=== PATIENT | female | born 1935 | race Caucasian/White ===

== ENCOUNTER 2021-10-01 19:35 | Inpatient (IN) ==
--- NOTE | 2021-10-01 20:43 | XRay Report ---
XR chest 1V portable HISTORY: 86 years-old Female SOB acute cough with shortness of breath COMPARISON: None TECHNIQUE: Portable AP view the chest FINDINGS: Cardiac silhouette is moderately enlarged. Calcified plaque the thoracic aorta. Moderate consolidatio n of the right lung base with probable trace right pleural effusion. No pneumothorax or overt pulmona ry edema. Degenerative changes of the shoulders and spine. Left atrial occlusion device. IMPRESSION: 1. Right basilar consolidation is suggestive of pneumonia. 2. Trace right parapneumonic effusion. 3. Cardiomegaly. ACT 112: Negative or not required by law. The above report was generated using voice recognition software. It may contain grammatical, syntax o r spelling errors. Electronically signed by: Walter Pedraza M.D. 10/01/2021 8:42 PM
[2021-10-01] MEDS ORDERED: cefTRIAXone SODIUM 1,000 MG/50 ML BAG IV STA (20:46)
[2021-10-01] MEDS ORDERED: AZITHROMYCIN 500 MG in DEXTROSE 5% 250 ML IV STA (20:46)
[2021-10-01 20:47] LABS: Basophils # (auto) 0.01 K/uL (0-0.2); Basophils % (auto) 0.1 %; Hemoglobin 13.8 g/dL (12.0-16.0); Immature Granulocytes # (auto) 0.03 K/uL (0.00-0.02); Immature Granulocytes % (auto) 0.2 %; Lymphocytes # (auto) 0.57 K/uL (1.2-3.4); Lymphocytes % (auto) 3.5 %; Mean Corpuscular Hemoglobin 31.9 pg (25-34); Mean Corpuscular Hgb Conc 34.5 g/dL (32-36); Mean Corpuscular Volume 92.4 fL (80-100); Mean Platelet Volume 10.1 fL (7.4-10.4); Monocytes # (auto) 0.92 K/uL (0.11-0.59); Monocytes % (auto) 5.6 %; Neutrophils # (auto) 14.91 K/uL (1.4-6.5); Neutrophils % (auto) 90.6 %; Platelet Count 253 K/uL (130-400); RDW Coefficient of Variation 13.1 % (11.5-14.5); RDW Standard Deviation 44.4 fL (36.4-46.3); Red Blood Count 4.33 M/uL (4.2-5.4); White Blood Count 16.44 K/uL (4.8-10.8)
[2021-10-01 21:03] LABS: INR 1.1 (0.9-1.1); Partial Thromboplastin Ratio 1.1; Partial Thromboplastin Time 28.5 Seconds (21.0-31.0); Prothrombin Time 10.7 Seconds (9.0-12.0)
[2021-10-01 21:19] LABS: Alanine Aminotransferase 23 U/L (12-78); Albumin Globulin Ratio 0.8 (0.9-2); Albumin Level 3.2 gm/dl (3.4-5.0); Alkaline Phosphatase 57 U/L (45-117); Aspartate Aminotransferase 19 U/L (15-37); BUN Creatinine Ratio 19.3 (10-20); Blood Urea Nitrogen 22 mg/dl (7-18); Calcium 8.9 mg/dl (8.5-10.1); Carbon Dioxide 26 mmol/L (21-32); Chloride 102 mmol/L (98-107); Est GFR (African American) 51.9 ml/min; Est GFR (Non-African American) 44.8 ml/min; Globulin 3.9 gm/dl (2.5-4.0); Glucose 163 mg/dl (70-99); Potassium 3.5 mmol/L (3.5-5.1); Sodium 136 mmol/L (136-145); Total Protein 7.1 gm/dl (6.4-8.2); Troponin I < 0.015 ng/ml (0-0.045)
--- NOTE | 2021-10-01 22:17 | Emergency Department Note ---
Impression & Plan Community acquired pneumonia, Hypoxic ED Provider Note NAME: BOBO JARAMILLO AGE: 86 SEX: F : 1935 ARRIVES VIA: Walk-In INFORMANT: Patient ED PROVIDER(S): Kun Fernandez DO CHIEF COMPLAINT: Shortness of breath cough HPI: Patient is an 86-year-old female who presents the ER for upper respiratory symptoms. This started 1 week ago. She has a cough which she is bringing up phlegm. She admits to a runny nose. She has some faint shortness of breath. She is been around multiple people that have been sick recently. She had a at home negative Covid test. She denies any chest pain belly pain nausea vomiting or diarrhea. No dysuria urgency or frequency. She did just recently moved here from [place]. No other exacerbating or remitting factors. ROS: See above HPI for pertinent positives & negatives. A total of 10 systems reviewed and were otherwise negative. PAST MEDICAL HISTORY:See Below PAST SURGICAL HISTORY:See Below FAMILY HISTORY:See Below SOCIAL HISTORY:See Below HOME MEDICATIONS:See Below ALLERGIES:See Below VITALS:See Below PHYSICAL EXAMINATION: GENERAL: Sitting up in bed, alert, disheveled, slightly ill-appearing EYE EXAM: normal conjunctiva. PERRL and EOM's grossly intact. OROPHARYNX: Dry mucous membranes NECK: supple, no nuchal rigidity, no adenopathy, non-tender LUNGS: Rhonchi bilateral bases. Normal chest wall mechanics HEART: no murmurs, S1 normal and S2 normal ABDOMEN: abdomen soft, non-tender, normo-active bowel sounds, no masses, no rebound or guarding. UPPER EXTREMITIES: upper extremities are grossly normal. LOWER EXTREMITIES: No pitting edema. Calves are equal bilateral NEURO EXAM: Normal sensorium, cranial nerves II-XII grossly intact, normal speech, no gross weakness of arms, no gross weakness of legs. MEDICAL DECISION MAKING: Patient is an 86-year-old female who presents ER for the above stated complaint. IV was established blood was obtained. Labs show leukocytosis 16,000. No significant anemia. INR was unremarkable. BMP with LFTs bilirubin and troponin was negative. Covid was negative. Chest x-ray with a clear right lower lobe infiltrate. She was given IV Rocephin and azithromycin. She was placed on 3 L nasal cannula she was hypoxic at 87% on room air. She is updated bedside discussed with hospitalist admitted for further work-up. Triage Nursing notes reviewed. Limited review of prior medical records performed Vital Signs: reviewed and remarkable for hypoxic Differential diagnosis: Differential diagnoses includes but is not limited to pneumonia, bronchitis, COPD/Asthma exacerbation, pneumothorax, pulmonary embolism, congestive heart failure, acute coronary syndrome ER treatment provided: See below Diagnostics interpreted by me: ECG: Atrial fib rate of 98 Left axis T wave inversion V1 through V5 Nonspecific ST wave changes in the high lateral leads QTC 469 Cardiac Monitoring: An order was placed for continuous cardiac monitoring. The monitor shows a rate of 92 with afib rhythm. Laboratory studies: As stated above and show below. Imaging studies: Chest x-ray shows a right lower lobe infiltrate Consultation(s): Discussed with hospitalist for further evaluation Dr. Sarika Vogel Procedures: none Critical Care: I have personally spent 35 minutes of critical care time in the direct management of this patient. This includes bedside care, interpretation of diagnostic studies, and testing, discussion with consultants, patient, and family members, and other required patient management activities. This 35 minutes is in excess of all separately billable procedures. Past Med/Surg History Social History Smoking Status: Never smoker Preferred Language: Dutch Feels Safe at Home: Yes Home Meds Home Medications Medication Instructions Recorded Confirmed carvedilol 12.5 mg tablet 12.5 mg PO BID 10/01/21 10/01/21 furosemide 40 mg tablet 40 mg PO UD 10/01/21 10/01/21 latanoprost 0.005 % eye drops 1 drp OPHTHALMIC (EYE) UD 10/01/21 10/01/21 levothyroxine 75 mcg tablet 75 mcg PO DAILYBB 10/01/21 10/01/21 sacubitril 97 mg-valsartan 103 mg 1 tab PO BID 10/01/21 10/01/21 tablet (Entresto) Results & Data (ED) Vital Signs Vital Signs - 24 hr 10/01/21 19:43 10/01/21 20:21 10/01/21 20:30 Temperature 36.7 C Temperature Source Temporal Artery Scan Pulse Rate 107 H 82 100 H Pulse Rate from SpO2 Sensor 98 H 102 H Respiratory Rate 22 29 H 31 H Respiratory Effort / Characteristics Non-Labored Spontaneous Respiratory Pattern Regular Blood Pressure 136/87 141/97 H Blood Pressure Mean 103 111 Blood Pressure Position Sitting Pulse Oximetry 91 96 95 Oxygen Delivery Method Room Air Oxygen Flow Rate Sepsis Recent Fever Within 48 Hours No Sepsis New/Unexplained Change in Mental Status N/A Sepsis Action Taken by Nursing No Action Required Pulse Oximetry Post Tiitration 10/01/21 20:36 10/01/21 21:00 10/01/21 21:30 Temperature Temperature Source Pulse Rate 94 H 88 Pulse Rate from SpO2 Sensor 96 H 92 H Respiratory Rate 27 H 18 Respiratory Effort / Characteristics Respiratory Pattern Blood Pressure 145/91 H 138/79 Blood Pressure Mean 109 98 Blood Pressure Position Pulse Oximetry 88 L 97 97 Oxygen Delivery Method Room Air Oxygen Flow Rate 3 Sepsis Recent Fever Within 48 Hours Sepsis New/Unexplained Change in Mental Status Sepsis Action Taken by Nursing Pulse Oximetry Post Tiitration 96 Laboratory Data Result diagrams: 10/01/21 Unknown 10/01/21 Unknown Lab Results 10/01/21 10/01/21 10/01/21 Range/Units 20:44 20:44 Unknown WBC 16.44 H (4.8-10.8) K/uL RBC 4.33 (4.2-5.4) M/uL Hgb 13.8 (12.0-16.0) g/dL Hct 40.0 (37-47) % MCV 92.4 (80-100) fL MCH 31.9 (25-34) pg MCHC 34.5 (32-36) g/dL RDW Std Deviation 44.4 (36.4-46.3) fL RDW Coeff of Chanel 13.1 (11.5-14.5) % Plt Count 253 (130-400) K/uL MPV 10.1 (7.4-10.4) fL Immature Gran % (Auto) 0.2 % Neut % (Auto) 90.6 % Lymph % (Auto) 3.5 % Bandera % (Auto) 5.6 % Eos % (Auto) 0.0 % Baso % (Auto) 0.1 % Neut # (Auto) 14.91 H (1.4-6.5) K/uL Lymph # (Auto) 0.57 L (1.2-3.4) K/uL Bandera # (Auto) 0.92 H (0.11-0.59) K/uL Eos # (Auto) 0.00 (0-0.5) K/uL Baso # (Auto) 0.01 (0-0.2) K/uL Immature Gran # (Auto) 0.03 H (0.00-0.02) K/uL PT (9.0-12.0) Seconds INR (0.9-1.1) APTT (21.0-31.0) Seconds PTT Ratio Sodium (136-145) mmol/L Potassium (3.5-5.1) mmol/L Chloride (98-107) mmol/L Carbon Dioxide (21-32) mmol/L Anion Gap (3-11) BUN (7-18) mg/dl Creatinine (0.6-1.2) mg/dl Est Cr Clr Drug Dosing Est GFR ( Amer) ml/min Est GFR (Non-Af Amer) ml/min BUN/Creatinine Ratio (10-20) Glucose (70-99) mg/dl Calcium (8.5-10.1) mg/dl Magnesium (1.8-2.4) mg/dl Total Bilirubin (0.2-1) mg/dl AST (15-37) U/L ALT (12-78) U/L Alkaline Phosphatase (45-117) U/L Troponin I (0-0.045) ng/ml Total Protein (6.4-8.2) gm/dl Albumin (3.4-5.0) gm/dl Globulin (2.5-4.0) gm/dl Albumin/Globulin Ratio (0.9-2) COVID-19 Eval Order Covid19 at [facility] SARS-CoV-2 (PCR) NEGATIVE (Negative) 10/01/21 10/01/21 Range/Units Unknown Unknown WBC (4.8-10.8) K/uL RBC (4.2-5.4) M/uL Hgb (12.0-16.0) g/dL Hct (37-47) % MCV (80-100) fL MCH (25-34) pg MCHC (32-36) g/dL RDW Std Deviation (36.4-46.3) fL RDW Coeff of Chanel (11.5-14.5) % Plt Count (130-400) K/uL MPV (7.4-10.4) fL Immature Gran % (Auto) % Neut % (Auto) % Lymph % (Auto) % Bandera % (Auto) % Eos % (Auto) % Baso % (Auto) % Neut # (Auto) (1.4-6.5) K/uL Lymph # (Auto) (1.2-3.4) K/uL Bandera # (Auto) (0.11-0.59) K/uL Eos # (Auto) (0-0.5) K/uL Baso # (Auto) (0-0.2) K/uL Immature Gran # (Auto) (0.00-0.02) K/uL PT 10.7 (9.0-12.0) Seconds INR 1.1 (0.9-1.1) APTT 28.5 (21.0-31.0) Seconds PTT Ratio 1.1 Sodium 136 (136-145) mmol/L Potassium 3.5 (3.5-5.1) mmol/L Chloride 102 (98-107) mmol/L Carbon Dioxide 26 (21-32) mmol/L Anion Gap 8.0 (3-11) BUN 22 H (7-18) mg/dl Creatinine 1.12 (0.6-1.2) mg/dl Est Cr Clr Drug Dosing Not Reportable Est GFR ( Amer) 51.9 ml/min Est GFR (Non-Af Amer) 44.8 ml/min BUN/Creatinine Ratio 19.3 (10-20) Glucose 163 H (70-99) mg/dl Calcium 8.9 (8.5-10.1) mg/dl Magnesium 2.0 (1.8-2.4) mg/dl Total Bilirubin 1.0 (0.2-1) mg/dl AST 19 (15-37) U/L ALT 23 (12-78) U/L Alkaline Phosphatase 57 (45-117) U/L Troponin I < 0.015 (0-0.045) ng/ml Total Protein 7.1 (6.4-8.2) gm/dl Albumin 3.2 L (3.4-5.0) gm/dl Globulin 3.9 (2.5-4.0) gm/dl Albumin/Globulin Ratio 0.8 L (0.9-2) COVID-19 Eval Order SARS-CoV-2 (PCR) (Negative) Administered Medications Azithromycin 500 mg/ Dextrose 255 mls @ 127.5 mls/hr IV NOW STA Stop: 10/01/21 22:45 Last Admin: 10/01/21 21:36 Dose: 127.5 mls/hr Documented by: [id number] Discontinued Medications Ceftriaxone Sodium (Rocephin) 1,000 mg in 50 mls @ 100 mls/hr IV NOW STA Stop: 10/01/21 21:15 Last Infusion: 10/01/21 21:36 Dose: 0 mls/hr Documented by: [id number] Admin: 10/01/21 21:04 Dose: 100 mls/hr Documented by: [id number] Imaging Data Radiologist's Impression: Chest X-Ray 10/01/21 19:49 XR chest 1V portable HISTORY: 86 years-old Female SOB acute cough with shortness of breath COMPARISON: None TECHNIQUE: Portable AP view the chest FINDINGS: Cardiac silhouette is moderately enlarged. Calcified plaque the thoracic aorta. Moderate consolidation of the right lung base with probable trace right pleural effusion. No pneumothorax or overt pulmonary edema. Degenerative changes of the shoulders and spine. Left atrial occlusion device. IMPRESSION: 1. Right basilar consolidation is suggestive of pneumonia. 2. Trace right parapneumonic effusion. 3. Cardiomegaly. ACT 112: Negative or not required by law. The above report was generated using voice recognition software. It may contain grammatical, syntax or spelling errors. Electronically signed by: Walter Pedraza M.D. 10/01/2021 8:42 PM Discharge Plan Visit Data Chief Complaint: Respiratory Problems Stated Complaint: RESPIRATORY INFECTION ED Provider: Kun Fernandez Discharge Problem: Community acquired pneumonia, Hypoxic Forms Stand Alone Forms: My [facility] Prescriptions Prescriptions: No Action furosemide 40 mg tablet 40 mg PO UD RF: 0 latanoprost 0.005 % drops 1 drp ophthalmic (eye) UD RF: 0 carvedilol 12.5 mg tablet 12.5 mg PO BID RF: 0 levothyroxine 75 mcg tablet 75 mcg PO DAILYBB RF: 0 Entresto 97-103 mg tablet 1 tab PO BID RF: 0 Referrals Referrals: Hayley Roland MD [Primary Care Provider] -
--- NOTE | 2021-10-01 22:21 | History & Physical Report ---
Date of Service October 01, 2021 Assessment & Plan (1) Community acquired pneumonia: Plan: Mrs. Crowley is an 86 yo woman who came in for evaluation of weakness, dyspnea and productive cough. - CXR showing a R basilar consolidation concerning for PNA along with an a ssociated effusion - Curb 65 score of 2, moderate risk. PSI score of 95, class IV risk, hospitalization recommended - suspect CAP as she has no risk factors for HCAP. - SIRS criteria not met on admission, patient not septic. Lactate ordered - continue IV azithromycin 500mg for 3 days + ceftriaxone 1g daily. Consider transitioning to amoxicillin 1g TID upon discharge - duonebs prn, mucinex - trend CBC - supplemental oxygen as needed - recommend patient have a repeat CXR as an outpatient to assess for resolution of parapneumonic effusion (2) Atrial fibrillation: Plan: - not in RVR - not on anticoagulation but s/p watchmen procedure - continue home beta sherrill for rate control (3) CHF (congestive heart failure): Plan: - continue home Entresto, beta sherrill, lasix - I will check a BNP on admission given pleural effusion on CXR, although I suspect it is secondary to same sided PNA rather than CHF (4) Hypoalbuminemia: Plan: - albumin 3.2 on admission - check a pre-albumin in AM - patient may benefit from beginning a BOOST supplement daily (5) Elevated BUN: Plan: - BUN mildly elevated to 22 - 1 liter of NSS with Kcl ordered - repeat BMP in am (6) Hypothyroidism: Plan: - continue home dose of levothyroxine DVT ppx: Lovenox ordered qam Diet: Heart healthy Dispo: Med/tele. PT/OT ordered Code: Full, I discussed with patient History of Present Illness Primary Care Provider: Hayley Roland MD Mrs. Crowley is an 86 yo woman with a PMHx of CHF and atrial fibrillation who came in for evaluation of weakness, SOB and productive cough of ~ one week duration. She denies any fevers/chills, sore throat, diarrhea. She had one episode of emesis earlier today. She took a home covid 19 test a day ago and it was negative. She has been fully vaccinated against covid. She denies any history of underlying lung disease. Social Hx: She smoked at age 18, never since. Drinks 1 glass of wine per night. Lives at home - not in a nursing facility. She recently relocated to [facility] from [place] within the past few months. She has a PMHx of atrial fibrillation - she is not on anticoagulation but she did have a watchmen procedure. She had a "heart event" a year ago while when she still lived in [place] - apparently an echo was done at the time and showed an EF of ~25%; she denies any heart attack, and reports heart "got better" in the subsequent months. When asked if the term "Takotsubo cardiomyopathy" was ever used to describe her condition, she denied that it sounded familiar. She also takes a daily baby ASA, Entresto, a beta sherrill and lasix. In the ED, she was afebrile with a HR 88 bpm, BP of 138/79, RR 18 and O2 sat of 88% room air; improved to 97% on 3L via NC. Her WBC was elevated to 16.4 with neutrophil predom. Coags WNL. Trop undetectable. COVID 19 neg. CXR showing a right basilar consolidation suggestive of a lobar PNA; trace right parapneumonic effusion present. She was given a dose of azithromycin and ceftriaxone. Allergies Allergy/AdvReac Type Severity Reaction Status Date / Time No Known Allergies Allergy Unverified 10/01/21 22:17 Home Medications Medication Instructions Recorded Confirmed Type carvedilol 12.5 mg tablet 12.5 mg PO BID 10/01/21 10/01/21 History cholecalciferol (vitamin D3) 25 25 mcg PO QAM 10/01/21 10/01/21 History mcg (1,000 unit) tablet (Vitamin D3) cyanocobalamin (vitamin B-12) 1,000 mcg PO QAM 10/01/21 10/01/21 History 1,000 mcg tablet (Vitamin B-12) furosemide 40 mg tablet 20 mg PO QAM 10/01/21 10/01/21 History latanoprost 0.005 % eye drops 1 drp OPB QPM 10/01/21 10/01/21 History levothyroxine 75 mcg tablet 75 mcg PO DAILYBB 10/01/21 10/01/21 History sacubitril 97 mg-valsartan 103 mg 1 tab PO BID 10/01/21 10/01/21 History tablet (Entresto) Past Med/Surg History Social History Smoking Status: Former smoker Second Hand Exposure: No; Hx Alcohol Use: Yes Alcohol type: wine Hx Substance Use: No Preferred Language: Romanian Communication Ability: Effective Skeins Yarn Examiner Required: No Beliefs That Will Affect Care: None marital status: Current Living Situation: Family Current Living Situation Comment: lives with son How many Children do You have: 1 Other Information That Helps Us Care for You: No Feels Safe at Home: Yes Safety Concerns: Feels Safe At This Time Assistive Devices: None Review of Systems Review of Systems: All systems reviewed & are unremarkable except as noted in HPI & below Physical Exam Constitutional: WD/WN, vitals as above + frail appearing and cooperative; no acute distress Eyes: + anicteric sclerae ENMT: external ear and nose normal, oropharynx normal Neck: trachea midline Respiratory: normal respiratory effort and + cough; no respiratory distress and no labored breathing Auscultation: + wheezes (expiratory b/l bases) Cardiovascular: Rate/Rhythm: regular rate and regular rhythm Heart Sounds: normal S1, normal S2 and + murmur (systolic ejection murmur ) Extremities: no pedal edema Gastrointestinal (Abdomen): normal bowel sounds, soft, nontender, no hepatosplenomegaly Musculoskeletal: Head/Neck/Chest: normocephalic and head atraumatic Skin: no rashes, warm and dry Neurologic: moves all extremities Psychiatric: A+Ox3, euthymic affect Results & Data Results & Data ([facility]) Vital Signs (Past 12 Hours) Vital Signs Temp Pulse Resp BP Pulse Ox 10/01/21 21:30 88 18 138/79 97 10/01/21 21:00 94 H 27 H 145/91 H 97 10/01/21 20:36 88 L 10/01/21 20:30 100 H 31 H 141/97 H 95 10/01/21 20:21 82 29 H 96 10/01/21 19:43 36.7 C 107 H 22 136/87 91 Supervising Physician Co-Signing Physician Notes Patient seen and examined, chart reviewed, case discussed with Dr. Rueda and I agree with her assessment and plan as documented above. In brief, patient is an 86yo female presenting with CAP. She is afebrile, HD stable, saturations adequate on room air with no respiratory distress. Gen - nontoxic in appearance, sitting comfortably in bed Skin - warm, dry, intact, no rashes/lesions HEENT - NC/AT, PERRL, MMM, Neck supple Heart - +S1/S2, regular, no m/r/g Lungs - +crackles in bilateral bases, no wheeze Abd- +BS, soft, NT/ND Ext - warm, well perfused, no clubbing/cyanosis or edema Labs and images reviewed. WBC=16.44, elevated Neutrophils, reduced lymphocytes Covid NEGATIVE CXR with right basilar consolidation with trace parapneumonic effusion Assessment/Plan -CAP - afebrile, HD stable, no respiratory distress. Patient's age place her at moderate risk. Will cover with Azithromycin/Ceftriaxone -Repeat CXR outpatient to ensure resolution of PNA and effusion -Remainder of plan as above Resident Activity Tracking Resident Involvement: Resident Care Provided Care Provided: Adult Hospital Medicine (1) Community acquired pneumonia Laterality: right Lung location: lower lobe of lung Qualified Code(s): J18.9 - Pneumonia, unspecified organism
[2021-10-02] MEDS ORDERED: POLYETHYLENE (MIRALAX) 17 GM PACK PO PRN (00:27)
[2021-10-02] MEDS ORDERED: ACETAMINOPHEN 325 MG TAB PO PRN (00:27)
[2021-10-02] MEDS ORDERED: ALBUT/IPRATROP 3MG/0.5MG NEB 3 ML VIAL NEB PRN (00:27)
[2021-10-02] MEDS ORDERED: ONDANSETRON INJ 2 MG/ML 2 ML VIAL IV PRN (00:27)
[2021-10-02] MEDS ORDERED: MELATONIN 3 MG TAB PO PRN (00:30)
[2021-10-02 00:46] LABS: NT Pro B Type Natriuretic Pept 6889 pg/ml (0-1800)
[2021-10-02] MEDS ORDERED: NSS + 20MEQ KCL 20 MEQ/1,000 ML BAG IV SCH (01:15)
[2021-10-02] MEDS: LEVOTHYROXINE SODIUM 75 MCG TABLET PO SCH (05:58)
--- NOTE | 2021-10-02 07:02 | Billing Data ---
Date of Service October 01, 2021 Coding Level of Care Code 12267 Initial Inpt Care Lvl 3
[2021-10-02] MEDS: guaiFENesin 600 MG TABCR PO SCH ×2 (07:47→20:00)
[2021-10-02] MEDS: VALSARTAN/SACUBITRIL 103/97MG TAB PO SCH ×2 (07:48→20:00)
[2021-10-02] MEDS: FUROSEMIDE 20 MG TAB PO SCH (07:48)
[2021-10-02] MEDS: ENOXAPARIN INJ 40 MG/0.4 ML SYR SQ SCH (07:48)
[2021-10-02 08:40] LABS: Basophils # (auto) 0.01 K/uL (0-0.2); Basophils % (auto) 0.1 %; Eosinophils # (auto) 0.01 K/uL (0-0.5); Eosinophils % (auto) 0.1 %; Hemoglobin 12.9 g/dL (12.0-16.0); Immature Granulocytes # (auto) 0.04 K/uL (0.00-0.02); Immature Granulocytes % (auto) 0.3 %; Lymphocytes # (auto) 0.65 K/uL (1.2-3.4); Lymphocytes % (auto) 4.8 %; Mean Corpuscular Hemoglobin 32.3 pg (25-34); Mean Corpuscular Hgb Conc 34.9 g/dL (32-36); Mean Corpuscular Volume 92.5 fL (80-100); Mean Platelet Volume 9.6 fL (7.4-10.4); Monocytes # (auto) 0.61 K/uL (0.11-0.59); Monocytes % (auto) 4.5 %; Neutrophils # (auto) 12.34 K/uL (1.4-6.5); Neutrophils % (auto) 90.2 %; Platelet Count 232 K/uL (130-400); RDW Coefficient of Variation 13.3 % (11.5-14.5); White Blood Count 13.66 K/uL (4.8-10.8)
[2021-10-02 09:54] LABS: Calcium 8.1 mg/dl (8.5-10.1); Creatinine Clr Calc Pharmacy 62.6 ml/min; Est GFR (African American) 88.5 ml/min; Est GFR (Non-African American) 76.4 ml/min; Potassium 3.4 mmol/L (3.5-5.1); Prealbumin 13.2 mg/dl (20-40)
--- NOTE | 2021-10-02 10:08 | Electrocardiogram Report ---
Test Reason : Blood Pressure : / mmHG Vent. Rate : 098 BPM Atrial Rate : 107 BPM P-R Int : 000 ms QRS Dur : 090 ms QT Int : 368 ms P-R-T Axes : 000 -62 068 degrees QTc Int : 469 ms Atrial fibrillation Left anterior fascicular block Nonspecific T wave abnormality Abnormal ECG No previous ECGs available Confirmed by Zhou Dominguez ([id number]) on 10/02/2021 10:08:30 AM Referred By: REFERRED SELF Confirmed By:Zhou Dominguez
--- NOTE | 2021-10-02 11:23 | Hospitalist Progress Note ---
Date of Service October 02, 2021 Assessment & Plan (1) Community acquired pneumonia: Plan: Mrs. Crowley is an 86 yo woman who came in for evaluation of weakness, dyspnea and productive cough. Pneumonia -CXR- R basilar consolidation with parapneumonic effusion -Hemodynamically stable, afebrile and lack of sepsis on admission. Spiked fever to 37.9 C today but lowered to 37.2 C and afebrile since. -Continue IV Ceftriaxone and Azithromycin, duonebs and guaifenesin PRN -O2% saturation above 90+ on RA currently without any respiratory distress -Good clinical improvement thus far, WBC downtrending -Likely d/c tomorrow in AM on 7 day course of Augmentin -Repeat CXR at outpatient f/u to assess resolution of parapneumonic effusion (2) Atrial fibrillation: Plan: - Currently rate controlled on home carvedilol 12.5 mg BID - S/p watchman procedure, not on anticoagulation (3) CHF (congestive heart failure): Plan: - Continue home Entresto, Coreg, lasix - Restrict fluid and salt intake (4) Hypoalbuminemia: Plan: - Albumin 3.2 on admission - Likely to improve with nutrition (5) Elevated BUN: Plan: - BUN mildly elevated to 22 - 1 liter of NSS with Kcl ordered - Trend BMP (6) Hypothyroidism: Plan: - Continue home levothyroxine DVT ppx: Lovenox 40 mg qAM Diet: Heart healthy, low salt Dispo: Med/tele. PT/OT ordered Code: Full, I discussed with patient Admission and Anticipated Discharge Date Admission Date: October 01, 2021 Supervising Physician Co-Signing Physician Notes Attending attestation Pt seen and examined in concert with Dr. Davis. In agreement with the documented findings as noted in the resident documentation with any exceptions or additions as noted here. Gradual improvement in SOB at rest and general malaise/fatigue, though still co nsiderably short of baseline. Appetite is down, especially off O2. On examination, S1/S2 nl RRR no MCG. Decreased BS at the bases with audible R sided rales. Abd NT/ND BS+ve CAP w/o sepsis, high risk by PSI - responding well to IV abx - O2 PRN, encourage O2 use with sleep and eating if needed. Reviewed course of illness, expectations. Else see resident documentation as noted. Subjective Pt feeling significantly better today, denies any dyspnea or respiratory distress overnight. Still endorsing productive cough. Tolerating PO well. Review of Systems Review of Systems: +Cough Physical Exam Constitutional: WD/WN, vitals as above + frail appearing and cooperative; no acute distress Eyes: + anicteric sclerae Neck: trachea midline Respiratory: normal respiratory effort and + cough; no respiratory distress and no labored breathing Coarse breath sounds bilaterally at bases R > L Cardiovascular: RRR, no murmur, no edema Rate/Rhythm: regular rate and regular rhythm Heart Sounds: normal S1 and normal S2 Extremities: no pedal edema Results & Data Results & Data ([facility]) Vital Signs (Past 12 Hours) Vital Signs Temp Pulse Pulse Resp BP BP Pulse Ox 10/02/21 11:04 37.2 C 75 18 134/82 93 10/02/21 10:25 10/02/21 07:45 37.9 C H 100 H 18 134/82 91 10/02/21 00:52 94 H 10/02/21 00:41 37.5 C 18 152/97 H 95 10/01/21 23:30 23 142/89 H 98 Pulse Ox 10/02/21 11:04 10/02/21 10:25 92 10/02/21 07:45 10/02/21 00:52 10/02/21 00:41 10/01/21 23:30 Resident Activity Tracking Resident Involvement: Resident Care Provided Care Provided: Adult Hospital Medicine (1) Community acquired pneumonia Laterality: right Lung location: lower lobe of lung Qualified Code(s): J18.9 - Pneumonia, unspecified organism
[2021-10-02] MEDS ORDERED: LATANOPROST 0.005% OP SOLN 2.5 ML BTL OPB SCH (21:00)
[2021-10-02] MEDS ORDERED: cefTRIAXone SODIUM 1,000 MG in DEXTROSE 5% 50 ML IV SCH (21:00)
[2021-10-02] MEDS ORDERED: AZITHROMYCIN 500 MG in DEXTROSE 5% 250 ML IV SCH (21:00)
[2021-10-03] MEDS: LEVOTHYROXINE SODIUM 75 MCG TABLET PO SCH (05:44)
[2021-10-03 06:03] LABS: Hematocrit (blood only) 35.2 % (37-47); Mean Corpuscular Hemoglobin 31.5 pg (25-34); Mean Corpuscular Hgb Conc 34.1 g/dL (32-36); Mean Corpuscular Volume 92.4 fL (80-100); Mean Platelet Volume 10.2 fL (7.4-10.4); Platelet Count 226 K/uL (130-400); RDW Coefficient of Variation 13.3 % (11.5-14.5); RDW Standard Deviation 44.7 fL (36.4-46.3); Red Blood Count 3.81 M/uL (4.2-5.4); White Blood Count 11.49 K/uL (4.8-10.8)
[2021-10-03 06:40] LABS: Calcium 8.3 mg/dl (8.5-10.1); Creatinine Clr Calc Pharmacy 75.8 ml/min; Est GFR (African American) 96.3 ml/min; Est GFR (Non-African American) 83.1 ml/min
--- NOTE | 2021-10-03 07:31 | Hospitalist Progress Note ---
Date of Service October 03, 2021 Assessment & Plan (1) Community acquired pneumonia: Plan: Mrs. Crowley is an 86 yo woman who came in for evaluation of weakness, dyspnea and productive cough. Pneumonia -CXR- R basilar consolidation with parapneumonic effusion -Hemodynamically stable, afebrile and lack of sepsis on admission. Spiked fever to 37.9 C today but lowered to 37.2 C and afebrile since. -Continue IV Ceftriaxone and Azithromycin, duonebs and guaifenesin PRN -O2% saturation above 90+ on RA currently without any respiratory distress -Good clinical improvement thus far, WBC downtrending -Likely d/c tomorrow in AM on 7 day course of Augmentin -Repeat CXR at outpatient f/u to assess resolution of parapneumonic effusion (2) Atrial fibrillation: Plan: - Currently rate controlled on home carvedilol 12.5 mg BID - S/p watchman procedure, not on anticoagulation (3) CHF (congestive heart failure): Plan: - Continue home Entresto, Coreg, lasix - Restrict fluid and salt intake (4) Hypoalbuminemia: Plan: - Albumin 3.2 on admission - Likely to improve with nutrition (5) Elevated BUN: Plan: - BUN mildly elevated to 22 - 1 liter of NSS with Kcl ordered - Trend BMP (6) Hypothyroidism: Plan: - Continue home levothyroxine DVT ppx: Lovenox 40 mg qAM Diet: Heart healthy, low salt Dispo: Med/tele. PT/OT ordered Code: Full, I discussed with patient Admission and Anticipated Discharge Date Admission Date: October 01, 2021 Ryley Painting is an 86-year-old woman who presented to the hospital with a chief complaint of shortness of breath, weakness, and productive cough, found to have right basilar consolidation consistent with pneumonia. Currently on IV ceftriaxone and azithromycin. Today, Results & Data Results & Data ([facility]) Vital Signs (Past 12 Hours) Vital Signs Temp Pulse Resp BP Pulse Ox 10/03/21 07:01 37 C 98 H 18 150/81 H 98 10/03/21 03:33 36.9 C 91 H 18 143/82 H 95 10/02/21 22:56 37.9 C H 107 H 18 132/88 93 10/02/21 19:53 37.0 C 113 H 20 155/79 H 92 (1) Community acquired pneumonia Laterality: right Lung location: lower lobe of lung Qualified Code(s): J18.9 - Pneumonia, unspecified organism
[2021-10-03] MEDS: ENOXAPARIN INJ 40 MG/0.4 ML SYR SQ SCH (07:50)
[2021-10-03] MEDS: VALSARTAN/SACUBITRIL 103/97MG TAB PO SCH (07:50)
[2021-10-03] MEDS: FUROSEMIDE 20 MG TAB PO SCH (07:50)
[2021-10-03] MEDS: guaiFENesin 600 MG TABCR PO SCH (07:50)
[2021-10-03] MEDS: POTASSIUM CHLORIDE / WTR 10 MEQ/100 ML PLCT IV SCH ×4 (11:55→15:06)
--- NOTE | 2021-10-03 15:11 | Discharge Summary ---
Date of Service October 03, 2021 Admission HPI Per Admitting Provider Mrs. Crowley is an 86 yo woman with a PMHx of CHF and atrial fibrillation who came in for evaluation of weakness, SOB and productive cough of ~ one week duration. She denies any fevers/chills, sore throat, diarrhea. She had one episode of emesis earlier today. She took a home covid 19 test a day ago and it was negative. She has been fully vaccinated against covid. She denies any history of underlying lung disease. Social Hx: She smoked at age 18, never since. Drinks 1 glass of wine per night. Lives at home - not in a nursing facility. She recently relocated to [facility] [place] from [place] within the past few months. She has a PMHx of atrial fibrillation - she is not on anticoagulation but she did have a watchmen procedure. She had a "heart event" a year ago while when she still lived in [place] - apparently an echo was done at the time and showed an EF of ~25%; she denies any heart attack, and reports heart "got better" in the subsequent months. When asked if the term "Takotsubo cardiomyopathy" was ever used to describe her condition, she denied that it sounded familiar. She also takes a daily baby ASA, Entresto, a beta sherrill and lasix. In the ED, she was afebrile with a HR 88 bpm, BP of 138/79, RR 18 and O2 sat of 88% room air; improved to 97% on 3L via NC. Her WBC was elevated to 16.4 with neutrophil predom. Coags WNL. Trop undetectable. COVID 19 neg. CXR showing a right basilar consolidation suggestive of a lobar PNA; trace right parapneumonic effusion present. She was given a dose of azithromycin and ceftriaxone. Admission Exam Per Admitting Provider Constitutional: WD/WN, vitals as above + frail appearing and cooperative; no acute distress Eyes: + anicteric sclerae ENMT: external ear and nose normal, oropharynx normal Neck: trachea midline Respiratory: normal respiratory effort and + cough; no respiratory distress and no labored breathing Auscultation: + wheezes (expiratory b/l bases) Cardiovascular: Rate/Rhythm: regular rate and regular rhythm Heart Sounds: normal S1, normal S2 and + murmur (systolic ejection murmur ) Extremities: no pedal edema Gastrointestinal (Abdomen): normal bowel sounds, soft, nontender, no hepatosplenomegaly Musculoskeletal: Head/Neck/Chest: normocephalic and head atraumatic Skin: no rashes, warm and dry Neurologic: moves all extremities Psychiatric: A+Ox3, euthymic affect Principal Diagnosis Pneumonia Discharge Exam Constitutional WD/WN, vitals as above Respiratory normal respiratory effort, + cough (Phlegmy) and able to speak in complete sentences; no audible wheezes and no stridor Auscultation: lungs clear to auscultation bilaterally Cardiovascular Rate/Rhythm: regular rhythm and + tachycardic Gastrointestinal (Abdomen) normal bowel sounds, soft, nontender, no hepatosplenomegaly Discharge Data Allergies Allergy/AdvReac Type Severity Reaction Status Date / Time No Known Allergies Allergy Unverified 10/01/21 22:17 Consultations 10/01/21 23:52 ED Decision to Admit Stat Hospital Course (1) Community acquired pneumonia: Mrs. Crowley is an 86 yo woman who came in for evaluation of weakness, dyspnea and productive cough. -CXR- R basilar consolidation with parapneumonic effusion -Hemodynamically stable, afebrile and lack of sepsis on admission. Spiked fever to 37.9 C yesterday but lowered to 37.2 C and afebrile since. -IV Ceftriaxone and Azithromycin, duonebs and guaifenesin PRN -O2% saturation above 90+ on RA currently without any respiratory distress -Good clinical improvement thus far, WBC downtrending -Discharge today on 7 day course of Augmentin -Repeat CXR at outpatient f/u to assess resolution of parapneumonic effusion (2) Atrial fibrillation: - Currently rate controlled on home carvedilol 12.5 mg BID - S/p watchman procedure, not on anticoagulation (3) CHF (congestive heart failure): - Continue home Entresto, Coreg, lasix - Restrict fluid and salt intake (4) Hypoalbuminemia: - Albumin 3.2 on admission - Likely improved with nutrition (5) Elevated BUN: - BUN mildly elevated to 22 - 1 liter of NSS with Kcl ordered - Trend BMP (6) Hypothyroidism: - Continue home levothyroxine DVT ppx: Lovenox 40 mg qAM Diet: Heart healthy, low salt Dispo: Med/tele. PT/OT ordered Code: Full, I discussed with patient Total Time Total Time Spent Total Time Spent (In Minutes): 20 Discharge Plan Discharge Items Patient Disposition: Home - Self-Care Reason For Visit: PNEUMONIA Discharge Diagnosis: Pneumonia Activity: Per Instructions section Non-emergency contact: Primary Care Provider Call non-emergency contact if: you have any medication questions and your temperature is above 101.5 Follow-up/Referrals: Hayley Roland MD [Primary Care Provider] - Diet: Regular Addtl Attending Provider Instructions: You were admitted to the hospital for pneumonia. You were treated with intravenous antibiotics and electrolytes. A discharge summary will be sent to your primary care physician to ensure continuity of care. Please bring this discharge summary with you to your next office appointment so that your provider can review it at that time. Follow-up appointments: Make a follow-up appointment with your PCP within the next week. It is very important that you follow up with them shortly after discharge from the hospital. Keep all your follow-up appointments as already scheduled. If you cannot make an appointment, notify your provider. Medications: Your medication list has been reviewed and reconciled upon discharge to ensure accuracy and continuity of care. An updated list of all your medications is included with your hospital discharge paperwork. Please review this list closely, and make note of any changes. * We have started you on amoxicillin 1000 mg 3 times daily for 5 days. * We have started you on doxycycline 100 mg twice daily for 5 days. * We recommend that you start using [id number] Flonase, as needed for chest tightness. Take your medications as instructed; do not skip a dose of your medicines. Make sure all of your doctors know every medicine you are taking (including rntt-axl-[id number] medicines, vitamins, and supplements). Call your primary care provider before taking any new medicines (including hyum-jea-fpuutmp medicines, vitamins, and supplements), because some of these may interact with your current medications, or may make your symptoms worse. Tell your primary care provider if you cannot afford your medications. CONTACT YOUR PRIMARY CARE PROVIDER if you experience any of the following: Shortness of breath Fever Difficulty following your treatment plan, or difficulty taking medications CALL 911 OR GO TO THE EMERGENCY DEPARTMENT if you experience any of the followi ng: Sudden, severe abdominal pain or nausea/vomiting Severe chest pain, or chest pain that radiates (moves) to your jaw or arm Sudden, severe shortness of breath or difficulty breathing Thank you for allowing us to participate in your care. Pending Studies at Discharge: No Stand-Alone Forms: My [facility], Smoking Cessation Medications and DC Order Prescriptions: New amoxicillin 500 mg Capsule 1,000 mg PO TID 5 Days Qty: 30 RF: 0 doxycycline hyclate 100 mg Capsule 100 mg PO BID 5 Days Qty: 10 RF: 0 Continued furosemide 40 mg tablet 20 mg PO QAM RF: 0 latanoprost 0.005 % drops 1 drp OPB QPM RF: 0 carvedilol 12.5 mg tablet 12.5 mg PO BID RF: 0 levothyroxine 75 mcg tablet 75 mcg PO DAILYBB RF: 0 Entresto 97-103 mg tablet 1 tab PO BID RF: 0 cyanocobalamin (vitamin B-12) [Vitamin B-12] 1,000 mcg Tablet 1,000 mcg PO QAM RF: 0 cholecalciferol (vitamin D3) [Vitamin D3] 25 mcg (1,000 unit) Tablet 25 mcg PO QAM RF: 0 Discharge Orders: Discharge Order (Routine); Ordered 10/03/21 Ordered By: Gabriel Betts Admission Data Admit Date/Time: 10/01/21 22:10 Attending Provider: Sy Roberts Admit Provider: Erika Rueda Primary Care Provider: Hayley Roland Other Providers: Delia Vogel Supervising Physician Co-Signing Physician Notes Attending attestation Pt seen and examined in concert with Dr. Macdonald. In agreement with the documented findings as noted in the resident documentation with any exceptions or additions as noted here. Continued improvement in SOB and cough and ambulation short distances without difficulty. Appetite decreased but POI stable. On examination, S1/S2 nl RRR no MCG. Decreased BS at the bases with audible R sided rales which have improved. Abd NT/ND BS+ve CAP w/o sepsis, high risk by PSI - Transition to PO amoxicillin and doxy to complete the courses for atypical and CAP coverage. Else see resident documentation as noted. Total attending time spent on this case on the day of discharge: 40 minutes. Resident Activity Tracking Resident Involvement: Resident Care Provided Care Provided: Adult Hospital Medicine
[2021-10-03] MEDS ORDERED: AMOXICILLIN 500 MG CAP PO SCH (15:20)
[2021-10-03] MEDS ORDERED: DOXYCYCLINE HYCLATE 100 MG CAP PO SCH (15:25)
--- NOTE | 2021-10-11 07:49 | Coding Query ---
CONGESTIVE HEART FAILURE To Promote full compliance with coding requirements relating to patient care, physician participation is requested in all cases of supervisor shearing uncertainty. Please assist us with the following questions. A diagnosis of Congestive Heart Failure is documented in the patient's medical record. To accurately code this diagnosis and to compare patient severity, we ask that you specify the type of heart failure by placing an X within the parenthesis (x). Thank you . 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 Please check the appropriate box: () Present on Admission ( ) Not Present On Admission (x) Clinically undetermined MTDD
== END 2021-10-03 18:20 | disposition home or self-care (01) | DRG 193 ==
LOC: ED 19:35 → 2N 22:10 → SUATTDRO 22:10 → 2N 23:46

== ENCOUNTER 2021-10-12 09:39 | Inpatient (IN) ==
--- NOTE | 2021-10-12 10:29 | Emergency Department Note ---
Impression & Plan Community acquired pneumonia, Atrial fibrillation, CHF (congestive heart failure) ED Provider Note NAME: BOBO JARAMILLO AGE: 86 SEX: F : 1935 ARRIVES VIA: Walk-In INFORMANT: Patient, ED PROVIDER(S): Kash Mclaughlin MD Chief Complaint: Shortness of breath, cough HPI: Patient does present for the above symptoms and states that this is been ongoing for the last several days shortly after finishing her course of antibiotics after recent admission for pneumonia. Patient does have a known history of A. fib status post watchman procedure and does not use anticoagulant medication. She follows with Dr. Post at [facility]. Patient does complain of some exertional dyspnea. The patient denies orthopnea or lower extremity swelling or weight gain. Patient has no prior history of DVT or PE. Patient states that she essentially had no symptoms up until about 2 years ago when she was diagnosed with heart failure but seem to improve very well. Patient is vaccinated for Covid. The patient has not had her flu shot yet. Patient states that the cough is occasionally productive but primarily nonproductive. Patient is a non-smoker. Patient symptoms have gotten progressively worse over the last several days and is presents with family member who is concerned about her symptoms as well. ROS: See HPI for pertinent positives and negatives. A total of 10 systems were reviewed and otherwise negative. Past medical history: See below Surgical history: See below Social history: See below Physical Exam: GENERAL: NAD, wearing a mask, non-toxic. EYE EXAM: Normal conjunctiva. PERRL, no anisocoria and EOM's grossly intact w/o pain. NECK: Supple, no nuchal rigidity, no adenopathy, non-tender. No signs of meningismus. LUNGS: Coarse sounds right chest. Normal chest wall mechanics. HEART: Irregularly irregular, no MRG. ABDOMEN: Abdomen soft, non-tender, normo-active bowel sounds, no masses, no rebound or guarding. BACK: No CVA TTP. SKIN: No rashes and no bruising. UPPER EXTREMITIES: Upper extremities are grossly normal. LOWER EXTREMITIES: Grossly normal, no edema. Negative Homans' sign bilaterally. NEURO EXAM: A&O x3, cranial nerves II-XII grossly intact, normal speech, moves a ll 4 extremities on command w/o issue. Differential diagnoses: Reactive airway disease, pneumonia, pneumothorax, COPD, CHF, infections, cardiac ischemia, pulmonary embolism, musculoskeletal, gastroi ntestinal, as well as other pathologies. Course: Patient was seen and evaluated the bedside. Full history physical exam was performed. EKG interpreted by me A. fib, rate of 84, normal QRS duration, left axis deviation, PVC noted. Imaging Studies: See Below Cardiac monitoring: An order was placed for continuous cardiac monitoring. The monitor shows a rate of 82 with irregular irregular rhythm. MDM: Patient does present due to concern for exertional dyspnea. The patient does have coarse sounds in the right chest. Patient was treated empirically with antibiotics given this concern. Patient does have a normal white count H&H and platelet count. The patient's kidney function is unremarkable. Patient's BNP is elevated with a negative troponin. Patient may also have a CHF component. Procalcitonin is not elevated. Patient does have rhinovirus. In light the patient's present symptoms SAEED and history of A. fib and heart failure I did speak with the on-call hospitalist service Dr. Kellogg and the patient was admitted to the medicine service Past Med/Surg History Medical History Atrial fibrillation CHF (congestive heart failure) Community acquired pneumonia Hypoalbuminemia Hypothyroidism Presence of Watchman left atrial appendage closure device Social History Smoking Status: Never smoker Second Hand Exposure: No; Do You Dip or Chew Tobacco: No; Tobacco Cessation Education Requested by Patient: No Hx Alcohol Use: Yes Alcohol type: wine Hx Substance Use: No Preferred Language: Azerbaijani Communication Ability: Effective Supervisor Intermediates Required: No Beliefs That Will Affect Care: None marital status: Current Living Situation: Family Current Living Situation Comment: lives w/ son and daughter in law and their child. How many Children do You have: 1 Other Information That Helps Us Care for You: No Feels Safe at Home: Yes Safety Concerns: Feels Safe At This Time Assistive Devices: Glasses Assistive Devices Comment: reading glasses only. Allergies Allergies Allergy/AdvReac Type Severity Reaction Status Date / Time No Known Allergies Allergy Unverified 10/12/21 11:34 Home Meds Home Medications Medication Instructions Recorded Confirmed carvedilol 12.5 mg tablet 12.5 mg PO BID 10/01/21 10/12/21 cholecalciferol (vitamin D3) 25 25 mcg PO QAM 10/01/21 10/12/21 mcg (1,000 unit) tablet (Vitamin D3) cyanocobalamin (vitamin B-12) 1,000 mcg PO QAM 10/01/21 10/12/21 1,000 mcg tablet (Vitamin B-12) furosemide 40 mg tablet 20 mg PO QAM 10/01/21 10/12/21 latanoprost 0.005 % eye drops 1 drp OPB QPM 10/01/21 10/12/21 levothyroxine 75 mcg tablet 75 mcg PO DAILYBB 10/01/21 10/12/21 sacubitril 97 mg-valsartan 103 mg 1 tab PO BID 10/01/21 10/12/21 tablet (Entresto) Results & Data (ED) Vital Signs Vital Signs - 24 hr 10/12/21 09:52 10/12/21 10:50 10/12/21 11:34 Temperature 36.8 C Temperature Source Skin Pulse Rate 87 Pulse Rate [Apical] 80 79 Pulse Rhythm Regular Pulse Rhythm [Apical] Irregular Pulse Strength Normal Pulse Strength [Apical] Normal Respiratory Rate 20 20 18 Respiratory Effort / Characteristics Non-Labored Spontaneous Non-Labored Spontaneous Spontaneous SOB on Exertion Respiratory Depth Normal Normal Respiratory Pattern Regular Blood Pressure 168/85 H Blood Pressure [Right Arm] 183/111 H Blood Pressure Mean 112 Blood Pressure Mean [Right Arm] 135 Blood Pressure Position [Right Arm] Sitting Pulse Oximetry 96 95 90 Oxygen Delivery Method Room Air Room Air Room Air Sepsis Recent Fever Within 48 Hours No Sepsis New/Unexplained Change in Mental Status N/A Sepsis Action Taken by Nursing No Action Required 10/12/21 11:41 10/12/21 11:48 Temperature Temperature Source Pulse Rate Pulse Rate [Apical] 76 Pulse Rhythm Pulse Rhythm [Apical] Irregular Pulse Strength Pulse Strength [Apical] Normal Respiratory Rate 18 Respiratory Effort / Characteristics Non-Labored Spontaneous Respiratory Depth Normal Respiratory Pattern Blood Pressure Blood Pressure [Right Arm] 151/97 H Blood Pressure Mean Blood Pressure Mean [Right Arm] 115 Blood Pressure Position [Right Arm] Sitting Pulse Oximetry 97 96 Oxygen Delivery Method Nebulizer Room Air Sepsis Recent Fever Within 48 Hours Sepsis New/Unexplained Change in Mental Status Sepsis Action Taken by Alf Medications Current Medication List: was personally reviewed by me Laboratory Data Attestation: I reviewed the patient's lab results. Result diagrams: 10/12/21 10:20 10/12/21 10:20 Lab Results 10/12/21 10/12/21 10/12/21 Range/Units 10:20 10:20 10:20 WBC 8.38 (4.8-10.8) K/uL RBC 4.25 (4.2-5.4) M/uL Hgb 13.5 (12.0-16.0) g/dL Hct 40.1 (37-47) % MCV 94.4 (80-100) fL MCH 31.8 (25-34) pg MCHC 33.7 (32-36) g/dL RDW Std Deviation 45.7 (36.4-46.3) fL RDW Coeff of Chanel 13.3 (11.5-14.5) % Plt Count 525 H (130-400) K/uL MPV 9.1 (7.4-10.4) fL Immature Gran % (Auto) 0.2 % Neut % (Auto) 79.6 % Lymph % (Auto) 11.7 % Troup % (Auto) 6.7 % Eos % (Auto) 1.6 % Baso % (Auto) 0.2 % Neut # (Auto) 6.67 H (1.4-6.5) K/uL Lymph # (Auto) 0.98 L (1.2-3.4) K/uL Troup # (Auto) 0.56 (0.11-0.59) K/uL Eos # (Auto) 0.13 (0-0.5) K/uL Baso # (Auto) 0.02 (0-0.2) K/uL Immature Gran # (Auto) 0.02 (0.00-0.02) K/uL PT Cancelled INR Cancelled APTT Cancelled PTT Ratio Cancelled Sodium 137 (136-145) mmol/L Potassium 4.4 (3.5-5.1) mmol/L Chloride 102 (98-107) mmol/L Carbon Dioxide 27 (21-32) mmol/L Anion Gap 9.0 (3-11) BUN 17 (7-18) mg/dl Creatinine 0.88 (0.6-1.2) mg/dl Est Cr Clr Drug Dosing 51.6 ml/min Est GFR ( Amer) 69.4 ml/min Est GFR (Non-Af Amer) 59.9 ml/min BUN/Creatinine Ratio 19.5 (10-20) Glucose 110 H (70-99) mg/dl Calcium 8.9 (8.5-10.1) mg/dl Magnesium 2.4 (1.8-2.4) mg/dl Total Bilirubin 0.6 (0.2-1) mg/dl AST 24 (15-37) U/L ALT 20 (12-78) U/L Alkaline Phosphatase 63 (45-117) U/L Troponin I < 0.015 (0-0.045) ng/ml C-Reactive Protein (0-0.29) mg/dl NT-Pro-B Natriuret Pep (0-1800) pg/ml Total Protein 7.3 (6.4-8.2) gm/dl Albumin 3.2 L (3.4-5.0) gm/dl Globulin 4.1 H (2.5-4.0) gm/dl Albumin/Globulin Ratio 0.8 L (0.9-2) Procalcitonin (0-0.5) ng/ml Specimen Hemolysis COVID-19 Eval Order SARS-CoV-2 (PCR) (Negative) 10/12/21 10/12/21 10/12/21 Range/Units 10:20 10:20 11:30 WBC (4.8-10.8) K/uL RBC (4.2-5.4) M/uL Hgb (12.0-16.0) g/dL Hct (37-47) % MCV (80-100) fL MCH (25-34) pg MCHC (32-36) g/dL RDW Std Deviation (36.4-46.3) fL RDW Coeff of Chanel (11.5-14.5) % Plt Count (130-400) K/uL MPV (7.4-10.4) fL Immature Gran % (Auto) % Neut % (Auto) % Lymph % (Auto) % Troup % (Auto) % Eos % (Auto) % Baso % (Auto) % Neut # (Auto) (1.4-6.5) K/uL Lymph # (Auto) (1.2-3.4) K/uL Troup # (Auto) (0.11-0.59) K/uL Eos # (Auto) (0-0.5) K/uL Baso # (Auto) (0-0.2) K/uL Immature Gran # (Auto) (0.00-0.02) K/uL PT INR APTT PTT Ratio Sodium (136-145) mmol/L Potassium (3.5-5.1) mmol/L Chloride (98-107) mmol/L Carbon Dioxide (21-32) mmol/L Anion Gap (3-11) BUN (7-18) mg/dl Creatinine (0.6-1.2) mg/dl Est Cr Clr Drug Dosing ml/min Est GFR ( Amer) ml/min Est GFR (Non-Af Amer) ml/min BUN/Creatinine Ratio (10-20) Glucose (70-99) mg/dl Calcium (8.5-10.1) mg/dl Magnesium (1.8-2.4) mg/dl Total Bilirubin (0.2-1) mg/dl AST (15-37) U/L ALT (12-78) U/L Alkaline Phosphatase (45-117) U/L Troponin I (0-0.045) ng/ml C-Reactive Protein 1.03 H (0-0.29) mg/dl NT-Pro-B Natriuret Pep 2395 H (0-1800) pg/ml Total Protein (6.4-8.2) gm/dl Albumin (3.4-5.0) gm/dl Globulin (2.5-4.0) gm/dl Albumin/Globulin Ratio (0.9-2) Procalcitonin < 0.05 (0-0.5) ng/ml Specimen Hemolysis COVID-19 Eval Order Covid19 at [facility] SARS-CoV-2 (PCR) (Negative) 10/12/21 Range/Units 11:30 WBC (4.8-10.8) K/uL RBC (4.2-5.4) M/uL Hgb (12.0-16.0) g/dL Hct (37-47) % MCV (80-100) fL MCH (25-34) pg MCHC (32-36) g/dL RDW Std Deviation (36.4-46.3) fL RDW Coeff of Chanel (11.5-14.5) % Plt Count (130-400) K/uL MPV (7.4-10.4) fL Immature Gran % (Auto) % Neut % (Auto) % Lymph % (Auto) % Troup % (Auto) % Eos % (Auto) % Baso % (Auto) % Neut # (Auto) (1.4-6.5) K/uL Lymph # (Auto) (1.2-3.4) K/uL Troup # (Auto) (0.11-0.59) K/uL Eos # (Auto) (0-0.5) K/uL Baso # (Auto) (0-0.2) K/uL Immature Gran # (Auto) (0.00-0.02) K/uL PT INR APTT PTT Ratio Sodium (136-145) mmol/L Potassium (3.5-5.1) mmol/L Chloride (98-107) mmol/L Carbon Dioxide (21-32) mmol/L Anion Gap (3-11) BUN (7-18) mg/dl Creatinine (0.6-1.2) mg/dl Est Cr Clr Drug Dosing ml/min Est GFR ( Amer) ml/min Est GFR (Non-Af Amer) ml/min BUN/Creatinine Ratio (10-20) Glucose (70-99) mg/dl Calcium (8.5-10.1) mg/dl Magnesium (1.8-2.4) mg/dl Total Bilirubin (0.2-1) mg/dl AST (15-37) U/L ALT (12-78) U/L Alkaline Phosphatase (45-117) U/L Troponin I (0-0.045) ng/ml C-Reactive Protein (0-0.29) mg/dl NT-Pro-B Natriuret Pep (0-1800) pg/ml Total Protein (6.4-8.2) gm/dl Albumin (3.4-5.0) gm/dl Globulin (2.5-4.0) gm/dl Albumin/Globulin Ratio (0.9-2) Procalcitonin (0-0.5) ng/ml Specimen Hemolysis COVID-19 Eval Order SARS-CoV-2 (PCR) NEGATIVE (Negative) Administered Medications Albuterol (Albuterol 0.083% Nebu Soln 3 Ml Vial) 2.5 mg NEB Q6R MICHELLE Stop: 11/11/21 12:59 Last Admin: 10/12/21 13:59 Dose: Not Given Documented by: [id number] Discontinued Medications Albuterol (Albut/Ipratrop 3mg/0.5mg Neb 3 Ml Vial) 6 ml NEB NOW STA Stop: 10/12/21 10:55 Last Admin: 10/12/21 11:33 Dose: 6 ml Documented by: [id number] Doxycycline Hyclate (Doxycycline Hyclate 100 Mg Cap) 100 mg PO NOW STA Stop: 10/12/21 10:59 Last Admin: 10/12/21 11:26 Dose: 100 mg Documented by: [id number] Cefepime HCl (Maxipime) 2,000 mg in 20 mls @ 5 mls/min IV NOW STA; Protocol Stop: 10/12/21 11:01 Last Admin: 10/12/21 11:26 Dose: 5 mls/min Documented by: [id number] Levofloxacin/Dextrose (Levaquin/D5w) 750 mg in 150 mls @ 100 mls/hr IV NOW ONE Stop: 10/12/21 14:02 Last Infusion: 10/12/21 15:01 Dose: 0 mls/hr Documented by: [id number] Admin: 10/12/21 13:09 Dose: 100 mls/hr Documented by: [id number] Imaging Data Radiologist's Impression: Chest X-Ray 10/12/21 10:02 XR chest 1V portable CLINICAL HISTORY: SOB TECHNIQUE: Single frontal radiograph of the chest was obtained. Comparison: Comparison is made to chest one view 10/01/2021 FINDINGS: No lines and tubes are seen. Calcified aortic knob is seen. Right lower lung airspace opacities are noted. Small bilateral pleural effusions are seen. IMPRESSION: Small bilateral pleural effusions. Right lower lung airspace opacity which may represent atelectasis, pneumonia, and/or aspiration. ACT 112: Negative or not required by law. Electronically signed by: Jani Davies M.D. 10/12/2021 10:[address] 10/12/21 12:30 CT chest diagnostic wo con CT DOSE: 355.37 mGy.cm CLINICAL HISTORY: 86 years-old Female with evaluate intrapulmonary process and ? effusion. Acute cough or shortness of breath TECHNIQUE: Multiaxial CT images of the chest were performed without contrast. A dose lowering technique was utilized adhering to the principles of ALARA. COMPARISON: Chest radiograph 10/12/2021 10/01/2021 FINDINGS: 1.2 cm hypodense left thyroid nodule. Moderate cardiomegaly with prosthetic mitral valve. Atherosclerosis of the aorta. Fusiform dilation of the ascending thoracic aorta measures 4.0 x 4.1 cm. Moderate sized pericardial effusion measures up to 2.1 cm. Small right pleural effusion. No pneumothorax. Minimal pleural parenchymal scarring of the lung apices. Tracheobronchial secretions with bibasilar mucous plugging. Patchy consolidative and tree-in-bud nodular opacities of the right lung base. There is consolidation with collapse of the right middle lobe. The left lung is generally clear. Pneumatosis or pneumoperitoneum cyst of the left hepatic lobe measures 2.2 cm. Calcifications of the splenic artery. Debris is noted within the esophagus. No acute fracture. Degenerative changes of the shoulders and spine. Healed chronic left-sided fractures. Mild superior endplate compression deformity involving the T6 vertebral body, likely chronic. IMPRESSION: 1. Right lung base opacities suggestive of pneumonia versus aspiration pneumonitis. Additionally, there are tracheobronchial secretions with moderate right greater than left bibasilar predominant mucus plugging. Correlate clinically to exclude aspiration. 2. Collapse of the right middle lobe, likely secondary to mucous plugging. No endobronchial mass identified. 3. Small right pleural effusion. 4. Cardiomegaly with moderate sized pericardial effusion. ACT 112: Negative or not required by law. Electronically signed by: Walter Pedraza M.D. 10/12/2021 1:08 PM Discharge Plan Visit Data Chief Complaint: Shortness of Breath/Dyspnea Stated Complaint: SOB, COUGHING FINISHED ANTIBIOTICS ED Provider: Kash Mclaughlin Discharge Problem: Community acquired pneumonia, Atrial fibrillation, CHF (congestive heart failure) Patient Disposition: Admitted As Inpatient Discharge Instructions Interventions: ED Discharge Assessment Last Done: 10/12/21 14:26
[2021-10-12 10:31] LABS: Basophils # (auto) 0.02 K/uL (0-0.2); Basophils % (auto) 0.2 %; Eosinophils # (auto) 0.13 K/uL (0-0.5); Eosinophils % (auto) 1.6 %; Hematocrit (blood only) 40.1 % (37-47); Hemoglobin 13.5 g/dL (12.0-16.0); Immature Granulocytes # (auto) 0.02 K/uL (0.00-0.02); Immature Granulocytes % (auto) 0.2 %; Lymphocytes # (auto) 0.98 K/uL (1.2-3.4); Lymphocytes % (auto) 11.7 %; Mean Corpuscular Hemoglobin 31.8 pg (25-34); Mean Corpuscular Hgb Conc 33.7 g/dL (32-36); Mean Corpuscular Volume 94.4 fL (80-100); Mean Platelet Volume 9.1 fL (7.4-10.4); Monocytes # (auto) 0.56 K/uL (0.11-0.59); Monocytes % (auto) 6.7 %; Neutrophils # (auto) 6.67 K/uL (1.4-6.5); Neutrophils % (auto) 79.6 %; Platelet Count 525 K/uL (130-400); RDW Coefficient of Variation 13.3 % (11.5-14.5); RDW Standard Deviation 45.7 fL (36.4-46.3); Red Blood Count 4.25 M/uL (4.2-5.4); White Blood Count 8.38 K/uL (4.8-10.8)
--- NOTE | 2021-10-12 10:34 | XRay Report ---
XR chest 1V portable CLINICAL HISTORY: SOB TECHNIQUE: Single frontal radiograph of the chest was obtained. Comparison: Comparison is made to chest one view 10/01/2021 FINDINGS: No lines and tubes are seen. Calcified aortic knob is seen. Right lower lung airspace opacities are n oted. Small bilateral pleural effusions are seen. IMPRESSION: Small bilateral pleural effusions. Right lower lung airspace opacity which may represent atelectasis, pneumonia, and/or aspiration. ACT 112: Negative or not required by law. Electronically signed by: Jani Davies M.D. 10/12/2021 10:33 AM
[2021-10-12] MEDS ORDERED: ALBUT/IPRATROP 3MG/0.5MG NEB 3 ML VIAL NEB STA (10:54)
[2021-10-12] MEDS ORDERED: CEFEPIME 2,000 MG/20 ML VIAL IV STA (10:58)
[2021-10-12] MEDS ORDERED: DOXYCYCLINE HYCLATE 100 MG CAP PO STA (10:58)
[2021-10-12 11:06] LABS: Alanine Aminotransferase 20 U/L (12-78); Albumin Globulin Ratio 0.8 (0.9-2); Albumin Level 3.2 gm/dl (3.4-5.0); Alkaline Phosphatase 63 U/L (45-117); BUN Creatinine Ratio 19.5 (10-20); Bilirubin,Total 0.6 mg/dl (0.2-1); Blood Urea Nitrogen 17 mg/dl (7-18); Calcium 8.9 mg/dl (8.5-10.1); Carbon Dioxide 27 mmol/L (21-32); Chloride 102 mmol/L (98-107); Creatinine Clr Calc Pharmacy 51.6 ml/min; Est GFR (African American) 69.4 ml/min; Est GFR (Non-African American) 59.9 ml/min; Globulin 4.1 gm/dl (2.5-4.0); Glucose 110 mg/dl (70-99); Total Protein 7.3 gm/dl (6.4-8.2); Troponin I < 0.015 ng/ml (0-0.045)
[2021-10-12 11:10] LABS: Potassium 4.4 mmol/L (3.5-5.1); Sodium 137 mmol/L (136-145)
[2021-10-12 11:15] LABS: Aspartate Aminotransferase 24 U/L (15-37); Magnesium 2.4 mg/dl (1.8-2.4)
[2021-10-12] MEDS ORDERED: levoFLOXacin/D5W 750 MG/150 ML BAG IV ONE (12:33)
--- NOTE | 2021-10-12 12:51 | History & Physical Report ---
Date of Service October 12, 2021 Assessment & Plan (1) Dyspnea: Plan: Bronchitis vs. unresolved pna, vs. viral URI vs. cardiac - Biofire pending - PCT pending/CRP pending - On room air - Albuterol nebulizers scheduled q6 hours for 24 hours - Flutter valve QID to assist with coughing and opening airways - ABX - Levaquin 750 mg IV x1 now and then PO every day - Follow biomarkers and clinical response - small bilateral pleural effusions - Do not feel this is related to heart failure or volume overload (2) Community acquired pneumonia: Plan: As above - ? 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 awaiting bioFIRE - Cards consult pending ECHO results- if no acute intervention, will need to follow up to ensure resolution (4) CHF (congestive heart failure): Plan: Contine BB, Entresto, Lasix - BNP pending on admission - As above not consistent with exacerbation causing her dyspnea (5) Atrial fibrillation: Plan: Rate controlled with watchman device- not on anticoagulation (6) Hypothyroidism: Plan: Continue synthroid 75mcg daily (7) Presence of Watchman left atrial appendage closure device: Plan: As above History of Present Illness Primary Care Provider: Hayley Roland MD 86 YOF with past medical history of: Afib s/p watchman procedure (not on anticoagulation), HFrEF. Patient was recently admitted on for dyspnea and was diagnosed with CAP at that time. Was started on Rocephin and Azithromy glo and albuterol inhalers, showed improvement in symptoms and was discharged on the 03 of October on Augmentin for 7 days. She completed this, but felt that her symptoms have gotten worse since stopping her antibiotics. She endorses getting dyspneic upon walking approximately 30 feet and her son endorses 100 feet of ambulation is her maximum before she is dyspneic and coughing. Patient normally has 4-6 pillow orthopnea that she states has not gotten worse, no swelling in her legs. Her cough is with deep inspiration, deep raspy, and is non-productive. This has not been associated with fevers, chills. In the EMD she had a CXR performed, routine labs performed and ECG performed. Her CXR showed improvement in her right lower lung opacity, remains with small bilateral pleural effusions. CBC and BMP are unremarkable. Hospitalist service was notified for admission. Patient was given a dose of doxycycline and cefepime in the EMD. Will change this to Levaquin and obtain CT scan of chest. Patient with more bronchial vesicular rhonchi and wheeze, will also send bio-fire, BNP and PCT. Troponin negative and no acute changes on her ECG. Patient has received her COVID vaccine and her COVID test on admission is: NEGATIVE Allergies Allergy/AdvReac Type Severity Reaction Status Date / Time No Known Allergies Allergy Unverified 10/12/21 11:34 Home Medications Medication Instructions Recorded Confirmed Type carvedilol 12.5 mg tablet 12.5 mg PO BID 10/01/21 10/12/21 History cholecalciferol (vitamin D3) 25 25 mcg PO QAM 10/01/21 10/12/21 History mcg (1,000 unit) tablet (Vitamin D3) cyanocobalamin (vitamin B-12) 1,000 mcg PO QAM 10/01/21 10/12/21 History 1,000 mcg tablet (Vitamin B-12) furosemide 40 mg tablet 20 mg PO QAM 10/01/21 10/12/21 History latanoprost 0.005 % eye drops 1 drp OPB QPM 10/01/21 10/12/21 History levothyroxine 75 mcg tablet 75 mcg PO DAILYBB 10/01/21 10/12/21 History sacubitril 97 mg-valsartan 103 mg 1 tab PO BID 10/01/21 10/12/21 History tablet (Entresto) Past Med/Surg History Medical History (Updated 10/12/21 @ 13:16 by JD Sánchez) Atrial fibrillation CHF (congestive heart failure) Community acquired pneumonia Hypoalbuminemia Hypothyroidism Presence of Watchman left atrial appendage closure device Social History Smoking Status: Never smoker Second Hand Exposure: No; Hx Alcohol Use: Yes Alcohol type: wine Hx Substance Use: No Preferred Language: Macedonian Communication Ability: Effective Mounter Saxophones Required: No Beliefs That Will Affect Care: None marital status: Current Living Situation: Family Current Living Situation Comment: lives with son How many Children do You have: 1 Feels Safe at Home: Yes Assistive Devices: Glasses Review of Systems Review of Systems: REVIEW OF SYSTEMS: Constitutional: No fever, sweats or chills Eyes: No diplopia, no worsening or blurred vision ENT: normal hearing, no trouble swallowing Respiratory: (+) cough, dyspnea at rest or on exertion, orthopnea NO sputum Cardiovascular: No chest pain, tightness or palpitations Abdomen: No pain, nausea, vomiting, diarrhea or constipation Musculoskeletal: No joint pain, calf pain, swelling Neurologic: No weakness, numbness/tingling, or balance problems Psychiatric: No anxiety or depression Skin: No rash or itch Physical Exam Physical Exam: PHYSICAL EXAM: General: awake, alert, no apparent distress Head: Normocephalic, atraumatic ENT: PERRL, EOMI, no pharyngeal exudate, mucous membranes moist Neuro: AAO x 3, speech clear and appropriate, strength intact bilaterally 5/5, sensation intact and equal all extremities and dermatomes, no pronator drift Chest: equal rise and fall of the chest, no accessory muscle use, no heaves or thrills, scattered ronchi throughout upper airways, egophony to right lower l obe, end expiratory wheeze right. Cardiac: Regular rate and rhythm, telemetry reviewed, skin warm dry, cap refill <3 seconds, peripheral pulses +2 no JVD, no murmur, no JVD, no edema GI: NABS x 4 quadrants, soft, nontender to palpation, no rebound, guarding or tenderness : Spontaneously voiding, no pain, no CVA tenderness, Extremities: Normal inspection, no peripheral edema or erythema, calfs nontender to palpation Psych: Normal mood and affect Skin: no rash or erythema Results & Data Results & Data ([facility]) Vital Signs (Past 12 Hours) Vital Signs Temp Pulse Pulse Resp BP BP Pulse Ox 10/12/21 11:48 76 18 151/97 H 96 10/12/21 11:41 97 10/12/21 11:34 79 18 90 10/12/21 10:50 80 20 183/111 H 95 10/12/21 09:52 36.8 C 87 20 168/85 H 96 Laboratory Results Abnormal lab results 10/12/21 10/12/21 Range/Units 10:20 10:20 Plt Count 525 H (130-400) K/uL Neut # (Auto) 6.67 H (1.4-6.5) K/uL Lymph # (Auto) 0.98 L (1.2-3.4) K/uL Glucose 110 H (70-99) mg/dl Albumin 3.2 L (3.4-5.0) gm/dl Globulin 4.1 H (2.5-4.0) gm/dl Albumin/Globulin Ratio 0.8 L (0.9-2) Diagnostic Findings Chest X-Ray 10/12/21 10:02 XR chest 1V portable CLINICAL HISTORY: SOB TECHNIQUE: Single frontal radiograph of the chest was obtained. Comparison: Comparison is made to chest one view 10/01/2021 FINDINGS: No lines and tubes are seen. Calcified aortic knob is seen. Right lower lung airspace opacities are noted. Small bilateral pleural effusions are seen. IMPRESSION: Small bilateral pleural effusions. Right lower lung airspace opacity which may represent atelectasis, pneumonia, and/or aspiration. ACT 112: Negative or not required by law. Electronically signed by: Jani Davies M.D. 10/12/2021 10:[address] 10/12/21 12:30 CT chest diagnostic wo con CT DOSE: 355.37 mGy.cm CLINICAL HISTORY: 86 years-old Female with evaluate intrapulmonary process and ? effusion. Acute cough or shortness of breath TECHNIQUE: Multiaxial CT images of the chest were performed without contrast. A dose lowering technique was utilized adhering to the principles of ALARA. COMPARISON: Chest radiograph 10/12/2021 10/01/2021 FINDINGS: 1.2 cm hypodense left thyroid nodule. Moderate cardiomegaly with prosthetic mitral valve. Atherosclerosis of the aorta. Fusiform dilation of the ascending thoracic aorta measures 4.0 x 4.1 cm. Moderate sized pericardial effusion measures up to 2.1 cm. Small right pleural effusion. No pneumothorax. Minimal pleural parenchymal scarring of the lung apices. Tracheobronchial secretions with bibasilar mucous plugging. Patchy consolidative and tree-in-bud nodular opacities of the right lung base. There is consolidation with collapse of the right middle lobe. The left lung is generally clear. Pneumatosis or pneumoperitoneum cyst of the left hepatic lobe measures 2.2 cm. Calcifications of the splenic artery. Debris is noted within the esophagus. No acute fracture. Degenerative changes of the shoulders and spine. Healed chronic left-sided fractures. Mild superior endplate compression deformity involving the T6 vertebral body, likely chronic. IMPRESSION: 1. Right lung base opacities suggestive of pneumonia versus aspiration pneumo nitis. Additionally, there are tracheobronchial secretions with moderate right greater than left bibasilar predominant mucus plugging. Correlate clinically to exclude aspiration. 2. Collapse of the right middle lobe, likely secondary to mucous plugging. No endobronchial mass identified. 3. Small right pleural effusion. 4. Cardiomegaly with moderate sized pericardial effusion. ACT 112: Negative or not required by law. Electronically signed by: Walter Pedraza M.D. 10/12/2021 1:08 PM Medications Administered Home Medications carvedilol 12.5 mg tablet 12.5 mg PO BID 10/01/21 [History Confirmed 10/12/21] cholecalciferol (vitamin D3) 25 mcg (1,000 unit) tablet (Vitamin D3) 25 mcg PO QAM 10/01/21 [History Confirmed 10/12/21] cyanocobalamin (vitamin B-12) 1,000 mcg tablet (Vitamin B-12) 1,000 mcg PO QAM 10/01/21 [History Confirmed 10/12/21] furosemide 40 mg tablet 20 mg PO QAM 10/01/21 [History Confirmed 10/12/21] latanoprost 0.005 % eye drops 1 drp OPB QPM 10/01/21 [History Confirmed 10/12/21] levothyroxine 75 mcg tablet 75 mcg PO DAILYBB 10/01/21 [History Confirmed 10/12/21] sacubitril 97 mg-valsartan 103 mg tablet (Entresto) 1 tab PO BID 10/01/21 [History Confirmed 10/12/21] Active Medications Albuterol (Albuterol 0.083% Nebu Soln 3 Ml Vial) 2.5 mg NEB Q6R MICHELLE Stop: 11/11/21 12:59 Levofloxacin/Dextrose (Levaquin/D5w) 750 mg in 150 mls @ 100 mls/hr IV NOW ONE Stop: 10/12/21 14:02 Last Admin: 10/12/21 13:03 Dose: 100 mls/hr Documented by: Levofloxacin (Levofloxacin 750 Mg Tab) 750 mg PO DAILY@1100 MICHELLE Stop: 10/20/21 10:59 Levofloxacin/Dextrose (Levaquin/D5w) 750 mg in 150 mls @ 100 mls/hr IV NOW ONE Stop: 10/12/21 14:02 Last Admin: 10/12/21 13:03 Dose: 100 mls/hr Documented by: [id number] Discontinued Medications Albuterol (Albut/Ipratrop 3mg/0.5mg Neb 3 Ml Vial) 6 ml NEB NOW STA Stop: 10/12/21 10:55 Last Admin: 10/12/21 11:33 Dose: 6 ml Documented by: [id number] Doxycycline Hyclate (Doxycycline Hyclate 100 Mg Cap) 100 mg PO NOW STA Stop: 10/12/21 10:59 Last Admin: 10/12/21 11:26 Dose: 100 mg Documented by: [id number] Cefepime HCl (Maxipime) 2,000 mg in 20 mls @ 5 mls/min IV NOW STA; Protocol Stop: 10/12/21 11:01 Last Admin: 10/12/21 11:26 Dose: 5 mls/min Documented by: [id number] ECG Additional Comments: Atrial fibrillation with premature ventricular or aberrantly conducted complexes Left anterior fascicular block Cannot rule out Inferior infarct (cited on or before 12-OCT-2021) Possible Anterior infarct , age undetermined Abnormal ECG Code Status & VTE Plan Code Status CODE: FULL VTE: SCDS, Lovenox 40mg subq daily VTE Prophylaxis Plan VTE Prophylaxis will be ordered: Yes Supervising Physician Co-Signing Physician Notes Patient was seen and examined independently I discussed the case with Jude MILES I reviewed pertinent past medical social family history and also the plan of care and agree with the plan of care. Patient was visited with her son in the emergency department. She was in stable condition. He does note that she did improve while on Augmentin but then seemed to decline afterwards. Patient herself was not as feeling strongly with regard to that. Patient on examination had coarse sounding breath sounds or bronchial breath sounds on the most all lung arias. Later on I bio fire did show enterovirus and rhinovirus this may be the etiology of her illness. Subsequently antibiotics will be discontinued but she did receive cefepime and doxycycline in the emergency department. We will round out her evaluation by evaluating her cardiac status as she has a history of having heart failure redu ar ejection fraction with EF of 25% is on Entresto therapy. Her dyspnea on exertion could be related to the pericardial effusion seen on CT scan of her lungs and echocardiogram is currently pending. Any exceptions will be noted below PG Care Time/CCT Total # of Minutes Spent Total Time Spent with Patient: Total time spent is greater than 50% in coordination of care (as documented) at patient's floor/unit and/or counseling patient: Coding Level of Care Code INT OBSERVATION CARE 70M LVL 3 Diagnoses Dyspnea R06.00 Community acquired pneumonia J18.9 Laterality: right Lung location: lower lobe of lung Atrial fibrillation I48.91 Hypothyroidism E03.9 Presence of Watchman left atrial appendage closure device Z95.818 CHF (congestive heart failure) I50.9 Pericardial effusion I31.3 (1) Community acquired pneumonia Laterality: right Lung location: lower lobe of lung Qualified Code(s): J18.9 - Pneumonia, unspecified organism
--- NOTE | 2021-10-12 13:09 | CT Scan Report ---
CT chest diagnostic wo con CT DOSE: 355.37 mGy.cm CLINICAL HISTORY: 86 years-old Female with evaluate intrapulmonary process and ? effusion. Acute cou gh or shortness of breath TECHNIQUE: Multiaxial CT images of the chest were performed without contrast. A dose lowering techni que was utilized adhering to the principles of ALARA. COMPARISON: Chest radiograph 10/12/2021 10/01/2021 FINDINGS: 1.2 cm hypodense left thyroid nodule. Moderate cardiomegaly with prosthetic mitral valve. Atheroscler osis of the aorta. Fusiform dilation of the ascending thoracic aorta measures 4.0 x 4.1 cm. Moderate sized pericardial effusion measures up to 2.1 cm. Small right pleural effusion. No pneumothorax. Mini mal pleural parenchymal scarring of the lung apices. Tracheobronchial secretions with bibasilar mucou s plugging. Patchy consolidative and tree-in-bud nodular opacities of the right lung base. There is c onsolidation with collapse of the right middle lobe. The left lung is generally clear. Pneumatosis or pneumoperitoneum cyst of the left hepatic lobe measures 2.2 cm. Calcifications of the splenic artery. Debris is noted within the esophagus. No acute fracture. Degenerative changes of the shoulders and spine. Healed chronic left-sided fractures. Mild superior endplate compression deformit y involving the T6 vertebral body, likely chronic. IMPRESSION: 1. Right lung base opacities suggestive of pneumonia versus aspiration pneumonitis. Additionally, the re are tracheobronchial secretions with moderate right greater than left bibasilar predominant mucus plugging. Correlate clinically to exclude aspiration. 2. Collapse of the right middle lobe, likely secondary to mucous plugging. No endobronchial mass iden tified. 3. Small right pleural effusion. 4. Cardiomegaly with moderate sized pericardial effusion. ACT 112: Negative or not required by law. Electronically signed by: Walter Pedraza M.D. 10/12/2021 1:08 PM
[2021-10-12 13:46] LABS: C Reactive Protein 1.03 mg/dl (0-0.29)
[2021-10-12] MEDS: ALBUTEROL 0.083% NEBU SOLN 3 ML VIAL NEB SCH ×2 (13:59→20:03)
[2021-10-12] MEDS ORDERED: ACETAMINOPHEN 325 MG TAB PO PRN (14:51)
[2021-10-12 15:18] LABS: Adenovirus PCR Not Detected (NotDetected); Bordetella parapertussis PCR Not Detected (NotDetected); Bordetella pertussis PCR Not Detected (NotDetected); Chlamydia pneumoniae PCR Not Detected (NotDetected); Coronavirus 229E PCR Not Detected (NotDetected); Coronavirus CoV-2 (COVID19)PCR Not Detected (NotDetected); Coronavirus HKU1 PCR Not Detected (NotDetected); Coronavirus NL63 PCR Not Detected (NotDetected); Coronavirus OC43PCR Not Detected (NotDetected); Human Metapneumovirus PCR Not Detected (NotDetected); Influenza A PCR Not Detected (NotDetected); Influenza B PCR Not Detected (NotDetected); Mycoplasma pneumoniae PCR Not Detected (NotDetected); Parainfluenza Virus 1 PCR Not Detected (NotDetected); Parainfluenza Virus 2 PCR Not Detected (NotDetected); Parainfluenza Virus 3 PCR Not Detected (NotDetected); Parainfluenza Virus 4 PCR Not Detected (NotDetected); Respiratory Syncytial VirusPCR Not Detected (NotDetected)
[2021-10-12 15:19] LABS: Rhinovirus/Enterovirus PCR DETECTED (NotDetected)
--- NOTE | 2021-10-12 16:07 | XCELERA ---
[id number]
--- NOTE | 2021-10-12 16:35 | Electrocardiogram Report ---
Test Reason : Blood Pressure : / mmHG Vent. Rate : 084 BPM Atrial Rate : 119 BPM P-R Int : 000 ms QRS Dur : 086 ms QT Int : 412 ms P-R-T Axes : 000 -64 100 degrees QTc Int : 486 ms Poor data quality, interpretation may be adversely affected Atrial fibrillation with premature ventricular or aberrantly conducted complexes Left anterior fascicular block Poor R wave progression, consider anterior ID vs. lead placement vs. LVH Nonspecific T wave abnormality Anterior leads Abnormal ECG When compared with ECG of 01-OCT-2021 20:28, Borderline criteria for Anterior infarct are now Present Confirmed by Suhail Clark ([id number]) on 10/12/2021 4:35:06 PM Referred By: Confirmed By:Suhail Clark
[2021-10-12] MEDS: MELATONIN 3 MG TAB PO PRN (21:58)
[2021-10-12] MEDS: carvediloL 12.5 MG TAB PO SCH (21:59)
[2021-10-12] MEDS: LATANOPROST 0.005% OP SOLN 2.5 ML BTL OPB SCH (21:59)
[2021-10-12] MEDS: ENOXAPARIN INJ 40 MG/0.4 ML SYR SQ SCH (22:00)
[2021-10-12] MEDS: VALSARTAN/SACUBITRIL 103/97MG TAB PO SCH (22:00)
[2021-10-13] MEDS: LEVOTHYROXINE SODIUM 75 MCG TABLET PO SCH (06:41)
[2021-10-13 07:03] LABS: Basophils # (auto) 0.03 K/uL (0-0.2); Basophils % (auto) 0.5 %; Eosinophils % (auto) 1.7 %; Hematocrit (blood only) 37.5 % (37-47); Hemoglobin 12.5 g/dL (12.0-16.0); Immature Granulocytes # (auto) 0.01 K/uL (0.00-0.02); Immature Granulocytes % (auto) 0.2 %; Lymphocytes # (auto) 0.85 K/uL (1.2-3.4); Lymphocytes % (auto) 14.3 %; Mean Corpuscular Hemoglobin 31.3 pg (25-34); Mean Corpuscular Hgb Conc 33.3 g/dL (32-36); Monocytes # (auto) 0.54 K/uL (0.11-0.59); Monocytes % (auto) 9.1 %; Neutrophils # (auto) 4.42 K/uL (1.4-6.5); Neutrophils % (auto) 74.2 %; Platelet Count 442 K/uL (130-400); RDW Coefficient of Variation 13.4 % (11.5-14.5); RDW Standard Deviation 46.2 fL (36.4-46.3); Red Blood Count 3.99 M/uL (4.2-5.4); White Blood Count 5.95 K/uL (4.8-10.8)
[2021-10-13] MEDS: ALBUTEROL 0.083% NEBU SOLN 3 ML VIAL NEB SCH ×4 (07:47→19:12)
[2021-10-13 07:48] LABS: BUN Creatinine Ratio 21.9 (10-20); Calcium 8.6 mg/dl (8.5-10.1); Creatinine Clr Calc Pharmacy 54.1 ml/min; Est GFR (African American) 73.5 ml/min; Est GFR (Non-African American) 63.4 ml/min; Magnesium 2.1 mg/dl (1.8-2.4); Potassium 3.4 mmol/L (3.5-5.1)
[2021-10-13] MEDS: FUROSEMIDE 20 MG TAB PO SCH (08:21)
[2021-10-13] MEDS: carvediloL 12.5 MG TAB PO SCH ×2 (08:21→20:33)
[2021-10-13] MEDS: VALSARTAN/SACUBITRIL 103/97MG TAB PO SCH ×2 (08:21→20:30)
[2021-10-13] MEDS ORDERED: levoFLOXacin 750 MG TAB PO SCH (11:00)
[2021-10-13] MEDS: BENZONATATE 100 MG CAPSULE PO PRN ×2 (13:16→20:33)
--- NOTE | 2021-10-13 17:43 | Cardiology Consultation ---
Date of Consultation October 13, 2021 Assessment & Plan (1) Pericardial effusion: (2) Atrial fibrillation: (3) URI (upper respiratory infection): (4) Presence of Watchman left atrial appendage closure device: (5) Cardiomyopathy: Patient with cardiac history admitted with apparent viral URI and noted to have pericardial effusion. Fortunately, her pericardial effusion is stable to improved, when comparing her current echocardiogram with one done 5 weeks ago. She does not have any evidence of volume overload or tamponade physiology. Certainly, work-up of her effusion with rheumatologic and oncologic evaluation as outpatient is warranted. However, etiology is often idiopathic, presumed to be viral in many cases. No change in her vasoactive regimen of carvedilol and Entresto with low-dose diuretic. No cardiac interventions necessary acutely, patient is stable, would recommend follow-up with Dr. Almanza for further evaluation of her chronic loculated posterior pericardial effusion as well as for routine cardiology management. History of Present Illness Reason for Consultation: Pericardial effusion/dyspnea Requesting Physician: Lobo Hernandez MD Attending Physician: Lobo Hernandez History of Present Illness 86-year-old woman who moved to this area from [place] about a month ago, history of cardiomyopathy/congestive heart failure (details uncertain), atrial fibrillation (status post atrial occlusion/watchman procedure), who was admitted 10/01/2021 with pneumonia treated with antibiotics, she returned home but was readmitted 10/12/2021 with dyspnea on exertion and cough. She was noted to have a loculated pericardial effusion, prompting cardiology consultation. 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 She is not sure of the timing, but notes that she became more easily fatigued sometime in the past year. For a number of months she has had mild dyspnea exertion, she has not had recent orthopnea, PND, or ankle edema. No subjective palpitations, presyncope, or syncope. She recently established care in Dr. Almanza's office, but the full records from [place] do not yet appear available. Apparently, she had a severe cardiomyopathy (EF as low as 14%), cardiac catheterization performed (she does not recall coronary disease being present), her cardiac function subsequently improved and her exercise tolerance was fairly good and she felt well enough to walk on a treadmill at the time of the family medicine visit in August. Of note, an echocardiogram performed by Dr. Herron's office 09/02/2021 showed EF of 50% with mild global hypokinesis, mild to moderate aortic stenosis, mild to moderate mitral regurgitation, mild tricuspid regurgitation mild to moderate pulmonary hypertension, and a large posterior pericardial effusion with no evidence of tamponade. At the time of my evaluation this afternoon, the patient was comfortable at rest, with only a nonproductive cough from time to time. Allergies Allergy/AdvReac Type Severity Reaction Status Date / Time No Known Allergies Allergy Unverified 10/12/21 11:34 Home Medications Medication Instructions Recorded Confirmed Type carvedilol 12.5 mg tablet 12.5 mg PO BID 10/01/21 10/12/21 History cholecalciferol (vitamin D3) 25 25 mcg PO QAM 10/01/21 10/12/21 History mcg (1,000 unit) tablet (Vitamin D3) cyanocobalamin (vitamin B-12) 1,000 mcg PO QAM 10/01/21 10/12/21 History 1,000 mcg tablet (Vitamin B-12) furosemide 40 mg tablet 20 mg PO QAM 10/01/21 10/12/21 History latanoprost 0.005 % eye drops 1 drp OPB QPM 10/01/21 10/12/21 History levothyroxine 75 mcg tablet 75 mcg PO DAILYBB 10/01/21 10/12/21 History sacubitril 97 mg-valsartan 103 mg 1 tab PO BID 10/01/21 10/12/21 History tablet (Entresto) Patient History Medical History (Updated 10/13/21 @ 17:49 by Suhail Clark MD) Atrial fibrillation CHF (congestive heart failure) Community acquired pneumonia Hypoalbuminemia Hypothyroidism Presence of Watchman left atrial appendage closure device (2017) Surgical History (Updated 10/13/21 @ 17:47 by Suhail Clark MD) H/O: hysterectomy Social History Smoking Status: Never smoker Second Hand Exposure: No; Do You Dip or Chew Tobacco: No; Tobacco Cessation Education Requested by Patient: No Hx Alcohol Use: Yes Alcohol type: wine Hx Substance Use: No Preferred Language: Latvian Communication Ability: Effective Bark Grinder Required: No Beliefs That Will Affect Care: None marital status: / Current Living Situation: Family Current Living Situation Comment: lives w/ son and daughter in law and their child. How many Children do You have: 1 Other Information That Helps Us Care for You: No Feels Safe at Home: Yes Safety Concerns: Feels Safe At This Time Assistive Devices: None Assistive Devices Comment: reading glasses only. Physical Exam Physical Exam: Normal habitus elderly white female in no distress. Normotensive. Difficult to determine pulses paradoxus with atrial fibrillation, however her pulses seems to be less than 12 mmHg. Pulse in the 96 bpm range and irregular. Skin: no ecchymoses or generalized lesions. HEENT: unremarkable. Neck: Jugular venous pulse at the clavicle at 90 degrees, no carotid bruits. Negative Kussmaul sign. Lungs: Clear breath sounds. No wheezing. No accessory muscle use. Cardiac: Irregular rhythm, 2/6 basal systolic ejection murmur, 2/6 apical holosystolic murmur. No diastolic murmur. Abdomen: benign. Extremities: no edema, pulses intact. Neurologic: normal affect and conversation, nonfocal. Results & Data ([facility]) Vital Signs (Past 12 Hours) Vital Signs Temp Pulse Pulse Resp BP Pulse Ox 10/13/21 14:49 97.9 F 98 H 20 139/92 94 10/13/21 13:26 98 H 18 94 10/13/21 07:47 79 18 92 10/13/21 07:19 98.1 F 80 20 150/89 H 92 Laboratory Results CBC unremarkable. Potassium 3.4 with otherwise normal electrolytes, BUN 18, creatinine 0.84. Troponin was negative. Coronavirus and flu studies were negative. Rhinovirus was detected. Diagnostic Findings Echocardiogram yesterday showed EF 35 to 40% with moderate global hypokinesis, mild aortic stenosis, mild to moderate mitral regurgitation, mild pulmonary hypertension, and a loculated posterior pericardial effusion. ECG showed atrial fibrillation with aberrantly conducted beats, poor R wave progression, and nonspecific minor T wave inversions in the anteroseptal leads. Compared with 10/01/2021 ECG, poor R wave progression now noted. PG Care Time/CCT Total # of Minutes Spent Total Time Spent with Patient: Total time spent is greater than 50% in coordination of care (as documented) at patient's floor/unit and/or counseling patient: Coding Level of Care Code 84651 Inpt Consult Level 4 Diagnoses Pericardial effusion I31.3 Atrial fibrillation I48.91 Atrial fibrillation type: unspecified URI (upper respiratory infection) J06.9 Presence of Watchman left atrial appendage closure device Z95.818 Cardiomyopathy I42.9 (1) Atrial fibrillation Atrial fibrillation type: unspecified Qualified Code(s): I48.91 - Unspecified atrial fibrillation
[2021-10-13] MEDS: MELATONIN 3 MG TAB PO PRN (20:32)
[2021-10-13] MEDS: ENOXAPARIN INJ 40 MG/0.4 ML SYR SQ SCH (20:33)
[2021-10-13] MEDS: LATANOPROST 0.005% OP SOLN 2.5 ML BTL OPB SCH (20:33)
--- NOTE | 2021-10-13 21:03 | Hospitalist Progress Note ---
Date of Service October 13, 2021 Assessment & Plan (1) Dyspnea: Plan: viral URI vs mucous plugging vs aspiration pneumonia - Biofire completed:enterovirus + - On room air - Albuterol nebulizers scheduled q6 hours for 24 hours - Flutter valve QID to assist with coughing and opening airways - ABX - Levaquin 750 mg IV x1 now and then PO every day - Follow biomarkers and clinical response - small bilateral pleural effusions - Do not feel this is related to heart failure or volume overload -consulted speech for swallow eval due to posssibility of aspiration pneumonia. -patient did pass bedside swallow eval with no hypoxia or complaints. will consult pulm for further input as aspiration seems unlikely: however, complete swallow eval will bring value to this case. (2) Community acquired pneumonia: Plan: As above - ? 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 awaiting bioFIRE - Cards consult pending ECHO results- if no acute intervention, will need to follow up to ensure resolution (4) CHF (congestive heart failure): Plan: Kady Gary Lasix - BNP pending on admission - As above not consistent with exacerbation causing her dyspnea (5) Atrial fibrillation: Plan: Rate controlled with watchman device- not on anticoagulation (6) Hypothyroidism: Plan: Continue synthroid 75mcg daily (7) Presence of Watchman left atrial appendage closure device: Plan: As above Admission and Anticipated Discharge Date Admission Date: October 12, 2021 Subjective Patient reports that she is coughing up yellow sputum thanks to the flutter valve. She does not feel that she is aspirating. Review of Systems Review of Systems: All systems reviewed & are unremarkable except as noted in HPI & below Physical Exam Physical Exam: General: awake, alert, no apparent distress Head: Normocephalic, atraumatic ENT: PERRL, EOMI, no pharyngeal exudate, mucous membranes moist Neuro: AAO x 3, speech clear and appropriate, strength intact bilaterally 5/5, sensation intact and equal all extremities and dermatomes, no pronator drift Chest: equal rise and fall of the chest, no accessory muscle use, no heaves or thrills, scattered ronchi throughout upper airways, egophony to right lower lobe, end expiratory wheeze right. Cardiac: Regular rate and rhythm, telemetry reviewed, skin warm dry, cap refill <3 seconds, peripheral pulses +2 no JVD, no murmur, no JVD, no edema GI: NABS x 4 quadrants, soft, nontender to palpation, no rebound, guarding or tenderness : Spontaneously voiding, no pain, no CVA tenderness, Extremities: Normal inspection, no peripheral edema or erythema, calfs nontender to palpation Psych: Normal mood and affect Skin: no rash or erythema Results & Data Results & Data ([facility]) Vital Signs (Past 12 Hours) Vital Signs Temp Pulse Resp BP Pulse Ox 10/13/21 19:13 90 15 94 10/13/21 14:49 36.6 C 98 H 20 139/92 94 10/13/21 13:26 98 H 18 94 PG Care Time/CCT Total # of Minutes Spent Total Time Spent with Patient: Total time spent is greater than 50% in coordination of care (as documented) at patient's floor/unit and/or counseling patient: Coding Level of Care Code 87315 Subseq Hosp Care Lvl 3 Diagnoses Dyspnea R06.00 Community acquired pneumonia J18.9 Laterality: right Lung location: unspecified part of lung Pericardial effusion I31.3 CHF (congestive heart failure) I50.9 Heart failure chronicity: acute on chronic Heart failure type: unspecified Atrial fibrillation I48.91 Atrial fibrillation type: unspecified Hypothyroidism E03.9 Presence of Watchman left atrial appendage closure device Z95.818 Time Spent (min) 35 (1) Community acquired pneumonia Laterality: right Lung location: unspecified part of lung Qualified Code(s): J18.9 - Pneumonia, unspecified organism (2) CHF (congestive heart failure) Heart failure chronicity: acute on chronic Heart failure type: unspecified Qualified Code(s): I50.9 - Heart failure, unspecified (3) Atrial fibrillation Atrial fibrillation type: unspecified Qualified Code(s): I48.91 - Unspecified atrial fibrillation
[2021-10-14] MEDS: ALBUTEROL 0.083% NEBU SOLN 3 ML VIAL NEB SCH ×4 (00:55→19:38)
[2021-10-14] MEDS: LEVOTHYROXINE SODIUM 75 MCG TABLET PO SCH (06:27)
[2021-10-14 08:13] LABS: Basophils # (auto) 0.03 K/uL (0-0.2); Basophils % (auto) 0.4 %; Eosinophils # (auto) 0.09 K/uL (0-0.5); Eosinophils % (auto) 1.3 %; Hematocrit (blood only) 37.7 % (37-47); Hemoglobin 12.7 g/dL (12.0-16.0); Immature Granulocytes # (auto) 0.01 K/uL (0.00-0.02); Immature Granulocytes % (auto) 0.1 %; Lymphocytes # (auto) 1.02 K/uL (1.2-3.4); Lymphocytes % (auto) 14.5 %; Mean Corpuscular Hemoglobin 31.8 pg (25-34); Mean Corpuscular Hgb Conc 33.7 g/dL (32-36); Mean Corpuscular Volume 94.3 fL (80-100); Mean Platelet Volume 9.2 fL (7.4-10.4); Monocytes # (auto) 0.63 K/uL (0.11-0.59); Neutrophils # (auto) 5.25 K/uL (1.4-6.5); Neutrophils % (auto) 74.7 %; Platelet Count 455 K/uL (130-400); RDW Coefficient of Variation 13.4 % (11.5-14.5); RDW Standard Deviation 46.2 fL (36.4-46.3); White Blood Count 7.03 K/uL (4.8-10.8)
[2021-10-14] MEDS: VALSARTAN/SACUBITRIL 103/97MG TAB PO SCH ×2 (08:14→20:41)
[2021-10-14] MEDS: carvediloL 12.5 MG TAB PO SCH ×2 (08:14→20:42)
[2021-10-14] MEDS: FUROSEMIDE 20 MG TAB PO SCH (08:14)
[2021-10-14 08:36] LABS: BUN Creatinine Ratio 26.7 (10-20); Calcium 8.4 mg/dl (8.5-10.1); Creatinine Clr Calc Pharmacy 59.8 ml/min; Est GFR (African American) 82.9 ml/min; Est GFR (Non-African American) 71.5 ml/min; Magnesium 2.3 mg/dl (1.8-2.4); Potassium 3.6 mmol/L (3.5-5.1)
--- NOTE | 2021-10-14 11:44 | XRay Report ---
XR chest 1V portable HISTORY: 86 years-old Female SOB acute shortness of breath COMPARISON: Chest CT and chest radiograph 10/12/2021 TECHNIQUE: Portable AP view of the chest FINDINGS: The cardiac silhouette is enlarged. Atherosclerosis of the aorta. Device within the atrial appendage redemonstrated. Small layering pleural effusions with mild right basilar opacities appear similar to comparison. The lungs are mildly hyperinflated. No pneumothorax. There is suggested collapse of the r ight middle lobe. Degenerative changes of the shoulders and spine. Healed chronic left-sided rib frac tures. IMPRESSION: 1. Cardiomegaly without pulmonary edema. 2. Small layering pleural effusions with right basilar consolidation redemonstrated. 3. Right middle lobe collapse. ACT 112: Negative or not required by law. The above report was generated using voice recognition software. It may contain grammatical, syntax o r spelling errors. Electronically signed by: Walter Pedraza M.D. 10/14/2021 11:43 AM
--- NOTE | 2021-10-14 16:30 | Pulmonary Consultation ---
Date of Consultation October 14, 2021 History of Present Illness Attending Physician: Lobo Hernandez Allergies Allergy/AdvReac Type Severity Reaction Status Date / Time No Known Allergies Allergy Unverified 10/12/21 11:34 Home Medications Medication Instructions Recorded Confirmed Type carvedilol 12.5 mg tablet 12.5 mg PO BID 10/01/21 10/12/21 History cholecalciferol (vitamin D3) 25 25 mcg PO QAM 10/01/21 10/12/21 History mcg (1,000 unit) tablet (Vitamin D3) cyanocobalamin (vitamin B-12) 1,000 mcg PO QAM 10/01/21 10/12/21 History 1,000 mcg tablet (Vitamin B-12) furosemide 40 mg tablet 20 mg PO QAM 10/01/21 10/12/21 History latanoprost 0.005 % eye drops 1 drp OPB QPM 10/01/21 10/12/21 History levothyroxine 75 mcg tablet 75 mcg PO DAILYBB 10/01/21 10/12/21 History sacubitril 97 mg-valsartan 103 mg 1 tab PO BID 10/01/21 10/12/21 History tablet (Entresto) Patient History Medical History (Updated 10/13/21 @ 17:49 by Suhail Clark MD) Atrial fibrillation CHF (congestive heart failure) Community acquired pneumonia Hypoalbuminemia Hypothyroidism Presence of Watchman left atrial appendage closure device (2016) Surgical History (Updated 10/13/21 @ 17:47 by Suhail Clark MD) H/O: hysterectomy Social History Smoking Status: Never smoker Second Hand Exposure: No; Do You Dip or Chew Tobacco: No; Tobacco Cessation Education Requested by Patient: No Hx Alcohol Use: Yes Alcohol type: wine Hx Substance Use: No Preferred Language: Estonian Communication Ability: Effective Tow Driver Required: No Beliefs That Will Affect Care: None marital status: / Current Living Situation: Family Current Living Situation Comment: lives w/ son and daughter in law and their child. How many Children do You have: 1 Other Information That Helps Us Care for You: No Feels Safe at Home: Yes Safety Concerns: Feels Safe At This Time Assistive Devices: None Assistive Devices Comment: reading glasses only. Results & Data Results & Data ([facility]) Vital Signs (Past 12 Hours) Vital Signs Temp Pulse Resp BP BP Pulse Ox 10/14/21 15:47 36.5 C 92 H 18 149/92 H 91 10/14/21 13:24 90 16 90 10/14/21 08:13 36.8 C 90 18 156/96 H 95 10/14/21 07:45 36.6 C 90 19 156/96 H 92 10/14/21 07:20 80 18 92 PG Care Time/CCT Total # of Minutes Spent Total Time Spent with Patient: Total time spent is greater than 50% in coordination of care (as documented) at patient's floor/unit and/or counseling patient: Coding
[2021-10-14] MEDS: guaiFENesin 600 MG TABCR PO SCH ×2 (16:51→20:44)
--- NOTE | 2021-10-14 18:37 | Hospitalist Progress Note ---
Date of Service October 14, 2021 Assessment & Plan (1) Dyspnea: Plan: viral URI vs mucous plugging vs aspiration pneumonia - Biofire completed:enterovirus + - On room air - Albuterol nebulizers scheduled q6 hours for 24 hours - Flutter valve QID to assist with coughing and opening airways - ABX - Levaquin 750 mg IV x1 now and then PO every day - Follow biomarkers and clinical response - small bilateral pleural effusions - Do not feel this is related to heart failure or volume overload -consulted speech for swallow eval due to posssibility of aspiration pneumonia. -patient did pass bedside swallow eval with no hypoxia or complaints. d/w pulm. would like swallow eval done before discharge. will continue pulonary toilet. Patient reports breathing better, less coughing today. (2) Community acquired pneumonia: Plan: As above - ? 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 awaiting bioFIRE - Cards consult pending ECHO results- if no acute intervention, will need to follow up to ensure resolution (4) CHF (congestive heart failure): Plan: Judie SACHIN, Kady, Laskaylee - BNP pending on admission - As above not consistent with exacerbation causing her dyspnea (5) Atrial fibrillation: Plan: Rate controlled with watchman device- not on anticoagulation (6) Hypothyroidism: Plan: Continue synthroid 75mcg daily (7) Presence of Watchman left atrial appendage closure device: Plan: As above Admission and Anticipated Discharge Date Admission Date: October 13, 2021 Subjective Patient reports no new symptoms. PATIENT REPORTS LESS COUGHING Review of Systems Review of Systems: All systems reviewed & are unremarkable except as noted in HPI & below Physical Exam Physical Exam: General: awake, alert, no apparent distress Head: Normocephalic, atraumatic ENT: PERRL, EOMI, no pharyngeal exudate, mucous membranes moist Neuro: AAO x 3, speech clear and appropriate, strength intact bilaterally 5/5, sensation intact and equal all extremities and dermatomes, no pronator drift Chest: equal rise and fall of the chest, no accessory muscle use, no heaves or thrills, scattered ronchi throughout upper airways, egophony to right lower lobe, end expiratory wheeze right. Cardiac: Regular rate and rhythm, telemetry reviewed, skin warm dry, cap refill <3 seconds, peripheral pulses +2 no JVD, no murmur, no JVD, no edema GI: NABS x 4 quadrants, soft, nontender to palpation, no rebound, guarding or tenderness : Spontaneously voiding, no pain, no CVA tenderness, Extremities: Normal inspection, no peripheral edema or erythema, calfs nontender to palpation Psych: Normal mood and affect Skin: no rash or erythema Results & Data Results & Data ([facility]) Vital Signs (Past 12 Hours) Vital Signs Temp Pulse Resp BP BP Pulse Ox 10/14/21 15:47 36.5 C 92 H 18 149/92 H 91 10/14/21 13:24 90 16 90 10/14/21 08:13 36.8 C 90 18 156/96 H 95 10/14/21 07:45 36.6 C 90 19 156/96 H 92 10/14/21 07:20 80 18 92 PG Care Time/CCT Total # of Minutes Spent Total Time Spent with Patient: Total time spent is greater than 50% in coordination of care (as documented) at patient's floor/unit and/or counseling patient: Coding Level of Care Code 95594 Subseq Hosp Care Lvl 2 Diagnoses Dyspnea R06.00 Community acquired pneumonia J18.9 Laterality: right Lung location: unspecified part of lung Pericardial effusion I31.3 CHF (congestive heart failure) I50.9 Heart failure chronicity: acute on chronic Heart failure type: unspecified Atrial fibrillation I48.91 Atrial fibrillation type: unspecified Hypothyroidism E03.9 Presence of Watchman left atrial appendage closure device Z95.818 (1) Community acquired pneumonia Laterality: right Lung location: unspecified part of lung Qualified Code(s): J18.9 - Pneumonia, unspecified organism (2) CHF (congestive heart failure) Heart failure chronicity: acute on chronic Heart failure type: unspecified Qualified Code(s): I50.9 - Heart failure, unspecified (3) Atrial fibrillation Atrial fibrillation type: unspecified Qualified Code(s): I48.91 - Unspecified atrial fibrillation
--- NOTE | 2021-10-14 18:51 | Pulmonary Consultation ---
Date of Consultation October 14, 2021 Assessment & Plan (1) Shortness of breath: (2) Abnormal chest CT: CT chest 10/12/2021 personally reviewed: Biapical scarring Right middle lobe collapse Valvular lesion opacities appreciated bilaterally lower lobes Small right-sided pleural effusion, pericardial effusion --Cough with right middle lobe collapse Chest x-ray from 10/01/2021 which showed significant right sided infiltrate I think this is most likely chronic aspiration versus chronic atelectasis of the right middle lobe which can be seen in [place] disease Patient is not in any acute respiratory distress at the time of examination She was asking if she could go home Plan: Recommendation will be to have patient use guaifenesin [id number] along with flutter valve CoughAssist will also be added on top of this Would recommend videofluoroscopy eval to make sure patient is not aspirating especially after getting the history If the patient develops any respiratory distress plan for bronchoscopy could be done to clear the airway Repeat chest x-ray in the morning Please note the above document was generated using voice recognition software. It may contain grammatical, syntax or spelling errors.Any formal questions or concerns about the content, text or information contained within the body of this dictation should be directly addressed to the provider for clarification. History of Present Illness Attending Physician: Lobo Hernandez History of Present Illness 86-year-old female past medical history of A. fib that is post watchman procedure on anticoagulation, HFrEF was admitted to hospital with community- acquired pneumonia back earlier this month. And discharged on 03 October on Augmentin She presented to the hospital because of progressing shortness of breath and coughing. She has a deep raspy cough but she is noted to develop anything Pulmonary consulted for abnormal chest CT At the time of examination patient's son was also in the room Patient stated she has been having cough which is not able to bring to [facility]. She does complain of chest congestion As per the son as well as the patient she occasionally coughs whenever she eats. When asked whether she has aspiration episode she is not able to answer clearly. No fever or chills. She did have recent pneumonia for which she was given antibiotics No dysuria, no diarrhea Social history: Non-smoker Allergies Allergy/AdvReac Type Severity Reaction Status Date / Time No Known Allergies Allergy Unverified 10/12/21 11:34 Home Medications Medication Instructions Recorded Confirmed Type carvedilol 12.5 mg tablet 12.5 mg PO BID 10/01/21 10/12/21 History cholecalciferol (vitamin D3) 25 25 mcg PO QAM 10/01/21 10/12/21 History mcg (1,000 unit) tablet (Vitamin D3) cyanocobalamin (vitamin B-12) 1,000 mcg PO QAM 10/01/21 10/12/21 History 1,000 mcg tablet (Vitamin B-12) furosemide 40 mg tablet 20 mg PO QAM 10/01/21 10/12/21 History latanoprost 0.005 % eye drops 1 drp OPB QPM 10/01/21 10/12/21 History levothyroxine 75 mcg tablet 75 mcg PO DAILYBB 10/01/21 10/12/21 History sacubitril 97 mg-valsartan 103 mg 1 tab PO BID 10/01/21 10/12/21 History tablet (Entresto) Patient History Medical History (Updated 10/14/21 @ 18:43 by Marcela Garcia MD) Atrial fibrillation CHF (congestive heart failure) Community acquired pneumonia Hypoalbuminemia Hypothyroidism Presence of Watchman left atrial appendage closure device (2017) Surgical History (Updated 10/13/21 @ 17:47 by Suhail Clark MD) H/O: hysterectomy Social History Smoking Status: Never smoker Second Hand Exposure: No; Do You Dip or Chew Tobacco: No; Tobacco Cessation Education Requested by Patient: No Hx Alcohol Use: Yes Alcohol type: wine Hx Substance Use: No Preferred Language: Qatari Communication Ability: Effective Major Gifts Director Required: No Beliefs That Will Affect Care: None marital status: / Current Living Situation: Family Current Living Situation Comment: lives w/ son and daughter in law and their child. How many Children do You have: 1 Other Information That Helps Us Care for You: No Feels Safe at Home: Yes Safety Concerns: Feels Safe At This Time Assistive Devices: None Assistive Devices Comment: reading glasses only. Review of Systems Review of Systems: All systems reviewed & are unremarkable except as noted in HPI & below Physical Exam Physical Exam: Constitutional: No acute distress HEENT: EOMI, PERRLA Respiratory system: Decreased air entry bilaterally, no wheeze, no rhonchi, positive crackles bilateral lower lobes CVS: S1-S2 positive, no murmurs or gallops Abdomen: Soft, nontender, nondistended, positive bowel sounds x4 Extremities: +2 pulses bilaterally radialis/ dorsalis pedis, no cyanosis, no edema Neuro: Awake alert oriented x3 Psych: Normal mood and affect G/U: No Bliss Skin: no rashes, warm and dry Lymphatic: no cervical or axillary lymphadenopathy Results & Data Results & Data ([facility]) Vital Signs (Past 12 Hours) Vital Signs Temp Pulse Resp BP BP Pulse Ox 10/14/21 15:47 36.5 C 92 H 18 149/92 H 91 10/14/21 13:24 90 16 90 10/14/21 08:13 36.8 C 90 18 156/96 H 95 10/14/21 07:45 36.6 C 90 19 156/96 H 92 10/14/21 07:20 80 18 92 10/14/21 07:36 10/14/21 07:36 PG Care Time/CCT Total # of Minutes Spent Total Time Spent with Patient: Total time spent is greater than 50% in coordination of care (as documented) at patient's floor/unit and/or counseling patient: Coding Level of Care Code 02373 Initial Inpt Care Lvl 3 Diagnoses Shortness of breath R06.[address] R93.89
[2021-10-14] MEDS: BENZONATATE 100 MG CAPSULE PO SCH (20:43)
[2021-10-14] MEDS: LATANOPROST 0.005% OP SOLN 2.5 ML BTL OPB SCH (20:47)
[2021-10-14] MEDS: ENOXAPARIN INJ 40 MG/0.4 ML SYR SQ SCH (20:47)
[2021-10-14] MEDS: MELATONIN 3 MG TAB PO PRN (21:18)
[2021-10-15] MEDS: SODIUM CHLOR 7% 4 ML NEB NEB SCH ×3 (00:46→19:39)
[2021-10-15] MEDS: ALBUTEROL 0.083% NEBU SOLN 3 ML VIAL NEB SCH ×4 (00:49→19:44)
[2021-10-15] MEDS: LEVOTHYROXINE SODIUM 75 MCG TABLET PO SCH (06:24)
[2021-10-15 06:26] LABS: Basophils # (auto) 0.03 K/uL (0-0.2); Basophils % (auto) 0.4 %; Eosinophils % (auto) 1.3 %; Hematocrit (blood only) 39.2 % (37-47); Hemoglobin 12.9 g/dL (12.0-16.0); Immature Granulocytes # (auto) 0.01 K/uL (0.00-0.02); Immature Granulocytes % (auto) 0.1 %; Lymphocytes # (auto) 1.12 K/uL (1.2-3.4); Lymphocytes % (auto) 14.5 %; Mean Corpuscular Hemoglobin 31.5 pg (25-34); Mean Corpuscular Hgb Conc 32.9 g/dL (32-36); Mean Corpuscular Volume 95.6 fL (80-100); Mean Platelet Volume 9.1 fL (7.4-10.4); Monocytes # (auto) 0.58 K/uL (0.11-0.59); Monocytes % (auto) 7.5 %; Neutrophils # (auto) 5.86 K/uL (1.4-6.5); Neutrophils % (auto) 76.2 %; Platelet Count 450 K/uL (130-400); RDW Coefficient of Variation 13.5 % (11.5-14.5)
[2021-10-15 07:06] LABS: Calcium 8.4 mg/dl (8.5-10.1); Creatinine Clr Calc Pharmacy 61.4 ml/min; Est GFR (African American) 85.6 ml/min; Est GFR (Non-African American) 73.9 ml/min; Magnesium 2.3 mg/dl (1.8-2.4); Potassium 3.9 mmol/L (3.5-5.1)
--- NOTE | 2021-10-15 07:56 | XRay Report ---
XR chest 1V portable HISTORY: 86 years-old Female RML collapse vs mucous plug acute shortness of breath COMPARISON: Chest radiograph 10/14/2021, chest CT 10/12/2021 TECHNIQUE: Portable AP view of the chest FINDINGS: Occlusion device within the atrial appendage redemonstrated. Cardiomegaly. Calcified plaque of the th oracic aorta. Small layering pleural effusions. The left inferior costophrenic angle is partially exc luded from the [id number]. Persistent right basilar opacities. Opacity of the right cardiophrenic angle redemonstrated suggestive of right middle lobe collapse. Degenerative changes of the shoulders and spine. Healed chronic left-sided rib fractures. IMPRESSION: 1. Small layering pleural effusions with persistent right basilar consolidation. 2. Right middle lobe collapse. ACT 112: Negative or not required by law. The above report was generated using voice recognition software. It may contain grammatical, syntax o r spelling errors. Electronically signed by: Walter Pedraza M.D. 10/15/2021 7:55 AM
[2021-10-15] MEDS: VALSARTAN/SACUBITRIL 103/97MG TAB PO SCH ×2 (08:44→20:34)
[2021-10-15] MEDS: carvediloL 12.5 MG TAB PO SCH ×2 (08:44→20:32)
[2021-10-15] MEDS: guaiFENesin 600 MG TABCR PO SCH ×2 (08:44→20:32)
[2021-10-15] MEDS: FUROSEMIDE 20 MG TAB PO SCH (08:56)
--- NOTE | 2021-10-15 14:16 | Pulmonology Progress Note ---
Date of Service October 15, 2021 Assessment & Plan (1) Shortness of breath: (2) Abnormal chest CT: Plan: CT chest 10/12/2021 personally reviewed: Biapical scarring Right middle lobe collapse Valvular lesion opacities appreciated bilaterally lower lobes Small right-sided pleural effusion, pericardial effusion --Cough with right middle lobe collapse Chest x-ray from 10/01/2021 which showed significant right sided infiltrate I think this is most likely chronic aspiration versus chronic atelectasis of the right middle lobe which can be seen in [place] disease Patient is not in any acute respiratory distress at the time of examination She was asking if she could go home Plan: Chest x-ray from today still shows right middle lobe collapse Patient today is inclining towards having bronchoscopy done to clear out the airway N.p.o. post midnight Patient scheduled for bronchoscopy tomorrow 8 AM Hold all anticoagulation Please note the above document was generated using voice recognition software. It may contain grammatical, syntax or spelling errors.Any formal questions or concerns about the content, text or information contained within the body of this dictation should be directly addressed to the provider for clarification. Admission and Anticipated Discharge Date Admission Date: October 13, 2021 Subjective Patient seen and examined at bedside. No acute distress, noted with symptoms overnight She states her breathing is better She still complaining cough. Not bringing up any phlegm She does have CoughAssist in the room but I am unsure if she used it overnight Denies any chest pain, no headache, no nausea, no vomiting She was having breakfast prior to me examining her Review of Systems Review of Systems: All systems reviewed & are unremarkable except as noted in Subjective Physical Exam Physical Exam: Constitutional: No acute distress HEENT: EOMI, PERRLA Respiratory system: Decreased air entry bilaterally, no wheeze, no rhonchi, positive crackles bilateral lower lobes CVS: S1-S2 positive, no murmurs or gallops Abdomen: Soft, nontender, nondistended, positive bowel sounds x4 Extremities: +2 pulses bilaterally radialis/ dorsalis pedis, no cyanosis, no edema Neuro: Awake alert oriented x3 Psych: Normal mood and affect G/U: No Bliss Skin: no rashes, warm and dry Lymphatic: no cervical or axillary lymphadenopathy Results & Data Results & Data ([facility]) Vital Signs (Past 12 Hours) Vital Signs Temp Pulse Resp BP Pulse Ox 10/15/21 11:52 83 18 95 10/15/21 07:44 36.7 C 81 16 151/89 H 97 10/15/21 06:20 81 18 97 10/15/21 05:52 10/15/21 05:52 PG Care Time/CCT Total # of Minutes Spent Total Time Spent with Patient: Total time spent is greater than 50% in coordination of care (as documented) at patient's floor/unit and/or counseling patient: Coding Level of Care Code 20343 Subseq Hosp Care Lvl 2 Diagnoses Shortness of breath R06.[address] R93.89
--- NOTE | 2021-10-15 14:37 | Fluoroscopy Report ---
FL video swallow CLINICAL HISTORY: assess for aspiration TECHNIQUE: Video fluoroscopy of the pharyngeal region was performed as barium mixtures of varying con sistencies were administered to the patient by the speech pathologist. A formal esophagram was not pe rformed. COMPARISON: None. FINDINGS: The patient swallowed the different barium consistencies without difficulty. There was no l aryngeal vestibular penetration or idalmis tracheal aspiration. Pooling of barium was noted in the bila teral piriform sinuses and valleculae. Total fluoroscopy time: 2.4 minutes. IMPRESSION: No evidence of aspiration. Please see the speech pathology report for further details. ACT 112: Negative or not required by law. Electronically signed by: Jani Davies M.D. 10/15/2021 2:36 PM
--- NOTE | 2021-10-15 20:00 | Hospitalist Progress Note ---
Date of Service October 15, 2021 Assessment & Plan (1) Dyspnea: Plan: viral URI vs mucous plugging vs aspiration pneumonia - Biofire completed:enterovirus + - On room air - Albuterol nebulizers scheduled q6 hours for 24 hours - Flutter valve QID to assist with coughing and opening airways - ABX - Levaquin 750 mg IV x1 now and then PO every day - Follow biomarkers and clinical response - small bilateral pleural effusions - Do not feel this is related to heart failure or volume overload -consulted speech for swallow eval due to posssibility of aspiration pneumonia. -patient did pass bedside swallow eval with no hypoxia or complaints. d/w pulm. would like swallow eval done before discharge. will continue pulonary toilet. Patient reports breathing better, less coughing today. On 05/15 Patient will have bronch tomorrow. Swallow eval was negative for aspiration. Will be NPO after midnight. (2) Community acquired pneumonia: Plan: As above - ? 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 awaiting bioFIRE - Cards consult pending ECHO results- if no acute intervention, will need to follow up to ensure resolution (4) CHF (congestive heart failure): Plan: Contine BB, Entresto, Lasix - BNP pending on admission - As above not consistent with exacerbation causing her dyspnea (5) Atrial fibrillation: Plan: Rate controlled with watchman device- not on anticoagulation (6) Hypothyroidism: Plan: Continue synthroid 75mcg daily (7) Presence of Watchman left atrial appendage closure device: Plan: As above Admission and Anticipated Discharge Date Admission Date: October 13, 2021 Subjective Patient reports no new symptoms. Still having cough but no production. Review of Systems Review of Systems: All systems reviewed & are unremarkable except as noted in HPI & below Physical Exam Physical Exam: General: awake, alert, no apparent distress Head: Normocephalic, atraumatic ENT: PERRL, EOMI Neuro: speech clear and appropriate, Chest: equal rise and fall of the chest, no accessory muscle use Cardiac: Regular rate and rhythm, telemetry reviewed, skin warm dry, cap refill <3 seconds, peripheral pulses +2 no JVD, no murmur, no JVD, no edema Extremities: Normal inspection, Psych: Normal mood and affect Skin: no rash or erythema Results & Data Results & Data ([facility]) Vital Signs (Past 12 Hours) Vital Signs Temp Pulse Resp BP Pulse Ox 10/15/21 19:44 86 20 98 10/15/21 19:39 84 18 94 10/15/21 15:04 36.7 C 79 16 149/89 H 96 10/15/21 11:52 83 18 95 PG Care Time/CCT Total # of Minutes Spent Total Time Spent with Patient: Total time spent is greater than 50% in coordination of care (as documented) at patient's floor/unit and/or counseling patient: Coding Level of Care Code 77977 Subseq Hosp Care Lvl 2 Diagnoses Dyspnea R06.00 Community acquired pneumonia J18.9 Laterality: right Lung location: unspecified part of lung Pericardial effusion I31.3 CHF (congestive heart failure) I50.9 Heart failure chronicity: acute on chronic Heart failure type: unspecified Atrial fibrillation I48.91 Atrial fibrillation type: unspecified Hypothyroidism E03.9 Presence of Watchman left atrial appendage closure device Z95.818 Time Spent (min) 25 (1) Community acquired pneumonia Laterality: right Lung location: unspecified part of lung Qualified Code(s): J18.9 - Pneumonia, unspecified organism (2) CHF (congestive heart failure) Heart failure chronicity: acute on chronic Heart failure type: unspecified Qualified Code(s): I50.9 - Heart failure, unspecified (3) Atrial fibrillation Atrial fibrillation type: unspecified Qualified Code(s): I48.91 - Unspecified atrial fibrillation
[2021-10-15] MEDS: BENZONATATE 100 MG CAPSULE PO SCH (20:32)
[2021-10-15] MEDS: LATANOPROST 0.005% OP SOLN 2.5 ML BTL OPB SCH (20:33)
[2021-10-15] MEDS: MELATONIN 3 MG TAB PO PRN (20:38)
[2021-10-16] MEDS: ALBUTEROL 0.083% NEBU SOLN 3 ML VIAL NEB SCH ×3 (00:05→13:36)
[2021-10-16] MEDS: LEVOTHYROXINE SODIUM 75 MCG TABLET PO SCH (06:42)
--- NOTE | 2021-10-16 07:52 | Pulmonology Progress Note ---
Date of Service October 16, 2021 Assessment & Plan (1) Shortness of breath: (2) Abnormal chest CT: Plan: CT chest 10/12/2021 personally reviewed: Biapical scarring Right middle lobe collapse Valvular lesion opacities appreciated bilaterally lower lobes Small right-sided pleural effusion, pericardial effusion --Cough with right middle lobe collapse Chest x-ray from 10/01/2021 which showed significant right sided infiltrate I think this is most likely chronic aspiration versus chronic atelectasis of the right middle lobe which can be seen in Ladchani DouglasBlair disease Patient is not in any acute respiratory distress at the time of examination She was asking if she could go home Plan: For bronchoscopy today. Risk and benefit of the procedure explained the patient that She understands and agrees to evaluate Consent signed, witnessed and put in the chart. Please note the above document was generated using voice recognition software. It may contain grammatical, syntax or spelling errors.Any formal questions or concerns about the content, text or information contained within the body of this dictation should be directly addressed to the provider for clarification. Admission and Anticipated Discharge Date Admission Date: October 13, 2021 Subjective Patient seen and examined at bedside. No acute distress Does complain of cough not getting up any significant phlegm. Denies any chest pain Has been using flutter valve but not on a regular basis. Good appetite. Review of Systems Review of Systems: All systems reviewed & are unremarkable except as noted in Subjective Physical Exam Physical Exam: Constitutional: No acute distress HEENT: EOMI, PERRLA Respiratory system: Decreased air entry bilaterally, no wheeze, no rhonchi, positive crackles bilateral lower lobes CVS: S1-S2 positive, no murmurs or gallops Abdomen: Soft, nontender, nondistended, positive bowel sounds x4 Extremities: +2 pulses bilaterally radialis/ dorsalis pedis, no cyanosis, no edema Neuro: Awake alert oriented x3 Psych: Normal mood and affect G/U: No Bliss Skin: no rashes, warm and dry Lymphatic: no cervical or axillary lymphadenopathy Results & Data Results & Data ([facility]) Vital Signs (Past 12 Hours) Vital Signs Temp Pulse Pulse Pulse Resp BP BP 10/16/21 07:30 36.9 C 82 21 161/97 H 10/15/21 23:34 36.5 C 68 18 131/82 10/15/21 20:28 82 143/88 H Pulse Ox 10/16/21 07:30 100 10/15/21 23:34 95 10/15/21 20:28 10/15/21 05:52 10/15/21 05:52 PG Care Time/CCT Total # of Minutes Spent Total Time Spent with Patient: Total time spent is greater than 50% in coordination of care (as documented) at patient's floor/unit and/or counseling patient: Coding Level of Care Code 40492 Subseq Hosp Care Lvl 3 Diagnoses Shortness of breath R06.[address] R93.89
[2021-10-16] MEDS ORDERED: MIDAZOLAM HCL 5 MG/ML 1 ML VIAL ONE (07:55)
[2021-10-16] MEDS ORDERED: fentaNYL citrate 100 MCG/2 ML VIAL ONE (07:55)
[2021-10-16] MEDS ORDERED: NALOXONE HCL 0.4 MG/1 ML VIAL/CARP ONE (07:56)
[2021-10-16] MEDS ORDERED: FLUMAZENIL 0.1 MG/1 ML 10 ML VIAL IV ONE (07:57)
--- NOTE | 2021-10-16 08:09 | Pre Anesthesia Assessment ---
Date of Service October 16, 2021 Pre Sedation Assessment Vital Signs Temp Pulse Pulse Pulse Resp BP BP 10/16/21 07:30 36.9 C 82 21 161/97 H 10/15/21 23:34 36.5 C 68 18 131/82 10/15/21 20:28 82 143/88 H 10/15/21 19:44 86 20 10/15/21 19:39 84 18 10/15/21 15:04 36.7 C 79 16 149/89 H 10/15/21 11:52 83 18 Pulse Ox 10/16/21 07:30 100 10/15/21 23:34 95 10/15/21 20:28 10/15/21 19:44 98 10/15/21 19:39 94 10/15/21 15:04 96 10/15/21 11:52 95 Pre-Sedation Airway Assessment Smoking Status: Never smoker Hx Sleep Apnea: No Short, Thick Neck: No Thyromental Distance: > or= 3.5 Finger Breadths Oral Cavity: + WNL Mallampati Class: III ASA: ASA3 NPO Status Date of Last Intake of Fluids: 10/15/21 Time of Last Intake of Fluids: 20:00 Date of Last Intake of Solid Food: 10/15/21 Time of Last Intake of Solid Foods: 20:00 Procedure Planning Contraindications for Sedation: none Current Medications Reviewed: Yes Notes The planned sedation has been discussed with the patient. Informed Consent was obtained. I have identified the patient, determined the appropriateness of sedation and have assessed the patient immediately prior to the procedure. All medicine(s) and interventions are by my order.
--- NOTE | 2021-10-16 08:30 | Post Anesthesia Assessment ---
Date of Service October 16, 2021 Post Sedation Assessment Vital Signs Temp Pulse Pulse Pulse Pulse Resp BP 10/16/21 08:25 82 14 140/86 10/16/21 08:20 88 14 138/91 10/16/21 08:15 83 15 144/99 H 10/16/21 08:11 83 15 150/90 H 10/16/21 07:30 36.9 C 82 21 161/97 H 10/15/21 23:34 36.5 C 68 18 10/15/21 20:28 82 143/88 H 10/15/21 19:44 86 20 10/15/21 19:39 84 18 10/15/21 15:04 36.7 C 79 16 149/89 H 10/15/21 11:52 83 18 BP Pulse Ox 10/16/21 08:25 100 10/16/21 08:20 100 10/16/21 08:15 100 10/16/21 08:11 99 10/16/21 07:30 100 10/15/21 23:34 131/82 95 10/15/21 20:28 10/15/21 19:44 98 10/15/21 19:39 94 10/15/21 15:04 96 10/15/21 11:52 95 Discharge Sedation Level of Care: Fast Track Phase II Post Sedation Plan On clinical assessment, the patient appears to have tolerated the sedation wi thout complications. Patient is recovering as anticipated. Patient will continue to be monitored by nursing and may be discharged when sedation discharge criteria are met per below protocol. Upon Completions of procedure up to 15 minutes continue every 5 minute vital signs and the P.A.R. score; then discharge to a Phase I or Fast Track to Phase II per the following guidelines: * Discharge Patient to appropriate Phase II area if PAR is 8 or greater or return to pre- procedure baseline. The post - procedure orders will be as directed. * If PAR score is less than 8 or not return to pre-procedure baseline then patient will follow Phase I monitoring till PAR is reached for Phase II. The Phase I may be done in procedure room or may call to secure a Phase I area. * If naloxone or flumazenil are used for reversal, hold in Phase I for continued monitoring from when last reversal dose was given for a minimum of 60 minutes or longer pending the nurse and/or physician discretion of patient condition before discharge to Phase II. Please call the Sedation Physician to re-evaluate and complete post-note for discharge to Phase II area. Do NOT discharge from procedure sedation or Phase 1 until post- sedation evaluation note is complete by procedure /sedation MD Sedation Discharge Instructions to be given to the patient at discharge to home.
--- NOTE | 2021-10-16 08:32 | Procedure Note ---
Procedure Note: Bronchoscopy Procedure PREOPERATIVE DIAGNOSIS: Right middle lobe collapse POSTOPERATIVE DIAGNOSIS: Right middle lobe collapse PROCEDURE PERFORMED: Flexible fiberoptic bronchoscopy with brushings COMPLICATIONS: None. INDICATION: Right middle lobe collapse PROCEDURE: After obtaining an informed consent, the patient was brought to the Bronchoscopy Suite. The patient had appropriate oxygen, blood pressure, heart rate, and respiratory rate monitoring applied and monitored continuously throughout the procedure. Supplemental oxygen via nasal cannula as per nursing records was applied to the nasopharynx with adequate saturations achieved. Topical anesthesia with nebulized 1% lidocaine was achieved. Subsequent to this, the patient was premedicated with 3 mg of midazolam and 75 mcg of fentanyl. Upper Airway: The oropharynx and larynx were well visualized and showed normal mucosa There was normal vocal cord motion without masses or lesions. Additional topical anesthesia with 1% lidocaine was applied to the trachea and ganga. The trachea appeared normal.The bronchoscope was then advanced through the august na, which was sharp. Thick yellowish-green phlegm was appreciated right at the ganga which was suctioned out. The scope was then advanced into the right main stem and each segment, subsegement in the right upper lobe, right middle lobe and right lower lobe were visualized. There was moderate amount of thick greenish-yellow secretions which were suctioned out. There were no other findings including evidence of mass, anatomic distortions, or hemorrhage. Patient seen to have dynamic collapse of the RBI which is especially appreciated on the patient was exhibiting. No mucous plugging or obstruction appreciated anywhere in the RBI of the right lower lobe. The bronchoscope was subsequently withdrawn and advanced into the left mainstem. Again, each segment and subsegment was well visualized. No specific masses or other lesions were identified throughout the tracheobronchial tree on the left. There was moderate amounts of clear secretions which were suctioned out. The bronchoscope was then wedged in the right middle lobe and bronchoalveolar lavage samples were obtained. 90 ml of saline was instilled and 25ml of fluid was aspirated back.The bronchoscope was withdrawn and the area was suctioned clear. The bronchoscope was then re-advanced into the right middle lobe and brushings were obtained. The bronchoscope was then withdrawn to the mainstem. The area was suctioned clear. The bronchoscope was then withdrawn. The patient tolerated the procedure well without evidence of desaturation or complications. Bronchoalveolar lavage samples were sent for cell count, Gram stain and bacterial culture, AFB culture and smear, fungal culture and smear,and cytology. Recommendations: Follow micro and cytology Follow-up chest x-ray
--- NOTE | 2021-10-16 09:32 | XRay Report ---
SINGLE VIEW CHEST CLINICAL HISTORY: Status post bronchoscopy FINDINGS: An AP, portable, upright chest radiograph is compared to study dated 10/15/2021 and correla khalif with chest CT dated 10/12/2021. The heart is enlarged noting atherosclerotic calcification of the thoracic aorta. The pulmonary vasculature is noncongested. An occlusion device of the left atrial ap pendage is unchanged. There is a small right pleural effusion with right basilar consolidation. There is persistent right middle lobe atelectasis. Scarring/atelectasis is suggested at the left lung base . No pneumothorax is identified. The skeletal structures are osteopenic. There are healed left-sided rib fractures. IMPRESSION: 1. Cardiomegaly without radiographic evidence of congestive failure. 2. No pneumothorax is seen post procedure. 3. Right pleural effusion with right basilar consolidation. 4. Persistent right middle lobe atelectasis. ACT 112: Negative or not required by law. Electronically signed by: Kole Barber M.D. 10/16/2021 9:31 AM
[2021-10-16 10:48] LABS: Eosinophil Body Fluid Man 2 %; Fluid Mono/Macrophage 10 %; Lymphocyte Body Fluid Man 9 %; Neutrophil Body Fluid Man 79 %
[2021-10-16] MEDS: SODIUM CHLOR 7% 4 ML NEB NEB SCH (11:15)
[2021-10-16] MEDS: carvediloL 12.5 MG TAB PO SCH (11:30)
[2021-10-16] MEDS: VALSARTAN/SACUBITRIL 103/97MG TAB PO SCH (11:31)
[2021-10-16] MEDS: guaiFENesin 600 MG TABCR PO SCH (11:31)
[2021-10-16] MEDS: FUROSEMIDE 20 MG TAB PO SCH (11:31)
[2021-10-16] MEDS ORDERED: COUGH DROP (SUGAR FREE) LOZ 24 LOZ/1 BOX BUCCAL STA (13:03)
[2021-10-16] MEDS ORDERED: COUGH DROP (SUGAR FREE) LOZ 24 LOZ/1 BOX BUCCAL PRN (13:03)
--- NOTE | 2021-10-20 20:10 | Discharge Summary ---
Date of Service October 16, 2021 Admission HPI Per Admitting Provider 86 YOF with past medical history of: Afib s/p watchman procedure (not on anticoagulation), HFrEF. Patient was recently admitted on for dyspnea and was diagnosed with CAP at that time. Was started on Rocephin and Azithromycin and albuterol inhalers, showed improvement in symptoms and was discharged on the 03 of October on Augmentin for 7 days. She completed this, but felt that her symptoms have gotten worse since stopping her antibiotics. She endorses getting dyspneic upon walking approximately 30 feet and her son endorses 100 feet of ambulation is her maximum before she is dyspneic and coughing. Patient normally has 4-6 pillow orthopnea that she states has not gotten worse, no swelling in her legs. Her cough is with deep inspiration, deep raspy, and is non-productive. This has not been associated with fevers, chills. In the EMD she had a CXR performed, routine labs performed and ECG performed. Her CXR showed improvement in her right lower lung opacity, remains with small bilateral pleural effusions. CBC and BMP are unremarkable. Hospitalist service was notified for admission. Patient was given a dose of doxycycline and cefepime in the EMD. Will change this to Levaquin and obtain CT scan of chest. Patient with more bronchial vesicular rhonchi and wheeze, will also send bio- fire, BNP and PCT. Troponin negative and no acute changes on her ECG. Patient has received her COVID vaccine and her COVID test on admission is: NEGATIVE Principal Diagnosis dypsnea Discharge Exam General: awake, alert, no apparent distress Head: Normocephalic, atraumatic ENT: PERRL, EOMI Neuro: speech clear and appropriate, Chest: equal rise and fall of the chest, no accessory muscle use Cardiac: Regular rate and rhythm, telemetry reviewed, skin warm dry, cap refill <3 seconds, peripheral pulses +2 no JVD, no murmur, no JVD, no edema Extremities: Normal inspection, Psych: Normal mood and affect Skin: no rash or erythema Discharge Data Allergies Allergy/AdvReac Type Severity Reaction Status Date / Time No Known Allergies Allergy Unverified 10/12/21 11:34 Consultations 10/12/21 11:50 ED Decision to Admit Stat 10/13/21 08:50 Consult Cardiology Routine 10/13/21 20:57 Consult Pulmonology Routine Procedures Performed Operation Date: 10/16/21 07:00 Actual Procedures p Bronchoscopy Radiology - Marcela Garcia MD Ordered Studies 10/12/21 12:30 CT chest diagnostic wo con Urgent 10/15/21 13:00 FL video swallow Routine Hospital Course (1) Dyspnea: viral URI vs mucous plugging vs aspiration pneumonia - Biofire completed:enterovirus + - On room air - Albuterol nebulizers scheduled q6 hours for 24 hours - Flutter valve QID to assist with coughing and opening airways - ABX - Levaquin 750 mg IV x1 now and then PO every day - Follow biomarkers and clinical response - small bilateral pleural effusions - Do not feel this is related to heart failure or volume overload -consulted speech for swallow eval due to posssibility of aspiration pneumonia. -patient did pass bedside swallow eval with no hypoxia or complaints. d/w pulm. would like swallow eval done before discharge. will continue pulonary toilet. Patient reports breathing better, less coughing today. On 05/15 Patient will have bronch tomorrow. Swallow eval was negative for aspiration. Will be NPO after midnight. On 05/16 Bronch completed. No mucuos plugging completed. The trachea appeared normal.The bronchoscope was then advanced through the ganga, which was sharp.Thick yellowish-green phlegm was appreciated right at the ganga which was suctioned out. The scope was then advanced into the right main stem and each segment, subsegement in the right upper lobe, right middle lobe and right lower lobe were visualized.There was moderate amount of thick greenish-yellow secretions which were suctioned out.There were no other findings including evidence of mass, anatomic distortions, or hemorrhage. Patient seen to have dynamic collapse of the RBI which is especially appreciated on the patient was exhibiting. No mucous plugging or obstruction appreciated anywhere in the RBI of the right lower lobe. will discharge on 5 days of doxycycline and will recommend incentive spirometry and flutter valve. This was explained to the patient. (2) Community acquired pneumonia: As above - ? 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 awaiting bioFIRE - Cards consult pending ECHO results- if no acute intervention, will need to follow up to ensure resolution (4) CHF (congestive heart failure): Contine BB, Entresto, Lasix - BNP pending on admission - As above not consistent with exacerbation causing her dyspnea (5) Atrial fibrillation: Rate controlled with watchman device- not on anticoagulation (6) Hypothyroidism: Continue synthroid 75mcg daily (7) Presence of Watchman left atrial appendage closure device: As above Total Time Total Time Spent Total Time Spent (In Minutes): 32 Discharge Plan Discharge Items Patient Disposition: Home - Self-Care Reason For Visit: DYSNPEA,COUGH Discharge Diagnosis: dyspnea Activity: Resume your previous activity Non-emergency contact: Primary Care Provider Call non-emergency contact if: you have any medication questions Follow-up/Referrals: Hayley Roland MD [Primary Care Provider] - 10/26/21 2:10 pm Diet: Regular Addtl Attending Provider Instructions: You had a swallow eval which did not show any evidence of aspiration. You had a bronschoscopy that did not show a mucous plug but it did show evidence that your Right middle lobe collapses easily. Will recommend 7 days of doxycycline and mucinex. Please continue with your flutter valve and incentive siprometry to continue to clean your lungs. Recommend followup with your PCP in 1-2 weeks. Followup with pulmonary in 1 month. Pending Studies at Discharge: No Stand-Alone Forms: My [facility] [place], Smoking Cessation Medications and DC Order Prescriptions: New doxycycline hyclate 100 mg tablet 100 mg PO BID 7 Days Qty: 14 RF: 0 Mucinex 1,200 mg tablet extended release 12hr 1,200 mg PO BID Qty: 14 RF: 0 Continued furosemide 40 mg tablet 20 mg PO QAM RF: 0 latanoprost 0.005 % drops 1 drp OPB QPM RF: 0 carvedilol 12.5 mg tablet 12.5 mg PO BID RF: 0 levothyroxine 75 mcg tablet 75 mcg PO DAILYBB RF: 0 Entresto 97-103 mg tablet 1 tab PO BID RF: 0 cyanocobalamin (vitamin B-12) [Vitamin B-12] 1,000 mcg Tablet 1,000 mcg PO QAM RF: 0 cholecalciferol (vitamin D3) [Vitamin D3] 25 mcg (1,000 unit) Tablet 25 mcg PO QAM RF: 0 Discharge Orders: Discharge Order (Routine); Ordered 10/16/21 Ordered By: Lobo Barbour/Other Patient Handouts: Flexible Bronchoscopy, Respiratory Infect Common Prevention, Understanding the Cold Virus Admission Data Admit Date/Time: 10/13/21 21:08 Attending Provider: Lobo Hernandez Admit Provider: Melquiades Kellogg Primary Care Provider: Hayley Roland Other Providers: Melquiades Kellogg ; Suhail Clark ; Marcela Garcia Other Interventions: Discharge Summary Assessment (RN) Last Done: 10/16/21 15:14 Coding Level of Care Code D/C DAY MANAGEMENT >30 MINS Diagnoses Dyspnea R06.00 Community acquired pneumonia J18.9 Laterality: right Lung location: unspecified part of lung Pericardial effusion I31.3 CHF (congestive heart failure) I50.9 Heart failure chronicity: acute on chronic Heart failure type: unspecified Atrial fibrillation I48.91 Atrial fibrillation type: unspecified Hypothyroidism E03.9 Presence of Watchman left atrial appendage closure device Z95.818
[2021-10-27 06:16] LABS: Legionella Culture Source RIGHT MIDDLE LOBE
== END 2021-10-16 15:50 | disposition home or self-care (01) | DRG 166 ==
LOC: 2W 09:39 → ED 09:39 → SUATTDRO 12:37 → 2W 14:26 → SUATTDRO 10-13 21:08 → 3W 10-14 08:58

== ENCOUNTER 2022-07-18 19:28 | Inpatient (IN) ==
--- NOTE | 2022-07-18 19:44 | Emergency Department Note ---
Impression & Plan Syncope, Anemia, Hematoma of right thigh, Fall ED Provider Note NAME: BOBO JARAMILLO AGE: 87 SEX: F : 1935 ARRIVES VIA: Ambulance INFORMANT: Patient, ED PROVIDER(S): George Valentine DO CHIEF COMPLAINT: Possible seizure HPI: The patient is an 87-year-old female who presented to the emergency department by ambulance for possible seizure versus a syncopal episode. The patient did have a fall earlier in the afternoon. She fell onto her right hip. She states she has significant swelling and pain in the hip. She denies having any nausea or vomiting. She denies having any chest pain or difficulty breathing. She then started having an episode where she was shaking all over. The patient states that she does remember this episode but the person who presented with her to the emergency department states that she was not responsive and not answering questions. It sounds that the patient then had an episode where she was slow to respond and then eventually was at her baseline but they feel this lasted many minutes possibly 7 to 10 minutes. There is no reported fever. There is been no coughing or sore throat. There is been no other trauma. The patient denies having any headache at this time. She does have a history of atrial fibrillation. She states that she has been compliant with her outpatient medication regimen. ROS: See above HPI for pertinent positives & negatives. A total of 10 systems reviewed and were otherwise negative. PAST MEDICAL HISTORY: See Below PAST SURGICAL HISTORY: See Below FAMILY HISTORY: See Below SOCIAL HISTORY: See Below HOME MEDICATIONS: See Below ALLERGIES: See Below VITALS: See Below PHYSICAL EXAMINATION: GENERAL: The patient is awake and alert. She is nonanxious appearing. EYES: The conjunctivae are clear. The right pupil is dilated but reactive to light. The left pupil is mid and reactive. EARS, NOSE, MOUTH AND THROAT: The nose is without any evidence of any deformity. NECK: The neck is nontender and supple. RESPIRATORY: Normal respiratory effort is noted there is no evidence of wheezing rhonchi or rales CARDIOVASCULAR: Regular rate and rhythm noted there no murmurs rubs or gallops normal S1 normal S2. GASTROINTESTINAL: The abdomen is soft. Abdomen is nontender. MUSCULOSKELETAL/EXTREMITIES: There is no evidence of gross deformity full range of motion is noted in the hips and shoulders. There is significant swelling on the lateral aspect of the right hip. There is no ecchymosis or erythema at this time. SKIN: There is no obvious evidence of any rash. Pedal edema was noted bilaterally. NEUROLOGIC: Patient is awake alert and oriented x3 strength is symmetric patellar reflexes are 2+ bilaterally MEDICAL DECISION MAKING: The patient is an 87-year-old female who presented to the emergency department for an evaluation of syncope. The patient had a fall earlier in the evening. She landed on her right hip. She was found to have a large thigh hematoma on physical exam. The patient did not appear to have any definite fracture on x- ray by my interpretation. The patient may have had a syncopal episode because of the hematoma. She was found to have anemia worsened than her baseline hemoglobin. I discussed the patient's laboratory and radiographic studies with her. Family members are very concerned because she may have had a seizure. They do describe what could possibly be a postictal phase. The patient was not comfortable going home. She was able to get up to the bathroom but required significant assistance. She may require further evaluation for possible inpatient rehab. For this reason I will discussed this case with the on-call [employer] [facility]. Triage Nursing notes reviewed. Prior medical records reviewed Vital Signs: reviewed and remarkable for hypertension. Differential diagnosis: Epilepsy, infection, hypoglycemia, electrolyte abnormalities, cardiac sources, intracerebral event, trauma, toxicologic, neurologic, syncope, as well as other pathologies. ER treatment provided: See below Diagnostics interpreted by me: ECG: EKG was obtained in the emergency department. My interpretation is atrial fibrillation at 80 bpm. There were no PVCs noted. Nonspecific anterior and high lateral T wave abnormalities were noted. This was compared to a tracing from October 12, 2021. No changes were noted. Cardiac Monitoring: An order was placed for continuous cardiac monitoring. The monitor shows a rate of 80 bpm with atrial fibrillation. Laboratory studies: As stated above and show below. Imaging studies: See below Consultation(s): I discussed his case with Juan who is on-call for the [employer] [facility] group. Past Med/Surg History Medical History Allergic rhinitis with postnasal drip Community acquired pneumonia (09/2021) Hypoalbuminemia Hypothyroidism Surgical History H/O: hysterectomy Presence of Watchman left atrial appendage closure device (2017) Social History Smoking Status: Never smoker Second Hand Exposure: No; Hx Alcohol Use: No Hx Substance Use: No Preferred Language: Pakistani Communication Ability: Effective Anesthesiologist Physician Required: No Beliefs That Will Affect Care: None marital status: / Current Living Situation: Family Current Living Situation Comment: lives w/ son and daughter in law and their child. How many Children do You have: 1 Feels Safe at Home: Yes Assistive Devices: None Allergies Allergies Allergy/AdvReac Type Severity Reaction Status Date / Time No Known Allergies Allergy Unverified 07/18/22 23:01 Home Meds Home Medications Medication Instructions Recorded Confirmed carvedilol 12.5 mg tablet 12.5 mg PO BID 10/01/21 07/18/22 cholecalciferol (vitamin D3) 25 25 mcg PO QAM 10/01/21 07/18/22 mcg (1,000 unit) tablet (Vitamin D3) cyanocobalamin (vitamin B-12) 1,000 mcg PO QAM 10/01/21 07/18/22 1,000 mcg tablet (Vitamin B-12) levothyroxine 75 mcg tablet 75 mcg PO DAILYBB 10/01/21 07/18/22 sacubitril 97 mg-valsartan 103 mg 1 tab PO BID 10/01/21 07/18/22 tablet (Entresto) albuterol sulfate 90 mcg/actuation 2 inh inhalation QID PRN Shortness 10/30/21 07/18/22 breath activated powder inhaler Of Breath Or Wheezing amitriptyline 10 mg tablet 10 mg PO HS 07/18/22 07/18/22 brimonidine 0.2 %-timolol 0.5 % 1 drp OPB BID 07/18/22 07/18/22 eye drops (Combigan) dorzolamide 2 % eye drops 1 drp OPR BID 07/18/22 07/18/22 fluticasone propionate 50 1 spray intranasal DAILY PRN Nasal 07/18/22 07/18/22 mcg/actuation nasal Congestion spray,suspension (Allergy Relief (fluticasone)) guaifenesin 1,200 mg tablet, 1,200 mg PO BID PRN congested 07/18/22 07/18/22 extended release 12 hr (Mucinex) pilocarpine HCl 1 % eye drops 1 drp OPL TID 07/18/22 07/18/22 netarsudil 0.02 % eye drops 1 drp OPR QPM 07/19/22 07/19/22 (Rhopressa) prednisolone 1 %-moxifloxacin 0.5 1 drp ophthalmic (eye) TID 07/19/22 07/19/22 %-bromfenac 0.075 % eye drops susp Previous Rx's Medication Instructions Recorded levocetirizine 5 mg tablet 5 mg PO DAILY PRN allergy symptoms 11/25/21 #30 tabs Results & Data (ED) Vital Signs Vital Signs - 24 hr 07/18/22 22:33 Pulse Rate [Right Finger] 77 Respiratory Rate 18 Respiratory Effort / Characteristics Non-Labored Respiratory Depth Normal Blood Pressure [Right Arm] 144/88 H Blood Pressure Mean [Right Arm] 106 Pulse Oximetry 95 Oxygen Delivery Method Room Air Home Medications Current Medication List: was personally reviewed by me Laboratory Data Attestation: I reviewed the patient's lab results. Result diagrams: 07/19/22 05:04 07/19/22 05:04 Lab Results 07/18/22 07/18/22 07/18/22 Range/Units 19:40 19:40 19:40 WBC 6.44 (4.8-10.8) K/ul RBC 3.66 L (3.93-5.22) M/uL Hgb 11.3 L (12.0-16.0) g/dl Hct 34.2 (34.1-44.9) % MCV 93.4 (80.0-100.0) fL MCH 30.9 (25.0-34.0) pg MCHC 33.0 (32.0-36.0) g/dL RDW Std Deviation 46.0 (36.4-46.3) fL RDW Coeff of Chanel 13.5 (11.5-14.5) % Plt Count 224 (130-400) K/uL MPV 10.3 (9.4-12.3) fL Immature Gran % (Auto) 0.0 % Neut % (Auto) 73.2 % Lymph % (Auto) 16.1 % [place] % (Auto) 8.4 % Eos % (Auto) 1.7 % Baso % (Auto) 0.6 % Neut # (Auto) 4.71 (1.4-6.5) K/uL Lymph # (Auto) 1.04 L (1.2-3.4) K/uL [place] # (Auto) 0.54 (0.24-0.82) K/uL Eos # (Auto) 0.11 (0-0.50) K/uL Baso # (Auto) 0.04 (0-0.2) K/uL Immature Gran # (Auto) 0.00 (0.00-0.02) K/uL PT 11.6 (9.0-12.0) Seconds INR 1.1 (0.9-1.1) APTT 20.2 L (21.0-31.0) Seconds PTT Ratio 0.7 Sodium 139 (136-145) mmol/L Potassium 4.1 (3.5-5.1) mmol/L Chloride 106 (98-107) mmol/L Carbon Dioxide 26 (21-32) mmol/L Anion Gap 7 (3-11) BUN 27 H (6-23) mg/dl Creatinine 0.95 (0.6-1.2) mg/dl Est Cr Clr Drug Dosing 53.7 ml/min Est GFR ( Amer) 62.9 ml/min Est GFR (Non-Af Amer) 54.2 ml/min BUN/Creatinine Ratio 28.4 H (10-20) Glucose 115 H (70-99(Fasting)) mg/dl Calcium 8.2 L (8.5-10.1) mg/dl Magnesium 1.9 (1.7-2.4) mg/dl Total Bilirubin 0.7 (0.2-1.0) mg/dl AST 18 (13-39) U/L ALT 11 (7-52) U/L Alkaline Phosphatase 38 (34-104) U/L Total Creatine Kinase 61 (26-192) U/L Troponin I High Sens 5.4 (0-14) pg/ml Total Protein 5.9 L (6.0-8.3) gm/dl Albumin 3.6 (3.4-5.0) gm/dl Globulin 2.3 L (2.5-4.0) gm/dl Albumin/Globulin Ratio 1.6 (0.9-2) Lipase 28 (11-82) U/L TSH (0.300-4.500) uIu/ml Free T4 (0.61-1.60) ng/dl SARS-CoV-2, RNA, NAAT (NEGATIVE) 07/18/22 07/18/22 Range/Units 19:40 22:23 WBC (4.8-10.8) K/ul RBC (3.93-5.22) M/uL Hgb (12.0-16.0) g/dl Hct (34.1-44.9) % MCV (80.0-100.0) fL MCH (25.0-34.0) pg MCHC (32.0-36.0) g/dL RDW Std Deviation (36.4-46.3) fL RDW Coeff of Chanel (11.5-14.5) % Plt Count (130-400) K/uL MPV (9.4-12.3) fL Immature Gran % (Auto) % Neut % (Auto) % Lymph % (Auto) % [place] % (Auto) % Eos % (Auto) % Baso % (Auto) % Neut # (Auto) (1.4-6.5) K/uL Lymph # (Auto) (1.2-3.4) K/uL [place] # (Auto) (0.24-0.82) K/uL Eos # (Auto) (0-0.50) K/uL Baso # (Auto) (0-0.2) K/uL Immature Gran # (Auto) (0.00-0.02) K/uL PT (9.0-12.0) Seconds INR (0.9-1.1) APTT (21.0-31.0) Seconds PTT Ratio Sodium (136-145) mmol/L Potassium (3.5-5.1) mmol/L Chloride (98-107) mmol/L Carbon Dioxide (21-32) mmol/L Anion Gap (3-11) BUN (6-23) mg/dl Creatinine (0.6-1.2) mg/dl Est Cr Clr Drug Dosing ml/min Est GFR ( Amer) ml/min Est GFR (Non-Af Amer) ml/min BUN/Creatinine Ratio (10-20) Glucose (70-99(Fasting)) mg/dl Calcium (8.5-10.1) mg/dl Magnesium (1.7-2.4) mg/dl Total Bilirubin (0.2-1.0) mg/dl AST (13-39) U/L ALT (7-52) U/L Alkaline Phosphatase (34-104) U/L Total Creatine Kinase (26-192) U/L Troponin I High Sens (0-14) pg/ml Total Protein (6.0-8.3) gm/dl Albumin (3.4-5.0) gm/dl Globulin (2.5-4.0) gm/dl Albumin/Globulin Ratio (0.9-2) Lipase (11-82) U/L TSH 5.886 H (0.300-4.500) uIu/ml Free T4 1.23 (0.61-1.60) ng/dl SARS-CoV-2, RNA, NAAT NEGATIVE (NEGATIVE) Administered Medications Brimonidine/Timolol (Brimonidine Tartrate/Timolol) 1 drops OPB BID [facility] Stop: 08/18/22 20:59 Last Admin: 07/19/22 20:11 Dose: 1 drops Documented By: TMD Carvedilol (Carvedilol 12.5 Mg Tab) 12.5 mg PO BID [facility] Stop: 08/18/22 20:59 Last Admin: 07/19/22 20:13 Dose: 12.5 mg Documented By: TMD Diclofenac Sodium (Diclofenac Sod 1% Gel 100 Gm Tube) 2 gm EXT QID MICHELLE; Pro tocol Stop: 08/18/22 08:59 Last Admin: 07/19/22 20:15 Dose: 2 gm Documented By: Admin: 07/19/22 18:01 Dose: Not Given Documented By: Admin: 07/19/22 12:27 Dose: 2 gm Documented By: Admin: 07/19/22 08:27 Dose: 2 gm Documented By: HG Dorzolamide HCl (Dorzolamide Hcl 2% Oph Soln 10 Ml Btl) 1 drops OPR BID [facility] Stop: 08/18/22 20:59 Last Admin: 07/19/22 20:17 Dose: 1 drops Documented By: TMD Acetaminophen (Ofirmev) 1,000 mg in 100 mls @ 400 mls/hr IV Q8 MICHELLE; Protocol Stop: 07/22/22 05:59 Last Admin: 07/19/22 15:06 Dose: Not Given Documented By: Infusion: 07/19/22 07:39 Dose: 0 mls/hr Documented By: Admin: 07/19/22 07:15 Dose: 400 mls/hr Documented By: HG Rhopressa-Non- Formulary Patient's Own Med 1 each OPR QPM MICHELLE Stop: 08/18/22 20:59 Last Admin: 07/19/22 20:19 Dose: 1 drops Documented By: TMD Prednisolone/Moxifloxacin/Bromfenac-Non- Formulary Patient's Own Med 1 each OPL TID MICHELLE Stop: 08/18/22 20:59 Last Admin: 07/19/22 20:18 Dose: 1 drops Documented By: TMD Pilocarpine HCl (Pilocarpine Hcl 1% Op Soln 15 Ml Btl) 1 drops OPL TID MICHELLE Stop: 08/18/22 20:59 Last Admin: 07/19/22 20:21 Dose: Not Given Documented By: TMD Sacubitril/Valsartan (Valsartan/Sacubitril 103/97mg Tab) 1 tab PO BID MICHELLE Stop: 08/18/22 20:59 Last Admin: 07/19/22 20:22 Dose: 1 tab Documented By: TMD Discontinued Medications Miscellaneous (Order Awaiting Action) 1 each N/A QS MICHELLE Stop: 08/18/22 15:59 Last Admin: 07/19/22 15:50 Dose: Not Given Documented By: ES Imaging Data Attestation: I personally reviewed and interpreted this imaging study as follows: My Impression: X-rays of the right hip and pelvis were obtained in the emergency department. My interpretation is no acute fracture, significant soft tissue swelling was noted on the right lateral hip likely representing the hematoma noted on physical exam. 1 view chest x-ray was obtained in the emergency department. My interpretation is cardiomegaly, no acute disease, no definite filtrate, no free air Radiologist's Impression: Cervical Spine CT 07/18/22 19:37 CT SCAN OF THE CERVICAL SPINE CLINICAL HISTORY: Seizure. COMPARISON STUDY: No priors. TECHNIQUE: CT scan of the cervical spine is performed from the skull base to the upper thoracic spine. Images are reviewed in the axial, sagittal, and coronal planes. IV contrast was not administered for this examination. A dose lowering technique was utilized adhering to the principles of ALARA. FINDINGS: Skeletal structures: The skeletal structures are osteopenic. There is no evidence of fracture or subluxation involving the cervical spine. Vertebral body height and alignment are maintained. There is straightening of the cervical lordosis with reversal centered at C4-C5. Anterior osteophytes are seen throughout. The odontoid process and lateral masses are intact. The atlantoaxial articulation is preserved noting advanced productive degenerative change. The spinous processes appear intact. There is mild to moderate multilevel cervical spondylosis. Uncovertebral and facet arthropathy contribute to neural foraminal narrowing at several levels. Intervertebral discs: There is moderate disc space narrowing at C4-C5, C5-C6, and C6-C7 with associated endplate sclerosis. Central canal: Posterior disc osteophyte complexes are seen at all cervical levels between C3-C4 and C6-C7. This likely contributes to multilevel acquired compromise of the central canal. Soft tissues: The prevertebral and paraspinous soft tissues are within normal limits. The right lobe of the thyroid gland is diminutive versus surgically absent. The left lobe is heterogeneous. Mild atherosclerotic calcification is noted in the carotid bulbs. Calvarium: The visualized calvarium at the skull base appears intact. Brain parenchyma: Partially visualized brain parenchyma at the skull base is within normal limits. Sinuses and mastoids: The visualized paranasal sinuses are clear. The mastoid air cells are well pneumatized. Lung apices: Clear as visualized. IMPRESSION: 1. There is no evidence of fracture or subluxation involving the cervical spine. 2. Osteopenia and spondylotic change as above. ACT 112: Negative or not required by law. Electronically signed by: Kole Barber M.D. 07/19/2022 8:[address] 07/18/22 19:37 CT SCAN OF THE BRAIN WITHOUT IV CONTRAST CLINICAL HISTORY: Syncope. COMPARISON STUDY: No priors. TECHNIQUE: Unenhanced axial CT scan of the brain is performed from the vertex to the skull base. A dose lowering technique was utilized adhering to the principles of ALARA. CT DOSE: 955.55 mGy.cm FINDINGS: Brain parenchyma: There is age-related involutional change noting mild subcortical and periventricular microangiopathic disease. There is no hemorrhage, mass effect, or evidence of acute territorial ischemia by CT criteria. A 1 mm calcification within the left frontal white matter is likely chronic. There is mineralization of the basal ganglia. Solorzano-white matter differentiation is preserved. No extra-axial fluid collection is seen. Ventricles, sulci, cisterns: Prominent secondary to involutional change. Intracranial vasculature: There is atherosclerotic calcification of the cavern ous carotid and vertebral arteries. Calvarium: Unremarkable. Sinuses and mastoids: The visualized paranasal sinuses are clear. The mastoid air cells are well pneumatized. Orbits: The bony orbits are grossly intact. There are bilateral ocular lens implants. IMPRESSION: There is no hemorrhage, mass effect, or evidence of acute territorial ischemia by CT criteria. ACT 112: Negative or not required by law. Electronically signed by: Kole Barber M.D. 07/19/2022 7:20 AM Discharge Plan Visit Data Chief Complaint: Syncope (Near Syncope) Stated Complaint: POSSIBLE SEIZURE ED Provider: George Valentine Discharge Problem: Syncope, Anemia, Hematoma of right thigh, Fall Patient Disposition: Admitted As Inpatient Discharge Instructions Interventions: ED Discharge Assessment Last Done: 07/19/22 02:50 : Syncope Qualifiers: Syncope type: unspecified Qualified Code(s): R55 - Syncope and collapse Anemia Qualifiers: Anemia type: unspecified type Qualified Code(s): D64.9 - Anemia, unspecified Hematoma of right thigh Qualifiers: Encounter type: initial encounter Qualified Code(s): S70.11XA - Contusion of right thigh, initial encounter Fall Qualifiers: Encounter type: initial encounter Qualified Code(s): W19.XXXA - Unspecified fall, initial encounter
[2022-07-18 19:49] LABS: Basophils # (auto) 0.04 K/uL (0-0.2); Basophils % (auto) 0.6 %; Eosinophils # (auto) 0.11 K/uL (0-0.50); Eosinophils % (auto) 1.7 %; Hematocrit (blood only) 34.2 % (34.1-44.9); Hemoglobin 11.3 g/dl (12.0-16.0); Lymphocytes # (auto) 1.04 K/uL (1.2-3.4); Lymphocytes % (auto) 16.1 %; Mean Corpuscular Hemoglobin 30.9 pg (25.0-34.0); Mean Corpuscular Volume 93.4 fL (80.0-100.0); Mean Platelet Volume 10.3 fL (9.4-12.3); Monocytes # (auto) 0.54 K/uL (0.24-0.82); Monocytes % (auto) 8.4 %; Neutrophils # (auto) 4.71 K/uL (1.4-6.5); Neutrophils % (auto) 73.2 %; Platelet Count 224 K/uL (130-400); RDW Coefficient of Variation 13.5 % (11.5-14.5); Red Blood Count 3.66 M/uL (3.93-5.22); White Blood Count 6.44 K/ul (4.8-10.8)
[2022-07-18 20:01] LABS: INR 1.1 (0.9-1.1); Partial Thromboplastin Ratio 0.7; Partial Thromboplastin Time 20.2 Seconds (21.0-31.0); Prothrombin Time 11.6 Seconds (9.0-12.0)
[2022-07-18 20:15] LABS: Albumin Globulin Ratio 1.6 (0.9-2); Albumin Level 3.6 gm/dl (3.4-5.0); BUN Creatinine Ratio 28.4 (10-20); Bilirubin,Total 0.7 mg/dl (0.2-1.0); Calcium 8.2 mg/dl (8.5-10.1); Creatinine Clr Calc Pharmacy 53.7 ml/min; Est GFR (African American) 62.9 ml/min; Est GFR (Non-African American) 54.2 ml/min; Globulin 2.3 gm/dl (2.5-4.0); Magnesium 1.9 mg/dl (1.7-2.4); Potassium 4.1 mmol/L (3.5-5.1); Total Protein 5.9 gm/dl (6.0-8.3)
[2022-07-18 20:17] LABS: Troponin I High Sensitivity 5.4 pg/ml (0-14)
[2022-07-18 20:25] LABS: Thyroid Stimulating Hormone 5.886 uIu/ml (0.300-4.500)
[2022-07-18 20:58] LABS: T4 Free Thyroxine 1.23 ng/dl (0.61-1.60)
--- NOTE | 2022-07-18 22:39 | History & Physical Report ---
Date of Service July 18, 2022 Assessment & Plan (1) Syncope: Plan: 87yo female with a history of atrial fibrillation (s/p Watchman placement), CHF, cardiomyopathy, anemia, and hypothyroidism presents after a syncopal episode with seizure-like activity and a fall onto her right hip. Syncope, seizure-like activity Etiology unclear, broad differential, few clues from prior history CT head: no acute large vessel infarct or ICH; no fracture or skull hematoma; mild cerebral atrophy and periventricular white matter changes consistent with small vessel disease; chronic 9mm left frontal lobe subcortical white matter parenchymal calcification; official read pending CT c-spine: no acute fracture or subluxation; no significant spinal stenosis; mild carotic bifurcation calcification; kprkpzpb-vh-pzgxzu narrowing of alantodental joint; pfltvqvb-xc-logkzh disc space narrowing and osteophytosis of mid-cervical spine; mild multilevel degenerative facet arthrosis; official read pending Admit to med/telemetry Neuro checks q2h Supplemental oxygen as-needed NPO pending speech evaluation Echo ordered, cardiology consulted, recommendations appreciated Aspiration precautions, fall precautions, SCDs PT/OT ordered, CM consulted for home safety evaluation Consider neuro consult HbA1c and lipid profile ordered Right hip pain s/p fall XR without acute fracture APAP 1000mg IV q8h scheduled Voltaren gel ordered PT/OT CM consulted for home safety assessment Atrial fibrillation s/p Watchman procedure On arrival, patient rate-controlled; EKG: rate-controlled afib without overt ischemic change hsTroponin not elevated Home carvedilol held while NPO, resume when appropriate Anemia: stable, low suspicion for active bleed, trend CBC CHF: home meds held while NPO, resume when indicated, echo ordered as noted above Chronic cough: continue home inhaler regimen, guaifenesin held while NPO, resume when appropriate Hypothyroidism: resume home regimen when no longer NPO FEN: NPO pending speech evaluation Code status: conditional code (compressions OK, intubation/ventilation OK, no defibrillation) DVT ppx: SCDs PT/OT: ordered Case management: consulted for home safety assessment Dispo: med/telemetry (2) Seizure-like activity: (3) Anemia: (4) Atrial fibrillation: (5) CHF (congestive heart failure): (6) Cardiomyopathy: (7) Chronic cough: (8) Hematoma of right thigh: (9) Fall: (10) Hypothyroidism: History of Present Illness Primary Care Provider: Hayley Roland MD 87yo female with a history of atrial fibrillation (s/p Watchman placement), CHF, cardiomyopathy, anemia, and hypothyroidism presents after a syncopal episode with seizure-like activity and a fall onto her right hip.The fell occurred in late afternoon around 4pm - patient notes losing her balance without losing consciousness. No head trauma, no noted shaking before or after the event. Landed on her right hip which began to hurt shortly after. Was able to ambulate with assistance afterward. No lasting effects afterward beyond pain. Then, in the evening around dinnertime, patient was noted during family dinner to be pale and clammy prior to an episode of losing consciousness and then generalized shaking which lasted for 30-60 seconds. Nothing similar has happened before, denies other prodromal symptoms, no headache, no changes in vision. Patient does not remember the event. Patient was reported to be unresponsive during the episode, not answering questions. Patient endorses swelling and pain of the right hip but denies CP, SOB, nausea, vomiting, fever, cough, headache, other trauma, or other symptoms. Denies a history of seizure. Has had some mechanical falls over the past year but denies prior syncopal events. Vitals on admission were notable for elevated BP (150s/100s). No tachycardia or tachypnea, patient afebrile, spO2 adequate on room air. Labs on admission were notable for mild anemia (11.3), mild hypocalcemia (8.2), and elevated TSH (5.9). No leukocytosis or leukopenia, platelets wnl, no other electrolyte abnormalities, LFTs wnl, INR wnl (1.1), fT4 wnl (1.23), CK not elevated, hsTroponin not elevated, lipase note elevated. EKG: rate-controlled afib without overt ischemic change CXR: cardiomegaly; no overt acute pulmonary disease; official read pending CT head: no acute large vessel infarct or ICH; no fracture or skull hematoma; mild cerebral atrophy and periventricular white matter changes consistent with small vessel disease; chronic 9mm left frontal lobe subcortical white matter parenchymal calcification; official read pending CT c-spine: no acute fracture or subluxation; no significant spinal stenosis; mild carotic bifurcation calcification; rnjukuwc-tb-kzcybi narrowing of alantodental joint; muexdjvg-rd-bsmstq disc space narrowing and osteophytosis of mid-cervical spine; mild multilevel degenerative facet arthrosis; official read pending XR hips/pelvis:no acute fracture appreciated; right lateral hip with soft tissue swelling likely representing a hematoma; official read pending Surrogate decision-maker in case of an emergency: ananya Gunter (cell: [phone]) Allergies Allergy/AdvReac Type Severity Reaction Status Date / Time No Known Allergies Allergy Unverified 07/18/22 23:01 Home Medications Medication Instructions Recorded Confirmed Type carvedilol 12.5 mg tablet 12.5 mg PO BID 10/01/21 07/18/22 History cholecalciferol (vitamin D3) 25 25 mcg PO QAM 10/01/21 07/18/22 History mcg (1,000 unit) tablet (Vitamin D3) cyanocobalamin (vitamin B-12) 1,000 mcg PO QAM 10/01/21 07/18/22 History 1,000 mcg tablet (Vitamin B-12) levothyroxine 75 mcg tablet 75 mcg PO DAILYBB 10/01/21 07/18/22 History sacubitril 97 mg-valsartan 103 mg 1 tab PO BID 10/01/21 07/18/22 History tablet (Entresto) albuterol sulfate 90 mcg/actuation 2 inh inhalation QID PRN Shortness 10/30/21 07/18/22 History breath activated powder inhaler Of Breath Or Wheezing levocetirizine 5 mg tablet 5 mg PO DAILY PRN allergy symptoms 11/25/21 07/18/22 Rx #30 tabs amitriptyline 10 mg tablet 10 mg PO HS 07/18/22 07/18/22 History brimonidine 0.2 %-timolol 0.5 % 1 drp OPB BID 07/18/22 07/18/22 History eye drops (Combigan) dorzolamide 2 % eye drops 1 drp OPR BID 07/18/22 07/18/22 History fluticasone propionate 50 1 spray intranasal DAILY PRN Nasal 07/18/22 07/18/22 History mcg/actuation nasal Congestion spray,suspension (Allergy Relief (fluticasone)) guaifenesin 1,200 mg tablet, 1,200 mg PO BID PRN congested 07/18/22 07/18/22 His tory extended release 12 hr (Mucinex) pilocarpine HCl 1 % eye drops 1 drp OPL TID 07/18/22 07/18/22 History Past Med/Surg History Medical History Atrial fibrillation CHF (congestive heart failure) Community acquired pneumonia Hypoalbuminemia Hypothyroidism Hypoxic Presence of Watchman left atrial appendage closure device (2017) Surgical History H/O: hysterectomy Social History Smoking Status: Current every day smoker Second Hand Exposure: No; Hx Alcohol Use: Yes Alcohol type: wine Hx Substance Use: No Preferred Language: Bhutanese Communication Ability: Effective Senior Compensation Consultant Required: No Beliefs That Will Affect Care: None marital status: / Current Living Situation: Family Current Living Situation Comment: lives w/ son and daughter in law and their child. How many Children do You have: 1 Feels Safe at Home: Yes Assistive Devices: None Physical Exam Physical Exam: Constitutional: well-appearing, no acute distress HEENT: NCAT CV: regular rhythm, heart sounds distant, extremities well-perfused, no LE edema Resp: CTABL, no wheezes/rales/rhonchi appreciated, no increased work of breathing GI: soft, nondistended, nontender, BS normoactive MSK: right hip tenderness with palpation Neuro: alert, oriented, no focal neurologic deficit appreciated, CN2-12 grossly intact, strength 5/5 in upper and lower extremities bilaterally Results & Data Results & Data ([facility]) Vital Signs (Past 12 Hours) Vital Signs Temp Pulse Pulse Resp BP BP Pulse Ox 07/18/22 22:33 77 18 144/88 H 95 07/18/22 20:18 82 21 151/102 H 96 07/18/22 20:14 96 07/18/22 19:32 36.4 C L 80 14 151/102 H 95 O2 Del Method 07/18/22 22:33 Room Air 07/18/22 20:18 Room Air 07/18/22 20:14 Room Air 07/18/22 19:32 Room Air Supervising Physician Co-Signing Physician Notes Attending addendum: I have physically seen this patient, have supervised the medical residents activities, and agree with the H&P unless as otherwise noted. Assessment and Plan: Syncope/seizure-like activity- CT head negative CT C-spine with cervical degenerative disc disease without acute process The patient will be admitted to telemetry for serial cardiac enzymes, serial EKG's, cardiac rhythm monitoring and a 2-D echocardiogram with Dopplers. Neurochecks per protocol Precautions as noted Consult neurology Serial CBC with differential, chemistry profile, hemoglobin A1c and fasting lipid panel Atrial fibrillation status post watchman procedure/CHF/cardiomyopathy- The patient will be admitted to telemetry for serial cardiac enzymes, serial EKG's, cardiac rhythm monitoring and a 2-D echocardiogram with Dopplers. Lopressor 5 mg IV every 4 hours as needed heart rate greater than 110. Vital signs stable at this time Cardiology consult Remaining orders and notations as noted Resident Activity Tracking Resident Involvement: Resident Care Provided and Animal Damage Control Agent Coverage Note Care Provided: Adult Hospital Medicine (1) CHF (congestive heart failure) Heart failure chronicity: acute on chronic Heart failure type: unspecified Qualified Code(s): I50.9 - Heart failure, unspecified (2) Anemia Anemia type: unspecified type Qualified Code(s): D64.9 - Anemia, unspecified (3) Atrial fibrillation Atrial fibrillation type: unspecified Qualified Code(s): I48.91 - Unspecified atrial fibrillation (4) Hematoma of right thigh Encounter type: initial encounter Qualified Code(s): S70.11XA - Contusion of right thigh, initial encounter (5) Syncope Syncope type: unspecified Qualified Code(s): R55 - Syncope and collapse (6) Fall Encounter type: initial encounter Qualified Code(s): W19.XXXA - Unspecified fall, initial encounter
[2022-07-18] MEDS ORDERED: FLUTICASONE PROPIONATE NA SPR 16 GM BTL NAE PRN (23:34)
[2022-07-19 00:13] LABS: Appearance Urine Clear (Clear); Bacteria Urine Automated Negative (Negative); Bilirubin Urine Negative (Negative); Blood Urine Negative (Negative); Color Urine Yellow; Epithelial Cell Urine Auto >30 /lpf (0-5); Glucose Urine UA Negative (Negative); Ketones Urine Negative (Negative); Leukocyte Esterase Urine Trace (Negative); Nitrite Urine Negative (Negative); Protein Urine Negative (Negative); RBC Urine Automated 0-4 /hpf (0-4); Specific Gravity Urine 1.019 (1.000-1.030); Urobilinogen Urine Negative (Negative); pH Urine 5.5 (4.5-7.5)
[2022-07-19] MEDS ORDERED: ACETAMINOPHEN 1000 MG/100 ML IV IV SCH (02:48)
[2022-07-19] MEDS ORDERED: ONDANSETRON INJ 2 MG/ML 2 ML VIAL IV PRN (02:48)
[2022-07-19] MEDS ORDERED: ALBUTEROL HFA 8 GM INHALER INH PRN (02:53)
[2022-07-19 05:15] LABS: Basophils # (auto) 0.03 K/uL (0-0.2); Basophils % (auto) 0.4 %; Eosinophils # (auto) 0.06 K/uL (0-0.50); Eosinophils % (auto) 0.7 %; Hematocrit (blood only) 31.2 % (34.1-44.9); Hemoglobin 10.3 g/dl (12.0-16.0); Immature Granulocytes # (auto) 0.02 K/uL (0.00-0.02); Immature Granulocytes % (auto) 0.2 %; Lymphocytes # (auto) 0.84 K/uL (1.2-3.4); Lymphocytes % (auto) 10.3 %; Mean Corpuscular Hemoglobin 30.7 pg (25.0-34.0); Mean Corpuscular Volume 92.9 fL (80.0-100.0); Mean Platelet Volume 9.9 fL (9.4-12.3); Monocytes % (auto) 8.6 %; Neutrophils # (auto) 6.47 K/uL (1.4-6.5); Neutrophils % (auto) 79.8 %; Platelet Count 220 K/uL (130-400); RDW Coefficient of Variation 13.4 % (11.5-14.5); RDW Standard Deviation 45.4 fL (36.4-46.3); Red Blood Count 3.36 M/uL (3.93-5.22); White Blood Count 8.12 K/ul (4.8-10.8)
[2022-07-19 05:35] LABS: BUN Creatinine Ratio 29.4 (10-20); Calcium 8.2 mg/dl (8.5-10.1); Chol HDL Ratio 2.9 (0-5); Creatinine Clr Calc Pharmacy 60.1 ml/min; Est GFR (African American) 71.9 ml/min; Potassium 3.6 mmol/L (3.5-5.1)
--- NOTE | 2022-07-19 06:14 | Billing Data ---
Date of Service July 19, 2022 Coding Level of Care Code 28828 Initial Inpt Care Lvl 3
[2022-07-19 07:04] LABS: Estimated Average Glucose 100 mg/dl; Hemoglobin A1C 5.1 % (4.5-5.6)
[2022-07-19] MEDS: ACETAMINOPHEN 1,000 MG/100 ML VIAL IV SCH ×3 (07:15→21:58)
--- NOTE | 2022-07-19 07:21 | CT Scan Report ---
CT SCAN OF THE BRAIN WITHOUT IV CONTRAST CLINICAL HISTORY: Syncope. COMPARISON STUDY: No priors. TECHNIQUE: Unenhanced axial CT scan of the brain is performed from the vertex to the skull base. A do se lowering technique was utilized adhering to the principles of ALARA. CT DOSE: 955.55 mGy.cm FINDINGS: Brain parenchyma: There is age-related involutional change noting mild subcortical and periventricula r microangiopathic disease. There is no hemorrhage, mass effect, or evidence of acute territorial isc hemia by CT criteria. A 1 mm calcification within the left frontal white matter is likely chronic. Th ere is mineralization of the basal ganglia. Solorzano-white matter differentiation is preserved. No extra- axial fluid collection is seen. Ventricles, sulci, cisterns: Prominent secondary to involutional change. Intracranial vasculature: There is atherosclerotic calcification of the cavernous carotid and vertebr al arteries. Calvarium: Unremarkable. Sinuses and mastoids: The visualized paranasal sinuses are clear. The mastoid air cells are well pneu matized. Orbits: The bony orbits are grossly intact. There are bilateral ocular lens implants. IMPRESSION: There is no hemorrhage, mass effect, or evidence of acute territorial ischemia by CT kavita vent[place]. ACT 112: Negative or not required by law. Electronically signed by: Kole Barber M.D. 07/19/2022 7:20 AM
--- NOTE | 2022-07-19 08:09 | CT Scan Report ---
CT SCAN OF THE CERVICAL SPINE CLINICAL HISTORY: Seizure. COMPARISON STUDY: No priors. TECHNIQUE: CT scan of the cervical spine is performed from the skull base to the upper thoracic spine . Images are reviewed in the axial, sagittal, and coronal planes. IV contrast was not administered fo r this examination. A dose lowering technique was utilized adhering to the principles of ALARA. FINDINGS: Skeletal structures: The skeletal structures are osteopenic. There is no evidence of fracture or subl uxation involving the cervical spine. Vertebral body height and alignment are maintained. There is st raightening of the cervical lordosis with reversal centered at C4-C5. Anterior osteophytes are seen t hroughout. The odontoid process and lateral masses are intact. The atlantoaxial articulation is prese rved noting advanced productive degenerative change. The spinous processes appear intact. There is mi ld to moderate multilevel cervical spondylosis. Uncovertebral and facet arthropathy contribute to to ral foraminal narrowing at several levels. Intervertebral discs: There is moderate disc space narrowing at C4-C5, C5-C6, and C6-C7 with associat ed endplate sclerosis. Central canal: Posterior disc osteophyte complexes are seen at all cervical levels between C3-C4 and C6-C7. This likely contributes to multilevel acquired compromise of the central canal. Soft tissues: The prevertebral and paraspinous soft tissues are within normal limits. The right lobe of the thyroid gland is diminutive versus surgically absent. The left lobe is heterogeneous. Mild ath erosclerotic calcification is noted in the carotid bulbs. Calvarium: The visualized calvarium at the skull base appears intact. Brain parenchyma: Partially visualized brain parenchyma at the skull base is within normal limits. Sinuses and mastoids: The visualized paranasal sinuses are clear. The mastoid air cells are well pneu matized. Lung apices: Clear as visualized. IMPRESSION: 1. There is no evidence of fracture or subluxation involving the cervical spine. 2. Osteopenia and spondylotic change as above. ACT 112: Negative or not required by law. Electronically signed by: Kole Barber M.D. 07/19/2022 8:06 AM
[2022-07-19] MEDS: DICLOFENAC SOD 1% GEL 100 GM TUBE EXT SCH ×4 (08:27→20:15)
--- NOTE | 2022-07-19 08:43 | XRay Report ---
SINGLE VIEW PELVIS; 2 VIEWS RIGHT HIP CLINICAL HISTORY: Fall with right hip injury. FINDINGS: An AP view of the pelvis with AP and frog-leg views of the right hip are obtained. No prior studies are available for comparison at the time of dictation. The skeletal structures are osteopeni c. There is no radiographic evidence of acute fracture involving the hips or bony pelvis. Mild arthri tic change and joint space narrowing is seen in the hips. There is degenerative sclerosis of the sacr oiliac joints. Soft tissue edema/hematoma overlies the right proximal femur. There is atherosclerotic calcification of the femoral arteries. IMPRESSION: 1. No acute bony abnormality is identified. 2. Contusion/hematoma overlies the right proximal femur. Electronically signed by: Kole Barber M.D. 07/19/2022 8:41 AM
--- NOTE | 2022-07-19 08:44 | XRay Report ---
SINGLE VIEW CHEST CLINICAL HISTORY: Seizure. FINDINGS: 2 AP, portable, upright chest radiographs are compared to study dated 10/16/2021 and correl ated with chest CT dated 10/12/2021. An indeterminant surgical devices again noted within the left at rial appendage. The heart is enlarged noting atherosclerotic calcification of the thoracic aorta. The pulmonary vasculature is noncongested. Chronic interstitial thickening is similar to previous. There is bibasilar scarring/atelectasis. No airspace consolidation or large pleural effusion is identified . Atypical scarring is observed. No pneumothorax is seen. The skeletal structures are osteopenic. The re are healed left-sided rib fractures. IMPRESSION: Cardiomegaly with no active disease in the chest. ACT 112: Negative or not required by law. Electronically signed by: Kole Barber M.D. 07/19/2022 8:43 AM
--- NOTE | 2022-07-19 09:11 | XCELERA ---
[id number] \\[id number]
--- NOTE | 2022-07-19 11:28 | Neurology Consultation ---
Date of Consultation July 19, 2022 Assessment & Plan (1) Syncope: Impression: This is most likely a convulsive syncope, which was triggered by pain and worsening anemia. Prolonged cerebral hypoperfusion was the likely cause of convulsion. (2) Seizure-like activity: Impression: As seen above. (3) Permanent atrial fibrillation: Impression: Since having watchman placement, the patient has not been on anticoagulation. Current rate is well (4) Presence of Watchman left atrial appendage closure device: (5) Cardiomyopathy: Impression: Ejection fraction is around 35-40. Echocardiogram showed moderate global hypokinesis of the left ventricle, severe concentric left ventricular hypertrophy, and loculated posterior pericardial effusion which is unchanged compared with prior studies.. (6) Anemia: Impression: The patient has history of anemia, with additional hemoglobin dropped after large traumatic hip hematoma. (7) Hematoma of right thigh: Impression: Induced by fall without fracture. (8) Fall: Impression: Fall was mechanical. There is no prior symptoms to suggest other etiology. Plan Assessment and plan: 1. Convulsive syncope Impression: After having fall and a large hip hematoma, the patient was suffering from severe pain, and while sitting in the chair, felt dizzy, lightheaded, and reportedly, she was very pale and diaphoretic, with convulsive episode. Seizure was unlikely cause of syncope. Recommendations: EEG to evaluate for epileptogenic activity. Because the patient has many stroke risk factors, it is reasonable to order brain MRI without contrast, to investigate for acute cerebrovascular accident and other structural pathology as potential source of seizures. Cardiac monitoring. Unless EEG shows epileptogenic activity, we will not consider the patient a candidate for antiepileptic treatment. Because the patient had a convulsive syncope, she should not drive motor vehicles, until getting clearance from neurology clinic. Other seizure precautions are explained to the patient. If EEG and brain MRI comes unremarkable, then the patient can be discharged home. Follow-up with neurology clinic in a month. Thank you for the consultation. History of Present Illness Reason for Consultation: Syncope, convulsion Attending Physician: Terrence Flynn MD History of Present Illness The patient is a 87-year-old left-handed pleasant female, who was brought to the emergency department the day before yesterday, after the patient had a syncopal episode. She slipped and fell the day before yesterday, and landed on her right hip. She did not experience any dizziness, lightheadedness, loss of consciousness, or additional neurological symptoms prior or during the event. She was able to stand up and walk. She did not feel much pain or swelling initially, but 15 minutes later, right hip region was swollen significantly, with severe pain. On the same day, the patient was sitting in the chair, for dinner, and suddenly felt dizzy, lightheaded, and she was very pale and diaphoretic. Apparently, the patient lost her consciousness with generalized body shakiness. She denies losing consciousness but according to other family members, the patient was unresponsive with tremulous movements in extremities which lasted for 30 to 60 seconds. She did not have urinary incontinence or tongue biting. She stayed in sitting position during this event. Then, she was able to go to bedroom to lay down. According to family, the patient was confused for 5 to 7 minutes after the event. EMS was activated. When they arrived, the patient was able to answer questions appropriately. There was no sensorimotor deficits or facial asymmetry. In emergency department, the patient was neurologically intact. She has history of intermittent unsteadiness on her feet, with occasional falls. However, she denies any syncopal episodes, stroke or strokelike symptoms, or seizures in the past. She has extensive cardiac history including atrial fibrillation status post watchman placement, cardio myopathy, CHF hypothyroidism and anemia. They noticed further drop of hemoglobin in emergency department, which was likely secondary to hematoma. Head CT was unremarkable for acute pathology. The patient denies being on any new medications or dose adjustment recently. During stay in emergency department, the patient has been stable and denies any new neurological symptoms. I have reviewed the patient's chart including imaging studies and visualized them personally. I have discussed the case with the patient and answer her questions in detail. Allergies Allergy/AdvReac Type Severity Reaction Status Date / Time No Known Allergies Allergy Unverified 07/18/22 23:01 Home Medications Medication Instructions Recorded Confirmed Type carvedilol 12.5 mg tablet 12.5 mg PO BID 10/01/21 07/18/22 History cholecalciferol (vitamin D3) 25 25 mcg PO QAM 10/01/21 07/18/22 History mcg (1,000 unit) tablet (Vitamin D3) cyanocobalamin (vitamin B-12) 1,000 mcg PO QAM 10/01/21 07/18/22 History 1,000 mcg tablet (Vitamin B-12) levothyroxine 75 mcg tablet 75 mcg PO DAILYBB 10/01/21 07/18/22 History sacubitril 97 mg-valsartan 103 mg 1 tab PO BID 10/01/21 07/18/22 History tablet (Entresto) albuterol sulfate 90 mcg/actuation 2 inh inhalation QID PRN Shortness 10/30/21 07/18/22 History breath activated powder inhaler Of Breath Or Wheezing levocetirizine 5 mg tablet 5 mg PO DAILY PRN allergy symptoms 11/25/21 07/18/22 Rx #30 tabs amitriptyline 10 mg tablet 10 mg PO HS 07/18/22 07/18/22 History brimonidine 0.2 %-timolol 0.5 % 1 drp OPB BID 07/18/22 07/18/22 History eye drops (Combigan) dorzolamide 2 % eye drops 1 drp OPR BID 07/18/22 07/18/22 History fluticasone propionate 50 1 spray intranasal DAILY PRN Nasal 07/18/22 07/18/22 History mcg/actuation nasal Congestion spray,suspension (Allergy Relief (fluticasone)) guaifenesin 1,200 mg tablet, 1,200 mg PO BID PRN congested 07/18/22 07/18/22 History extended release 12 hr (Mucinex) pilocarpine HCl 1 % eye drops 1 drp OPL TID 07/18/22 07/18/22 History Patient History Medical History Allergic rhinitis with postnasal drip Community acquired pneumonia (09/2021) Hypoalbuminemia Hypothyroidism Surgical History H/O: hysterectomy Presence of Watchman left atrial appendage closure device (2017) Social History Smoking Status: Current every day smoker Second Hand Exposure: No; Hx Alcohol Use: Yes Alcohol type: wine Hx Substance Use: No Preferred Language: [place] Communication Ability: Effective Field Instructor Required: No Beliefs That Will Affect Care: None marital status: / Current Living Situation: Family Current Living Situation Comment: lives w/ son and daughter in law and their child. How many Children do You have: 1 Feels Safe at Home: Yes Assistive Devices: None Review of Systems Review of Systems: All systems reviewed & are unremarkable except as noted in HPI & below Physical Exam Physical Exam: General Examination: Constitutional: Well developed person in no acute distress. HENT: Normal exam with inspection. CV: Hearth rhtyhm is regular. Neck: Supple, no carotid bruits. Lungs: Non-labored and comfortable breathing. Abdomen: Soft, non-tender, non-distended. Skin: No rash or ecchymosis. Extremities: No edema or cyanosis. [place] right hip with hematoma. NEUROLOGICAL EXAMINATION: Mental Status: Alert and oriented to place, person and time. Cranial Nerves: II-XII are intact. No nystagmus. Funduscopy: Unable visualize optic discs. Motor: 5/5 in all extremities without asymmetry. DTR's: 2- in upper extremities 1+ in knees and trace in ankles. Tone: Normal without spasticity or rigidity. Sensory: Intact to all sensory modalities except decreased vibratory sensation in distal lower extremities. Coordination: No dysmetria with FTN testing. Speech: Fluent. Comprehension is intact. Gait: Not assessed. Musculoskeletal: Normal muscle bulk, no atrophy. Results & Data ([facility]) Vital Signs (Past 12 Hours) Vital Signs Pulse Pulse Resp BP BP Pulse Ox O2 Del Method 07/19/22 07:20 86 19 99 Room Air 07/19/22 07:12 135/96 07/19/22 07:12 18 97 Room Air 07/19/22 07:10 21 97 Room Air 07/19/22 03:30 77 16 139/85 99 Room Air 07/19/22 03:29 Room Air 07/19/22 02:00 88 16 117/74 94 Room Air 07/19/22 00:00 81 16 142/88 H 96 Room Air O2 Flow Rate 07/19/22 07:20 07/19/22 07:12 07/19/22 07:12 07/19/22 07:10 07/19/22 03:30 07/19/22 03:29 94 07/19/22 02:00 07/19/22 00:00 Laboratory Results Abnormal Lab Results 07/18/22 07/18/22 07/18/22 19:40 19:40 19:40 WBC 6.44 RBC 3.66 L Hgb 11.3 L Hct 34.2 MCV 93.4 MCH 30.9 MCHC 33.0 RDW Std Deviation 46.0 RDW Coeff of Chanel 13.5 Plt Count 224 MPV 10.3 Immature Gran % (Auto) 0.0 Neut % (Auto) 73.2 Lymph % (Auto) 16.1 [place] % (Auto) 8.4 Eos % (Auto) 1.7 Baso % (Auto) 0.6 Neut # (Auto) 4.71 Lymph # (Auto) 1.04 L [place] # (Auto) 0.54 Eos # (Auto) 0.11 Baso # (Auto) 0.04 Immature Gran # (Auto) 0.00 PT 11.6 INR 1.1 APTT 20.2 L PTT Ratio 0.7 Sodium 139 Potassium 4.1 Chloride 106 Carbon Dioxide 26 Anion Gap 7 BUN 27 H Creatinine 0.95 Est Cr Clr Drug Dosing 53.7 Est GFR ( Amer) 62.9 Est GFR (Non-Af Amer) 54.2 BUN/Creatinine Ratio 28.4 H Glucose 115 H Estimat Average Glucose Hemoglobin A1c Calcium 8.2 L Magnesium 1.9 Total Bilirubin 0.7 AST 18 ALT 11 Alkaline Phosphatase 38 Total Creatine Kinase 61 Troponin I High Sens 5.4 Total Protein 5.9 L Albumin 3.6 Globulin 2.3 L Albumin/Globulin Ratio 1.6 Triglycerides Cholesterol LDL Cholesterol, Calc VLDL Cholesterol, Calc HDL Cholesterol Cholesterol/HDL Ratio Lipase 28 TSH Free T4 Urine Color Urine Appearance Urine pH Ur Specific [place] Urine Protein Urine Glucose (UA) Urine Ketones Urine Blood Urine Nitrite Urine Bilirubin Urine Urobilinogen Ur Leukocyte Esterase Urine WBC (Auto) Urine RBC (Auto) U Hyaline Cast (Auto) U Epithel Cells (Auto) Urine Bacteria (Auto) SARS-CoV-2, RNA, NAAT 07/18/22 07/18/22 07/19/22 19:40 22:23 00:00 WBC RBC Hgb Hct MCV MCH MCHC RDW Std Deviation RDW Coeff of Chanel Plt Count MPV Immature Gran % (Auto) Neut % (Auto) Lymph % (Auto) [place] % (Auto) Eos % (Auto) Baso % (Auto) Neut # (Auto) Lymph # (Auto) [place] # (Auto) Eos # (Auto) Baso # (Auto) Immature Gran # (Auto) PT INR APTT PTT Ratio Sodium Potassium Chloride Carbon Dioxide Anion Gap BUN Creatinine Est Cr Clr Drug Dosing Est GFR ( Amer) Est GFR (Non-Af Amer) BUN/Creatinine Ratio Glucose Estimat Average Glucose Hemoglobin A1c Calcium Magnesium Total Bilirubin AST ALT Alkaline Phosphatase Total Creatine Kinase Troponin I High Sens Total Protein Albumin Globulin Albumin/Globulin Ratio Triglycerides Cholesterol LDL Cholesterol, Calc VLDL Cholesterol, Calc HDL Cholesterol Cholesterol/HDL Ratio Lipase TSH 5.886 H Free T4 1.23 Urine Color Yellow Urine Appearance Clear Urine pH 5.5 Ur Specific [place] 1.019 Urine Protein Negative Urine Glucose (UA) Negative Urine Ketones Negative Urine Blood Negative Urine Nitrite Negative Urine Bilirubin Negative Urine Urobilinogen Negative Ur Leukocyte Esterase Trace H Urine WBC (Auto) 5-10 H Urine RBC (Auto) 0-4 U Hyaline Cast (Auto) 1-5 U Epithel Cells (Auto) >30 H Urine Bacteria (Auto) Negative SARS-CoV-2, RNA, NAAT NEGATIVE 07/19/22 07/19/22 07/19/22 05:04 05:04 05:04 WBC 8.12 RBC 3.36 L Hgb 10.3 L Hct 31.2 L MCV 92.9 MCH 30.7 MCHC 33.0 RDW Std Deviation 45.4 RDW Coeff of Chanel 13.4 Plt Count 220 MPV 9.9 Immature Gran % (Auto) 0.2 Neut % (Auto) 79.8 Lymph % (Auto) 10.3 [place] % (Auto) 8.6 Eos % (Auto) 0.7 Baso % (Auto) 0.4 Neut # (Auto) 6.47 Lymph # (Auto) 0.84 L [place] # (Auto) 0.70 Eos # (Auto) 0.06 Baso # (Auto) 0.03 Immature Gran # (Auto) 0.02 PT INR APTT PTT Ratio Sodium 140 Potassium 3.6 Chloride 107 Carbon Dioxide 27 Anion Gap 6 BUN 25 H Creatinine 0.85 Est Cr Clr Drug Dosing 60.1 Est GFR ( Amer) 71.9 Est GFR (Non-Af Amer) 62.0 BUN/Creatinine Ratio 29.4 H Glucose 124 H Estimat Average Glucose 100 Hemoglobin A1c 5.1 Calcium 8.2 L Magnesium Total Bilirubin AST ALT Alkaline Phosphatase Total Creatine Kinase Troponin I High Sens Total Protein Albumin Globulin Albumin/Globulin Ratio Triglycerides 55 Cholesterol 158 LDL Cholesterol, Calc 92 VLDL Cholesterol, Calc 11 HDL Cholesterol 55 Cholesterol/HDL Ratio 2.9 Lipase TSH Free T4 Urine Color Urine Appearance Urine pH Ur Specific [place] Urine Protein Urine Glucose (UA) Urine Ketones Urine Blood Urine Nitrite Urine Bilirubin Urine Urobilinogen Ur Leukocyte Esterase Urine WBC (Auto) Urine RBC (Auto) U Hyaline Cast (Auto) U Epithel Cells (Auto) Urine Bacteria (Auto) SARS-CoV-2, RNA, NAAT Diagnostic Findings Cervical Spine CT 07/18/22 19:37 CT SCAN OF THE CERVICAL SPINE CLINICAL HISTORY: Seizure. COMPARISON STUDY: No priors. TECHNIQUE: CT scan of the cervical spine is performed from the skull base to the upper thoracic spine. Images are reviewed in the axial, sagittal, and coronal planes. IV contrast was not administered for this examination. A dose lowering technique was utilized adhering to the principles of ALARA. FINDINGS: Skeletal structures: The skeletal structures are osteopenic. There is no evidence of fracture or subluxation involving the cervical spine. Vertebral body height and alignment are maintained. There is straightening of the cervical lordosis with reversal centered at C4-C5. Anterior osteophytes are seen throughout. The odontoid process and lateral masses are intact. The atlantoaxial articulation is preserved noting advanced productive degenerative change. The spinous processes appear intact. There is mild to moderate multilevel cervical spondylosis. Uncovertebral and facet arthropathy contribute to neural foraminal narrowing at several levels. Intervertebral discs: There is moderate disc space narrowing at C4-C5, C5-C6, and C6-C7 with associated endplate sclerosis. Central canal: Posterior disc osteophyte complexes are seen at all cervical levels between C3-C4 and C6-C7. This likely contributes to multilevel acquired compromise of the central canal. Soft tissues: The prevertebral and paraspinous soft tissues are within normal limits. The right lobe of the thyroid gland is diminutive versus surgically absent. The left lobe is heterogeneous. Mild atherosclerotic calcification is noted in the carotid bulbs. Calvarium: The visualized calvarium at the skull base appears intact. Brain parenchyma: Partially visualized brain parenchyma at the skull base is within normal limits. Sinuses and mastoids: The visualized paranasal sinuses are clear. The mastoid air cells are well pneumatized. Lung apices: Clear as visualized. IMPRESSION: 1. There is no evidence of fracture or subluxation involving the cervical spine. 2. Osteopenia and spondylotic change as above. ACT 112: Negative or not required by law. Electronically signed by: Kole Barber M.D. 07/19/2022 8:06 AM Chest X-Ray 07/18/22 19:37 SINGLE VIEW CHEST CLINICAL HISTORY: Seizure. FINDINGS: 2 AP, portable, upright chest radiographs are compared to study dated 10/16/2021 and correlated with chest CT dated 10/12/2021. An indeterminant surgical devices again noted within the left atrial appendage. The heart is enlarged noting atherosclerotic calcification of the thoracic aorta. The pulmonary vasculature is noncongested. Chronic interstitial thickening is similar to previous. There is bibasilar scarring/atelectasis. No airspace consolidation or large pleural effusion is identified. Atypical scarring is observed. No pneumothorax is seen. The skeletal structures are osteopenic. There are healed left-sided rib fractures. IMPRESSION: Cardiomegaly with no active disease in the chest. ACT 112: Negative or not required by law. Electronically signed by: Kole Barber M.D. 07/19/2022 8:[address] 07/18/22 19:37 CT SCAN OF THE BRAIN WITHOUT IV CONTRAST CLINICAL HISTORY: Syncope. COMPARISON STUDY: No priors. TECHNIQUE: Unenhanced axial CT scan of the brain is performed from the vertex to the skull base. A dose lowering technique was utilized adhering to the principles of ALARA. CT DOSE: 955.55 mGy.cm FINDINGS: Brain parenchyma: There is age-related involutional change noting mild subcortical and periventricular microangiopathic disease. There is no hemorrha ge, mass effect, or evidence of acute territorial ischemia by CT criteria. A 1 mm calcification within the left frontal white matter is likely chronic. There is mineralization of the basal ganglia. Solorzano-white matter differentiation is preserved. No extra-axial fluid collection is seen. Ventricles, sulci, cisterns: Prominent secondary to involutional change. Intracranial vasculature: There is atherosclerotic calcification of the cavernous carotid and vertebral arteries. Calvarium: Unremarkable. Sinuses and mastoids: The visualized paranasal sinuses are clear. The mastoid air cells are well pneumatized. Orbits: The bony orbits are grossly intact. There are bilateral ocular lens implants. IMPRESSION: There is no hemorrhage, mass effect, or evidence of acute territorial ischemia by CT criteria. ACT 112: Negative or not required by law. Electronically signed by: Kole Barber M.D. 07/19/2022 7:20 AM Hip/Pelvis X-Ray 07/18/22 19:37 SINGLE VIEW PELVIS; 2 VIEWS RIGHT HIP CLINICAL HISTORY: Fall with right hip injury. FINDINGS: An AP view of the pelvis with AP and frog-leg views of the right hip are obtained. No prior studies are available for comparison at the time of dictation. The skeletal structures are osteopenic. There is no radiographic evidence of acute fracture involving the hips or bony pelvis. Mild arthritic change and joint space narrowing is seen in the hips. There is degenerative sclerosis of the sacroiliac joints. Soft tissue edema/hematoma overlies the right proximal femur. There is atherosclerotic calcification of the femoral arteries. IMPRESSION: 1. No acute bony abnormality is identified. 2. Contusion/hematoma overlies the right proximal femur. Electronically signed by: Kole Barber M.D. 07/19/2022 8:41 AM (1) Syncope Syncope type: unspecified Qualified Code(s): R55 - Syncope and collapse (2) Anemia Anemia type: unspecified type Qualified Code(s): D64.9 - Anemia, unspecified (3) Hematoma of right thigh Encounter type: initial encounter Qualified Code(s): S70.11XA - Contusion of right thigh, initial encounter (4) Fall Encounter type: initial encounter Qualified Code(s): W19.XXXA - Unspecified fall, initial encounter
--- NOTE | 2022-07-19 11:39 | Cardiology Consultation ---
Date of Consultation July 19, 2022 Assessment & Plan (1) Syncope: (2) Cardiomyopathy: (3) HFrEF (heart failure with reduced ejection fraction): (4) Permanent atrial fibrillation: (5) Presence of Watchman left atrial appendage closure device: (6) Pericardial effusion: Plan Evaluation of a first syncopal event in an 87-year-old woman with apparently nonischemic cardiomyopathy and heart failure with reduced ejection fraction for which she takes Entresto and carvedilol and for which she had previously been on furosemide. She has historically taken her diuretic intermittently, it was not clear that she has been taking furosemide recently, as there were prior concerns about volume depletion. She has a history of an eating disorder and does not weigh herself routinely. Etiology of her syncopal episode yesterday is unclear, certainly a major consideration would be vasovagal phenomenon (based on prodrome and the presence of a painful hematoma) superimposed on mild volume depletion (mildly orthostatic heart rate response to standing, neck veins reduced, CVP appears low on echo). Alternatively, although telemetry was benign and showed only atrial fibrillation with controlled rate overnight, in the presence of cardiomyopathy a more significant dysrhythmia that occurs only occasionally could not be excluded. Suspect she had convulsive syncope rather than seizure, given presence of a prodrome and lack of the usual seizure associated phenomenon (postictal confusi on, loss of bowel or bladder control, etc.). Based on these concerns (volume depletion versus dysrhythmia), recommended that the patient only take furosemide if she gains significant weight (3 to 5 pounds) or notes overt heart failure symptoms (since she may not be inclined to weigh herself). Will obtain MCOT monitor to further evaluate for the possibility of dysrhythmia. Monitor ordered and will be sent to her home. Her echocardiogram showed no change in her chronic pericardial effusion and no evidence of tamponade. Her ventricular response to atrial fibrillation was well controlled on her current medical regimen and she does not require anticoagulation since she has a Watchman atrial occlusion device. Cardiology follow-up with Dr. Almanza in 1 to 2 weeks for further evaluation. History of Present Illness Reason for Consultation: Syncope, A. fib, history of CHF Requesting Physician: Terrence Flynn MD Attending Physician: Terrence Flynn MD History of Present Illness 87-year-old woman with history of apparently nonischemic cardiomyopathy (current EF 35-40%), heart failure with reduced ejection fraction, permanent atrial fibrillation (status post atrial occlusion/watchman procedure), chronic loculated posterior pericardial effusion (stable on serial echocardiograms from late 2020 to present), who was admitted 07/18/2022 after an apparent syncopal episode. Due to chronic disequilibrium, she has had a number of mechanical falls, including 1 yesterday morning that resulted in her right hip ecchymoses. Yesterday evening, she noted "feeling bad" in a nonspecific way, developed some tremulousness, then lost consciousness and had some generalized shaking for 30 to 60 seconds. No additional trauma, no loss of bowel or bladder control, patient was not confused afterwards but did not remember losing consciousness. Evaluation here was unremarkable, telemetry overnight showed atrial fibrillation with controlled ventricular response. Troponin normal. She feels somewhat fatigued in general and weak, but denied specific orthostatic symptoms upon standing or walking to the bathroom. She had no somatic complaints at rest at the time of our evaluation. Allergies Allergy/AdvReac Type Severity Reaction Status Date / Time No Known Allergies Allergy Unverified 07/18/22 23:01 Home Medications Medication Instructions Recorded Confirmed Type carvedilol 12.5 mg tablet 12.5 mg PO BID 10/01/21 07/18/22 History cholecalciferol (vitamin D3) 25 25 mcg PO QAM 10/01/21 07/18/22 History mcg (1,000 unit) tablet (Vitamin D3) cyanocobalamin (vitamin B-12) 1,000 mcg PO QAM 10/01/21 07/18/22 History 1,000 mcg tablet (Vitamin B-12) levothyroxine 75 mcg tablet 75 mcg PO DAILYBB 10/01/21 07/18/22 History sacubitril 97 mg-valsartan 103 mg 1 tab PO BID 10/01/21 07/18/22 History tablet (Entresto) albuterol sulfate 90 mcg/actuation 2 inh inhalation QID PRN Shortness 10/30/21 07/18/22 History breath activated powder inhaler Of Breath Or Wheezing levocetirizine 5 mg tablet 5 mg PO DAILY PRN allergy symptoms 11/25/21 07/18/22 Rx #30 tabs amitriptyline 10 mg tablet 10 mg PO HS 07/18/22 07/18/22 History brimonidine 0.2 %-timolol 0.5 % 1 drp OPB BID 07/18/22 07/18/22 History eye drops (Combigan) dorzolamide 2 % eye drops 1 drp OPR BID 07/18/22 07/18/22 History fluticasone propionate 50 1 spray intranasal DAILY PRN Nasal 07/18/22 07/18/22 History mcg/actuation nasal Congestion spray,suspension (Allergy Relief (fluticasone)) guaifenesin 1,200 mg tablet, 1,200 mg PO BID PRN congested 07/18/22 07/18/22 History extended release 12 hr (Mucinex) pilocarpine HCl 1 % eye drops 1 drp OPL TID 07/18/22 07/18/22 History Patient History Medical History (Updated 07/19/22 @ 11:37 by Suhail Clark MD) Allergic rhinitis with postnasal drip Community acquired pneumonia (09/2021) Hypoalbuminemia Hypothyroidism Surgical History (Updated 07/19/22 @ 11:36 by Suhail Clark MD) H/O: hysterectomy Presence of Watchman left atrial appendage closure device (2017) Social History Smoking Status: Current every day smoker Second Hand Exposure: No; Hx Alcohol Use: Yes Alcohol type: wine Hx Substance Use: No Preferred Language: Syriac Communication Ability: Effective Javascript Developer Required: No Beliefs That Will Affect Care: None marital status: / Current Living Situation: Family Current Living Situation Comment: lives w/ son and daughter in law and their child. How many Children do You have: 1 Feels Safe at Home: Yes Assistive Devices: None Physical Exam Physical Exam: Thin, elderly white female in no distress. BP by MD 124/84 mmHg supine, no orthostatic change upon standing (systolic blood pressure 130 mmHg range). Heart rate on monitor 90 bpm supine, increased to 116 bpm upon standing. Skin: right hip hematoma, no generalized lesions. HEENT: Unremarkable. Neck: Jugular venous pulse appears mildly reduced (just below the clavicle), no carotid bruits. Lungs: Clear and equal breath sounds bilaterally. Cardiac: Irregular rhythm, reduced but audible aortic closure sound with 2/6 systolic ejection murmur, 3/6 apical holosystolic murmur rating to the axilla, no diastolic murmur or distinct gallop. Abdomen: Soft and nontender with no organomegaly or masses. Extremities: No edema, brisk radial and dorsalis pedis pulses. Good capillary refill. Neurologic: Normal affect, somewhat digressive conversation, grossly nonfocal. Results & Data ([facility]) Vital Signs (Past 12 Hours) Vital Signs Pulse Pulse Resp BP BP Pulse Ox O2 Del Method 07/19/22 07:20 86 19 99 Room Air 07/19/22 07:12 135/96 07/19/22 07:12 18 97 Room Air 07/19/22 07:10 21 97 Room Air 07/19/22 03:30 77 16 139/85 99 Room Air 07/19/22 03:29 Room Air 07/19/22 02:00 88 16 117/74 94 Room Air 07/19/22 00:00 81 16 142/88 H 96 Room Air O2 Flow Rate 07/19/22 07:20 07/19/22 07:12 07/19/22 07:12 07/19/22 07:10 07/19/22 03:30 07/19/22 03:29 94 07/19/22 02:00 07/19/22 00:00 Laboratory Results Troponin 5.4. Normal electrolytes, BUN 25, creatinine 0.85. Diagnostic Findings ECG showed atrial fibrillation with ventricular rate of 80 bpm, otherwise unrema rkable. Echocardiogram showed EF 35 to 40% with moderate global hypokinesis, severe LVH and mild to moderate aortic stenosis, mild mitral regurgitation, loculated posterior pericardial effusion unchanged from prior studies, flat vena cava suggesting reduced central venous pressure. Compared with 10/12/2021 study, CVP no longer elevated and may actually be reduced, otherwise no significant change. No change in posterior pericardial effusion. Chest x-ray showed no evidence of pulmonary edema. Small bilateral effusions. PG Care Time/CCT Total # of Minutes Spent Total Time Spent with Patient: Total time spent is greater than 50% in coordination of care (as documented) at patient's floor/unit and/or counseling patient: Coding Level of Care Code 09820 Inpt Consult Level 4 Diagnoses Syncope R55 Syncope type: unspecified Cardiomyopathy I42.9 HFrEF (heart failure with reduced ejection fraction) I50.20 Permanent atrial fibrillation I48.21 Presence of Watchman left atrial appendage closure device Z95.818 Pericardial effusion I31.3 (1) Syncope Syncope type: unspecified Qualified Code(s): R55 - Syncope and collapse
--- NOTE | 2022-07-19 12:27 | Electrocardiogram Report ---
Test Reason : Blood Pressure : / mmHG Vent. Rate : 080 BPM Atrial Rate : 133 BPM P-R Int : 000 ms QRS Dur : 090 ms QT Int : 430 ms P-R-T Axes : 000 -56 046 degrees QTc Int : 495 ms Atrial fibrillation Left anterior fascicular block Poor R wave progression, consider anterior IA vs. lead placement vs. LVH Abnormal ECG When compared with ECG of 12-OCT-2021 10:06, No significant change Confirmed by Suhail Clark ([id number]) on 07/19/2022 12:26:57 PM Referred By: REFERRED SELF Confirmed By:Suhail Clark
--- NOTE | 2022-07-19 16:12 | Hospitalist Progress Note ---
Date of Service July 19, 2022 Assessment & Plan (1) Syncope: Plan: 87yo female with a history of atrial fibrillation (s/p Watchman placement), CHF, cardiomyopathy, anemia, and hypothyroidism presents after a syncopal episode with seizure-like activity and a fall onto her right hip. Syncope with convulsions - Etiology unclear, broad differential, few clues from prior history - CT head: no acute large vessel infarct or ICH; no fracture or skull hematoma; mild cerebral atrophy and periventricular white matter changes consistent with small vessel disease; chronic 9mm left frontal lobe subcortical white matter parenchymal calcification; official read pending - CT c-spine: no acute fracture or subluxation; no significant spinal stenosis; mild carotic bifurcation calcification; [id number] narrowing of alantodental joint; [id number] disc space narrowing and osteophytosis of mid-cervical spine; mild multilevel degenerative facet arthrosis; official read pending - Neuro checks q2h - Supplemental oxygen as-needed (has not needed) - NPO pending ST eval, but pt was not having any issues swallowing therefore diet advanced. Seen by ST and no concern for aspiration. - Echo ordered/completed, results reviewed. No significant change. - Aspiration precautions, fall precautions, SCDs - PT/OT ordered - EEG ordered as well as neuro consult, appreciate recommendations - HbA1c and lipid profile ordered - Neuro recommended MRI (due to risk factors for cva) therefore one has been ordered (2) Seizure-like activity: Plan: See above (3) Hematoma of right thigh: Plan: s/p fall - XR without acute fracture - APAP 1000mg IV q8h scheduled - Voltaren gel ordered - PT/OT - CM consulted, may benefit from home health but lives with son (4) Anemia: Plan: - Stable, actually better than baseline - Low suspicion for acute bleed (5) Atrial fibrillation: Plan: - On arrival, patient rate-controlled; EKG: rate-controlled afib without overt ischemic change - hsTroponin not elevated - Home carvedilol held while NPO, but diet advanced, will resume (6) CHF (congestive heart failure): Plan: - Echo ordered/reviewed by cardiology, no significant change - Suspect actually slightly dehydrated, avoid diuretics - Can resume Coreg and Entresto (7) Cardiomyopathy: (8) Chronic cough: (9) Hypothyroidism: Plan: - Continue Levothyroxine Plan Await MRI and EEG results. If no acute abnormalities noted, can d/c home. Will need a 30-day event monitor, this is going to be ordered by Dr. Clark and mailed to her house. Resume home meds that were held d/t NPO status. Diet advanc ed. Therapy eval. D/C planning. Provided update to patient's son, Jani, via phone this afternoon. Plan has been d/w Dr. Dionicio Flynn. Admission and Anticipated Discharge Date Admission Date: July 18, 2022 Subjective Patient seen on daily rounds this morning. She is resting comfortably in bed, reports c/o R hip pain since her fall. No cp, dyspnea, n/v/d, f/c, headache, dizziness, or gu symptoms. Seen by cardiology, no arrhythmias overnight (in chronic afib). Per son, hasn't taken any Lasix in over a month but admits that she does not drink much. Review of Systems Review of Systems: All systems reviewed and are unremarkable except as noted in HPI and below. Denies fever, chills, fatigue, headache, nasal congestion, sore throat, cough, chest pain, shortness of breath, palpitations, orthopnea, PND, abdominal pain, n/v/d, constipation, dysuria, hematuria, frequency, back pain, easy bruising or bleeding, skin lesions or rashes. Physical Exam Physical Exam: GENERAL: 87 yo Well-developed, well-nourished WF who appears younger than stated age. NAD. LUNGS: Clear to auscultation bilaterally. CARDIOVASCULAR: S1, S2 Irregular ABDOMEN: Soft, non-tender and non-distended. BS normoactive x 4 quad. EXTREMITIES: No edema. Non-tender. Peripheral pulses +2/4. NEUROLOGIC: A&O x3. Nonfocal PSYCHIATRIC: Cooperative. Appropriate mood and affect. SKIN: Warm, dry, intact. No rashes or lesions. Results & Data Results & Data ([facility]) Vital Signs (Past 12 Hours) Vital Signs Pulse Pulse Resp BP BP Pulse Ox O2 Del Method 07/19/22 14:00 84 18 07/19/22 13:00 88 13 07/19/22 12:00 24 98 Room Air 07/19/22 11:00 89 22 07/19/22 10:00 86 18 07/19/22 09:00 79 21 97 Room Air 07/19/22 08:02 80 23 07/19/22 14:09 83 21 136/84 96 Room Air 07/19/22 07:20 86 19 99 Room Air 07/19/22 07:12 135/96 07/19/22 07:12 18 97 Room Air 07/19/22 07:10 21 97 Room Air Laboratory Results 07/19/22 05:04 07/19/22 05:04 PG Care Time/CCT Total # of Minutes Spent Total Time Spent with Patient: Total time spent is greater than 50% in coordination of care (as documented) at patient's floor/unit and/or counseling patient: Coding Level of Care Code 33871 Subseq Hosp Care Lvl 2 Diagnoses Syncope R55 Syncope type: unspecified Seizure-like activity R56.9 Hematoma of right thigh S70.11XA Encounter type: initial encounter Anemia D64.9 Anemia type: unspecified type Atrial fibrillation I48.91 Atrial fibrillation type: unspecified CHF (congestive heart failure) I50.9 Heart failure chronicity: acute on chronic Heart failure type: unspecified Cardiomyopathy I42.9 Chronic cough R05.3 Hypothyroidism E03.9 (1) Syncope Syncope type: unspecified Qualified Code(s): R55 - Syncope and collapse (2) Anemia Anemia type: unspecified type Qualified Code(s): D64.9 - Anemia, unspecified (3) Atrial fibrillation Atrial fibrillation type: unspecified Qualified Code(s): I48.91 - Unspecified atrial fibrillation (4) CHF (congestive heart failure) Heart failure chronicity: acute on chronic Heart failure type: unspecified Qualified Code(s): I50.9 - Heart failure, unspecified (5) Hematoma of right thigh Encounter type: initial encounter Qualified Code(s): S70.11XA - Contusion of right thigh, initial encounter
--- NOTE | 2022-07-19 19:55 | Magnetic Resonance Report ---
MR brain wo con HISTORY: 87 years-old Female convulsive syncope, r/o cva acute stroke like symptoms COMPARISON: Head CT 07/18/2022 TECHNIQUE: Multiplanar multisequence MRI of the brain was obtained without the use of IV contrast. FINDINGS: Supplemental Nurse localizer images demonstrate no gross extracranial abnormality. No restricted diffusion to sugg est acute or subacute infarct. Degenerative changes of the imaged cervical spine. Age-related involut ional changes. Moderate T2/FLAIR hyperintense foci noted throughout the white matter. Mesial temporal lobes are symmetric and within normal limits and no evidence of mesial temporal sclerosis, renee kristy er heterotopia or cortical dysplasia. Cerebral venous sinuses and major arterial flow voids appear patent. Mastoid air cells are clear. Mil d mucosal thickening of the ethmoid sinuses. The skull, and soft tissues are unremarkable. Prior bila teral lens repair. IMPRESSION: 1. No acute intracranial abnormality. No acute or subacute infarct. 2. Involutional changes with moderate chronic microvascular ischemic disease. ACT 112: Negative or not required by law. The above report was generated using voice recognition software. It may contain grammatical, syntax o r spelling errors. Electronically signed by: Walter Pedraza M.D. 07/19/2022 7:53 PM
[2022-07-19] MEDS: BRIMONIDINE TARTRATE/TIMOLOL OPB SCH (20:11)
[2022-07-19] MEDS: carvediloL 12.5 MG TAB PO SCH (20:13)
[2022-07-19] MEDS: DORZOLAMIDE HCL 2% OPH SOLN 10 ML BTL OPR SCH (20:17)
[2022-07-19] MEDS: PREDNISOLONE OPL SCH (20:18)
[2022-07-19] MEDS: MOXIFLOXACIN OPL SCH (20:18)
[2022-07-19] MEDS: BROMFENAC OPL SCH (20:18)
[2022-07-19] MEDS: PILOCARPINE HCL 1% OP SOLN 15 ML BTL OPL SCH (20:21)
[2022-07-19] MEDS: VALSARTAN/SACUBITRIL 103/97MG TAB PO SCH (20:22)
[2022-07-19] MEDS ORDERED: RHOPRESSA OPR SCH (21:00)
[2022-07-20] MEDS: ACETAMINOPHEN 1,000 MG/100 ML VIAL IV SCH (05:19)
[2022-07-20] MEDS ORDERED: LEVOTHYROXINE SODIUM 75 MCG TABLET PO SCH (06:30)
[2022-07-20] MEDS: BRIMONIDINE TARTRATE/TIMOLOL OPB SCH (08:38)
[2022-07-20] MEDS: carvediloL 12.5 MG TAB PO SCH (08:39)
[2022-07-20] MEDS: DORZOLAMIDE HCL 2% OPH SOLN 10 ML BTL OPR SCH (08:44)
[2022-07-20] MEDS: DICLOFENAC SOD 1% GEL 100 GM TUBE EXT SCH ×2 (08:44→12:58)
[2022-07-20] MEDS: PILOCARPINE HCL 1% OP SOLN 15 ML BTL OPL SCH (08:46)
[2022-07-20] MEDS: PREDNISOLONE OPL SCH (08:48)
[2022-07-20] MEDS: MOXIFLOXACIN OPL SCH (08:48)
[2022-07-20] MEDS: BROMFENAC OPL SCH (08:48)
[2022-07-20] MEDS: VALSARTAN/SACUBITRIL 103/97MG TAB PO SCH (08:49)
--- NOTE | 2022-07-20 11:19 | Discharge Summary ---
Date of Service July 20, 2022 Admission HPI Per Admitting Provider 87yo female with a history of atrial fibrillation (s/p Watchman placement), CHF, cardiomyopathy, anemia, and hypothyroidism presents after a syncopal episode with seizure-like activity and a fall onto her right hip.The fell occurred in late afternoon around 4pm - patient notes losing her balance without losing consciousness. No head trauma, no noted shaking before or after the event. Landed on her right hip which began to hurt shortly after. Was able to ambulate with assistance afterward. No lasting effects afterward beyond pain. Then, in the evening around dinnertime, patient was noted during family dinner to be pale and clammy prior to an episode of losing consciousness and then generalized shaking which lasted for 30-60 seconds. Nothing similar has happened before, denies other prodromal symptoms, no headache, no changes in vision. Patient does not remember the event. Patient was reported to be unresponsive during the episode, not answering questions. Patient endorses swelling and pain of the right hip but denies CP, SOB, nausea, vomiting, fever, cough, headache, other trauma, or other symptoms. Denies a history of seizure. Has had some mechanical falls over the past year but denies prior syncopal events. Vitals on admission were notable for elevated BP (150s/100s). No tachycardia or tachypnea, patient afebrile, spO2 adequate on room air. Labs on admission were notable for mild anemia (11.3), mild hypocalcemia (8.2), and elevated TSH (5.9). No leukocytosis or leukopenia, platelets wnl, no other electrolyte abnormalities, LFTs wnl, INR wnl (1.1), fT4 wnl (1.23), CK not elevated, hsTroponin not elevated, lipase note elevated. EKG: rate-controlled afib without overt ischemic change CXR: cardiomegaly; no overt acute pulmonary disease; official read pending CT head: no acute large vessel infarct or ICH; no fracture or skull hematoma; mild cerebral atrophy and periventricular white matter changes consistent with small vessel disease; chronic 9mm left frontal lobe subcortical white matter parenchymal calcification; official read pending CT c-spine: no acute fracture or subluxation; no significant spinal stenosis; mild carotic bifurcation calcification; moabtojj-jp-iiwiek narrowing of alantodental joint; ledzilkd-zx-wgglbf disc space narrowing and osteophytosis of mid-cervical spine; mild multilevel degenerative facet arthrosis; official read pending XR hips/pelvis:no acute fracture appreciated; right lateral hip with soft tissue swelling likely representing a hematoma; official read pending Surrogate decision-maker in case of an emergency: ananya Gunter (cell: [phone]) Principal Diagnosis Convulsive syncope Discharge Exam GENERAL: 87 yo Well-developed, well-nourished WF who appears younger than stated age. NAD. LUNGS: Clear to auscultation bilaterally. CARDIOVASCULAR: S1, S2 Irregular ABDOMEN: Soft, non-tender and non-distended. BS normoactive x 4 quad. EXTREMITIES: No edema. Non-tender. Peripheral pulses +2/4. NEUROLOGIC: A&O x3. Nonfocal PSYCHIATRIC: Cooperative. Appropriate mood and affect. SKIN: Warm, dry, intact. No rashes or lesions. Discharge Data Allergies Allergy/AdvReac Type Severity Reaction Status Date / Time No Known Allergies Allergy Unverified 07/18/22 23:01 Consultations 07/18/22 22:05 ED Decision to Admit Stat 07/19/22 02:48 Consult Cardiology Routine 07/19/22 08:34 Consult Neurology Routine Ordered Studies Cervical Spine CT 07/18/22 19:37 CT SCAN OF THE CERVICAL SPINE CLINICAL HISTORY: Seizure. COMPARISON STUDY: No priors. TECHNIQUE: CT scan of the cervical spine is performed from the skull base to the upper thoracic spine. Images are reviewed in the axial, sagittal, and coronal planes. IV contrast was not administered for this examination. A dose lowering technique was utilized adhering to the principles of ALARA. FINDINGS: Skeletal structures: The skeletal structures are osteopenic. There is no evid ence of fracture or subluxation involving the cervical spine. Vertebral body height and alignment are maintained. There is straightening of the cervical lordosis with reversal centered at C4-C5. Anterior osteophytes are seen throughout. The odontoid process and lateral masses are intact. The atlantoaxial articulation is preserved noting advanced productive degenerative change. The spinous processes appear intact. There is mild to moderate multilevel cervical spondylosis. Uncovertebral and facet arthropathy contribute to neural foraminal narrowing at several levels. Intervertebral discs: There is moderate disc space narrowing at C4-C5, C5-C6, and C6-C7 with associated endplate sclerosis. Central canal: Posterior disc osteophyte complexes are seen at all cervical levels between C3-C4 and C6-C7. This likely contributes to multilevel acquired compromise of the central canal. Soft tissues: The prevertebral and paraspinous soft tissues are within normal limits. The right lobe of the thyroid gland is diminutive versus surgically absent. The left lobe is heterogeneous. Mild atherosclerotic calcification is noted in the carotid bulbs. Calvarium: The visualized calvarium at the skull base appears intact. Brain parenchyma: Partially visualized brain parenchyma at the skull base is within normal limits. Sinuses and mastoids: The visualized paranasal sinuses are clear. The mastoid air cells are well pneumatized. Lung apices: Clear as visualized. IMPRESSION: 1. There is no evidence of fracture or subluxation involving the cervical spine. 2. Osteopenia and spondylotic change as above. ACT 112: Negative or not required by law. Electronically signed by: Kole Barber M.D. 07/19/2022 8:06 AM Chest X-Ray 07/18/22 19:37 SINGLE VIEW CHEST CLINICAL HISTORY: Seizure. FINDINGS: 2 AP, portable, upright chest radiographs are compared to study dated 10/16/2021 and correlated with chest CT dated 10/12/2021. An indeterminant s urgical devices again noted within the left atrial appendage. The heart is enlarged noting atherosclerotic calcification of the thoracic aorta. The pulmonary vasculature is noncongested. Chronic interstitial thickening is similar to previous. There is bibasilar scarring/atelectasis. No airspace consolidation or large pleural effusion is identified. Atypical scarring is observed. No pneumothorax is seen. The skeletal structures are osteopenic. There are healed left-sided rib fractures. IMPRESSION: Cardiomegaly with no active disease in the chest. ACT 112: Negative or not required by law. Electronically signed by: Kole Barber M.D. 07/19/2022 8:[address] 07/18/22 19:37 CT SCAN OF THE BRAIN WITHOUT IV CONTRAST CLINICAL HISTORY: Syncope. COMPARISON STUDY: No priors. TECHNIQUE: Unenhanced axial CT scan of the brain is performed from the vertex to the skull base. A dose lowering technique was utilized adhering to the principles of ALARA. CT DOSE: 955.55 mGy.cm FINDINGS: Brain parenchyma: There is age-related involutional change noting mild subcortical and periventricular microangiopathic disease. There is no hemorrhage, mass effect, or evidence of acute territorial ischemia by CT criteria. A 1 mm calcification within the left frontal white matter is likely chronic. There is mineralization of the basal ganglia. Solorzano-white matter differentiation is preserved. No extra-axial fluid collection is seen. Ventricles, sulci, cisterns: Prominent secondary to involutional change. Intracranial vasculature: There is atherosclerotic calcification of the cavernous carotid and vertebral arteries. Calvarium: Unremarkable. Sinuses and mastoids: The visualized paranasal sinuses are clear. The mastoid air cells are well pneumatized. Orbits: The bony orbits are grossly intact. There are bilateral ocular lens implants. IMPRESSION: There is no hemorrhage, mass effect, or evidence of acute territorial ischemia by CT criteria. ACT 112: Negative or not required by law. Electronically signed by: Kole Barber M.D. 07/19/2022 7:20 AM Hip/Pelvis X-Ray 07/18/22 19:37 SINGLE VIEW PELVIS; 2 VIEWS RIGHT HIP CLINICAL HISTORY: Fall with right hip injury. FINDINGS: An AP view of the pelvis with AP and frog-leg views of the right hip are obtained. No prior studies are available for comparison at the time of dictation. The skeletal structures are osteopenic. There is no radiographic evidence of acute fracture involving the hips or bony pelvis. Mild arthritic change and joint space narrowing is seen in the hips. There is degenerative sclerosis of the sacroiliac joints. Soft tissue edema/hematoma overlies the right proximal femur. There is atherosclerotic calcification of the femoral arteries. IMPRESSION: 1. No acute bony abnormality is identified. 2. Contusion/hematoma overlies the right proximal femur. Electronically signed by: Kole Barber M.D. 07/19/2022 8:41 AM Brain MRI 07/19/22 13:42 MR brain wo con HISTORY: 87 years-old Female convulsive syncope, r/o cva acute stroke like symptoms COMPARISON: Head CT 07/18/2022 TECHNIQUE: Multiplanar multisequence MRI of the brain was obtained without the use of IV contrast. FINDINGS: Want Ad Clerk localizer images demonstrate no gross extracranial abnormality. No restricted diffusion to suggest acute or subacute infarct. Degenerative changes of the imaged cervical spine. Age-related involutional changes. Moderate T2/FLAIR hyperintense foci noted throughout the white matter. Mesial temporal lobes are symmetric and within normal limits and no evidence of mesial temporal sclerosis, solorzano matter heterotopia or cortical dysplasia. Cerebral venous sinuses and major arterial flow voids appear patent. Mastoid air cells are clear. Mild mucosal thickening of the ethmoid sinuses. The skull, and soft tissues are unremarkable. Prior bilateral lens repair. IMPRESSION: 1. No acute intracranial abnormality. No acute or subacute infarct. 2. Involutional changes with moderate chronic microvascular ischemic disease. ACT 112: Negative or not required by law. The above report was generated using voice recognition software. It may contain grammatical, syntax or spelling errors. Electronically signed by: Walter Pedraza M.D. 07/19/2022 7:53 PM Hospital Course (1) Syncope: 87yo female with a history of atrial fibrillation (s/p Watchman placement), CHF, cardiomyopathy, anemia, and hypothyroidism presents after a syncopal episode with seizure-like activity and a fall onto her right hip. Syncope with convulsions - Etiology unclear, broad differential, few clues from prior history - CT head: no acute large vessel infarct or ICH; no fracture or skull hematoma; mild cerebral atrophy and periventricular white matter changes consistent with small vessel disease; chronic 9mm left frontal lobe subcortical white matter parenchymal calcification; official read pending - CT c-spine: no acute fracture or subluxation; no significant spinal stenosis; mild carotic bifurcation calcification; jipyiyxl-nh-jaugrd narrowing of alantodental joint; ixchhdvm-pn-osujbf disc space narrowing and osteophytosis of mid-cervical spine; mild multilevel degenerative facet arthrosis; official read pending - Neuro checks q2h - Supplemental oxygen as-needed (has not needed) - NPO pending ST eval, but pt was not having any issues swallowing therefore diet advanced. Seen by ST and no concern for aspiration. - Echo ordered/completed, results reviewed. No significant change. - Aspiration precautions, fall precautions, SCDs - PT/OT ordered-recommend return home w/ family support - EEG ordered as well as neuro consult, appreciate recommendations - HbA1c (5.1%) and lipid profile completed/reviewed, controlled - Neuro recommended MRI (due to risk factors for cva) - completed, neg for cva - Recommend 30-day event monitor, cardio agrees with such and will order (Dr. Clark). Will be mailed to pt's house and pt can come to office to have it put on. - Neuro advised no driving however she does not drive. (2) Seizure-like activity: See above (3) Hematoma of right thigh: s/p fall - XR without acute fracture - APAP 1000mg IV q8h scheduled - Voltaren gel ordered - PT/OT advised return home with family support (4) Anemia: - Stable, actually better than baseline - Low suspicion for acute bleed (5) Cardiomyopathy: (6) Hypothyroidism: - Continue Levothyroxine Plan At this time, patient is medically and hemodynamically stable for discharge. Advise follow up with cardiology as scheduled and pcp within 1 week. As noted above, 30-day event monitor ordered by cardiology and will be mailed to her house. Avoid diuretics unless she gains at least 5 lbs. Above plan of care has been d/w Dr. Terrence Flynn who has also seen and evaluated this patient and agrees with aforementioned. Total Time Total Time Spent Total Time Spent (In Minutes): >30 minutes Discharge Plan Discharge Items Patient Disposition: Home - Self-Care Reason For Visit: SEIZURE-LIKE ACTIVITY, SYNCOPE, FALL, RT HIP PAIN Discharge Diagnosis: fall with brief loss of consciousness - unclear cause Activity: Resume your previous activity Non-emergency contact: Primary Care Provider Call non-emergency contact if: you have any medication questions and your symptoms worsen Follow-up/Referrals: Albino Almanza DO [Physician] - 07/30/22 8:00 am (Please arrive at 0745- THank You JD Lugo / Dr. Almanza ) Hayley Roland MD [Primary Care Provider] - 07/28/22 3:30 pm (THIS APPOINTMENT WILL BE WITH ANA GONCALVES AT THE [facility].) Diet: Regular Addtl Attending Provider Instructions: You were hospitalized after sustaining a fall at home with a brief loss of consciousness. It is still unclear as to why this may have occurred. You underwent some diagnostic testing (echocardiogram) of your heart which did not show any change from the last echocardiogram that you had done in September of 2021. There were no heart rhythm abnormalities (other than your atrial fibrillation which is chronic) that were noted on your heart monitor during your stay. There was some concern that you may be slightly dehydrated and it is advised that you do not take any diuretics unless you should gain at least 5 lbs. You also underwent an MRI of your brain which did not reveal any evidence of stroke. You had an EEG to exclude seizure which You are going to be mailed a heart monitor that you will wear for the next 30 days. Instructions will be given at the time that the monitor is put on. It is recommended that you follow up with your family doctor within 1 week of discharge. A scheduled appt is being made for you to also f/u with Dr. Almanza. I would ensure that you are drinking fluids (not over 2L per day) but enough to maintain your hydration. If you have any questions following your discharge, call the nonemergency number listed on your discharge paperwork. If you have a medical emergency call 911. Pending Studies at Discharge: No Stand-Alone Forms: [facility] Medications and DC Order Prescriptions: Continued levocetirizine 5 mg tablet 5 mg PO DAILY PRN (Reason: allergy symptoms) Qty: 30 5RF Rx Instructions: Take daily for 10 days then PRN albuterol sulfate 90 mcg/actuation aerosol powdr breath activated 2 inh inhalation QID PRN (Reason: Shortness Of Breath Or Wheezing) carvedilol 12.5 mg tablet 12.5 mg PO BID levothyroxine 75 mcg tablet 75 mcg PO DAILYBB Entresto 97-103 mg tablet 1 tab PO BID cyanocobalamin (vitamin B-12) [Vitamin B-12] 1,000 mcg Tablet 1,000 mcg PO QAM cholecalciferol (vitamin D3) [Vitamin D3] 25 mcg (1,000 unit) Tablet 25 mcg PO QAM Mucinex 1,200 mg tablet extended release 12hr 1,200 mg PO BID PRN (Reason: congested) amitriptyline 10 mg tablet 10 mg PO HS dorzolamide 2 % drops 1 drp OPR BID pilocarpine HCl 1 % drops 1 drp OPL TID brimonidine-timolol [Combigan] 0.2-0.5 % drops 1 drp OPB BID fluticasone propionate [Allergy Relief (fluticasone)] 50 mcg/actuation spray,suspension 1 spray intranasal DAILY PRN (Reason: Nasal Congestion) Rx Instructions: administer into each nostril once daily Rhopressa 0.02 % Drops 1 drp OPR QPM tshdfhflwmxj-jsllidpq-lrfiwqx 1-0.5-0.075 % Drops,Suspension 1 drp ophthalmic (eye) TID Rx Instructions: LEFT EYE Discharge Orders: Discharge Order (Routine); Ordered 07/20/22 Ordered By: Polina Holm Admission Data Admit Date/Time: 07/18/22 23:41 Attending Provider: Terrence Flynn Admit Provider: Kash Guzman Primary Care Provider: Hayley Roland Other Providers: Paulo Martinez ; Mainor Shannon ; Suhail Clark ; George Zelaya ; John Sanders ; Luis Angel Granado ; Amadou Wolff Jr ; Zhou Dominguez ; Joan Kelley ; Asia Fish ; Sy Vale ; Po Mcgill ; Rocky Ochoa ; Monica Cha ; Renetta Valencia ; Carlos Garner ; Jaspreet Meza ; Xiang Ram ; John Harris V. ; Babak Umanzor ; Silvestre Albrecht ; Emily Brenner ; Julia Clark ; Yogi Rob ; Julia Castro ; Carlos Zabala ; Patricia Escobar ; Timmy Leung ; Erika Rueda ; Cecille Charles ; Raissa Lau Other Interventions: Discharge Summary Assessment (RN) Last Done: 07/20/22 13:00 Supervising Physician Co-Signing Physician Notes I supervised Polina Holm PA-C on the care of this patient. I interviewed and examined the patient independently of her. The plan is as written in her note except for any following changes/exceptions: None Doing well today. Hip feels better. Seen by cardiology with plan for [facility] and close follow-up. EMG negative. Neurology feels it was vasovagal which I generally agree with. Stable for discharge. Coding Level of Care Code D/C DAY MANAGEMENT >30 MINS Diagnoses Syncope R55 Syncope type: unspecified Seizure-like activity R56.9 Hematoma of right thigh S70.11XA Encounter type: initial encounter Anemia D64.9 Anemia type: unspecified type Cardiomyopathy I42.9 Hypothyroidism E03.9
--- NOTE | 2022-07-20 12:03 | Electroencephalogram ---
EEG Procedure Note Date of Service July 20, 2022 Start / End Times Start Time: 8:03 End Time: 8:23 Referring Physician Polina Holm History Syncope with convulsion Home Medication List Medication Instructions Recorded Confirmed Type carvedilol 12.5 mg tablet 12.5 mg PO BID 10/01/21 07/18/22 History cholecalciferol (vitamin D3) 25 25 mcg PO QAM 10/01/21 07/18/22 History mcg (1,000 unit) tablet (Vitamin D3) cyanocobalamin (vitamin B-12) 1,000 mcg PO QAM 10/01/21 07/18/22 History 1,000 mcg tablet (Vitamin B-12) levothyroxine 75 mcg tablet 75 mcg PO DAILYBB 10/01/21 07/18/22 History sacubitril 97 mg-valsartan 103 mg 1 tab PO BID 10/01/21 07/18/22 History tablet (Entresto) albuterol sulfate 90 mcg/actuation 2 inh inhalation QID PRN Shortness 10/30/21 07/18/22 History breath activated powder inhaler Of Breath Or Wheezing levocetirizine 5 mg tablet 5 mg PO DAILY PRN allergy symptoms 11/25/21 07/18/22 Rx #30 tabs amitriptyline 10 mg tablet 10 mg PO HS 07/18/22 07/18/22 History brimonidine 0.2 %-timolol 0.5 % 1 drp OPB BID 07/18/22 07/18/22 History eye drops (Combigan) dorzolamide 2 % eye drops 1 drp OPR BID 07/18/22 07/18/22 History fluticasone propionate 50 1 spray intranasal DAILY PRN Nasal 07/18/22 07/18/22 History mcg/actuation nasal Congestion spray,suspension (Allergy Relief (fluticasone)) guaifenesin 1,200 mg tablet, 1,200 mg PO BID PRN congested 07/18/22 07/18/22 History extended release 12 hr (Mucinex) pilocarpine HCl 1 % eye drops 1 drp OPL TID 07/18/22 07/18/22 History netarsudil 0.02 % eye drops 1 drp OPR QPM 07/19/22 07/19/22 History (Rhopressa) prednisolone 1 %-moxifloxacin 0.5 1 drp ophthalmic (eye) TID 07/19/22 07/19/22 History %-bromfenac 0.075 % eye drops susp Inpatient Medication List Brimonidine/Timolol (Brimonidine Tartrate/Timolol) 1 drops OPB BID [facility] Stop: 08/18/22 20:59 Last Admin: 07/20/22 08:38 Dose: 1 drops Documented By: Admin: 07/19/22 20:11 Dose: 1 drops Documented By: TMD Carvedilol (Carvedilol 12.5 Mg Tab) 12.5 mg PO BID MICHELLE Stop: 08/18/22 20:59 Last Admin: 07/20/22 08:39 Dose: 12.5 mg Documented By: Admin: 07/19/22 20:13 Dose: 12.5 mg Documented By: TMD Diclofenac Sodium (Diclofenac Sod 1% Gel 100 Gm Tube) 2 gm EXT QID [facility]; Protocol Stop: 08/18/22 08:59 Last Admin: 07/20/22 08:44 Dose: 2 gm Documented By: Admin: 07/19/22 20:15 Dose: 2 gm Documented By: Admin: 07/19/22 18:01 Dose: Not Given Documented By: Admin: 07/19/22 12:27 Dose: 2 gm Documented By: Admin: 07/19/22 08:27 Dose: 2 gm Documented By: KEYANA Dorzolamide HCl (Dorzolamide Hcl 2% Oph Soln 10 Ml Btl) 1 drops OPR BID MICHELLE Stop: 08/18/22 20:59 Last Admin: 07/20/22 08:44 Dose: 1 drops Documented By: Admin: 07/19/22 20:17 Dose: 1 drops Documented By: TMD Acetaminophen (Ofirmev) 1,000 mg in 100 mls @ 400 mls/hr IV Q8 MICHELLE; Protocol Stop: 07/22/22 05:59 Last Admin: 07/20/22 05:19 Dose: Not Given Documented By: Admin: 07/19/22 21:58 Dose: Not Given Documented By: Admin: 07/19/22 15:06 Dose: Not Given Documented By: Infusion: 07/19/22 07:39 Dose: 0 mls/hr Documented By: Admin: 07/19/22 07:15 Dose: 400 mls/hr Documented By: HG Levothyroxine Sodium (Levothyroxine Sodium 75 Mcg Tablet) 75 mcg PO DAILYBB MICHELLE Stop: 08/19/22 06:29 Last Admin: 07/20/22 05:47 Dose: 75 mcg Documented By: TMD Rhopressa-Non- Formulary Patient's Own Med 1 each OPR QPM MICHELLE Stop: 08/18/22 20:59 Last Admin: 07/19/22 20:19 Dose: 1 drops Documented By: TMD Prednisolone/Moxifloxacin/Bromfenac-Non- Formulary Patient's Own Med 1 each OPL TID MICHELLE Stop: 08/18/22 20:59 Last Admin: 07/20/22 08:48 Dose: 1 drops Documented By: Admin: 07/19/22 20:18 Dose: 1 drops Documented By: TMD Pilocarpine HCl (Pilocarpine Hcl 1% Op Soln 15 Ml Btl) 1 drops OPL TID MICHELLE Stop: 08/18/22 20:59 Last Admin: 07/20/22 08:46 Dose: 1 drops Documented By: Admin: 07/19/22 20:21 Dose: Not Given Documented By: TMD Sacubitril/Valsartan (Valsartan/Sacubitril 103/97mg Tab) 1 tab PO BID MICHELLE Stop: 08/18/22 20:59 Last Admin: 07/20/22 08:49 Dose: 1 tab Documented By: Admin: 07/19/22 20:22 Dose: 1 tab Documented By: TMD Discontinued Medications Miscellaneous (Order Awaiting Action) 1 each N/A QS MICHELLE Stop: 08/18/22 15:59 Last Admin: 07/19/22 15:50 Dose: Not Given Documented By: ES Description This is a 21 electrode EEG with a single channel dedicated to limited EKG. The electrodes were placed in accordance with the International 10-20 system. Interpretation Background: This is a technically sufficient study, which was recorded in the patient's room while telemetry was recording. Background activity shows good organization, with 9 Hz posterior rhythm, which attenuates with eye opening bilaterally. There is no focal or diffuse slowing. In few occasions, short lasting diffuse delta slowing is considered to be physiologic. There is no sleep-related pattern. Stimulation maneuvers: Photic stimulations induce posterior driving responses bilaterally and symmetrically. Hyperventilation is not attempted. Abnormal discharges: There are very similar right temporal sharp waves, with following generalized spike and sharp wave discharges noticed in very same interval, in every few minutes, which is considered to be artifactual, secondary to electrical devices. Otherwise, there is no epileptiform or ictal activity. Impression: This is a normal routine EEG, recorded in wakeful state. There is no electrographic seizure or epileptogenic discharge. Electrical artifacts in very similar fashion in the same interval are noticed Clinical Correlation This is a normal EEG and does not indicate any epileptogenic activity. However, interictal normal EEG does not rule out seizure disorder and clinical correlation is suggested.
--- NOTE | 2022-07-20 12:16 | Neurology Progress Note ---
Date of Service July 20, 2022 Assessment & Plan (1) Syncope: Plan: Impression: This is most likely a convulsive syncope, which was triggered by pain and worsening anemia. Prolonged cerebral hypoperfusion was the likely cause of convulsion. EEG and brain MRI are unremarkable. (2) Seizure-like activity: Plan: Impression: As seen above. (3) Permanent atrial fibrillation: Plan: Impression: Since having watchman placement, the patient has not been on anticoagulation. Current rate is well (4) Presence of Watchman left atrial appendage closure device: (5) Cardiomyopathy: Plan: Impression: Ejection fraction is around 35-40. Echocardiogram showed moderate global hypokinesis of the left ventricle, severe concentric left ventricular hypertrophy, and loculated posterior pericardial effusion which is unchanged compared with prior studies.. (6) Anemia: Plan: Impression: The patient has history of anemia, with additional hemoglobin dropped after large traumatic hip hematoma. (7) Hematoma of right thigh: Plan: Impression: Induced by fall without fracture. (8) Fall: Plan: Impression: Fall was mechanical. There is no prior symptoms to suggest other etiology. Plan Assessment and plan: 1. Convulsive syncope Impression: After having fall and a large hip hematoma, the patient was suffering from severe pain, and while sitting in the chair, felt dizzy, lightheaded, and reportedly, she was very pale and diaphoretic, with convulsive episode. Seizure was unlikely cause of syncope. EEG and brain MRI are unremarkable. Recommendations: The patient is stable neurologically and can be discharged home. Follow-up with neurology clinic in a month or as needed We will sign off. Admission and Anticipated Discharge Date Admission Date: July 18, 2022 Subjective Patient seen on daily rounds this morning. She is resting comfortably in bed, reports c/o R hip pain since her fall. No cp, dyspnea, n/v/d, f/c, headache, dizziness, or gu symptoms. Seen by cardiology, no arrhythmias overnight (in chronic afib). Per son, hasn't taken any Lasix in over a month but admits that she does not drink much. She has not had any dizziness, lightheadedness, syncope, or tonic-clonic activity since admission. She can ambulate without difficulty. There has been postural change induced symptoms. Review of Systems Review of Systems: All systems reviewed & are unremarkable except as noted in HPI & below Results & Data ([facility]) Vital Signs (Past 12 Hours) Vital Signs Temp Pulse Pulse Resp BP BP Pulse Ox 07/20/22 08:35 36.5 C 99 H 16 146/96 H 96 07/20/22 08:41 36.8 C 93 H 18 153/85 H 97 07/20/22 06:16 78 07/20/22 04:00 36.5 C 77 18 120/78 98 O2 Del Method 07/20/22 08:35 Room Air 07/20/22 08:41 Room Air 07/20/22 06:16 07/20/22 04:00 Room Air Diagnostic Findings Cervical Spine CT 07/18/22 19:37 CT SCAN OF THE CERVICAL SPINE CLINICAL HISTORY: Seizure. COMPARISON STUDY: No priors. TECHNIQUE: CT scan of the cervical spine is performed from the skull base to the upper thoracic spine. Images are reviewed in the axial, sagittal, and coronal planes. IV contrast was not administered for this examination. A dose lowering technique was utilized adhering to the principles of ALARA. FINDINGS: Skeletal structures: The skeletal structures are osteopenic. There is no evidence of fracture or subluxation involving the cervical spine. Vertebral body height and alignment are maintained. There is straightening of the cervical lordosis with reversal centered at C4-C5. Anterior osteophytes are seen throughout. The odontoid process and lateral masses are intact. The atlantoaxial articulation is preserved noting advanced productive degenerative change. The spinous processes appear intact. There is mild to moderate multilevel cervical spondylosis. Uncovertebral and facet arthropathy contribute to neural foraminal narrowing at several levels. Intervertebral discs: There is moderate disc space narrowing at C4-C5, C5-C6, and C6-C7 with associated endplate sclerosis. Central canal: Posterior disc osteophyte complexes are seen at all cervical levels between C3-C4 and C6-C7. This likely contributes to multilevel acquired compromise of the central canal. Soft tissues: The prevertebral and paraspinous soft tissues are within normal limits. The right lobe of the thyroid gland is diminutive versus surgically absent. The left lobe is heterogeneous. Mild atherosclerotic calcification is noted in the carotid bulbs. Calvarium: The visualized calvarium at the skull base appears intact. Brain parenchyma: Partially visualized brain parenchyma at the skull base is within normal limits. Sinuses and mastoids: The visualized paranasal sinuses are clear. The mastoid air cells are well pneumatized. Lung apices: Clear as visualized. IMPRESSION: 1. There is no evidence of fracture or subluxation involving the cervical spine. 2. Osteopenia and spondylotic change as above. ACT 112: Negative or not required by law. Electronically signed by: Kole Barber M.D. 07/19/2022 8:06 AM Chest X-Ray 07/18/22 19:37 SINGLE VIEW CHEST CLINICAL HISTORY: Seizure. FINDINGS: 2 AP, portable, upright chest radiographs are compared to study dated 10/16/2021 and correlated with chest CT dated 10/12/2021. An indeterminant surgical devices again noted within the left atrial appendage. The heart is enlarged noting atherosclerotic calcification of the thoracic aorta. The pulmonary vasculature is noncongested. Chronic interstitial thickening is similar to previous. There is bibasilar scarring/atelectasis. No airspace consolidation or large pleural effusion is identified. Atypical scarring is observed. No pneumothorax is seen. The skeletal structures are osteopenic. There are healed left-sided rib fractures. IMPRESSION: Cardiomegaly with no active disease in the chest. ACT 112: Negative or not required by law. Electronically signed by: Kole Barber M.D. 07/19/2022 8:[address] 07/18/22 19:37 CT SCAN OF THE BRAIN WITHOUT IV CONTRAST CLINICAL HISTORY: Syncope. COMPARISON STUDY: No priors. TECHNIQUE: Unenhanced axial CT scan of the brain is performed from the vertex to the skull base. A dose lowering technique was utilized adhering to the principles of ALARA. CT DOSE: 955.55 mGy.cm FINDINGS: Brain parenchyma: There is age-related involutional change noting mild subcortical and periventricular microangiopathic disease. There is no hemorrhage , mass effect, or evidence of acute territorial ischemia by CT criteria. A 1 mm calcification within the left frontal white matter is likely chronic. There is mineralization of the basal ganglia. Solorzano-white matter differentiation is preserved. No extra-axial fluid collection is seen. Ventricles, sulci, cisterns: Prominent secondary to involutional change. Intracranial vasculature: There is atherosclerotic calcification of the cavernous carotid and vertebral arteries. Calvarium: Unremarkable. Sinuses and mastoids: The visualized paranasal sinuses are clear. The mastoid air cells are well pneumatized. Orbits: The bony orbits are grossly intact. There are bilateral ocular lens implants. IMPRESSION: There is no hemorrhage, mass effect, or evidence of acute territorial ischemia by CT criteria. ACT 112: Negative or not required by law. Electronically signed by: Kole Barber M.D. 07/19/2022 7:20 AM Hip/Pelvis X-Ray 07/18/22 19:37 SINGLE VIEW PELVIS; 2 VIEWS RIGHT HIP CLINICAL HISTORY: Fall with right hip injury. FINDINGS: An AP view of the pelvis with AP and frog-leg views of the right hip are obtained. No prior studies are available for comparison at the time of dictation. The skeletal structures are osteopenic. There is no radiographic evidence of acute fracture involving the hips or bony pelvis. Mild arthritic change and joint space narrowing is seen in the hips. There is degenerative sclerosis of the sacroiliac joints. Soft tissue edema/hematoma overlies the right proximal femur. There is atherosclerotic calcification of the femoral arteries. IMPRESSION: 1. No acute bony abnormality is identified. 2. Contusion/hematoma overlies the right proximal femur. Electronically signed by: Kole Barber M.D. 07/19/2022 8:41 AM Brain MRI 07/19/22 13:42 MR brain wo con HISTORY: 87 years-old Female convulsive syncope, r/o cva acute stroke like symptoms COMPARISON: Head CT 07/18/2022 TECHNIQUE: Multiplanar multisequence MRI of the brain was obtained without the use of IV contrast. FINDINGS: General Duty Nurse localizer images demonstrate no gross extracranial abnormality. No restric khalif diffusion to suggest acute or subacute infarct. Degenerative changes of the imaged cervical spine. Age-related involutional changes. Moderate T2/FLAIR hyperintense foci noted throughout the white matter. Mesial temporal lobes are symmetric and within normal limits and no evidence of mesial temporal sclerosis, solorzano matter heterotopia or cortical dysplasia. Cerebral venous sinuses and major arterial flow voids appear patent. Mastoid air cells are clear. Mild mucosal thickening of the ethmoid sinuses. The skull, and soft tissues are unremarkable. Prior bilateral lens repair. IMPRESSION: 1. No acute intracranial abnormality. No acute or subacute infarct. 2. Involutional changes with moderate chronic microvascular ischemic disease. ACT 112: Negative or not required by law. The above report was generated using voice recognition software. It may contain grammatical, syntax or spelling errors. Electronically signed by: Walter Pedraza M.D. 07/19/2022 7:53 PM EEG-- Unremarkable (1) Syncope Syncope type: unspecified Qualified Code(s): R55 - Syncope and collapse (2) Anemia Anemia type: unspecified type Qualified Code(s): D64.9 - Anemia, unspecified (3) Hematoma of right thigh Encounter type: initial encounter Qualified Code(s): S70.11XA - Contusion of right thigh, initial encounter (4) Fall Encounter type: initial encounter Qualified Code(s): W19.XXXA - Unspecified fall, initial encounter
[2022-07-20 12:43] VITALS: BP 108/72; PULSE 80; TEMP 98; O2SAT 99
--- NOTE | 2022-07-20 13:19 | Cardiology Progress Note ---
Date of Service July 20, 2022 Assessment & Plan (1) Syncope: (2) Cardiomyopathy: (3) HFrEF (heart failure with reduced ejection fraction): (4) Permanent atrial fibrillation: (5) Presence of Watchman left atrial appendage closure device: (6) Pericardial effusion: Plan Patient doing well with favorable hemodynamics and unremarkable telemetry overnight. Okay for discharge, follow-up with Dr. Almanza in the next few weeks. MCOT monitor ordered, will be mailed to her home. Suspect her syncope was vasovagal, but this will help ensure she has no significant rhythm issues. Admission and Anticipated Discharge Date Admission Date: July 18, 2022 Subjective Uneventful night, patient feels well. No chest pain, dyspnea, lightheadedness, presyncope, or syncope. Telemetry showed atrial fibrillation with controlled ventricular response (60- 100 bpm). Physical Exam Physical Exam: No distress. BP 146/96 mmHg Pulse 80 bpm and irregular Skin: right hip hematoma, no generalized lesions. HEENT: Unremarkable. Neck: Jugular venous pulse normal, no carotid bruits. Lungs: Clear and equal breath sounds bilaterally. Cardiac: Irregular rhythm, reduced but audible aortic closure sound with 2/6 systolic ejection murmur, 3/6 apical holosystolic murmur rating to the axilla, no diastolic murmur or distinct gallop. Abdomen: Soft and nontender with no organomegaly or masses. Extremities: No edema, brisk radial and dorsalis pedis pulses. Good capillary refill. Neurologic: Normal affect, grossly nonfocal. Results & Data ([facility]) Vital Signs (Past 12 Hours) Vital Signs Temp Pulse Pulse Resp BP BP Pulse Ox 07/20/22 13:00 98.0 F 80 18 146/96 H 108/72 99 07/20/22 12:42 98.0 F 80 18 108/72 99 07/20/22 08:35 97.7 F 99 H 16 146/96 H 96 07/20/22 08:41 98.2 F 93 H 18 153/85 H 97 07/20/22 06:16 78 07/20/22 04:00 97.7 F 77 18 120/78 98 O2 Del Method 07/20/22 13:00 07/20/22 12:42 07/20/22 08:35 Room Air 07/20/22 08:41 Room Air 07/20/22 06:16 07/20/22 04:00 Room Air PG Care Time/CCT Total # of Minutes Spent Total Time Spent with Patient: Total time spent is greater than 50% in coordination of care (as documented) at patient's floor/unit and/or counseling patient: Coding Level of Care Code 78995 Subseq Hosp Care Lvl 2 Diagnoses Syncope R55 Syncope type: unspecified Cardiomyopathy I42.9 HFrEF (heart failure with reduced ejection fraction) I50.20 Permanent atrial fibrillation I48.21 Presence of Watchman left atrial appendage closure device Z95.818 Pericardial effusion I31.3 (1) Syncope Syncope type: unspecified Qualified Code(s): R55 - Syncope and collapse
== END 2022-07-20 14:14 | disposition home or self-care (01) | DRG 312 ==
LOC: ED 19:28 → EDINP 23:41 → SUATTDRO 23:41 → 2N 07-19 02:50
DX: R55 Syncope and collapse; I50.20 Unspecified systolic (congestive) heart failure; D64.9 Anemia, unspecified; Y92.019 Unspecified place in single-family (private) house as the place of occurrence of the external cause; S70.11XA Contusion of right thigh, initial encounter; Z96.89 Presence of other specified functional implants; I31.3 Pericardial effusion (noninflammatory); I42.8 Other cardiomyopathies; F17.200 Nicotine dependence, unspecified, uncomplicated; E03.9 Hypothyroidism, unspecified; R56.9 Unspecified convulsions; Z79.890 Hormone replacement therapy; I48.21 Permanent atrial fibrillation; W19.XXXA Unspecified fall, initial encounter

== ENCOUNTER 2022-11-18 13:06 | Inpatient (IN) ==
[2022-11-18] MEDS ORDERED: dexAMETHasone**PF** 10 MG/ML VIAL IV ONE (13:24)
[2022-11-18] MEDS ORDERED: SODIUM CHLORIDE 0.9% 500 ML IV ONE (13:24)
--- NOTE | 2022-11-18 13:45 | Emergency Department Note ---
Impression & Plan COVID-19, Hypoxia ED Provider Note NAME: BOBO JARAMILLO AGE: 87 SEX: F : 1935 ARRIVES VIA: Walk-In INFORMANT: Patient ED PROVIDER(S): Kun Fernandez DO CHIEF COMPLAINT: shortness of breath HPI: Patient is a 87-year-old female with a past medical history of heart failure with reduced ejection fraction, A. fib, hypothyroidism, watchman procedure, cardiomyopathy who presents the ER for upper respiratory symptoms that started this past Tuesday. She notes that she was feeling very weak and rundown. She admits to a cough and congestion as well as feeling hot and cold which has progressed since then. Denies any chest pain but admits to shortness of breath. No belly pain nausea vomiting or diarrhea. No dysuria urgency or frequency. No other exacerbating or remitting factors. ROS: See above HPI for pertinent positives & negatives. A total of 10 systems reviewed and were otherwise negative. PAST MEDICAL HISTORY:See Below PAST SURGICAL HISTORY:See Below FAMILY HISTORY:See Below SOCIAL HISTORY:See Below HOME MEDICATIONS:See Below ALLERGIES:See Below VITALS:See Below PHYSICAL EXAMINATION: GENERAL: Sitting up in bed, alert, disheveled on nasal cannula with a cough EYE EXAM: normal conjunctiva. PERRL and EOM's grossly intact. OROPHARYNX: mucous membranes are dry NECK: supple, no nuchal rigidity, no adenopathy, non-tender LUNGS: Clear to auscultation. Normal chest wall mechanics HEART: no murmurs, S1 normal and S2 normal ABDOMEN: abdomen soft, non-tender, normo-active bowel sounds, no masses, no rebound or guarding. UPPER EXTREMITIES: upper extremities are grossly normal. LOWER EXTREMITIES: No pitting edema. NEURO EXAM: Normal sensorium, cranial nerves II-XII grossly intact, normal speech, no gross weakness of arms, no gross weakness of legs. MEDICAL DECISION MAKING: Patient is an 87-year-old female who presents the ER for shortness of breath. She admits to cough congestion and is at home positive for COVID. Started on baclofen. Labs show no significant leukocytosis or anemia. EKG does show A. fib with a history. Not anticoagulated with a previous watchman. CBC was unremarkable with no significant leukocytosis or anemia. BMP along LFTs, bilirubin, and troponin was negative. X-ray was clean. Patient was given fluids and Decadron and remained on 2 L nasal cannula admit for further work-up. Discussed with Bevelry damon for further evaluation Triage Nursing notes reviewed. Limited review of prior medical records performed Vital Signs: reviewed and remarkable for hypoxic Differential diagnosis: Cardiac ischemia, aortic dissection, pulmonary embolism, pneumothorax, pneumonia, pericarditis, myocarditis, esophageal rupture, GERD, cholecystitis, pancreatitis, musculoskeletal, as well as other pathologies. ER treatment provided: See below Diagnostics interpreted by me: ECG: A. fib rate of 90 Left axis PVCs QTC 489 T wave inversions V1 through V3 Cardiac Monitoring: An order was placed for continuous cardiac monitoring. The monitor shows a rate of 82 with sinus rhythm. Laboratory studies: As stated above and show below. Imaging studies: AP upright 1 view of the chest shows no focal infiltrate Consultation(s): Discussed with Dr. Beverly Crane for further evaluation Procedures: none Critical Care: I have personally spent 35 minutes of critical care time in the direct management of this patient. This includes bedside care, interpretation of diagnostic studies, and testing, discussion with consultants, patient, and family members, and other required patient management activities. This 35 minutes is in excess of all separately billable procedures. Past Med/Surg History Medical History Allergic rhinitis with postnasal drip Community acquired pneumonia (09/2021) Hypoalbuminemia Hypothyroidism Surgical History H/O: hysterectomy Presence of Watchman left atrial appendage closure device (2017) Social History Smoking Status: Never smoker Second Hand Exposure: No; Hx Alcohol Use: No Hx Substance Use: No Preferred Language: Telugu Communication Ability: Effective Screen Operator Required: No Beliefs That Will Affect Care: None marital status: / Current Living Situation: Family Current Living Situation Comment: lives w/ son and daughter in law and their child. How many Children do You have: 1 Feels Safe at Home: Yes Assistive Devices: None Allergies Allergies Allergy/AdvReac Type Severity Reaction Status Date / Time No Known Allergies Allergy Unverified 07/18/22 23:01 Home Meds Home Medications Medication Instructions Recorded Confirmed carvedilol 12.5 mg tablet 12.5 mg PO BID 10/01/21 10/15/22 cholecalciferol (vitamin D3) 25 25 mcg PO QAM 10/01/21 10/15/22 mcg (1,000 unit) tablet (Vitamin D3) cyanocobalamin (vitamin B-12) 1,000 mcg PO QAM 10/01/21 10/15/22 1,000 mcg tablet (Vitamin B-12) levothyroxine 75 mcg tablet 75 mcg PO DAILYBB 10/01/21 10/15/22 sacubitril 97 mg-valsartan 103 mg 1 tab PO BID 10/01/21 10/15/22 tablet (Entresto) albuterol sulfate 90 mcg/actuation 2 inh inhalation QID PRN Shortness 10/30/21 10/15/22 breath activated powder inhaler Of Breath Or Wheezing amitriptyline 10 mg tablet 10 mg PO HS 07/18/22 10/15/22 brimonidine 0.2 %-timolol 0.5 % 1 drp OPB BID 07/18/22 10/15/22 eye drops (Combigan) dorzolamide 2 % eye drops 1 drp OPR BID 07/18/22 10/15/22 fluticasone propionate 50 1 spray intranasal DAILY PRN Nasal 07/18/22 10/15/22 mcg/actuation nasal Congestion spray,suspension (Allergy Relief (fluticasone)) guaifenesin 1,200 mg tablet, 1,200 mg PO BID PRN congested 07/18/22 10/15/22 extended release 12 hr (Mucinex) pilocarpine HCl 1 % eye drops 1 drp OPL TID 07/18/22 07/18/22 netarsudil 0.02 % eye drops 1 drp OPR QPM 07/19/22 10/15/22 (Rhopressa) Previous Rx's Medication Instructions Recorded levocetirizine 5 mg tablet 5 mg PO DAILY PRN allergy symptoms 11/25/21 #30 tabs Results & Data (ED) Vital Signs Vital Signs - 24 hr 11/18/22 13:09 11/18/22 13:13 11/18/22 13:06 Temperature 36.8 C Temperature Source Oral Pulse Rate 86 Pulse Rate [Apical] 91 H Respiratory Rate 16 20 Respiratory Depth Normal Blood Pressure 184/119 H Blood Pressure [Right Arm] 183/109 H Blood Pressure Mean 140 Blood Pressure Mean [Right Arm] 133 Blood Pressure Position Sitting Pulse Oximetry 86 L 87 L 98 Oxygen Delivery Method Room Air Room Air Nasal Cannula Oxygen Flow Rate 2 Sepsis Recent Fever Within 48 Hours No Sepsis New/Unexplained Change in Mental Status No Sepsis Action Taken by Nursing No Action Required Oxygen Flow Rate - Titration 2 Pulse Oximetry Post Tiitration 94 11/18/22 13:14 Temperature Temperature Source Pulse Rate 96 H Pulse Rate [Apical] Respiratory Rate 20 Respiratory Depth Blood Pressure Blood Pressure [Right Arm] Blood Pressure Mean Blood Pressure Mean [Right Arm] Blood Pressure Position Pulse Oximetry 96 Oxygen Delivery Method Room Air Oxygen Flow Rate 2 Sepsis Recent Fever Within 48 Hours Sepsis New/Unexplained Change in Mental Status Sepsis Action Taken by Nursing Oxygen Flow Rate - Titration Pulse Oximetry Post Tiitration Laboratory Data Result diagrams: 11/18/22 13:32 11/18/22 13:32 Lab Results 11/18/22 11/18/22 11/18/22 Range/Units 13:32 13:32 13:32 WBC 10.45 (4.8-10.8) K/ul RBC 4.74 (3.93-5.22) M/uL Hgb 14.1 (12.0-16.0) g/dl Hct 41.4 (34.1-44.9) % MCV 87.3 (80.0-100.0) fL MCH 29.7 (25.0-34.0) pg MCHC 34.1 (32.0-36.0) g/dL RDW Std Deviation 43.0 (36.4-46.3) fL RDW Coeff of Chanel 13.4 (11.5-14.5) % Plt Count 238 (130-400) K/uL MPV 11.4 (9.4-12.3) fL Immature Gran % (Auto) 0.3 % Neut % (Auto) 83.6 % Lymph % (Auto) 7.9 % [place] % (Auto) 7.9 % Eos % (Auto) 0.2 % Baso % (Auto) 0.1 % Neut # (Auto) 8.73 H (1.4-6.5) K/uL Lymph # (Auto) 0.83 L (1.2-3.4) K/uL [place] # (Auto) 0.83 H (0.24-0.82) K/uL Eos # (Auto) 0.02 (0-0.50) K/uL Baso # (Auto) 0.01 (0-0.2) K/uL Immature Gran # (Auto) 0.03 H (0.00-0.02) K/uL Sodium 136 (136-145) mmol/L Potassium 3.5 (3.5-5.1) mmol/L Chloride 98 (98-107) mmol/L Carbon Dioxide 28 (21-32) mmol/L Anion Gap 10 (3-11) BUN 17 (6-23) mg/dl Creatinine 0.71 (0.6-1.2) mg/dl Est Cr Clr Drug Dosing 59.4 ml/min Est GFR ( Amer) 89.4 ml/min Est GFR (Non-Af Amer) 77.1 ml/min BUN/Creatinine Ratio 23.9 H (10-20) Glucose 120 H (70-99(Fasting)) mg/dl Calcium 8.6 (8.5-10.1) mg/dl Total Bilirubin 1.2 H (0.2-1.0) mg/dl AST 15 (13-39) U/L ALT 10 (7-52) U/L Alkaline Phosphatase 51 (34-104) U/L Total Protein 7.3 (6.0-8.3) gm/dl Albumin 3.9 (3.4-5.0) gm/dl Globulin 3.4 (2.5-4.0) gm/dl Albumin/Globulin Ratio 1.1 (0.9-2) Lipase 10 L (11-82) U/L SARS-CoV-2, RNA, NAAT POSITIVE A* (NEGATIVE) Administered Medications Discontinued Medications Dexamethasone Sodium Phosphate (DexamethasonePf 10 Mg/Ml Vial) 6 mg IV NOW ONE Stop: 11/18/22 13:25 Last Admin: 11/18/22 13:35 Dose: 6 mg Documented By: SANTIAGO Sodium Chloride (Nss) 500 mls @ 999 mls/hr IV .Q31M ONE Stop: 11/18/22 13:54 Last Infusion: 11/18/22 14:02 Dose: 0 mls/hr Documented By: Admin: 11/18/22 13:35 Dose: 999 mls/hr Documented By: TNB Imaging Data Radiologist's Impression: Chest X-Ray 11/18/22 13:14 XR chest 1V portable CLINICAL HISTORY: Chest pain, nonspecific TECHNIQUE: Single frontal radiograph of the chest was obtained. Comparison: Comparison is made to chest radiograph 10/18/2022 FINDINGS: Vascular graft is seen projecting over the chest. Cardiomegaly is noted. The aortic arch is calcified. The lungs are clear. No evidence of pleural effusion or pneumothorax. IMPRESSION: No acute chest disease. ACT 112: Negative or not required by law. Electronically signed by: Jani Davies M.D. 11/18/2022 1:54 PM Discharge Plan Visit Data Chief Complaint: Shortness of Breath/Dyspnea Stated Complaint: SOB, FATIGUE, LOW PULSE OX, COVID+ ED Provider: Kun Fernandez Discharge Problem: COVID-19, Hypoxia Forms Stand Alone Forms: [facility] Prescriptions Prescriptions: No Action levocetirizine 5 mg tablet 5 mg PO DAILY PRN (Reason: allergy symptoms) Qty: 30 5RF Rx Instructions: Take daily for 10 days then PRN albuterol sulfate 90 mcg/actuation aerosol powdr breath activated 2 inh inhalation QID PRN (Reason: Shortness Of Breath Or Wheezing) carvedilol 12.5 mg tablet 12.5 mg PO BID levothyroxine 75 mcg tablet 75 mcg PO DAILYBB Entresto 97-103 mg tablet 1 tab PO BID cyanocobalamin (vitamin B-12) [Vitamin B-12] 1,000 mcg Tablet 1,000 mcg PO QAM cholecalciferol (vitamin D3) [Vitamin D3] 25 mcg (1,000 unit) Tablet 25 mcg PO QAM Mucinex 1,200 mg tablet extended release 12hr 1,200 mg PO BID PRN (Reason: congested) amitriptyline 10 mg tablet 10 mg PO HS dorzolamide 2 % drops 1 drp OPR BID pilocarpine HCl 1 % drops 1 drp OPL TID brimonidine-timolol [Combigan] 0.2-0.5 % drops 1 drp OPB BID fluticasone propionate [Allergy Relief (fluticasone)] 50 mcg/actuation spray,suspension 1 spray intranasal DAILY PRN (Reason: Nasal Congestion) Rx Instructions: administer into each nostril once daily Rhopressa 0.02 % Drops 1 drp OPR QPM Referrals Referrals: Hayley Roland MD [Primary Care Provider] -
[2022-11-18 13:56] LABS: Basophils # (auto) 0.01 K/uL (0-0.2); Basophils % (auto) 0.1 %; Eosinophils # (auto) 0.02 K/uL (0-0.50); Eosinophils % (auto) 0.2 %; Hematocrit (blood only) 41.4 % (34.1-44.9); Hemoglobin 14.1 g/dl (12.0-16.0); Immature Granulocytes # (auto) 0.03 K/uL (0.00-0.02); Immature Granulocytes % (auto) 0.3 %; Lymphocytes # (auto) 0.83 K/uL (1.2-3.4); Lymphocytes % (auto) 7.9 %; Mean Corpuscular Hemoglobin 29.7 pg (25.0-34.0); Mean Corpuscular Hgb Conc 34.1 g/dL (32.0-36.0); Mean Corpuscular Volume 87.3 fL (80.0-100.0); Mean Platelet Volume 11.4 fL (9.4-12.3); Monocytes # (auto) 0.83 K/uL (0.24-0.82); Monocytes % (auto) 7.9 %; Neutrophils # (auto) 8.73 K/uL (1.4-6.5); Neutrophils % (auto) 83.6 %; Platelet Count 238 K/uL (130-400); RDW Coefficient of Variation 13.4 % (11.5-14.5); Red Blood Count 4.74 M/uL (3.93-5.22); White Blood Count 10.45 K/ul (4.8-10.8)
--- NOTE | 2022-11-18 13:56 | XRay Report ---
XR chest 1V portable CLINICAL HISTORY: Chest pain, nonspecific TECHNIQUE: Single frontal radiograph of the chest was obtained. Comparison: Comparison is made to chest radiograph 10/18/2022 FINDINGS: Vascular graft is seen projecting over the chest. Cardiomegaly is noted. The aortic arch is calcified . The lungs are clear. No evidence of pleural effusion or pneumothorax. IMPRESSION: No acute chest disease. ACT 112: Negative or not required by law. Electronically signed by: Jani Davies M.D. 11/18/2022 1:54 PM
[2022-11-18 14:21] LABS: Albumin Globulin Ratio 1.1 (0.9-2); Albumin Level 3.9 gm/dl (3.4-5.0); BUN Creatinine Ratio 23.9 (10-20); Bilirubin,Total 1.2 mg/dl (0.2-1.0); Calcium 8.6 mg/dl (8.5-10.1); Creatinine Clr Calc Pharmacy 59.4 ml/min; Est GFR (African American) 89.4 ml/min; Est GFR (Non-African American) 77.1 ml/min; Globulin 3.4 gm/dl (2.5-4.0); Potassium 3.5 mmol/L (3.5-5.1); Total Protein 7.3 gm/dl (6.0-8.3)
[2022-11-18 14:24] LABS: Troponin I High Sensitivity 9.5 pg/ml (0-14)
--- NOTE | 2022-11-18 16:36 | History & Physical Report ---
Date of Service November 18, 2022 Assessment & Plan (1) COVID-19: Plan: Patient presents on day 7 of symptoms of COVID-19 with acute respiratory failure with hypoxia, malaise, low appetite -Admit to telemetry unit -Continue 5-day course of pack Paxlovid to be brought in from home-last day of treatment will be 11/20 in the evening -Start dexamethasone 6 mg IV once daily given the hypoxia -Add flutter valve, incentive spirometry, and DuoNebs as needed -Supportive care, Tylenol as needed, antitussives as needed -Continue supplemental O2 to keep pulse ox greater than 90% -Follow CBC, CMP, CRP, magnesium in the morning (2) Hypoxia: Plan: Secondary to COVID-19 pneumonitis as above Does have a history of HFrEF but is not currently in acute decompensation. In fact, she has had very poor p.o. intake and was given 500 mL of normal saline on arrival due to appearing dehydrated Chest x-ray without evidence of pneumonia currently Continue supplemental O2 to keep pulse ox greater than 90% Continue dexamethasone (3) HFrEF (heart failure with reduced ejection fraction): Plan: With a history of nonischemic cardiomyopathy, follows with [facility] cardiology Slightly hypovolemic and received 500 mL of normal saline on admission as above Continue home Entresto, carvedilol Strict I's and O's, daily weights, low-sodium diet (4) Permanent atrial fibrillation: Plan: Rate controlled Monitor on telemetry Not on anticoagulation as had watchman procedure-Watchman procedure was performed due to preference to not be on anticoagulants due to active lifestyle. She has never had any issues with bleeding Continue carvedilol for rate control (5) Hypothyroidism: Plan: TSH mildly elevated at 5.2 in 06/2022 Continue home levothyroxine 75 mcg daily Follow as an outpatient (6) Pericardial effusion: Plan: Chronic and managed by cardiology as an outpatient (7) Glaucoma: Plan: Continue home eyedrops (8) Allergic rhinitis with postnasal drip: Plan: Continue home Flonase as needed Can give Zyrtec as needed but not currently necessary Plan DVT prophylaxis-SCDs, Lovenox 40 Mg SQ daily Disposition-admit to telemetry unit Full code as discussed with patient with her son at the bedside who is her healthcare power of deputy attorney general. She reports that she would not want prolonged life support if prognosis for recovery is poor after cardiac arrest or in any situation History of Present Illness Chief Complaint: Low oxygen levels, COVID-19 Primary Care Provider: Hayley Roland MD This patient is an 87-year-old female with a history of permanent atrial fibrillation s/p watchman device, HFrEF, hypothyroidism, pericardial effusion, glaucoma, upper airway cough syndrome and allergic rhinitis, Lady Worthington disease, who presents to the ER with low oxygen levels on a pulse ox at home down to 86% after being sick at home for 6 days with COVID-19. Her symptoms started on 11/11 with generalized weakness and malaise, and then she has since developed a cough and shortness of breath, very poor appetite, sore throat, and severe fatigue. She started taking Paxlovid 2 days ago as prescribed by her PCP and has been keeping an eye on her pulse oximeter at home. It was staying around 90% until this morning it dropped to 86%. She denies any chest pains or worsening shortness of breath. No fevers or chills, no headache, no nausea or vomiting or diarrhea. In the ER, she was found to be hypertensive, heart rate in the 80s to 90s, not tachypneic, and pulse ox was 86% on room air. She was placed on 2 LNC of supplemental O2 with improvement to 96% She was given a dose of IV dexamethasone. CBC, CMP, troponin, all fairly unremarkable. A chest x-ray was performed which was negative for pneumonia or acute disease. An EKG showed rate controlled atrial fibrillation with PVCs, LAFB, and a nonspecific T wave abnormality in the lateral leads. She will be admitted for COVID-19 pneumonitis with acute respiratory failure with hypoxia. Allergies Allergy/AdvReac Type Severity Reaction Status Date / Time No Known Allergies Allergy Unverified 11/18/22 15:18 Home Medications Medication Instructions Recorded Confirmed Type carvedilol 12.5 mg tablet 12.5 mg PO BID 10/01/21 11/18/22 History cholecalciferol (vitamin D3) 25 25 mcg PO QAM 10/01/21 11/18/22 History mcg (1,000 unit) tablet (Vitamin D3) cyanocobalamin (vitamin B-12) 1,000 mcg PO QAM 10/01/21 11/18/22 History 1,000 mcg tablet (Vitamin B-12) levothyroxine 75 mcg tablet 75 mcg PO DAILYBB 10/01/21 11/18/22 History sacubitril 97 mg-valsartan 103 mg 1 tab PO BID 10/01/21 11/18/22 History tablet (Entresto) albuterol sulfate 90 mcg/actuation 2 inh inhalation QID PRN Shortness 10/30/21 11/18/22 History breath activated powder inhaler Of Breath Or Wheezing levocetirizine 5 mg tablet 5 mg PO DAILY PRN allergy symptoms 11/25/21 11/18/22 Rx #30 tabs amitriptyline 10 mg tablet 10 mg PO HS 07/18/22 11/18/22 History brimonidine 0.2 %-timolol 0.5 % 1 drp OPB BID 07/18/22 11/18/22 History eye drops (Combigan) dorzolamide 2 % eye drops 1 drp OPR BID 07/18/22 11/18/22 History fluticasone propionate 50 1 spray intranasal DAILY PRN Nasal 07/18/22 11/18/22 History mcg/actuation nasal Congestion spray,suspension (Allergy Relief (fluticasone)) netarsudil 0.02 % eye drops 1 drp OPR QPM 07/19/22 11/18/22 History (Rhopressa) Vitamin K & D3 1 tab PO DAILY 11/18/22 11/18/22 History aspirin 81 mg tablet,delayed 81 mg PO DAILY 11/18/22 11/18/22 History release cranberry 400 mg capsule 0 mg PO DAILY 11/18/22 11/18/22 History nirmatrelvir 150 mg-ritonavir 100 2 ea PO BID 11/18/22 11/18/22 History mg tablets in a dose pack (EUA) (Paxlovid) Past Med/Surg History Medical History (Updated 11/18/22 @ 16:45 by Beverly Crane MD) Allergic rhinitis with postnasal drip Community acquired pneumonia (09/2021) Glaucoma Hypoalbuminemia Hypothyroidism Squamous cell skin cancer Surgical History H/O: hysterectomy History of cataract surgery Presence of Watchman left atrial appendage closure device (2017) Family History (Updated 11/18/22 @ 16:32 by Beverly Crane MD) Other Family history non-contributory Social History Smoking Status: Never smoker Second Hand Exposure: No; Hx Alcohol Use: No Hx Substance Use: No Preferred Language: Chinese Communication Ability: Effective Chief Informatics Officer Required: No Beliefs That Will Affect Care: None marital status: / Current Living Situation: Family Current Living Situation Comment: lives w/ son and daughter in law and their child. How many Children do You have: 1 Feels Safe at Home: Yes Assistive Devices: None Review of Systems Review of Systems: All systems reviewed & are unremarkable except as noted in HPI & below Physical Exam Constitutional: WD/WN, vitals as above Eyes: PERRL, conjunctivae normal, anicteric sclerae ENMT: external ear and nose normal, oropharynx normal Neck: trachea midline, no thyromegaly Respiratory: normal respiratory effort, lungs clear to auscultation Cardiovascular: Rate/Rhythm: regular rate and + irregularly irregular Heart Sounds: no murmur Chest (Breasts): Chest: normal inspection of chest Gastrointestinal (Abdomen): normal bowel sounds, soft, nontender, no hepatospl enomegaly Musculoskeletal: Extremities: extremities normal to inspection; no cyanosis and no clubbing Skin: no rashes, warm and dry (Multiple seborrheic keratoses all over body) Neurologic: moves all extremities and awake; no focal motor deficits Psychiatric: A+Ox3, euthymic affect Lymphatic: no lymphedema Results & Data Results & Data ([facility]) Vital Signs (Past 12 Hours) Vital Signs Temp Pulse Pulse Resp BP BP Pulse Ox 11/18/22 13:14 96 H 20 96 11/18/22 13:06 91 H 20 183/109 H 98 11/18/22 13:13 87 L 11/18/22 13:09 36.8 C 86 16 184/119 H 86 L O2 Del Method O2 Flow Rate 11/18/22 13:14 Room Air 2 11/18/22 13:06 Nasal Cannula 2 11/18/22 13:13 Room Air 11/18/22 13:09 Room Air Laboratory Results 11/18/22 11/18/22 11/18/22 Range/Units 13:32 13:32 13:32 WBC 10.45 (4.8-10.8) K/ul RBC 4.74 (3.93-5.22) M/uL Hgb 14.1 (12.0-16.0) g/dl Hct 41.4 (34.1-44.9) % MCV 87.3 (80.0-100.0) fL MCH 29.7 (25.0-34.0) pg MCHC 34.1 (32.0-36.0) g/dL RDW Std Deviation 43.0 (36.4-46.3) fL RDW Coeff of Chanel 13.4 (11.5-14.5) % Plt Count 238 (130-400) K/uL MPV 11.4 (9.4-12.3) fL Immature Gran % (Auto) 0.3 % Neut % (Auto) 83.6 % Lymph % (Auto) 7.9 % [place] % (Auto) 7.9 % Eos % (Auto) 0.2 % Baso % (Auto) 0.1 % Neut # (Auto) 8.73 H (1.4-6.5) K/uL Lymph # (Auto) 0.83 L (1.2-3.4) K/uL [place] # (Auto) 0.83 H (0.24-0.82) K/uL Eos # (Auto) 0.02 (0-0.50) K/uL Baso # (Auto) 0.01 (0-0.2) K/uL Immature Gran # (Auto) 0.03 H (0.00-0.02) K/uL Sodium 136 (136-145) mmol/L Potassium 3.5 (3.5-5.1) mmol/L Chloride 98 (98-107) mmol/L Carbon Dioxide 28 (21-32) mmol/L Anion Gap 10 (3-11) BUN 17 (6-23) mg/dl Creatinine 0.71 (0.6-1.2) mg/dl Est Cr Clr Drug Dosing 59.4 ml/min Est GFR ( Amer) 89.4 ml/min Est GFR (Non-Af Amer) 77.1 ml/min BUN/Creatinine Ratio 23.9 H (10-20) Glucose 120 H (70-99(Fasting)) mg/dl Calcium 8.6 (8.5-10.1) mg/dl Total Bilirubin 1.2 H (0.2-1.0) mg/dl AST 15 (13-39) U/L ALT 10 (7-52) U/L Alkaline Phosphatase 51 (34-104) U/L Troponin I High Sens 9.5 (0-14) pg/ml Total Protein 7.3 (6.0-8.3) gm/dl Albumin 3.9 (3.4-5.0) gm/dl Globulin 3.4 (2.5-4.0) gm/dl Albumin/Globulin Ratio 1.1 (0.9-2) Lipase 10 L (11-82) U/L SARS-CoV-2, RNA, NAAT POSITIVE A* (NEGATIVE) Diagnostic Findings Chest X-Ray 11/18/22 13:14 XR chest 1V portable CLINICAL HISTORY: Chest pain, nonspecific TECHNIQUE: Single frontal radiograph of the chest was obtained. Comparison: Comparison is made to chest radiograph 10/18/2022 FINDINGS: Vascular graft is seen projecting over the chest. Cardiomegaly is noted. The aortic arch is calcified. The lungs are clear. No evidence of pleural effusion or pneumothorax. IMPRESSION: No acute chest disease. ACT 112: Negative or not required by law. Electronically signed by: Jani Davies M.D. 11/18/2022 1:54 PM ECG Additional Comments: ECG as per HPI Code Status & VTE Plan Code Status Full code VTE Prophylaxis Plan VTE Prophylaxis will be ordered: Yes PG Care Time/CCT Total # of Minutes Spent Total Time Spent with Patient: Total time spent is greater than 50% in coordination of care (as documented) at patient's floor/unit and/or counseling patient: Coding Level of Care Code 77677 Initial Inpt Care Lvl 3 Diagnoses COVID-19 U07.1 Hypoxia R09.02 HFrEF (heart failure with reduced ejection fraction) I50.20 Permanent atrial fibrillation I48.21 Hypothyroidism E03.9 Pericardial effusion I31.3 Glaucoma H40.9 Allergic rhinitis with postnasal drip J30.9; R09.82
[2022-11-18] MEDS ORDERED: guaiFENesin/DEXTROM SYRUP 200MG/20MG 10ML UDC PO PRN (17:28)
[2022-11-18] MEDS ORDERED: ALBUT/IPRATROP 3MG/0.5MG NEB 3 ML VIAL NEB PRN (17:28)
[2022-11-18] MEDS ORDERED: ACETAMINOPHEN 325 MG TAB PO PRN (17:28)
[2022-11-18] MEDS ORDERED: POLYETHYLENE (MIRALAX) 17 GM PACK PO PRN (17:28)
[2022-11-18] MEDS ORDERED: FLUTICASONE PROPIONATE NA SPR 16 GM BTL NAE PRN (17:28)
[2022-11-18] MEDS ORDERED: ONDANSETRON INJ 2 MG/ML 2 ML VIAL IV PRN (17:28)
[2022-11-18] MEDS ORDERED: [UNRECOGNIZED DRUG - OTHER] SCH (18:15)
[2022-11-18] MEDS ORDERED: NON-FORMULARY MEDICATION (Brimonidine-Timolol [Combigan] 0.2-0.5 % drops) OPB SCH (21:00)
[2022-11-18] MEDS: AMITRIPTYLINE HCL 10 MG TAB PO SCH (21:12)
[2022-11-18] MEDS: carvediloL 12.5 MG TAB PO SCH (21:12)
[2022-11-18] MEDS: ENOXAPARIN INJ 40 MG/0.4 ML SYR SQ SCH (21:13)
[2022-11-18] MEDS: NETARSUDIL MESYLATE 37 DROPS/2.5 ML BTL OPR SCH (21:14)
[2022-11-18] MEDS: VALSARTAN/SACUBITRIL 103/97MG TAB PO SCH (21:14)
[2022-11-18] MEDS: NIRMATRELVIR/RITONAVIR 1 EA TAB PO SCH (21:15)
[2022-11-18] MEDS: DORZOLAMIDE HCL 2% OPH SOLN 10 ML BTL OPR SCH (21:18)
[2022-11-18] MEDS: TIMOLOL MALEATE 0.5% OP SOLN 5 ML BTL OPB SCH (21:18)
[2022-11-18] MEDS: BRIMONIDINE TARTRATE 0.2% 5ML OPB SCH (21:18)
[2022-11-18] MEDS ORDERED: METOPROLOL TARTRATE 1 MG/ML VIAL IV STA ×2 (22:35→22:48)
[2022-11-19] MEDS: LEVOTHYROXINE SODIUM 75 MCG TABLET PO SCH (06:09)
[2022-11-19] MEDS ORDERED: hydrALAZINE HCL 20 MG/ML VIAL IV PRN (07:21)
[2022-11-19] MEDS: CHOLECALCIFEROL 1,000 UNITS 25 MCG TAB PO SCH (07:54)
[2022-11-19] MEDS: CYANOCOBALAMIN (B-12) 500 MCG TABLET PO SCH (07:54)
[2022-11-19] MEDS: ASPIRIN 81 MG ECTAB PO SCH (07:54)
[2022-11-19] MEDS: BRIMONIDINE TARTRATE 0.2% 5ML OPB SCH ×2 (07:54→20:06)
[2022-11-19] MEDS: carvediloL 12.5 MG TAB PO SCH ×2 (07:54→20:10)
[2022-11-19] MEDS: DORZOLAMIDE HCL 2% OPH SOLN 10 ML BTL OPR SCH ×2 (07:55→20:11)
[2022-11-19] MEDS: TIMOLOL MALEATE 0.5% OP SOLN 5 ML BTL OPB SCH ×2 (07:55→20:12)
[2022-11-19] MEDS: VALSARTAN/SACUBITRIL 103/97MG TAB PO SCH ×2 (07:55→20:12)
[2022-11-19] MEDS: NIRMATRELVIR/RITONAVIR 1 EA TAB PO SCH ×2 (07:56→20:13)
[2022-11-19] MEDS: dexAMETHasone 6 MG in SYRINGE 0 ML IV SCH (07:57)
[2022-11-19 08:58] LABS: Hematocrit (blood only) 45.4 % (34.1-44.9); Hemoglobin 15.4 g/dl (12.0-16.0); Immature Granulocytes # (auto) 0.05 K/uL (0.00-0.02); Immature Granulocytes % (auto) 0.6 %; Lymphocytes # (auto) 0.68 K/uL (1.2-3.4); Lymphocytes % (auto) 8.8 %; Mean Corpuscular Hemoglobin 29.9 pg (25.0-34.0); Mean Corpuscular Hgb Conc 33.9 g/dL (32.0-36.0); Mean Corpuscular Volume 88.2 fL (80.0-100.0); Mean Platelet Volume 11.5 fL (9.4-12.3); Monocytes # (auto) 0.22 K/uL (0.24-0.82); Monocytes % (auto) 2.9 %; Neutrophils # (auto) 6.75 K/uL (1.4-6.5); Neutrophils % (auto) 87.7 %; Platelet Count 332 K/uL (130-400); RDW Coefficient of Variation 13.5 % (11.5-14.5); RDW Standard Deviation 43.8 fL (36.4-46.3); Red Blood Count 5.15 M/uL (3.93-5.22)
[2022-11-19 09:19] LABS: Albumin Globulin Ratio 1.1 (0.9-2); Albumin Level 4.1 gm/dl (3.4-5.0); BUN Creatinine Ratio 29.7 (10-20); Bilirubin,Total 0.9 mg/dl (0.2-1.0); C Reactive Protein 12.85 mg/dl (0-0.5); Calcium 8.5 mg/dl (8.5-10.1); Creatinine Clr Calc Pharmacy 46.4 ml/min; Est GFR (African American) 66.2 ml/min; Est GFR (Non-African American) 57.1 ml/min; Globulin 3.6 gm/dl (2.5-4.0); Magnesium 1.9 mg/dl (1.7-2.4); Potassium 3.6 mmol/L (3.5-5.1); Total Protein 7.7 gm/dl (6.0-8.3)
[2022-11-19] MEDS ORDERED: MAGNESIUM SULFATE / D5W 1 GM/100 ML BAG IV ONE (12:44)
[2022-11-19] MEDS ORDERED: POTASSIUM CHLORIDE CRTAB 20 MEQ TABCR PO STA (12:44)
--- NOTE | 2022-11-19 14:24 | Hospitalist Progress Note ---
Date of Service November 19, 2022 Assessment & Plan (1) COVID-19: Plan: Patient presents on day 7 of symptoms of COVID-19 with acute respiratory failure with hypoxia, malaise, low appetite Much improved, weaned off O2, feeling better, still some wheezing on exam. -continued stay on tele -Continue 5-day course of pack Paxlovid brought in from home-last day of treatment will be 11/20 in the evening -cont dexamethasone 6 mg IV once daily given the hypoxia -continue flutter valve, incentive spirometry, and DuoNebs but change to qid given ongoing wheezing -Supportive care, Tylenol as needed, antitussives -make scheduled q6h as per pt request -Continue supplemental O2 to keep pulse ox greater than 90%-may need 2 step walk test prior to dc -Follow CBC, CMP, CRP, magnesium in the morning (2) Hypoxia: Plan: Secondary to COVID-19 pneumonitis as above Does have a history of HFrEF but is not currently in acute decompensation. In fact, she has had very poor p.o. intake and was given 500 mL of normal saline on arrival due to appearing dehydrated Chest x-ray without evidence of pneumonia currently Continue supplemental O2 to keep pulse ox greater than 90%-now weaned to RA at rest Continue dexamethasone (3) HFrEF (heart failure with reduced ejection fraction): Plan: With a history of nonischemic cardiomyopathy, follows with [facility] cardiology Slightly hypovolemic and received 500 mL of normal saline on admission as above Continue home Entresto, carvedilol Strict I's and O's, daily weights, low-sodium diet (4) Permanent atrial fibrillation: Plan: Rate controlled Monitor on telemetry Not on anticoagulation as had watchman procedure-Watchman procedure was performed due to preference to not be on anticoagulants due to active lifestyle. She has never had any issues with bleeding Continue carvedilol for rate control (5) Hypothyroidism: Plan: TSH mildly elevated at 5.2 in 06/2022 Continue home levothyroxine 75 mcg daily Follow as an outpatient (6) Pericardial effusion: Plan: Chronic and managed by cardiology as an outpatient (7) Glaucoma: Plan: Continue home eyedrops (8) Allergic rhinitis with postnasal drip: Plan: hold home Flonase as apparently this causes Paxlovid to increase 300% of therapeutic dose Can give Zyrtec as needed but not currently necessary Plan DVT prophylaxis-SCDs, Lovenox 40 Mg SQ daily Disposition-continued stay on telemetry unit, but likely dc to home tomorrow. Will call son with update on 11/19 Full code as discussed with patient with her son at the bedside who is her healthcare power of energy attorney. She reports that she would not want prolonged life support if prognosis for recovery is poor after cardiac arrest or in any situation Admission and Anticipated Discharge Date Admission Date: November 18, 2022 Subjective Pt feeling better. Is weaned off O2 to RA at rest. Still some mild dyspnea on exertion but has been walking around the room. Is eating and drinking. C/o wheezing making it difficult to sleep. Tele with Afib, PVCs, rates 110s overnight and now 90s Review of Systems Review of Systems: All systems reviewed & are unremarkable except as noted in HPI & below Physical Exam Constitutional: WD/WN, vitals as above Eyes: + anicteric sclerae Neck: trachea midline, no thyromegaly Respiratory: normal respiratory effort and + cough (w/ deep inspiration) Auscultation: + wheezes (bilat exp wheezes); no crackles and no rhonchi Cardiovascular: Rate/Rhythm: regular rate and + irregularly irregular Heart Sounds: no murmur Chest (Breasts): Chest: normal inspection of chest Gastrointestinal (Abdomen): normal bowel sounds, soft, nontender, no hepatosplenomegaly Musculoskeletal: Extremities: extremities normal to inspection; no cyanosis and no clubbing Skin: no rashes, warm and dry (Multiple seborrheic keratoses all over body) Neurologic: moves all extremities and awake; no focal motor deficits Psychiatric: A+Ox3, euthymic affect Lymphatic: no lymphedema Results & Data Results & Data ([facility]) Vital Signs (Past 12 Hours) Vital Signs Temp Pulse Resp BP Pulse Ox O2 Del Method 11/19/22 08:00 Room Air 11/19/22 06:43 36.5 C 96 H 20 171/110 H 92 Room Air 11/19/22 02:49 36.3 C L 105 H 18 152/103 H 92 Room Air Laboratory Results 11/19/22 11/19/22 Range/Units 07:57 07:57 WBC 7.70 (4.8-10.8) K/ul RBC 5.15 (3.93-5.22) M/uL Hgb 15.4 (12.0-16.0) g/dl Hct 45.4 H (34.1-44.9) % MCV 88.2 (80.0-100.0) fL MCH 29.9 (25.0-34.0) pg MCHC 33.9 (32.0-36.0) g/dL RDW Std Deviation 43.8 (36.4-46.3) fL RDW Coeff of Chanel 13.5 (11.5-14.5) % Plt Count 332 (130-400) K/uL MPV 11.5 (9.4-12.3) fL Immature Gran % (Auto) 0.6 % Neut % (Auto) 87.7 % Lymph % (Auto) 8.8 % [place] % (Auto) 2.9 % Eos % (Auto) 0.0 % Baso % (Auto) 0.0 % Neut # (Auto) 6.75 H (1.4-6.5) K/uL Lymph # (Auto) 0.68 L (1.2-3.4) K/uL [place] # (Auto) 0.22 L (0.24-0.82) K/uL Eos # (Auto) 0.00 (0-0.50) K/uL Baso # (Auto) 0.00 (0-0.2) K/uL Immature Gran # (Auto) 0.05 H (0.00-0.02) K/uL Sodium 137 (136-145) mmol/L Potassium 3.6 (3.5-5.1) mmol/L Chloride 99 (98-107) mmol/L Carbon Dioxide 25 (21-32) mmol/L Anion Gap 13 H (3-11) BUN 27 H (6-23) mg/dl Creatinine 0.91 (0.6-1.2) mg/dl Est Cr Clr Drug Dosing 46.4 ml/min Est GFR ( Amer) 66.2 ml/min Est GFR (Non-Af Amer) 57.1 ml/min BUN/Creatinine Ratio 29.7 H (10-20) Glucose 147 H (70-99(Fasting)) mg/dl Calcium 8.5 (8.5-10.1) mg/dl Magnesium 1.9 (1.7-2.4) mg/dl Total Bilirubin 0.9 (0.2-1.0) mg/dl AST 15 (13-39) U/L ALT 10 (7-52) U/L Alkaline Phosphatase 54 (34-104) U/L C-Reactive Protein 12.85 H (0-0.5) mg/dl Total Protein 7.7 (6.0-8.3) gm/dl Albumin 4.1 (3.4-5.0) gm/dl Globulin 3.6 (2.5-4.0) gm/dl Albumin/Globulin Ratio 1.1 (0.9-2) PG Care Time/CCT Total # of Minutes Spent Total Time Spent with Patient: Total time spent is greater than 50% in coordination of care (as documented) at patient's floor/unit and/or counseling patient: Coding Level of Care Code 56596 Subseq Hosp Care Lvl 2 Diagnoses COVID-19 U07.1 Hypoxia R09.02 HFrEF (heart failure with reduced ejection fraction) I50.20 Permanent atrial fibrillation I48.21 Hypothyroidism E03.9 Pericardial effusion I31.3 Glaucoma H40.9 Allergic rhinitis with postnasal drip J30.9; R09.82
[2022-11-19] MEDS: guaiFENesin/DEXTROM SYRUP 200MG/20MG 10ML UDC PO SCH ×2 (15:15→20:06)
[2022-11-19] MEDS: ALBUT/IPRATROP 3MG/0.5MG NEB 3 ML VIAL NEB SCH ×2 (15:29→19:08)
[2022-11-19] MEDS: AMITRIPTYLINE HCL 10 MG TAB PO SCH (20:06)
[2022-11-19] MEDS: ENOXAPARIN INJ 40 MG/0.4 ML SYR SQ SCH (20:11)
[2022-11-19] MEDS: NETARSUDIL MESYLATE 37 DROPS/2.5 ML BTL OPR SCH (20:16)
[2022-11-20] MEDS: guaiFENesin/DEXTROM SYRUP 200MG/20MG 10ML UDC PO SCH ×2 (02:26→08:45)
[2022-11-20] MEDS: LEVOTHYROXINE SODIUM 75 MCG TABLET PO SCH (06:00)
--- NOTE | 2022-11-20 06:27 | Electrocardiogram Report ---
Test Reason : Blood Pressure : / mmHG Vent. Rate : 090 BPM Atrial Rate : 101 BPM P-R Int : 000 ms QRS Dur : 092 ms QT Int : 400 ms P-R-T Axes : 000 -61 076 degrees QTc Int : 489 ms Atrial fibrillation with premature ventricular or aberrantly conducted complexes Left anterior fascicular block Nonspecific T wave abnormality Prolonged QT Abnormal ECG When compared with ECG of 18-JUL-2022 19:44, Premature ventricular complexes are now Present Confirmed by Zhou Dominguez ([id number]) on 11/20/2022 6:26:51 AM Referred By: REFERRED SELF Confirmed By:Zhou Dominguez
[2022-11-20] MEDS: ALBUT/IPRATROP 3MG/0.5MG NEB 3 ML VIAL NEB SCH ×2 (07:17→11:17)
[2022-11-20 07:35] LABS: Basophils # (auto) 0.01 K/uL (0-0.2); Basophils % (auto) 0.1 %; Hematocrit (blood only) 42.9 % (34.1-44.9); Hemoglobin 14.7 g/dl (12.0-16.0); Immature Granulocytes # (auto) 0.07 K/uL (0.00-0.02); Immature Granulocytes % (auto) 0.6 %; Lymphocytes % (auto) 5.2 %; Mean Corpuscular Hemoglobin 29.9 pg (25.0-34.0); Mean Corpuscular Hgb Conc 34.3 g/dL (32.0-36.0); Mean Corpuscular Volume 87.4 fL (80.0-100.0); Mean Platelet Volume 10.8 fL (9.4-12.3); Monocytes # (auto) 0.56 K/uL (0.24-0.82); Monocytes % (auto) 4.8 %; Neutrophils # (auto) 10.38 K/uL (1.4-6.5); Neutrophils % (auto) 89.3 %; Platelet Count 357 K/uL (130-400); RDW Coefficient of Variation 13.7 % (11.5-14.5); RDW Standard Deviation 43.8 fL (36.4-46.3); Red Blood Count 4.91 M/uL (3.93-5.22); White Blood Count 11.62 K/ul (4.8-10.8)
[2022-11-20 08:00] LABS: Albumin Globulin Ratio 1.1 (0.9-2); Albumin Level 3.7 gm/dl (3.4-5.0); BUN Creatinine Ratio 43.5 (10-20); Bilirubin,Total 0.7 mg/dl (0.2-1.0); C Reactive Protein 5.36 mg/dl (0-0.5); Calcium 8.1 mg/dl (8.5-10.1); Creatinine Clr Calc Pharmacy 45.9 ml/min; Est GFR (African American) 65.3 ml/min; Est GFR (Non-African American) 56.4 ml/min; Globulin 3.4 gm/dl (2.5-4.0); Magnesium 2.2 mg/dl (1.7-2.4); Potassium 3.6 mmol/L (3.5-5.1); Total Protein 7.1 gm/dl (6.0-8.3)
[2022-11-20] MEDS: VALSARTAN/SACUBITRIL 103/97MG TAB PO SCH (08:43)
[2022-11-20] MEDS: CHOLECALCIFEROL 1,000 UNITS 25 MCG TAB PO SCH (08:43)
[2022-11-20] MEDS: ASPIRIN 81 MG ECTAB PO SCH (08:43)
[2022-11-20] MEDS: carvediloL 12.5 MG TAB PO SCH (08:43)
[2022-11-20] MEDS: CYANOCOBALAMIN (B-12) 500 MCG TABLET PO SCH (08:43)
[2022-11-20] MEDS: BRIMONIDINE TARTRATE 0.2% 5ML OPB SCH (08:44)
[2022-11-20] MEDS: TIMOLOL MALEATE 0.5% OP SOLN 5 ML BTL OPB SCH (08:44)
[2022-11-20] MEDS: NIRMATRELVIR/RITONAVIR 1 EA TAB PO SCH (08:46)
[2022-11-20] MEDS: DORZOLAMIDE HCL 2% OPH SOLN 10 ML BTL OPR SCH (08:47)
[2022-11-20] MEDS: dexAMETHasone 6 MG in SYRINGE 0 ML IV SCH (08:53)
--- NOTE | 2022-11-20 09:52 | Discharge Summary ---
Date of Service November 20, 2022 Admission HPI Per Admitting Provider This patient is an 87-year-old female with a history of permanent atrial fibrillation s/p watchman device, HFrEF, hypothyroidism, pericardial effusion, glaucoma, upper airway cough syndrome and allergic rhinitis, [place] disease, who presents to the ER with low oxygen levels on a pulse ox at home down to 86% after being sick at home for 6 days with COVID-19. Her symptoms started on 11/11 with generalized weakness and malaise, and then she has since developed a cough and shortness of breath, very poor appetite, sore throat, and severe fatigue. She started taking Paxlovid 2 days ago as prescribed by her PCP and has been keeping an eye on her pulse oximeter at home. It was staying around 90% until this morning it dropped to 86%. She denies any chest pains or worsening shortness of breath. No fevers or chills, no headache, no nausea or vomiting or diarrhea. In the ER, she was found to be hypertensive, heart rate in the 80s to 90s, not tachypneic, and pulse ox was 86% on room air. She was placed on 2 LNC of supplemental O2 with improvement to 96% She was given a dose of IV dexamethasone. CBC, CMP, troponin, all fairly unremarkable. A chest x-ray was performed which was negative for pneumonia or acute disease. An EKG showed rate controlled atrial fibrillation with PVCs, LAFB, and a nonspecific T wave abnormality in the lateral leads. She will be admitted for COVID-19 pneumonitis with acute respiratory failure with hypoxia. Principal Diagnosis COVID-19 Pneumonitis, Acute respiratory failure with hypoxia Discharge Exam Constitutional WD/WN, vitals as above Eyes + anicteric sclerae Neck trachea midline, no thyromegaly Respiratory normal respiratory effort, lungs clear to auscultation Cardiovascular Rate/Rhythm: regular rate and + irregularly irregular Heart Sounds: no murmur Chest (Breasts) Chest: normal inspection of chest Gastrointestinal (Abdomen) normal bowel sounds, soft, nontender, no hepatosplenomegaly Musculoskeletal Extremities: extremities normal to inspection; no cyanosis and no clubbing Skin no rashes, warm and dry (Multiple seborrheic keratoses all over body) Neurologic moves all extremities and awake; no focal motor deficits Psychiatric A+Ox3, euthymic affect Lymphatic no lymphedema Discharge Data Allergies Allergy/AdvReac Type Severity Reaction Status Date / Time No Known Allergies Allergy Unverified 11/18/22 15:18 Consultations 11/18/22 13:25 ED Decision to Admit Stat Hospital Course (1) COVID-19: Patient presents on day 7 of symptoms of COVID-19 with acute respiratory failure with hypoxia, malaise, low appetite Much improved, weaned off O2 at rest and requiring 2LNC with exertion on day of discharge Feeling better, wheezing resolved, cough improved Is eating and drinking, ambulating around room independently, feels well. -Continue 5-day course of pack Paxlovid brought in from home-last day of treatment will be 11/20 in the evening -cont dexamethasone 6 mg once daily given the hypoxia-needs 7 more days to complete a 10 day course on discharge -continue flutter valve, incentive spirometry, and albuterol prn -Supportive care, Tylenol as needed, antitussives (2) Hypoxia: Secondary to COVID-19 pneumonitis as above Does have a history of HFrEF but is not currently in acute decompensation. In fact, she has had very poor p.o. intake and was given 500 mL of normal saline on arrival due to appearing dehydrated Chest x-ray without evidence of pneumonia currently Continue supplemental O2 to keep pulse ox greater than 90%-now weaned to RA at rest and 2L with exertion-home O2 arranged Continue dexamethasone (3) HFrEF (heart failure with reduced ejection fraction): With a history of nonischemic cardiomyopathy, follows with [facility] cardiology Slightly hypovolemic and received 500 mL of normal saline on admission as above Continue home Entresto, carvedilol (4) Permanent atrial fibrillation: Rate controlled Not on anticoagulation as had watchman procedure-Watchman procedure was performed due to preference to not be on anticoagulants due to active lifestyle. She has never had any issues with bleeding Continue carvedilol for rate control (5) Hypothyroidism: TSH mildly elevated at 5.2 in 06/2022 Continue home levothyroxine 75 mcg daily Follow as an outpatient (6) Pericardial effusion: Chronic and managed by cardiology as an outpatient (7) Glaucoma: Continue home eyedrops (8) Allergic rhinitis with postnasal drip: hold home Flonase as apparently this causes Paxlovid to increase 300% of therapeutic dose-can restart on 12/25 Can give Zyrtec as needed but not currently necessary Plan DVT prophylaxis-SCDs, Lovenox 40 Mg SQ daily Disposition-dc to home today Called son on 11/19 but voice mailbox full. Same on 11/20. Patient trying to locate a different number to call Full code as discussed with patient with her son at the bedside who is her healthcare power of voting machine mechanic. She reports that she would not want prolonged life support if prognosis for recovery is poor after cardiac arrest or in any situation Total Time Total Time Spent Total Time Spent (In Minutes): 35 min Discharge Plan Discharge Items Patient Disposition: Home - Self-Care Reason For Visit: COVID, HYPOXIA Discharge Diagnosis: COVID-19, Hypoxia Condition on Discharge: Good Activity: As commented below Lifting: Gradually increase as tolerated Bathing: No limitations Exercise/Sports: Gradually increase as tolerated Non-emergency contact: Primary Care Provider Call non-emergency contact if: you have any medication questions and your symptoms worsen Follow-up/Referrals: Hayley Roland MD [Primary Care Provider] - (Follow up within 1-2 weeks. Please call for an appointment.) Diet: Heart Healthy and Low Sodium (2gm) Addtl Attending Provider Instructions: You were admitted with COVID-19 and low oxygen levels. You were treated with dexamethasone and supplemental oxygen and had improvement. Please finish your last dose of Paxlovid this evening and also complete a course of dexamethasone (steroid pill) for 7 more days. You will need to wear oxygen at 2 L via the nasal cannula with any activity or exertion. Please continue doing this until our doctor says it is ok to stop. Pending Studies at Discharge: No Stand-Alone Forms: My [facility] Medications and DC Order Prescriptions: New Robitussin Cough-Chest Kodi DM 5-100 mg/5 mL Liquid 10 ml PO Q6H PRN (Reason: cough) Qty: 237 0RF Rx Instructions: OTC dexamethasone 6 mg tablet 6 mg PO DAILY Qty: 7 0RF Continued levocetirizine 5 mg tablet 5 mg PO DAILY PRN (Reason: allergy symptoms) Qty: 30 5RF Rx Instructions: Take daily for 10 days then PRN albuterol sulfate 90 mcg/actuation aerosol powdr breath activated 2 inh inhalation QID PRN (Reason: Shortness Of Breath Or Wheezing) carvedilol 12.5 mg tablet 12.5 mg PO BID levothyroxine 75 mcg tablet 75 mcg PO DAILYBB Entresto 97-103 mg tablet 1 tab PO BID cyanocobalamin (vitamin B-12) [Vitamin B-12] 1,000 mcg Tablet 1,000 mcg PO QAM cholecalciferol (vitamin D3) [Vitamin D3] 25 mcg (1,000 unit) Tablet 25 mcg PO QAM amitriptyline 10 mg tablet 10 mg PO HS dorzolamide 2 % drops 1 drp OPR BID brimonidine-timolol [Combigan] 0.2-0.5 % drops 1 drp OPB BID fluticasone propionate [Allergy Relief (fluticasone)] 50 mcg/actuation spray,suspension 1 spray intranasal DAILY PRN (Reason: Nasal Congestion) Rx Instructions: administer into each nostril once daily Rhopressa 0.02 % Drops 1 drp OPR QPM cranberry 400 mg Capsule 0 mg PO DAILY Rx Instructions: administer with a meal Paxlovid (EUA) 150-100 mg tablets,dose pack 2 ea PO BID Vitamin K & D3 1 tab PO DAILY aspirin [Aspir-Low] 81 mg Tablet,Delayed Release (Dr/Ec) 81 mg PO DAILY Discharge Orders: Discharge Order (Routine); Ordered 11/20/22 Ordered By: Beverly Crane Admission Data Admit Date/Time: 11/18/22 15:33 Attending Provider: Beverly Crane Admit Provider: Beverly Crane Primary Care Provider: Hayley Roland Other Providers: Beverly Crane Coding Level of Care Code D/C DAY MANAGEMENT >30 MINS Diagnoses COVID-19 U07.1 Hypoxia R09.02 HFrEF (heart failure with reduced ejection fraction) I50.20 Permanent atrial fibrillation I48.21 Hypothyroidism E03.9 Pericardial effusion I31.3 Glaucoma H40.9 Allergic rhinitis with postnasal drip J30.9; R09.82
== END 2022-11-20 14:43 | disposition home or self-care (01) | DRG 177 ==
LOC: ED 13:06 → EDINP 15:33 → 2S 19:11

== ENCOUNTER 2023-07-21 11:27 | Observation (INO) ==
[2023-07-21] MEDS ORDERED: ALBUT/IPRATROP 3MG/0.5MG NEB 3 ML VIAL NEB STA (12:39)
--- NOTE | 2023-07-21 12:45 | Emergency Department Note ---
Impression & Plan SOB (shortness of breath), Rhinovirus infection, Elevated troponin, Failure of outpatient treatment ED Provider Note NAME: BOBO JARAMILLO AGE: 88 SEX: F : 1935 ARRIVES VIA: Walk-In INFORMANT: [Patient][son] ED PROVIDER(S): [Kole Brenner MD] CHIEF COMPLAINT: Short of breath HISTORY OF PRESENT ILLNESS: The patient is an 88-year-old female with a history of CHF. She was recently in this ED on the , 5 days ago. The patient was diagnosed with rhinovirus by nasal swab. She was discharged with a Z-Thiago, prednisone and an inhaler. At the time of her ED visit, she was offered hospitalization but chose to go home. The patient states that she has continued to feel tightness in her chest and for the last 2 days, has felt a bit more short of breath. She has been using her oxygen as needed. She does use the inhaler but has a hard time with the strength needed to compress the device. She is off the antibiotic and has a few doses of prednisone left. No fever. No leg swelling. No real chest pain. She describes tightness across the chest instead. PMHx/PSHx: See Below SOCIAL HISTORY: See Below. PHYSICAL EXAM: GENERAL: Patient is in no acute distress. Frail. HEENT: No acute trauma, normocephalic atraumatic, mucous membranes moist, no nasal congestion. NECK: No stridor, no adenopathy, no meningismus, trachea is midline. LUNGS: Diminished breath sounds bilaterally with occasional rhonchi heard across the anterior lungs with expiration. No wheezing or respiratory distress. HEART: Without murmurs gallops or rubs, regular rate and rhythm. Heart tones are somewhat distant. ABDOMEN: Soft, nontender, bowel sounds positive, no peritonitis. EXTREMITIES: No cyanosis, mild bilateral pedal edema, full range of motion of all the joints without pain or difficulty, no signs for acute trauma. NEUROLOGIC: Awake and alert, no acute motor or sensory deficits, no focal weakne ss. SKIN: No rash, no jaundice, no diaphoresis. DIFFERENTIAL DIAGNOSIS: Bronchitis or pneumonia, CHF, cardiac ischemia, anemia, viral illness, electrolyte imbalance, failed outpatient management, among others. EMERGENCY DEPARTMENT COURSE/PROCEDURES: Prior/Outside records reviewed: Previous ED note. ECG per my interpretation: Indication was shortness of breath. ECG shows atrial fibrillation with a rate of 84. There is a potential old inferior and old anterior infarct. There is no ST elevation. There are some inverted T waves in a few of the high lateral leads. There is no ST elevation, no PVCs. The QTc is 463. Compared to an ECG from 16 July 2003, PVCs are no longer present. Continuous Cardiac Monitoring per my interpretation: An order was placed for continuous cardiac monitoring. The monitor shows a rate of 87 with atrial fibrillation. MEDICAL DECISION MAKING: There is a mild leukocytosis, this could be consistent with infection or her r ecent steroid use. There was a normal hemoglobin. There was a normal platelet count. No renal failure or significant electrolyte abnormality. No concerning liver enzyme elevation. BNP was elevated consistent with some fluid overload and her diagnosis of CHF however, the value was less than recent testing. ECG showed atrial fibrillation, no obvious acute ischemia. Cardiac enzyme testing x1 was slightly elevated. This troponin elevation could be secondary to cardiac injury or potentially mismatch from her shortness of breath. Chest x-ray per my review showed some chronic change, I did not see CHF, pneumonia or pneumothorax. The patient was given IV labetalol as her blood pressure was quite high. She was given a DuoNeb. The patient has failed outpatient treatment for her bronchitis. She is more short of breath and has chest tightness. She has been sick for almost 2 weeks. She now presents with worsening symptoms and has an elevated troponin. She was significantly hypertensive. I do think a hospital stay would be warranted. I did speak with the patient, I spoke with her son. Case management has been involved. The on-call hospitalist was consulted. DISPOSITION: Patient's presentation and findings warrant a hospital stay. 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 Beliefs That Will Affect Care: None marital status: / Current Living Situation: Family Current Living Situation Comment: in law suite at son's house How many Children do You have: 1 Feels Safe at Home: Yes Assistive Devices: None Allergies Allergies Allergy/AdvReac Type Severity Reaction Status Date / Time No Known Allergies Allergy Unverified 11/18/22 15:18 Home Meds Home Medications Medication Instructions Recorded Confirmed carvedilol 12.5 mg tablet 12.5 mg PO BID 10/01/21 07/16/23 cholecalciferol (vitamin D3) 25 25 mcg PO QAM 10/01/21 07/16/23 mcg (1,000 unit) tablet (Vitamin D3) cyanocobalamin (vitamin B-12) 1,000 mcg PO QAM 10/01/21 07/16/23 1,000 mcg tablet (Vitamin B-12) levothyroxine 75 mcg tablet 75 mcg PO DAILYBB 10/01/21 07/16/23 sacubitril 97 mg-valsartan 103 mg 1 tab PO BID 10/01/21 07/16/23 tablet (Entresto) albuterol sulfate 90 mcg/actuation 2 inh inhalation QID PRN Shortness 10/30/21 07/16/23 breath activated powder inhaler Of Breath Or Wheezing amitriptyline 10 mg tablet 10 mg PO HS 07/18/22 07/16/23 brimonidine 0.2 %-timolol 0.5 % 1 drp OPB BID 07/18/22 07/16/23 eye drops (Combigan) dorzolamide 2 % eye drops 1 drp OPR BID 07/18/22 07/16/23 fluticasone propionate 50 1 spray intranasal DAILY PRN Nasal 07/18/22 11/18/22 mcg/actuation nasal Congestion spray,suspension (Allergy Relief (fluticasone)) netarsudil 0.02 % eye drops 1 drp OPR HS 07/19/22 07/16/23 (Rhopressa) Vitamin K & D3 1 tab PO DAILY 11/18/22 11/18/22 aspirin 81 mg tablet,delayed 81 mg PO DAILY 11/18/22 07/16/23 release cranberry 400 mg capsule 400 mg PO DAILY 11/18/22 07/16/23 nirmatrelvir 150 mg-ritonavir 100 2 ea PO BID 11/18/22 11/18/22 mg tablets in a dose pack (Paxlovid) valacyclovir 500 mg tablet 500 mg PO UD 07/16/23 07/16/23 Previous Rx's Medication Instructions Recorded levocetirizine 5 mg tablet 5 mg PO DAILY PRN allergy symptoms 11/25/21 #30 tabs dextromethorphan-guaifenesin 5 10 ml PO Q6H PRN cough #237 mL 11/20/22 mg-100 mg/5 mL oral liquid (Robitussin Cough-Chest Congestion DM) albuterol sulfate 90 mcg/actuation 1 inh inhalation Q6H PRN shortness 07/16/23 aerosol inhaler of breath or wheezing #8.5 grams Results & Data (ED) Vital Signs Vital Signs - 24 hr 07/21/23 11:43 07/21/23 12:48 07/21/23 12:43 Temperature 37.0 C Temperature Source Temporal Artery Scan Pulse Rate 87 92 H Respiratory Rate 18 Respiratory Effort / Characteristics SOB on Exertion Blood Pressure 131/93 Blood Pressure Mean 105 Pulse Oximetry 95 99 Oxygen Delivery Method Room Air Room Air Sepsis Recent Fever Within 48 Hours No Sepsis New/Unexplained Change in Mental Status No Sepsis Action Taken by Nursing No Action Required 07/21/23 14:04 Temperature Temperature Source Pulse Rate 87 Respiratory Rate 20 Respiratory Effort / Characteristics Blood Pressure 196/143 H Blood Pressure Mean 160 Pulse Oximetry 92 Oxygen Delivery Method Room Air Sepsis Recent Fever Within 48 Hours Sepsis New/Unexplained Change in Mental Status Sepsis Action Taken by [place] Medications Current Medication List: was personally reviewed by me Laboratory Data Attestation: I reviewed the patient's lab results. 07/21/23 12:41 07/21/23 12:50 Lab Results 07/21/23 07/21/23 07/21/23 Range/Units 12:41 12:41 12:50 WBC 12.97 H (4.8-10.8) K/ul RBC 4.64 (4.20-5.40) M/uL Hgb 14.7 (12.0-16.0) g/dl Hct 43.4 (37.0-47.0) % MCV 93.5 (80.0-100.0) fL MCH 31.7 (25.0-34.0) pg MCHC 33.9 (32.0-36.0) g/dL RDW Std Deviation 52.4 H (36.4-46.3) fL RDW Coeff of Chanel 15.4 H (11.5-14.5) % Plt Count 245 (130-400) K/uL MPV 11.7 (9.4-12.4) fL Immature Gran % (Auto) 0.8 % Neut % (Auto) 87.4 % Lymph % (Auto) 5.6 % [place] % (Auto) 5.9 % Eos % (Auto) 0.1 % Baso % (Auto) 0.2 % Neut # (Auto) 11.36 H (1.40-6.50) K/uL Lymph # (Auto) 0.72 L (1.20-3.40) K/uL [place] # (Auto) 0.76 H (0.11-0.59) K/uL Eos # (Auto) 0.01 (0.00-0.50) K/uL Baso # (Auto) 0.02 (0.00-0.20) K/uL Immature Gran # (Auto) 0.10 (0.01-0.20) K/uL Sodium 139 (136-145) mmol/L Potassium 4.0 (3.5-5.1) mmol/L Chloride 100 (98-107) mmol/L Carbon Dioxide 32 (21-32) mmol/L Anion Gap 7 (3-11) BUN 30 H (6-23) mg/dl Creatinine 0.94 (0.6-1.2) mg/dl Est Cr Clr Drug Dosing Not Reportable Est GFR ( Amer) 63.2 ml/min Est GFR (Non-Af Amer) 54.5 ml/min BUN/Creatinine Ratio 31.9 H (10-20) Glucose 100 H (70-99(Fasting)) mg/dl Calcium 8.8 (8.6-10.3) mg/dl Magnesium 2.2 (1.7-2.4) mg/dl Total Bilirubin 0.6 (0.2-1.0) mg/dl AST 22 (13-39) U/L ALT 18 (7-52) U/L Alkaline Phosphatase 55 (34-104) U/L Troponin I High Sens 29.6 H (0-14) pg/ml B-Natriuretic Peptide 370 H (0-100) pg/ml Total Protein 6.8 (6.0-8.3) gm/dl Albumin 3.9 (3.4-5.0) gm/dl Globulin 2.9 (2.5-4.0) gm/dl Albumin/Globulin Ratio 1.3 (0.9-2) Administered Medications Discontinued Medications Albuterol (Albut/Ipratrop 3mg/0.5mg Neb 3 Ml Vial) 3 ml NEB NOW STA; Protocol Stop: 07/21/23 12:40 Last Admin: 07/21/23 12:48 Dose: 3 ml Documented By: TAMELA Labetalol HCl (Labetalol Hcl Iv 5 Mg/Ml 20ml) 10 mg IV NOW STA Stop: 07/21/23 14:14 Last Admin: 07/21/23 14:21 Dose: 10 mg Documented By: MISHA Co-signed By: MARYAN Imaging Data Radiologist's Impression: Chest X-Ray 07/21/23 11:46 XR chest 1V portable HISTORY: 88 years-old Female Productive cough and SOB acute cough and shortness of breath COMPARISON: 07/16/2023 TECHNIQUE: AP view of the chest FINDINGS: Cardiac silhouette is enlarged. Left atrial exclusion device. Atherosclerosis of the aorta. Unchanged blunting of the lateral left costophrenic angle with healed chronic left-sided rib fractures. No pneumothorax, large pleural effusion or overt pulmonary edema. Degenerative changes of the shoulders and spine. Radiodense linear structure projects over lateral left lung base which may be external to the patient. IMPRESSION: No acute process. ACT 112: Negative or not required by law. The above report was generated using voice recognition software. It may contain grammatical, syntax or spelling errors. Electronically signed by: Walter Pedraza M.D. 07/21/2023 1:43 PM Discharge Plan Visit Data Chief Complaint: Shortness of Breath/Dyspnea Stated Complaint: HARD TIME BREATHING ED Provider: Kole Brenner Discharge Problem: SOB (shortness of breath), Rhinovirus infection, Elevated troponin, Failure of outpatient treatment Patient Disposition: Admitted As Inpatient Condition: Fair Forms Stand Alone Forms: My [facility] Prescriptions Prescriptions: No Action levocetirizine 5 mg tablet 5 mg PO DAILY PRN (Reason: allergy symptoms) Qty: 30 5RF Rx Instructions: Take daily for 10 days then PRN albuterol sulfate 90 mcg/actuation aerosol powdr breath activated 2 inh inhalation QID PRN (Reason: Shortness Of Breath Or Wheezing) carvedilol 12.5 mg tablet 12.5 mg PO BID levothyroxine 75 mcg tablet 75 mcg PO DAILYBB Entresto 97-103 mg tablet 1 tab PO BID cyanocobalamin (vitamin B-12) [Vitamin B-12] 1,000 mcg Tablet 1,000 mcg PO QAM cholecalciferol (vitamin D3) [Vitamin D3] 25 mcg (1,000 unit) Tablet 25 mcg PO QAM amitriptyline 10 mg tablet 10 mg PO HS dorzolamide 2 % drops 1 drp OPR BID brimonidine-timolol [Combigan] 0.2-0.5 % drops 1 drp OPB BID fluticasone propionate [Allergy Relief (fluticasone)] 50 mcg/actuation spray,suspension 1 spray intranasal DAILY PRN (Reason: Nasal Congestion) Rx Instructions: administer into each nostril once daily Rhopressa 0.02 % Drops 1 drp OPR HS cranberry 400 mg Capsule 400 mg PO DAILY Rx Instructions: administer with a meal Paxlovid 150-100 mg tablets,dose pack 2 ea PO BID Vitamin K & D3 1 tab PO DAILY aspirin 81 mg Tablet,Delayed Release (Dr/Ec) 81 mg PO DAILY Robitussin Cough-Chest [place] DM 5-100 mg/5 mL Liquid 10 ml PO Q6H PRN (Reason: cough) Qty: 237 0RF Rx Instructions: OTC valacyclovir 500 mg tablet 500 mg PO UD albuterol sulfate 90 mcg/actuation HFA aerosol inhaler 1 inh inhalation Q6H PRN (Reason: shortness of breath or wheezing) Qty: 8.5 0RF Referrals Referrals: Hayley Roland MD [Primary Care Provider] -
[2023-07-21 13:21] LABS: Basophils # (auto) 0.02 K/uL (0.00-0.20); Basophils % (auto) 0.2 %; Eosinophils # (auto) 0.01 K/uL (0.00-0.50); Eosinophils % (auto) 0.1 %; Hematocrit (blood only) 43.4 % (37.0-47.0); Hemoglobin 14.7 g/dl (12.0-16.0); Immature Granulocytes % (auto) 0.8 %; Lymphocytes # (auto) 0.72 K/uL (1.20-3.40); Lymphocytes % (auto) 5.6 %; Mean Corpuscular Hemoglobin 31.7 pg (25.0-34.0); Mean Corpuscular Hgb Conc 33.9 g/dL (32.0-36.0); Mean Corpuscular Volume 93.5 fL (80.0-100.0); Mean Platelet Volume 11.7 fL (9.4-12.4); Monocytes # (auto) 0.76 K/uL (0.11-0.59); Monocytes % (auto) 5.9 %; Neutrophils # (auto) 11.36 K/uL (1.40-6.50); Neutrophils % (auto) 87.4 %; Platelet Count 245 K/uL (130-400); RDW Coefficient of Variation 15.4 % (11.5-14.5); RDW Standard Deviation 52.4 fL (36.4-46.3); Red Blood Count 4.64 M/uL (4.20-5.40); White Blood Count 12.97 K/ul (4.8-10.8)
[2023-07-21 13:42] LABS: Alanine Aminotransferase 18 U/L (7-52); Albumin Globulin Ratio 1.3 (0.9-2); Albumin Level 3.9 gm/dl (3.4-5.0); Alkaline Phosphatase 55 U/L (34-104); Anion Gap 7 (3-11); Aspartate Aminotransferase 22 U/L (13-39); BUN Creatinine Ratio 31.9 (10-20); Bilirubin,Total 0.6 mg/dl (0.2-1.0); Blood Urea Nitrogen 30 mg/dl (6-23); Calcium 8.8 mg/dl (8.6-10.3); Carbon Dioxide 32 mmol/L (21-32); Chloride 100 mmol/L (98-107); Est GFR (African American) 63.2 ml/min; Est GFR (Non-African American) 54.5 ml/min; Globulin 2.9 gm/dl (2.5-4.0); Glucose 100 mg/dl (70-99(Fasting)); Magnesium 2.2 mg/dl (1.7-2.4); Sodium 139 mmol/L (136-145); Total Protein 6.8 gm/dl (6.0-8.3)
--- NOTE | 2023-07-21 13:45 | XRay Report ---
XR chest 1V portable HISTORY: 88 years-old Female Productive cough and SOB acute cough and shortness of breath COMPARISON: 07/16/2023 TECHNIQUE: AP view of the chest FINDINGS: Cardiac silhouette is enlarged. Left atrial exclusion device. Atherosclerosis of the aorta. Unchanged blunting of the lateral left costophrenic angle with healed chronic left-sided rib fractures. No pne umothorax, large pleural effusion or overt pulmonary edema. Degenerative changes of the shoulders and spine. Radiodense linear structure projects over lateral left lung base which may be external to the patient. IMPRESSION: No acute process. ACT 112: Negative or not required by law. The above report was generated using voice recognition software. It may contain grammatical, syntax o r spelling errors. Electronically signed by: Walter Pedraza M.D. 07/21/2023 1:43 PM
[2023-07-21 13:48] LABS: Troponin I High Sensitivity 29.6 pg/ml (0-14)
[2023-07-21] MEDS ORDERED: LABETALOL HCL IV 5 MG/ML 20ML IV STA (14:13)
--- NOTE | 2023-07-21 14:46 | History & Physical Report ---
Date of Service July 21, 2023 Assessment & Plan (1) Acute bronchitis: Plan: Rhinovirus/enterovirus positive on 07/16 Suspect her symptoms (similarly to September 2021) are due to mucus plugging with possible dynamic collapse of bronchi (seen on bronchoscopy 09/2021) No lower bacterial pneumonia and already had course of azithromycin therefore do not see a benefit in repeating this Prednisone course not improved symptoms therefore will stop further steroids Dramatic improvement with duoneb in the ER therefore will continue this QID with incentive spirometry, flutter valve and guaifenesin (2) Permanent atrial fibrillation: Plan: Not on anticoagulation due to Watchman device - performed due to preference to not be on anticoagulants due to active lifestyle, no prior bleeding issues Continue rate control with carvedilol (3) HFrEF (heart failure with reduced ejection fraction): Plan: Chronic, not acute Continue carvedilol and Entresto (4) Hypothyroidism: Plan: TSH 5.22 06/2022, will repeat with AM labs Continue levothyroxine 75 mcg PO daily (5) Rhinovirus infection: Plan VTE Prophylaxis - Lovenox 40mg SQ daily Diet - Low Na Disposition - obs to med/surg Admission and Anticipated Discharge Date Admission Date: July 21, 2023 History of Present Illness Chief Complaint: Shortness of breath Primary Care Provider: Hayley Roland MD Garima Crowley is an 88 year old female who presents to the ER with shortness of breath. She reports ongoing symptoms for the last 2-3 weeks. Associated coughing up phlegm. No chest pain but has mild tightness once in a while. Having difficulty coughing up the phlegm. She was seen in the ER 5 days ago for the same symptoms and was treated with albuterol, azithromycin and a prednisone course without any significant improvement. Shortness of breath happening intermittently not necessarily on exertion and worse at night. She report not being able to sleep well and afraid to go to sleep as she is concerned she would not be able to cough up the phlegm. She lives with her son and [id number]. Non-smoker. No known COPD or asthma. No fever or chills. Previously diagnosed with entero/rhinovirus on July 16. She had a similar illness with entero/rhinovirus positive in September 2021 when she underwent bronchoscopy showing thick yellowish/green phlegm that required suctioning and dynamic collapse of the right bronchus intermedius. Allergies Allergy/AdvReac Type Severity Reaction Status Date / Time No Known Allergies Allergy Unverified 11/18/22 15:18 Home Medications Medication Instructions Recorded Confirmed Type carvedilol 12.5 mg tablet 12.5 mg PO BID 10/01/21 07/21/23 History levothyroxine 75 mcg tablet 75 mcg PO DAILYBB 10/01/21 07/21/23 History sacubitril 97 mg-valsartan 103 mg 1 tab PO BID 10/01/21 07/21/23 History tablet (Entresto) albuterol sulfate 90 mcg/actuation 2 inh inhalation QID PRN Shortness 10/30/21 07/21/23 History breath activated powder inhaler Of Breath Or Wheezing amitriptyline 10 mg tablet 10 mg PO HS 07/18/22 07/21/23 History brimonidine 0.2 %-timolol 0.5 % 1 drp OPB BID 07/18/22 07/21/23 History eye drops (Combigan) fluticasone propionate 50 1 spray intranasal DAILY PRN Nasal 07/18/22 07/21/23 History mcg/actuation nasal Congestion spray,suspension (Allergy Relief (fluticasone)) aspirin 81 mg tablet,delayed 81 mg PO DAILY 11/18/22 07/21/23 History release albuterol sulfate 90 mcg/actuation 1 inh inhalation Q6H PRN shortness 07/16/23 07/21/23 Rx aerosol inhaler of breath or wheezing #8.5 grams Past Med/Surg History Medical History Allergic rhinitis with postnasal drip Community acquired pneumonia (09/2021) Glaucoma Hypoalbuminemia Hypothyroidism Squamous cell skin cancer Surgical History H/O: hysterectomy History of cataract surgery Presence of Watchman left atrial appendage closure device (2017) Family History Other Family history non-contributory Social History Smoking Status: Never smoker Second Hand Exposure: No; Do You Dip or Chew Tobacco: No; Hx Alcohol Use: Yes Alcohol type: wine Hx Substance Use: No Preferred Language: Kyrgyz Communication Ability: Effective Gallery Or Museum Curator Required: No Beliefs That Will Affect Care: None marital status: / Current Living Situation: Family Current Living Situation Comment: living with son and his family, plans to move out soon How many Children do You have: 1 Other Information That Helps Us Care for You: No Feels Safe at Home: Yes Safety Concerns: Feels Safe At This Time Assistive Devices: Walker Assistive Devices Comment: walker as needed Review of Systems Review of Systems: All systems reviewed & are unremarkable except as noted in HPI & below Physical Exam Constitutional: WD/WN, vitals as above Eyes: PERRL, conjunctivae normal, anicteric sclerae ENMT: external ear and nose normal, oropharynx normal Neck: trachea midline, no thyromegaly Respiratory: normal respiratory effort; no respiratory distress Auscultation: + wheezes (mild expiratory); breath sounds present, no diminished lung sounds, no crackles, no rales and no rhonchi Cardiovascular: Rate/Rhythm: regular rate and + irregularly irregular Heart Sounds: no murmur Gastrointestinal (Abdomen): normal bowel sounds, soft, nontender, no hepatosplenomegaly Musculoskeletal: no cyanosis or clubbing, extremities motor strength 5/5 Skin: no rashes, warm and dry Neurologic: moves all extremities and awake; not confused Psychiatric: A+Ox3, euthymic affect Genitourinary: no CVA tenderness Results & Data Results & Data Vital Signs (Past 12 Hours) Vital Signs Temp Pulse Resp BP Pulse Ox O2 Del Method 07/21/23 14:04 87 20 196/143 H 92 Room Air 07/21/23 12:43 92 H 07/21/23 12:48 99 Room Air 07/21/23 11:43 37.0 C 87 18 131/93 95 Room Air Laboratory Results Abnormal lab results 07/21/23 07/21/23 07/21/23 Range/Units 12:41 12:41 12:50 WBC 12.97 H (4.8-10.8) K/ul RDW Std Deviation 52.4 H (36.4-46.3) fL RDW Coeff of Chanel 15.4 H (11.5-14.5) % Neut # (Auto) 11.36 H (1.40-6.50) K/uL Lymph # (Auto) 0.72 L (1.20-3.40) K/uL [place] # (Auto) 0.76 H (0.11-0.59) K/uL BUN 30 H (6-23) mg/dl BUN/Creatinine Ratio 31.9 H (10-20) Glucose 100 H (70-99(Fasting)) mg/dl Troponin I High Sens 29.6 H (0-14) pg/ml B-Natriuretic Peptide 370 H (0-100) pg/ml Diagnostic Findings XR chest 1V portable HISTORY: 88 years-old Female Productive cough and SOB acute cough and shortness of breath COMPARISON: 07/16/2023 TECHNIQUE: AP view of the chest FINDINGS: Cardiac silhouette is enlarged. Left atrial exclusion device. Atherosclerosis of the aorta. Unchanged blunting of the lateral left costophrenic angle with healed chronic left-sided rib fractures. No pneumothorax, large pleural effusion or overt pulmonary edema. Degenerative changes of the shoulders and spine. Radiodense linear structure projects over lateral left lung base which may be external to the patient. IMPRESSION: No acute process. Medications Administered ER Medications Given: Duoneb 3ml Labetalol 10mg IV ECG Rate (beats per minute): 84 Rhythm: atrial fibrillation Findings: no acute ischemic change Comparison ECG Date: from (July 16, 2023) Change: no significant change Code Status & VTE Plan Code Status Full PG Care Time/CCT Total # of Minutes Spent Total Time Spent with Patient: Total time spent is greater than 50% in coordination of care (as documented) at patient's floor/unit and/or counseling patient: Coding Level of Care Code 02211 INT INP/OBS CARE 2/55MIN Diagnoses Acute bronchitis J20.9 Permanent atrial fibrillation I48.21 HFrEF (heart failure with reduced ejection fraction) I50.20 Hypothyroidism E03.9 Rhinovirus infection B34.8
--- NOTE | 2023-07-21 17:05 | Electrocardiogram Report ---
Test Reason : Blood Pressure : / mmHG Vent. 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
[2023-07-21] MEDS ORDERED: Patient's HEIGHT &/or WEIGHT Needed STA (17:59)
[2023-07-21 18:20] LABS: Base Excess VBG 7.6 mEq/L; HCO3 VBG 35 mmol/L; Oxygen Saturation VBG < 60.0 %; PCO2 VBG 57 mmHg (38-50); PO2 VBG 27 mmHg; pH VBG 7.39 (7.36-7.41)
[2023-07-21] MEDS: ALBUT/IPRATROP 3MG/0.5MG NEB 3 ML VIAL NEB SCH (20:19)
[2023-07-21] MEDS: ENOXAPARIN INJ 40 MG/0.4 ML SYR SQ SCH (20:56)
[2023-07-21] MEDS: guaiFENesin 600 MG TABCR PO SCH (20:57)
[2023-07-21] MEDS: AMITRIPTYLINE HCL 10 MG TAB PO SCH (20:57)
[2023-07-21] MEDS: carvediloL 12.5 MG TAB PO SCH (20:57)
[2023-07-21] MEDS: VALSARTAN/SACUBITRIL 103/97MG TAB PO SCH (20:58)
[2023-07-21] MEDS: COMBIGAN: ORDER AWAITING ACTION SCH (21:08)
[2023-07-22] MEDS: LEVOTHYROXINE SODIUM 75 MCG TABLET PO SCH (05:54)
[2023-07-22 07:08] LABS: Basophils # (auto) 0.01 K/uL (0.00-0.20); Basophils % (auto) 0.1 %; Eosinophils # (auto) 0.06 K/uL (0.00-0.50); Eosinophils % (auto) 0.5 %; Hematocrit (blood only) 44.9 % (37.0-47.0); Hemoglobin 14.9 g/dl (12.0-16.0); Immature Granulocytes # (auto) 0.06 K/uL (0.01-0.20); Immature Granulocytes % (auto) 0.5 %; Lymphocytes # (auto) 1.44 K/uL (1.20-3.40); Lymphocytes % (auto) 12.5 %; Mean Corpuscular Hemoglobin 30.8 pg (25.0-34.0); Mean Corpuscular Hgb Conc 33.2 g/dL (32.0-36.0); Mean Corpuscular Volume 92.8 fL (80.0-100.0); Mean Platelet Volume 11.1 fL (9.4-12.4); Monocytes % (auto) 7.8 %; Neutrophils # (auto) 9.01 K/uL (1.40-6.50); Neutrophils % (auto) 78.6 %; Platelet Count 292 K/uL (130-400); RDW Coefficient of Variation 15.4 % (11.5-14.5); RDW Standard Deviation 51.2 fL (36.4-46.3); Red Blood Count 4.84 M/uL (4.20-5.40); White Blood Count 11.48 K/ul (4.8-10.8)
[2023-07-22 07:32] LABS: BUN Creatinine Ratio 31.9 (10-20); Calcium 8.5 mg/dl (8.6-10.3); Creatinine Clr Calc Pharmacy 40.9 ml/min; Est GFR (African American) 63.2 ml/min; Est GFR (Non-African American) 54.5 ml/min; Potassium 3.8 mmol/L (3.5-5.1)
[2023-07-22] MEDS: ASPIRIN 81 MG ECTAB PO SCH (07:33)
[2023-07-22] MEDS: carvediloL 12.5 MG TAB PO SCH ×2 (07:33→21:28)
[2023-07-22] MEDS: guaiFENesin 600 MG TABCR PO SCH ×2 (07:33→21:28)
[2023-07-22] MEDS: VALSARTAN/SACUBITRIL 103/97MG TAB PO SCH ×2 (07:34→21:28)
[2023-07-22] MEDS: COMBIGAN: ORDER AWAITING ACTION SCH ×3 (07:34→21:30)
[2023-07-22 07:38] LABS: Troponin I High Sensitivity 25.2 pg/ml (0-14)
[2023-07-22] MEDS: ALBUT/IPRATROP 3MG/0.5MG NEB 3 ML VIAL NEB SCH ×4 (08:48→20:05)
--- NOTE | 2023-07-22 16:10 | Hospitalist Progress Note ---
Date of Service July 22, 2023 Assessment & Plan (1) Acute bronchitis: Plan: Rhinovirus/enterovirus positive on 07/16 Suspect her symptoms (similarly to September 2021) are due to mucus plugging with possible dynamic collapse of bronchi (seen on bronchoscopy 09/2021) No lower bacterial pneumonia and already had course of azithromycin therefore do not see a benefit in repeating this Prednisone course not improved symptoms therefore will stop further steroids Dramatic improvement with duoneb in the ER therefore will continue this QID with incentive spirometry, flutter valve and guaifenesin Clinically improving with neb treatments Plan to continue. (2) Permanent atrial fibrillation: Plan: Not on anticoagulation due to Watchman device - performed due to preference to not be on anticoagulants due to active lifestyle, no prior bleeding issues Continue rate control with carvedilol (3) HFrEF (heart failure with reduced ejection fraction): Plan: Chronic, not acute Continue carvedilol and Entresto (4) Hypothyroidism: Plan: TSH 5.22 06/2022, will repeat with AM labs Continue levothyroxine 75 mcg PO daily (5) Rhinovirus infection: Plan VTE Prophylaxis - Lovenox 40mg SQ daily Diet - Low Na Disposition - Likely discharge tomorrow Admission and Anticipated Discharge Date Admission Date: July 21, 2023 Subjective patient feels well today. Breathing has improved. Review of Systems Review of Systems: All systems reviewed & are unremarkable except as noted in Subjective Physical Exam Physical Exam: General: Awake, conversant Heart: S1, S2/regular rate and rhythm, no murmur rubs or gallops Lungs: Clear to auscultation bilaterally. Normal effort Abdomen: Soft/nontender/nondistended. No hepatosplenomegaly Extremities: No clubbing/cyanosis. No edema Behavior: Appropriate, cooperative Results & Data Results & Data Vital Signs (Past 12 Hours) Vital Signs Temp Pulse Resp BP BP Pulse Ox O2 Del Method 07/22/23 15:25 36.6 C 83 20 161/99 H 97 Room Air 07/22/23 15:21 74 18 97 Nasal Cannula 07/22/23 12:04 100 H 16 96 Room Air 07/22/23 11:52 96 H 157/110 H 157/117 H 07/22/23 07:30 Room Air 07/22/23 08:48 62 18 93 Nasal Cannula 07/22/23 07:14 36.4 C L 90 16 167/122 H 169/135 H 94 Room Air Laboratory Results Abnormal lab results 07/21/23 07/22/23 07/22/23 Range/Units 18:01 06:01 06:01 WBC 11.48 H (4.8-10.8) K/ul RDW Std Deviation 51.2 H (36.4-46.3) fL RDW Coeff of Chanel 15.4 H (11.5-14.5) % Neut # (Auto) 9.01 H (1.40-6.50) K/uL [place] # (Auto) 0.90 H (0.11-0.59) K/uL VBG pCO2 57 H (38-50) mmHg BUN 30 H (6-23) mg/dl BUN/Creatinine Ratio 31.9 H (10-20) Calcium 8.5 L (8.6-10.3) mg/dl Troponin I High Sens 25.2 H (0-14) pg/ml PG Care Time/CCT Total # of Minutes Spent Total Time Spent with Patient: Total time spent is greater than 50% in coordination of care (as documented) at patient's floor/unit and/or counseling patient: Coding Level of Care Code 35505 SUB INP/OBS CARE 2/35MIN Diagnoses Acute bronchitis J20.9 Permanent atrial fibrillation I48.21 HFrEF (heart failure with reduced ejection fraction) I50.20 Hypothyroidism E03.9 Rhinovirus infection B34.8
[2023-07-22] MEDS: AMITRIPTYLINE HCL 10 MG TAB PO SCH (21:28)
[2023-07-22] MEDS: ENOXAPARIN INJ 40 MG/0.4 ML SYR SQ SCH (21:28)
[2023-07-23] MEDS: LEVOTHYROXINE SODIUM 75 MCG TABLET PO SCH (05:29)
[2023-07-23] MEDS: ALBUT/IPRATROP 3MG/0.5MG NEB 3 ML VIAL NEB SCH ×2 (07:37→10:46)
[2023-07-23] MEDS: ASPIRIN 81 MG ECTAB PO SCH (08:46)
[2023-07-23] MEDS: carvediloL 12.5 MG TAB PO SCH (08:46)
[2023-07-23] MEDS: COMBIGAN: ORDER AWAITING ACTION SCH (08:46)
[2023-07-23] MEDS: guaiFENesin 600 MG TABCR PO SCH (08:47)
[2023-07-23] MEDS: VALSARTAN/SACUBITRIL 103/97MG TAB PO SCH (08:47)
--- NOTE | 2023-07-23 09:05 | Discharge Summary ---
Date of Service July 23, 2023 Admission HPI Per Admitting Provider Garima Crowley is an 88 year old female who presents to the ER with shortness of breath. She reports ongoing symptoms for the last 2-3 weeks. Associated coughing up phlegm. No chest pain but has mild tightness once in a while. Having difficulty coughing up the phlegm. She was seen in the ER 5 days ago for the same symptoms and was treated with albuterol, azithromycin and a prednisone course without any significant improvement. Shortness of breath happening intermittently not necessarily on exertion and worse at night. She report not being able to sleep well and afraid to go to sleep as she is concerned she would not be able to cough up the phlegm. She lives with her son and [id number]. Non-smoker. No known COPD or asthma. No fever or chills. Previously diagnosed with entero/rhinovirus on July 16. She had a similar illness with entero/rhinovirus positive in September 2021 when she underwent bronchoscopy showing thick yellowish/green phlegm that required suctioning and dynamic collapse of the right bronchus intermedius. Admission Exam Per Admitting Provider Constitutional: WD/WN, vitals as above Eyes: PERRL, conjunctivae normal, anicteric sclerae ENMT: external ear and nose normal, oropharynx normal Neck: trachea midline, no thyromegaly Respiratory: normal respiratory effort; no respiratory distress Auscultation: + wheezes (mild expiratory); breath sounds present, no diminished lung sounds, no crackles, no rales and no rhonchi Cardiovascular: Rate/Rhythm: regular rate and + irregularly irregular Heart Sounds: no murmur Gastrointestinal (Abdomen): normal bowel sounds, soft, nontender, no hepatosplenomegaly Musculoskeletal: no cyanosis or clubbing, extremities motor strength 5/5 Skin: no rashes, warm and dry Neurologic: moves all extremities and awake; not confused Psychiatric: A+Ox3, euthymic affect Genitourinary: no CVA tenderness Principal Diagnosis acute bronchitis due to rhinovirus/enterovirus infection Discharge Exam General: Awake, conversant Heart: S1, S2/regular rate and rhythm, no murmur rubs or gallops Lungs: Clear to auscultation bilaterally. Normal effort Abdomen: Soft/nontender/nondistended. No hepatosplenomegaly Extremities: No clubbing/cyanosis. No edema Behavior: Appropriate, cooperative Discharge Data Allergies Allergy/AdvReac Type Severity Reaction Status Date / Time No Known Allergies Allergy Unverified 11/18/22 15:18 Consultations 07/21/23 14:19 ED Decision to Admit Stat Hospital Course (1) Acute bronchitis: Rhinovirus/enterovirus positive on 07/16 Suspect her symptoms (similarly to September 2021) are due to mucus plugging with possible dynamic collapse of bronchi (seen on bronchoscopy 09/2021) No lower bacterial pneumonia and already had course of azithromycin therefore do not see a benefit in repeating this Prednisone course not improved symptoms therefore will stop further steroids Dramatic improvement with duoneb in the ER therefore will continue this QID with incentive spirometry, flutter valve and guaifenesin Clinically improving with neb treatments discharged on her regular inhalers (2) Permanent atrial fibrillation: Not on anticoagulation due to Watchman device - performed due to preference to not be on anticoagulants due to active lifestyle, no prior bleeding issues Continue rate control with carvedilol (3) HFrEF (heart failure with reduced ejection fraction): Chronic, not acute Continue carvedilol and Entresto (4) Hypothyroidism: TSH 5.22 06/2022, will repeat with AM labs Continue levothyroxine 75 mcg PO daily (5) Rhinovirus infection: Plan VTE Prophylaxis - Lovenox 40mg SQ daily Diet - Low Na Disposition - discharged home Total Time Total Time Spent Total Time Spent (In Minutes): 35 Discharge Plan Discharge Items Patient Disposition: Home - Self-Care Reason For Visit: ACUTE BRONCHITIS, MUCUS PLUGGING Discharge Diagnosis: acute bronchitis, mucous plugging with bronchospasm Condition on Discharge: Fair Activity: Resume your previous activity Non-emergency contact: Primary Care Provider Call non-emergency contact if: you have any medication questions and your symptoms worsen Follow-up/Referrals: Hayley Roland MD [Primary Care Provider] - Diet: Heart Healthy Addtl Attending Provider Instructions: advised to follow-up with PCP in 1 week Pending Studies at Discharge: No Stand-Alone Forms: My [facility] [address] [facility] Medications and DC Order Prescriptions: Continued albuterol sulfate 90 mcg/actuation aerosol powdr breath activated 2 inh inhalation QID PRN (Reason: Shortness Of Breath Or Wheezing) carvedilol 12.5 mg tablet 12.5 mg PO BID levothyroxine 75 mcg tablet 75 mcg PO DAILYBB Entresto 97-103 mg tablet 1 tab PO BID amitriptyline 10 mg tablet 10 mg PO HS brimonidine-timolol [Combigan] 0.2-0.5 % drops 1 drp OPB BID fluticasone propionate [Allergy Relief (fluticasone)] 50 mcg/actuation spray,suspension 1 spray intranasal DAILY PRN (Reason: Nasal Congestion) Rx Instructions: administer into each nostril once daily aspirin 81 mg Tablet,Delayed Release (Dr/Ec) 81 mg PO DAILY albuterol sulfate 90 mcg/actuation HFA aerosol inhaler 1 inh inhalation Q6H PRN (Reason: shortness of breath or wheezing) Qty: 8.5 0RF Discharge Orders: Discharge Order (Routine); Ordered 07/23/23 Ordered By: Marlen Cordon Admission Data Admit Date/Time: 07/21/23 15:07 Attending Provider: Marlen Cordon Admit Provider: Patric Lovell Primary Care Provider: Hayley Roland Other Providers: Patric Lovell Other Interventions: Discharge Summary Assessment (RN) Last Done: 07/23/23 10:32 Coding Level of Care Code 44997 INP/OBS DISCH >30 MIN Diagnoses Acute bronchitis J20.9 Permanent atrial fibrillation I48.21 HFrEF (heart failure with reduced ejection fraction) I50.20 Hypothyroidism E03.9 Rhinovirus infection B34.8
== END 2023-07-23 11:39 | disposition home or self-care (01) ==
LOC: EDINP 11:27 → ED 11:27 → SUATTDRO 15:07 → 3E 17:55

== ENCOUNTER 2024-01-08 13:25 | Inpatient (IN) ==
--- OUTSIDE RECORDS SUMMARY | 2024-01-08 13:28 | External Medical Summary | Continuity of Care Document ---
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 Goal SBP <135 140 and DBP <80-85 mmHg. Last clinic note, cardiology note and home BP readings reviewed today. Add amlodipine 2.5 mg once daily. Continue carvedilol 12.5 mg twice daily, Entresto 97-103 mg twice daily and furosemide 20 mg daily. [facility] with home BP readings and to check these twice daily. We can intensify regimen based on BP readings. Follow-up in the office again in 2 to 3 months. Last [facility] clinic note, cardiology note in September 2023 labs reviewed today. 2.Epistaxis Episode of epistaxis was acute, solitary episode and has resolved. Has not had any signs/symptomsconsistent with anemia. Discussed that epistaxis may have been related to elevated BP, but may also have been coincidental. Advised to contact the office if she has any recurrence of symptoms. Discussed recommendation to seek urgent care at the ER if she has a nosebleed lasting longer than20 to 30 minutes that is not improving with applying direct pressure to the bridge of the nose/nostrils. Patient and daughter agreed. Time spent on pre-visit plannin minutes Face to face time spent w/ patient:21 minutes Time spent documenting pertinent clinical information into the EMR:9 minutes Total time: 32 minutes Immunizations Given and Recorded Vaccine Date Status Refusal Reason influenza virus vaccine, inactivated 11/30/21 Give n Medications Albuterol (Eqv-Proventil HFA) 90 mcg/inh inhalation aerosol Start: 06/09/22 11:33:00 EDT, See Instructions, Disp# 6.7 each, Refills: 1, INHALE 2 PUFFS 4 TIMES DAILY NEEDED FOR WHEEZING, Pharmacy: [facility] Start Date: 06/09/22 Status: Ordered albuterol 0.083% for nebulization Start: 07/27/23 16:51:00 EDT, 3 mL, inhaled, q6h, Disp# 100 each, Refills: 1, PRN: as needed for wheezing, Pharmacy: [facility][id number] Start Date: 07/27/23 Status: Ordered amitriptyline 10 mg oral tablet Start: 05/09/23 12:33:00 EDT, See Instructions, Disp# 90 tab, Refills: 3, TAKE 1 TABLET BY MOUTH EVERYDAY AT BEDTIME, Pharmacy: [facility] [id number] Start Date: 05/09/23 Status: Ordered amLODIPine 2.5 mg oral tablet Start: 01/02/24 16:56:00 EST, 1 tab, PO, Daily, Disp# 30 tab, Refills: 5, Pharmacy: [id number] Start Date: 01/02/24 Stop Date: 06/30/24 Status: Ordered aspirin 81 mg oral delayed release tablet Start: 07/15/21 13:26:00 EDT, 1 tab, PO, Daily Start Date: 07/15/21 Status: Ordered carvedilol 12.5 mg oral tablet Start: 12/29/22 9:53:00 EST, See Instructions, Disp# 180 tab, Refills: 3, TAKE 1 TABLET BY MOUTH TWICE A DAY, Pharmacy: [facility] Start Date: 12/29/22 Status: Ordered Combigan 0.2%-0.5% ophthalmic solution Start: 04/28/22 14:36:00 EDT, twice daily in both eyes Start Date: 04/28/22 Status: Ordered dorzolamide 2% ophthalmic solution Start: 10/18/22 9:57:00 EST, morning and evening in the right eye Start Date: 10/18/22 Status: Ordered Entresto 97 mg-103 mg oral tablet Start: 08/16/23 14:21:00 EDT, 1 tab, PO, bid, Disp# 180 tab, Refills: 3, Pharmacy: [id number] Start Date: 08/16/23 Status: Ordered fluticasone 50 mcg/inh nasal spray Start: 08/13/22 17:11:00 EDT, See Instructions, Disp# 48 mL, Refills: 6, USE 2 SPRAYS IN EACH NOSTRIL TWICE A DAY, Pharmacy: [facility] [id number] Start Date: 08/13/22 Status: Ordered furosemide 20 mg oral tablet Start: 10/04/23 15:37:00 EST, 1 tab, PO, Daily, Disp# 30 tab, Refills: 11, Pharmacy: [id number] Start Date: 10/04/23 Status: Ordered levothyroxine 75 mcg (0.075 mg) oral tablet Start: 08/16/23 15:11:00 EDT, 1 tab, PO, Daily, Disp# 90 tab, Refills: 3, Pharmacy: [id number] Start Date: 08/16/23 Status: Ordered Rhopressa 0.02% ophthalmic solution Start: 10/18/22 9:58:00 EST, at bedtime in the righ eye Start Date: 10/18/22 Status: Ordered Vitamin D2 Start: 07/15/21 13:26:00 EDT Start Date: 07/15/21 Status: Ordered Mental Status 01/02/24 Barriers to Learning one year None evide nt, Other: Noted some short term memory issues during check in. 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 (HFpEF) heart failure with preserved ejection fraction Confirmed Active Heart failure with reduced ejection fraction Confirmed Active Pericardial effusion Confirmed Active Syncope, vasovagal Confirmed Active Diagnosis Diagnosis Type Effective Dates Health Status Clinical Service Informant Epistaxis Discharge Diagnosis 01/02/24 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 There is no electrographic seizure or epileptogenic discharge. 2left patel 3right patel 4sternal notch 5CT Chest Biapical scarring Right middle lobe collapse Valvular lesion opacities appreciated bilaterally lower lobes Small right-sided pleural effusion, pericardial effusion 6SIGNIFICANT RIGHT SIDED INFILTRATE 7Impression: No significant change compared to prior study No acute process 8appy, done for heavy bleeding & family hx of ovarian ca Vital Signs Most recent to oldest [Reference Range]: 1 Patient Weight 64.2 kg (01/02/24 4:36 PM) Temperature [36.5-37.9 DegC] 36.2 DegC *LOW* (01/02/24 4:36 PM) Heart Rate 82 bpm (01/02/24 4:36 PM) Respiratory Rate 16 br/min (01/02/24 4:36 PM) Blood Pressure 154/106mmHg (01/02/24 4:36 PM) Cuff Pulse Pressure 48 mmHg (01/02/24 4:36 PM) BP Location # 1 Left Arm, Manual (01/02/24 4:36 PM) Social History Social History Type Response Smoking Status Never smoked cigaret aida Sex Female [facility] Note * NELIDA Wang, Selena Issa: PERFORM Event Display: [facility] Note Authored Date: [id number] Chief Complaint Discuss elevated blood pressure History of Present Illness Garima presents with her [id number], Hayley, to discuss elevated blood pressure readings. Emelyhas a significant past medical history of HTN, chronic diastolic heart failure and atrial fibrillation with placement of the Watchman device. HTN with history of diastolic heart failureis chronic. She is currently managed withfurosemide 20 mg daily,carvedilol 12.5 mg twice dailyand Entresto 97-103 mg, 1 tab p.o. twice daily. She had previously lived with her son and [id number] and when they would check her blood pressuredaily it was typically in the 160-170s/80s90s. [place]alia [place] to the [place] at [facility] in August 2023 and had not been checking her blood pressureregularly. A week ago she woke up in the middle of the night with "a bad, bad nosebleed" that she thinks may have lasted a couple of hours. Kyleigh then asked the nurse who administers her medication to check her blood pressure and it was elevated at 186/111. Since then she has been anxious about her BP. Nursing has been checking her BP daily that has been: 166/108, 170/100, 178/98and this morning it did come down to 132/70. No change in routine or diet. Follows low-sodiumand low-carb diet. Drinks 1 glass of wine nightly. No tobacco or recreational drug use. No regular exercise. No hematuria, melena, hematochezia, claudication, chest pain, SOB, palpitations, tachycardia, dizziness, lightheadedness, weakness, near syncope, syncope, nausea, vomiting, diarrhea, constipation, cough, LE edema, headaches, blurred vision or loss of vision. Review of Systems ROS:All other systems negative, except HPI. Physical Exam Vitals & Measurements T:36.2C HR:82(Monitored) RR:16 BP:154/106 SpO2:97% WT:64.200kg(Dosing) WT:64.2kg PHQ2 Data(Data Documented on:01/02/2024 16:36) Emotional health assessment NEGATIVE General: Alert and oriented, No acute distress.Pleasant elderly female withmild, obvious memory loss. Accompanied by [id number] who assists in providing history. Eye: Pupils are equal, round and reactive to light, Extraocular movements are intact, Normal conjunctiva. HENT: Normocephalic. Posterior pharynx is pink. Uvula rises midline. No drooling, stridor or cyanosis. Nares are pink without any evidence of dried blood or acute bleeding. Neck: Supple, No lymphadenopathy, No thyromegaly. Respiratory: Lungs are clear to auscultation, Respirations are non-labored, Breath sounds are equal, Symmetrical chest wall expansion. Cardiovascular: Normal rate, Regular rhythm, No murmur, No gallop, Good pulses equal in all extremities, Normal peripheral perfusion. No LE edema. Abdomen: Normoactive BS x 4. Soft. No tenderness, palpable masses or organomegaly. Lymphatics: No submandibular, anterior or posterior cervical adenopathy palpable. Musculoskeletal Ambulates with use of rollator walker. Integumentary: Warm, [place], No pallor. Neurologic: Alert, Oriented, Cranial Nerves II-XII are grossly intact. Cognition and Speech: Oriented, Speech clear and coherent, Functional cognition intact. Psychiatric: Cooperative, Appropriate mood & affect, Normal judgment, Nonsuicidal. 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 GoalSBP <135 140 and DBP <80-85 mmHg. Last clinic note, cardiology note and home BP readings reviewed today. Add amlodipine 2.5 mg once daily. Continue carvedilol 12.5 mg twice daily, Entresto 97-103 mg twice daily and furosemide 20 mg daily. [facility] days with home BP readings and to check these twice daily. We can intensify regimen based on BP readings. Follow-up in the office again in 2 to 3 months. Last [facility] clinic note, cardiology note in September 2023 labs reviewed today. 2.Epistaxis Episode of epistaxis was acute, solitary episode and has resolved. Has not had any signs/symptomsconsistent with anemia. Discussed that epistaxis may have been related to elevated BP, but may also have been coincidental. Advised to contact the office if she has any recurrence of symptoms. Discussed recommendation to seek urgent care at the ER if she has a nosebleed lasting longer than20 to 30 minutes that is not improving with applying direct pressure to the bridge of the nose/nostrils. Patient and daughter agreed. 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) Heart failure with reduced ejection fraction NICM (nonischemic cardiomyopathy) Pericardial effusion Syncope, vasovagal Procedure/Surgical History Electrodesiccation with curettage (08/10/2022)Mohs micrographic surgery (08/10/2022)EEG (07/18/2022)Shave biopsy and cauterization of skin (06/23/2022)Shave biopsy and cauterization ofskin (06/23/2022)Shave biopsy and cauterization of skin (06/23/2022)CAT scan (10/12/2021)Chest X-ray (10/01/2021)History of total hysterectomyChest X-ray Medications albuterol(Albuterol (Eqv-Proventil HFA) 90 mcg/inh inhalation aerosol), See Instructions albuterol(albuterol 0.083% for nebulization), 2.5 mg= 3 mL, inhaled, q6h, PRN, 1 refills amitriptyline(amitriptyline 10 mg oral tablet), See Instructions amLODIPine(amLODIPine 2.5 mg oral tablet), 2.5 mg= 1 tab, PO, Daily, 5 refills aspirin(aspirin 81 mg oral delayed release tablet), 81 mg= 1 tab, PO, Daily brimonidine-timolol ophthalmic(Combigan 0.2%-0.5% ophthalmic solution) carvedilol(carvedilol 12.5 mg oral tablet), See Instructions dorzolamide ophthalmic(dorzolamide 2% ophthalmic solution) ergocalciferol(Vitamin D2) fluticasone nasal(fluticasone 50 mcg/inh nasal spray), See Instructions furosemide(furosemide 20 mg oral tablet), 20 mg= 1 tab, PO, Daily, 11 refills levothyroxine(levothyroxine 75 mcg (0.075 mg) oral tablet), 75 mcg= 1 tab, PO, Daily, 3 refills netarsudil ophthalmic(Rhopressa 0.02% ophthalmic solution) sacubitril-valsartan(Entresto 97 mg-103 mg oral tablet), 1 tab, PO, bid, 3 refills Allergies NKA Social History Smoking Status Never smoked cigarettes Alcohol Use:Current Type:Wine Frequency:Daily Exercise - Comments: formerly horseback riding Tobacco - Denies Tobacco Use Family History Alcoholism: Sister. Cancer of ovary: Mother. Hypertension: Father. Malignant tumor of lung: Father. Respiratory disease: Father. Health Status Family Member(s) Immunizations Vaccine Date Status influenza virus vaccine, inactivated 11/30/2021 Given Recommendations Health Maintenance Pending(in the next year) OverDue Adult Influenza Vaccine due05/27/23and every 1year Due Adult COVID-19 Vaccination due01/02/24Unknown Frequency Adult Social Determinants of Health Screening due01/02/24Unknown Frequency Falls Plan of Care due01/02/24Unknown Frequency Medicare Annual Wellness Visit due01/02/24and every 1year Pneumococcal Vaccine Older Adults due01/02/24One-time only Shingles Vaccine due01/02/24One-time only Satisfied(in the past 1 year) Satisfied Body Mass Index on06/14/23.Satisfied by LEON Noland Jamie Patient Care team information Care Team Personnel Name: MD Roland Amy L Position: Physician - Family Med Member Role: Primary Care Provider Address: Address: [address] [place] [id number] Care Team Related Persons Name: HAYLEY JARAMILLO Address: home [address], [place] [id number] Name: CHANTELLE JARAMILLO Address: [place] [address], [place] [id number]
[2024-01-08 14:16] LABS: Appearance Urine Clear (Clear); Bacteria Urine Automated Negative (Negative); Bilirubin Urine Negative (Negative); Blood Urine 1+ (Negative); Cast Urine Automated 0 /lpf (0-5); Color Urine Yellow; Glucose Urine UA Negative (Negative); Ketones Urine Negative (Negative); Leukocyte Esterase Urine Negative (Negative); Nitrite Urine Negative (Negative); Protein Urine Negative (Negative); Specific Gravity Urine 1.015 (1.000-1.030); Urobilinogen Urine Negative (Negative)
[2024-01-08 14:31] LABS: Basophils # (auto) 0.04 K/uL (0.00-0.20); Basophils % (auto) 0.7 %; Eosinophils # (auto) 0.09 K/uL (0.00-0.50); Eosinophils % (auto) 1.6 %; Hematocrit (blood only) 38.1 % (37.0-47.0); Hemoglobin 12.5 g/dl (12.0-16.0); Immature Granulocytes # (auto) 0.01 K/uL (0.01-0.20); Immature Granulocytes % (auto) 0.2 %; Lymphocytes # (auto) 1.11 K/uL (1.20-3.40); Lymphocytes % (auto) 19.9 %; Mean Corpuscular Hemoglobin 29.8 pg (25.0-34.0); Mean Corpuscular Hgb Conc 32.8 g/dL (32.0-36.0); Mean Corpuscular Volume 90.7 fL (80.0-100.0); Mean Platelet Volume 10.4 fL (9.4-12.4); Monocytes # (auto) 0.45 K/uL (0.11-0.59); Monocytes % (auto) 8.1 %; Neutrophils # (auto) 3.89 K/uL (1.40-6.50); Neutrophils % (auto) 69.5 %; Platelet Count 217 K/uL (130-400); RDW Coefficient of Variation 13.7 % (11.5-14.5); RDW Standard Deviation 45.3 fL (36.4-46.3); White Blood Count 5.59 K/ul (4.8-10.8)
--- NOTE | 2024-01-08 14:31 | Emergency Department Note ---
Impression & Plan Weakness, Stroke-like symptoms, Hypertension, Cardiomegaly ED Provider Note NAME: BOBO JARAMILLO AGE: 88 SEX: F : 1935 ARRIVES VIA: Ambulance INFORMANT: [Patient][son, nursing] ED PROVIDER(S): [Kole Brenner MD] CHIEF COMPLAINT: Weakness HISTORY OF PRESENT ILLNESS: The patient is an 88-year-old female who since last night has been weak. At times, she seems to lean or move to the left with walking. There is no cough or congestion or shortness of breath. No chest pain or nausea. She has urinary frequency but this is chronic. No diarrhea. She has not fallen. The patient does not drink a lot of liquids, she has had issues with dehydration before. Because of her complaints, she was sent for evaluation. PMHx/PSHx/Social Hx: See Below PHYSICAL EXAM: GENERAL: Patient is in no acute distress. HEENT: No acute trauma, normocephalic atraumatic, mucous membranes dry, no nasal congestion. NECK: No stridor, no adenopathy, no meningismus, trachea is midline. LUNGS: Clear to auscultation bilaterally, no wheeze, no rhonchi, breath sounds equal. HEART: Subtle systolic murmur heard best at the right sternal border. Regular rate and rhythm. ABDOMEN: Soft, nontender, no peritonitis. EXTREMITIES: No cyanosis, full range of motion of all the joints without pain or difficulty. NEUROLOGIC: Oriented x 3, no acute motor or sensory deficits, no focal weakness. No speech slur or facial droop, no extremity drift or cerebellar dysfunction. SKIN: No jaundice, no diaphoresis. DIFFERENTIAL DIAGNOSIS: Dehydration, electrolyte imbalance, anemia, stroke or TIA, UTI, viral illness, among others. EMERGENCY DEPARTMENT PROCEDURES: MEDICAL DECISION MAKING: There is no leukocytosis or concerning anemia. There is a normal platelet count. No coagulopathy. No renal failure or significant electrolyte abnormality. No concerning liver enzyme elevation. The patient appeared to be in a euthyroid state. ECG shows what appears to be atrial fibrillation with some PVCs, no obvious acute ischemia. Cardiac enzyme testing x 1 is not consistent with acute cardiac injury. Urinalysis does not show infection. Brain CT shows no acute bleed or mass effect. A sphenoid sinus infection was queried. Chest x-ray shows cardiomegaly, no CHF, pneumonia or pneumothorax. Influenza, RSV and flu test returned negative. On my exam, the patient was hypertensive. There were no focal neurologic findings. Her symptoms had markedly improved prior to arrival. The patient was not a candidate for TNK. Her stroke scale was 0, her symptoms had markedly improved. Additionally, she was out of the window for TNK. The patient did receive IV labetalol for her higher blood pressure. A second dose of IV labetalol was given. She received a liter of IV saline for hydration. Given the concerns for stroke, I do think further workup is warranted. The patient had had marked improvement in her symptoms prior to arrival, however, given the higher blood pressure, given the concern for potential CVA, further workup for stroke is indicated. Further blood pressure control is indicated. I spoke with the patient and case management, the on-call hospitalist was consulted. Prior/Outside records/notes reviewed: EMS notes from today describing her presentation and transport here. ECG per my interpretation: Indication was weakness. The ECG shows what appears to be atrial fibrillation with some PVCs. The rate is 71. 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 There is no ST elevation. The QTc is 471. Compared to an ECG from 21 July 2023, PVCs are now present. Continuous Cardiac Monitoring per my interpretation: An order was placed for continuous cardiac monitoring. The monitor shows a rate of 72 with normal sinus rhythm. Imaging/x-ray results per my interpretation: Chest x-ray shows cardiomegaly. I see no pneumonia or pneumothorax. Chronic Medical/Social conditions affecting care: Advanced age. Care/Management discussed with: Case management, the on-call hospitalist. Level of care consideration(s): After review of the information above and other included data: --I believe the patient requires escalation of care to admission DISPOSITION: Admission Past Med/Surg History Medical History Squamous cell skin cancer Glaucoma Allergic rhinitis with postnasal drip Hypoalbuminemia Hypothyroidism Community acquired pneumonia (09/2021) Surgical History H/O: hysterectomy History of cataract surgery Presence of Watchman left atrial appendage closure device (2017) Family History Other Family history non-contributory Social History Smoking Status: Former smoker Tobacco Type: Cigarettes Second Hand Exposure: No; Do You Dip or Chew Tobacco: No; Hx Alcohol Use: Yes Alcohol type: wine Hx Substance Use: No Preferred Language: Citizen Of [place] Communication Ability: Effective 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 Beliefs That Will Affect Care: None marital status: / Current Living Situation: Family Current Living Situation Comment: living with son and his family, plans to move out soon How many Children do You have: 1 Feels Safe at Home: Yes Assistive Devices: Glasses and Walker Allergies Allergies Allergy/AdvReac Type Severity Reaction Status Date / Time No Known Allergies Allergy Unverified 11/18/22 15:18 Home Meds Home Medications Medication Instructions Recorded Confirmed carvedilol 12.5 mg tablet 12.5 mg PO BID 10/01/21 01/08/24 levothyroxine 75 mcg tablet 75 mcg PO DAILYBB 10/01/21 01/08/24 sacubitril 97 mg-valsartan 103 mg 1 tab PO BID 10/01/21 01/08/24 tablet (Entresto) amitriptyline 10 mg tablet 10 mg PO HS 07/18/22 01/08/24 brimonidine 0.2 %-timolol 0.5 % 1 drp OPB BID 07/18/22 01/08/24 eye drops (Combigan) aspirin 81 mg tablet,delayed 81 mg PO DAILY 11/18/22 01/08/24 release amlodipine 2.5 mg tablet 2.5 mg PO DAILY 01/08/24 01/08/24 dorzolamide 2 % eye drops 1 drp OPR BID 01/08/24 01/08/24 furosemide 20 mg tablet 20 mg PO DAILY 01/08/24 01/08/24 netarsudil 0.02 % eye drops 1 drp OPR HS 01/08/24 01/08/24 (Rhopressa) Previous Rx's Medication Instructions Recorded albuterol sulfate 90 mcg/actuation 1 inh inhalation Q6H PRN shortness 07/16/23 aerosol inhaler of breath or wheezing #8.5 grams Results & Data (ED) Vital Signs Vital Signs - 24 hr 01/08/24 13:30 01/08/24 13:48 01/08/24 13:54 Temperature 36.4 C L Temperature Source Oral Pulse Rate 72 79 72 Pulse Rate [Right Finger] Respiratory Rate 16 Respiratory Effort / Characteristics Non-Labored Spontaneous Respiratory Depth Normal Blood Pressure 174/112 H Blood Pressure [Right Arm] Blood Pressure Mean 132 Blood Pressure Mean [Right Arm] Pulse Oximetry 96 96 Oxygen Delivery Method Room Air Room Air Sepsis Recent Fever Within 48 Hours No Sepsis New/Unexplained Change in Mental Status N/A Sepsis Action Taken by Nursing No Action Required 01/08/24 15:47 01/08/24 16:22 01/08/24 16:53 Temperature Temperature Source Pulse Rate 72 Pulse Rate [Right Finger] 68 78 Respiratory Rate 18 16 Respiratory Effort / Characteristics Non-Labored Non-Labored Respiratory Depth Normal Normal Blood Pressure 174/114 H Blood Pressure [Right Arm] 174/114 H 174/103 H Blood Pressure Mean Blood Pressure Mean [Right Arm] 134 126 Pulse Oximetry 96 100 Oxygen Delivery Method Room Air Room Air Sepsis Recent Fever Within 48 Hours Sepsis New/Unexplained Change in Mental Status Sepsis Action Taken by Nursing 01/08/24 17:36 Temperature Temperature Source Pulse Rate 79 Pulse Rate [Right Finger] Respiratory Rate Respiratory Effort / Characteristics Respiratory Depth Blood Pressure Blood Pressure [Right Arm] Blood Pressure Mean Blood Pressure Mean [Right Arm] Pulse Oximetry Oxygen Delivery Method Sepsis Recent Fever Within 48 Hours Sepsis New/Unexplained Change in Mental Status Sepsis Action Taken by [facility] Medications Current Medication List: was personally reviewed by me Laboratory Data Attestation: I reviewed the patient's lab results. 01/08/24 14:15 01/08/24 14:15 Lab Results 01/08/24 01/08/24 Range/Units 14:00 14:15 WBC 5.59 (4.8-10.8) K/ul RBC 4.20 (4.20-5.40) M/uL Hgb 12.5 (12.0-16.0) g/dl Hct 38.1 (37.0-47.0) % MCV 90.7 (80.0-100.0) fL MCH 29.8 (25.0-34.0) pg MCHC 32.8 (32.0-36.0) g/dL RDW Std Deviation 45.3 (36.4-46.3) fL RDW Coeff of Chanel 13.7 (11.5-14.5) % Plt Count 217 (130-400) K/uL MPV 10.4 (9.4-12.4) fL Immature Gran % (Auto) 0.2 % Neut % (Auto) 69.5 % Lymph % (Auto) 19.9 % [place] % (Auto) 8.1 % Eos % (Auto) 1.6 % Baso % (Auto) 0.7 % Neut # (Auto) 3.89 (1.40-6.50) K/uL Lymph # (Auto) 1.11 L (1.20-3.40) K/uL [place] # (Auto) 0.45 (0.11-0.59) K/uL Eos # (Auto) 0.09 (0.00-0.50) K/uL Baso # (Auto) 0.04 (0.00-0.20) K/uL Immature Gran # (Auto) 0.01 (0.01-0.20) K/uL PT 11.9 (9.0-12.0) Seconds INR 1.1 (0.9-1.1) APTT 29 (21-31) Seconds PTT Ratio 1.0 Sodium 139 (136-145) mmol/L Potassium 3.5 (3.5-5.1) mmol/L Chloride 103 (98-107) mmol/L Carbon Dioxide 28 (21-32) mmol/L Anion Gap 8 (3-11) BUN 31 H (6-23) mg/dl Creatinine 0.96 (0.6-1.2) mg/dl Est Cr Clr Drug Dosing 42.4 ml/min Est GFR ( Amer) 61.6 ml/min Est GFR (Non-Af Amer) 53.2 ml/min BUN/Creatinine Ratio 32.3 H (10-20) Glucose 118 H (70-99(Fasting)) mg/dl Calcium 8.5 L (8.6-10.3) mg/dl Magnesium 2.0 (1.7-2.4) mg/dl Total Bilirubin 0.9 (0.2-1.0) mg/dl AST 15 (13-39) U/L ALT 9 (7-52) U/L Alkaline Phosphatase 40 (34-104) U/L Troponin I High Sens 6.3 (0-14) pg/ml Total Protein 6.3 (6.0-8.3) gm/dl Albumin 3.8 (3.4-5.0) gm/dl Globulin 2.5 (2.5-4.0) gm/dl Albumin/Globulin Ratio 1.5 (0.9-2) TSH 2.388 (0.300-4.500) uIu/ml Urine Color Yellow Urine Appearance Clear (Clear) Urine pH 6.0 (4.5-7.5) Ur Specific [place] 1.015 (1.000-1.030) Urine Protein Negative (Negative) Urine Glucose (UA) Negative (Negative) Urine Ketones Negative (Negative) Urine Blood 1+ H (Negative) Urine Nitrite Negative (Negative) Urine Bilirubin Negative (Negative) Urine Urobilinogen Negative (Negative) Ur Leukocyte Esterase Negative (Negative) Urine WBC (Auto) 1-5 (0-5) /hpf Urine RBC (Auto) 10-30 H (0-4) /hpf U Hyaline Cast (Auto) 0 (0-5) /lpf U Epithel Cells (Auto) 5-10 H (0-5) /lpf Urine Bacteria (Auto) Negative (Negative) SARS-CoV-2 (PCR) NEGATIVE (Negative) Influenza Type A (PCR) Negative (Neg) Influenza Type B (PCR) Negative (Neg) RSV (RT-PCR) Negative (Neg) Administered Medications Discontinued Medications Sodium Chloride (Nss) 500 mls @ 999 mls/hr IV .Q31M ONE Stop: 01/08/24 14:55 Last Infusion: 01/08/24 15:48 Dose: Infused Documented By: Admin: 01/08/24 15:17 Dose: 999 mls/hr Documented By: TERENCE Sodium Chloride (Nss) 500 mls @ 999 mls/hr IV .Q31M ONE Stop: 01/08/24 16:23 Last Infusion: 01/08/24 16:55 Dose: Infused Documented By: Admin: 01/08/24 16:24 Dose: 999 mls/hr Documented By: TERENCE Labetalol HCl (Labetalol Hcl Iv 5 Mg/Ml 20ml) 10 mg IV NOW STA Stop: 01/08/24 15:54 Last Admin: 01/08/24 16:22 Dose: 10 mg Documented By: TERENCE Co-signed By: KOMAL Imaging Data Radiologist's Impression: Head CT 01/08/24 14:24 CT OF THE HEAD WITHOUT CONTRAST CLINICAL HISTORY: weak COMPARISON STUDY: Head CT July 18, 2022. MRI of the brain July 18, 2022. CT DOSE: 625.8 mGy.cm TECHNIQUE: Helical axial images of the head were obtained without IV contrast. Automated exposure control was utilized for the study. A dose lowering technique was utilized adhering to the principles of ALARA. FINDINGS: No acute intracranial hemorrhage, midline shift or mass effect is present. The ventricular system is stable. A left frontal lobe calcification is unchanged. The basal cisterns are patent. No extra-axial collections are present. There are no findings to suggest acute dural sinus thrombosis or acute territorial infarct. Air-fluid level within the right sphenoid sinus is present. There are no significant calvarial abnormalities. IMPRESSION: 1. No acute intracranial findings. No change in appearance of the brain. 2. Right sphenoid sinus air-fluid level. ACT 112: Negative or not required by law. Electronically signed by: Roger Epperson M.D. 01/08/2024 3:22 PM Chest X-Ray 01/08/24 15:27 XR chest 1V portable CLINICAL HISTORY: weakness COMPARISON STUDY: Chest radiograph July 21, 2023. Chest CT October 12, 2021 FINDINGS: There is no pneumothorax. Blunting of the left costophrenic angle is unchanged. Cardiomegaly is unchanged. There is a device within the left atrial appendage. There is no pneumothorax or evidence for pulmonary edema. There is no consolidation to suggest pneumonia. Right apical density favors scarring. IMPRESSION: No acute cardiopulmonary findings. No change in appearance of the chest. Cardiomegaly. ACT 112: Negative or not required by law. Electronically signed by: Roger Epperson M.D. 01/08/2024 4:01 PM Discharge Plan Visit Data Chief Complaint: Weakness ED Provider: Kole Brenner Discharge Problem: Weakness, Stroke-like symptoms, Hypertension, Cardiomegaly Patient Disposition: Admitted As Inpatient Condition: Fair Forms Stand Alone Forms: [facility] [employer] Prescriptions Prescriptions: No Action carvedilol 12.5 mg tablet 12.5 mg PO BID levothyroxine 75 mcg tablet 75 mcg PO DAILYBB Entresto 97-103 mg tablet 1 tab PO BID amitriptyline 10 mg tablet 10 mg PO HS brimonidine-timolol [Combigan] 0.2-0.5 % drops 1 drp OPB BID aspirin 81 mg Tablet,Delayed Release (Dr/Ec) 81 mg PO DAILY albuterol sulfate 90 mcg/actuation HFA aerosol inhaler 1 inh inhalation Q6H PRN (Reason: shortness of breath or wheezing) Qty: 8.5 0RF amlodipine 2.5 mg tablet 2.5 mg PO DAILY dorzolamide 2 % drops 1 drp OPR BID furosemide 20 mg tablet 20 mg PO DAILY Rhopressa 0.02 % drops 1 drp OPR HS Referrals Referrals: Hayley Roland MD [Primary Care Provider] - Discharge Problem: Hypertension Qualifiers: Hypertension type: unspecified Qualified Code(s): I10 - Essential (primary) hypertension
[2024-01-08 14:52] LABS: Influenza A virus by PCR Negative (Neg); Influenza B virus by PCR Negative (Neg); RSV by PCR Negative (Neg); SARS CoV2 RNA(COVID-19) Ceph NEGATIVE (Negative)
[2024-01-08 14:57] LABS: Albumin Globulin Ratio 1.5 (0.9-2); Albumin Level 3.8 gm/dl (3.4-5.0); BUN Creatinine Ratio 32.3 (10-20); Bilirubin,Total 0.9 mg/dl (0.2-1.0); Calcium 8.5 mg/dl (8.6-10.3); Creatinine Clr Calc Pharmacy 42.4 ml/min; Est GFR (African American) 61.6 ml/min; Est GFR (Non-African American) 53.2 ml/min; Globulin 2.5 gm/dl (2.5-4.0); Potassium 3.5 mmol/L (3.5-5.1); Total Protein 6.3 gm/dl (6.0-8.3)
[2024-01-08 15:03] LABS: INR 1.1 (0.9-1.1); Partial Thromboplastin Time 29 Seconds (21-31); Prothrombin Time 11.9 Seconds (9.0-12.0); Troponin I High Sensitivity 6.3 pg/ml (0-14)
[2024-01-08 15:12] LABS: Thyroid Stimulating Hormone 2.388 uIu/ml (0.300-4.500)
[2024-01-08] MEDS: SODIUM CHLORIDE 0.9% 500 ML IV ONE ×2 (15:17→16:24)
--- NOTE | 2024-01-08 15:23 | CT Scan Report ---
CT OF THE HEAD WITHOUT CONTRAST CLINICAL HISTORY: weak COMPARISON STUDY: Head CT July 18, 2022. MRI of the brain July 18, 2022. CT DOSE: 625.8 mGy.cm TECHNIQUE: Helical axial images of the head were obtained without IV contrast. Automated exposure con trol was utilized for the study. A dose lowering technique was utilized adhering to the principles o f ALARA. FINDINGS: No acute intracranial hemorrhage, midline shift or mass effect is present. The ventricular system is stable. A left frontal lobe calcification is unchanged. The basal cisterns are patent. No e xtra-axial collections are present. There are no findings to suggest acute dural sinus thrombosis or acute territorial infarct. Air-fluid level within the right sphenoid sinus is present. There are no s ignificant calvarial abnormalities. IMPRESSION: 1. No acute intracranial findings. No change in appearance of the brain. 2. Right sphenoid sinus air-fluid level. ACT 112: Negative or not required by law. Electronically signed by: Roger Epperson M.D. 01/08/2024 3:22 PM
--- NOTE | 2024-01-08 16:02 | XRay Report ---
XR chest 1V portable CLINICAL HISTORY: weakness COMPARISON STUDY: Chest radiograph July 21, 2023. Chest CT October 12, 2021 FINDINGS: There is no pneumothorax. Blunting of the left costophrenic angle is unchanged. Cardiomegal y is unchanged. There is a device within the left atrial appendage. There is no pneumothorax or evide nce for pulmonary edema. There is no consolidation to suggest pneumonia. Right apical density favors scarring. IMPRESSION: No acute cardiopulmonary findings. No change in appearance of the chest. Cardiomegaly. ACT 112: Negative or not required by law. Electronically signed by: Roger Epperson M.D. 01/08/2024 4:01 PM
[2024-01-08] MEDS: LABETALOL HCL IV 5 MG/ML 20ML IV STA ×2 (16:22→18:51)
--- NOTE | 2024-01-08 17:12 | History & Physical Report ---
Date of Service January 08, 2024 Assessment & Plan (1) Left leg weakness: Plan: -Admit to med/tele -Currently hypertensive at 174/103 but otherwise stable -Presented to the ED with ongoing LLE weakness and ambulatory dysfunction which began at 0300 this morning -Patient denies new pain in the LLE to cause her weakness, states she feels like she is leaning to the left while walking -Symptoms have significantly improved but have not completely resolved since they began -CT of the head/brain is negative for acute findings, does show Right sphenoid sinus air-fluid level -We will continue her stroke workup on admission with: >CTA of the head/neck >MRI brain wo con >TTE -She is without fever or leukocytosis to suggest acute infection -UA was negative -No other focal neuro defects noted -She was given 10 mg IV labetalol in the ED prior to admission -We will allow for permissive HTN until her CT's and Brain MRI are complete -Q4h neuro checks -Dysphagia screen, fall precautions, aspiration precautions -PT/OT consults -BL MARY BETH's for DVT PPX -HH diet if she passes dysphagia screen -AM CBC, BMP, A1C, lipid panel (2) Ambulatory dysfunction: Plan: -See left leg weakness (3) Permanent atrial fibrillation: Plan: -S/P Watchman procedure -Upon further review of her ECG today and review on telemetry she is in rate controlled afib at this time -If she were to have a new embolic stroke, she would like require anticoagulation again -Will continue her BID Carvedilol for now to prevent RVR (4) HFrEF (heart failure with reduced ejection fraction): Plan: -Euvolemic on exam -Will hold antihypertensives and diuretics until brain imaging is back to allow for permissive HTN in case she experienced a recent CVA (5) Hypothyroidism: Plan: -Continue levothyroxine (6) Presence of Watchman left atrial appendage closure device: Plan: -Reason she is not on AC for afib -Continue to monitor on tele Plan The patient was discussed with Dr. Lovell at the time of the admission History of Present Illness Chief Complaint: ambulatory dysfunction Primary Care Provider: Hayley Roland MD Garima is an 88 year old female with a PMH significant for atrial fibrillation s/p watchman device, HFrEF (LVEF of 35-40%), hypothyroidism, pericardial effusion, glaucoma, upper airway cough syndrome and allergic rhinitis, [place] disease who presented to the [facility] ED on 01/08/24 with a chief complaint of feeling like she is leaning to the left when she walks. She was noted to be hypertensive at 174/103 but otherwise stable. Labs were significant for a lymphocyte count of 1.11 and calcium of 8.5. Chest xray and CT of the head/brain were negative for acute findings. Prior to admission the patient was given 10 mg IV labetalol and 1L NSS. We were asked to admit the patient for her ongoing symptoms. At the time of the exam the patient was sitting in bed in no acute distress. She states that she had been in her normal state of health when she woke around 0300 this am to walk to the bathroom. She noticed that her LLE was significantly weak causing ambulatory dysfunction, but she denies recent falls. When she woke this am her symptoms were improved but not completely resolved. Later this afternoon she started having more difficulty with LLE weakness and ambulation so she was brought to the ED for further evaluation. She denies any other neurologic symptoms since her LLE weakness began. She has been taking her medications as prescribed. She tells me that she has a long history of resistant HTN but works hard to eat well and take her medications as prescribed. She is a full code and would want her Son, Jani, to make medical decisions for him if he cannot make them himself. Please refer to Dr. Lovell's attestation for any changes to the treatment plan Allergies Allergy/AdvReac Type Severity Reaction Status Date / Time No Known Allergies Allergy Unverified 11/18/22 15:18 Home Medications Medication Instructions Recorded Confirmed Type carvedilol 12.5 mg tablet 12.5 mg PO BID 10/01/21 01/08/24 History levothyroxine 75 mcg tablet 75 mcg PO DAILYBB 10/01/21 01/08/24 History sacubitril 97 mg-valsartan 103 mg 1 tab PO BID 10/01/21 01/08/24 History tablet (Entresto) amitriptyline 10 mg tablet 10 mg PO HS 07/18/22 01/08/24 History brimonidine 0.2 %-timolol 0.5 % 1 drp OPB BID 07/18/22 01/08/24 History eye drops (Combigan) aspirin 81 mg tablet,delayed 81 mg PO DAILY 11/18/22 01/08/24 History release albuterol sulfate 90 mcg/actuation 1 inh inhalation Q6H PRN shortness 07/16/23 01/08/24 Rx aerosol inhaler of breath or wheezing #8.5 grams amlodipine 2.5 mg tablet 2.5 mg PO DAILY 01/08/24 01/08/24 History dorzolamide 2 % eye drops 1 drp OPR BID 01/08/24 01/08/24 History furosemide 20 mg tablet 20 mg PO DAILY 01/08/24 01/08/24 History netarsudil 0.02 % eye drops 1 drp OPR HS 01/08/24 01/08/24 History (Rhopressa) Past Med/Surg History Medical History Squamous cell skin cancer Glaucoma Allergic rhinitis with postnasal drip Hypoalbuminemia Hypothyroidism Community acquired pneumonia (09/2021) Surgical History H/O: hysterectomy History of cataract surgery Presence of Watchman left atrial appendage closure device (2017) Family History Other Family history non-contributory Social History Smoking Status: Never smoker Tobacco Type: Cigarettes Second Hand Exposure: No; Do You Dip or Chew Tobacco: No; Hx Alcohol Use: Yes Alcohol type: wine Hx Substance Use: No Preferred Language: Nigerien Communication Ability: Effective Driver Medic Required: No Beliefs That Will Affect Care: None marital status: / Current Living Situation: Alone Current Living Situation Comment: living with son and his family, plans to move out soon How many Children do You have: 1 Other Information That Helps Us Care for You: No Feels Safe at Home: Yes Safety Concerns: Feels Safe At This Time Assistive Devices: Walker Physical Exam Physical Exam: Physical Exam: General: In no acute distress, stated age, well-nourished, good hygiene HEENT: Normocephalic, atraumatic, no scleral icterus, pupils around round, symmetrical, and reactive to light, moist mucus membranes, trachea midline, no thyromegaly Chest/Pulm: No respiratory distress, symmetrical chest expansion, clear breath sounds throughout Cardiac: RRR, no murmurs noted Abdomen: Negative for ascites and bruising, normoactive bowel sounds, soft, non-tender to palpation throughout Musculoskeletal: Symmetrical and without signs of acute trauma, upper and lower extremities with full ROM, no atrophy, spasticity, or flaccidity Extremities: Radial, dorsalis pedis, and posterior tibial pulses are intact and symmetrical, no edema noted in the BL LE's Skin: Warm, dry, no rashes , lesions, or scars noted Neuro: Alert and oriented to person, place, month, year, and president, no focal defects, CN II-XII tested and intact, negative cerebellar and pronator drift testing in the BL upper extremities, symmetrical strength in the BL upper and lower extremities, no tremors noted Psych: No acute distress, calm and cooperative during the exam Results & Data Results & Data Vital Signs (Past 12 Hours) Vital Signs Temp Pulse Pulse Resp BP BP Pulse Ox 01/08/24 16:53 78 16 174/103 H 100 01/08/24 16:22 72 174/114 H 01/08/24 15:47 68 18 174/114 H 96 01/08/24 13:54 72 96 01/08/24 13:48 79 01/08/24 13:30 36.4 C L 72 16 174/112 H 96 O2 Del Method 01/08/24 16:53 Room Air 01/08/24 16:22 01/08/24 15:47 Room Air 01/08/24 13:54 Room Air 01/08/24 13:48 01/08/24 13:30 Room Air Laboratory Results Abnormal lab results 01/08/24 01/08/24 Range/Units 14:00 14:15 Lymph # (Auto) 1.11 L (1.20-3.40) K/uL BUN 31 H (6-23) mg/dl BUN/Creatinine Ratio 32.3 H (10-20) Glucose 118 H (70-99(Fasting)) mg/dl Calcium 8.5 L (8.6-10.3) mg/dl Urine Blood 1+ H (Negative) Urine RBC (Auto) 10-30 H (0-4) /hpf U Epithel Cells (Auto) 5-10 H (0-5) /lpf Diagnostic Findings Head CT 01/08/24 14:24 CT OF THE HEAD WITHOUT CONTRAST CLINICAL HISTORY: weak COMPARISON STUDY: Head CT July 18, 2022. MRI of the brain July 18, 2022. CT DOSE: 625.8 mGy.cm TECHNIQUE: Helical axial images of the head were obtained without IV contrast. Automated exposure control was utilized for the study. A dose lowering technique was utilized adhering to the principles of ALARA. FINDINGS: No acute intracranial hemorrhage, midline shift or mass effect is present. The ventricular system is stable. A left frontal lobe calcification is unchanged. The basal cisterns are patent. No extra-axial collections are present. There are no findings to suggest acute dural sinus thrombosis or acute territorial infarct. Air-fluid level within the right sphenoid sinus is present. There are no significant calvarial abnormalities. IMPRESSION: 1. No acute intracranial findings. No change in appearance of the brain. 2. Right sphenoid sinus air-fluid level. ACT 112: Negative or not required by law. Electronically signed by: Roger Epperson M.D. 01/08/2024 3:22 PM Chest X-Ray 01/08/24 15:27 XR chest 1V portable CLINICAL HISTORY: weakness COMPARISON STUDY: Chest radiograph July 21, 2023. Chest CT October 12, 2021 FINDINGS: There is no pneumothorax. Blunting of the left costophrenic angle is unchanged. Cardiomegaly is unchanged. There is a device within the left atrial appendage. There is no pneumothorax or evidence for pulmonary edema. There is no consolidation to suggest pneumonia. Right apical density favors scarring. IMPRESSION: No acute cardiopulmonary findings. No change in appearance of the chest. Cardiomegaly. ACT 112: Negative or not required by law. Electronically signed by: Roger Epperson M.D. 01/08/2024 4:01 PM ECG Additional Comments: Undetermined rhythm Left axis deviation Inferior infarct (cited on or before 19-DEC-2022) Possible Anterior infarct (cited on or before 19-DEC-2022) Abnormal ECG When compared with ECG of 21-JUL-2023 12:45, Current undetermined rhythm precludes rhythm comparison, needs review Questionable change in initial forces of Lateral leads T wave inversion no longer evident in Lateral leads Code Status & VTE Plan Code Status Full code VTE Prophylaxis Plan VTE Prophylaxis will be ordered: Yes Supervising Physician Co-Signing Physician Notes I personally saw and examined the patient. I verified all diaz points and agree with Taiwo You PA-C with the following exceptions and/or additions: 88 year old female presents to the ER due to left leg weakness. Very unclear history from patient and on follow up with her son appears she likely confabulates well and has underlying dementia. Initially told ER symptoms started last night. Told Taiwo You PA-C started 3am this morning. Told me started at 3am. Story changes on repeated conversations where she says she doesn't have any problems walking but then also also she leans to the left. She notes no current issues. O/E A&Ox3, HS RRR, no murmurs, Chest CTAB, Abdo SNT, CN 2-> 12 intact, no focal motor weakness or change in sensation A/P Left leg weakness - stroke workup as above Possible dementia - B12, TSH, follow up with neurology as outpatient PG Care Time/CCT Total # of Minutes Spent Total Time Spent with Patient: Total time spent is greater than 50% in coordination of care (as documented) at patient's floor/unit and/or counseling patient: Coding [place] [address] INT INP/OBS CARE 3/75MIN Patient Type Established Medical Decision Making High Complexity Diagnoses Left leg weakness R29.898 Ambulatory dysfunction R26.2 Permanent atrial fibrillation I48.21 HFrEF (heart failure with reduced ejection fraction) I50.20 Hypothyroidism E03.9 Presence of Watchman left atrial appendage closure device Z95.818
[2024-01-08] MEDS ORDERED: PHARMACIST DISCHARGE MED REC CONSULT PRN (17:23)
[2024-01-08] MEDS: OPTIRAY 320 125ml IV ONE (18:46)
[2024-01-08] MEDS ORDERED: ALBUTEROL HFA 8 GM INHALER INH PRN (19:10)
--- NOTE | 2024-01-08 19:12 | CT Scan Report ---
CT ANGIOGRAPHY OF THE NECK WITH CONTRAST CLINICAL HISTORY: stroke workup COMPARISON STUDY: No previous studies for comparison. Technique: CT angiography of the carotid and vertebral arteries was obtained using Optiray and 3D rec onstruction on an independent workstation. NASCET criteria was utilized. Automated exposure control was utilized for the study. A dose lowering technique was utilized adhering to the principles of ALA RA. Findings: Visualized portions of the lung apices are unremarkable. There is no cervical lymphadenopat hy. The bilateral common carotid, cervical internal carotid and vertebral arteries are patent. There is mild atherosclerotic plaque. No stenoses are identified. There is no aneurysm or dissection within the major vessels of the neck. There are mild stenoses at the origins of the bilateral vertebral art eries. Moderate atherosclerotic plaque within the aortic arch. IMPRESSION: 1. No stenoses within the bilateral common carotid or cervical internal carotid artery. 2. Mild stenoses at the origins of the bilateral vertebral arteries. ACT 112: Negative or not required by law. Electronically signed by: Roger Epperson M.D. 01/08/2024 7:09 PM
--- NOTE | 2024-01-08 19:18 | CT Scan Report ---
CTA ANGIOGRAPHY OF THE HEAD CLINICAL HISTORY: stroke workup COMPARISON STUDY: MRI of the brain July 19, 2021. Head CT July 18, 2022. TECHNIQUE: Helical axial images of the head were obtained following uneventful intravenous administr ation of 118 cc of Optiray. Sagittal and coronal reconstructions were viewed as well as maximal inten sity projections on an independent 3-D workstation. Automated exposure control was utilized for the study. A dose lowering technique was utilized adhering to the principles of ALARA. CT DOSE: 544.05 mGy.cm FINDINGS: Moderate-sized air-fluid level within the right sphenoid sinus is noted. There is polypoid mucosal thickening of the left-sided sinus. No calvarial fractures are present. 8 mm left frontal lob e calcification is unchanged. Ventricular system is stable. Basal cisterns are patent. There are no e xtra axial collections. The bilateral M1, M2, A1 and A2 segments are patent. There is mild plaque wit hin the cavernous carotids and the left middle cerebral artery. No severe stenoses are identified. Th ere is no large vessel occlusion. persistence of the right posterior cerebral artery. Posterior circulation is intact. There is no intracranial aneurysm. Outpouching arising from fibula. IMPRESSION: 1. No large vessel occlusion. No intracranial aneurysm. 2. Air-fluid level within the right sphenoid sinus. Polypoid mucosal thickening of the left sphenoid sinus. ACT 112: Negative or not required by law. Electronically signed by: Roger Epperson M.D. 01/08/2024 7:15 PM
--- NOTE | 2024-01-08 20:37 | Communication Note ---
Date of Service: January 08, 2024 I was able to call and speak with the Patient's Son/POA/Medical POA, Jani Crowley [phone] to obtain further history. He explains that his mother rigoberto alled him around 0500 this am saying that she could not feel her left leg. At that time he instructed her to hit her nurse button so they could assist as she lives in [facility]. He states that she was worried about her dog and was not following commands. He states that they have been concerned for Dementia over the past 3-4 years. They moved down to [place] to care for her approximately 4 years ago then moved her up to [place] with them when he obtained a job at [employer]. They had to move her into [facility] last year as they have 2 young children and were unable to provide the amount of care she requires. He states that they have been trying to obtain a Neurology referral to have her evaluated for Dementia but this has not yet happened. He states that her recent memory is very poor. He also mentions that they are very concerned regarding her weight and eating habits. He explains that she has been hyperfixation on food since she was a child. This unfortunately stems from interactions between the patient and her mother as a child. She eats very little due to concerns of gaining weight and will often hide or pocket food to trick others. She has recently lost approximately 15 lbs over the past 3 months due to poor oral intake. He explains that while they are concerned over her weigh loss she has been happy. He stocks her fridge with foods high in protein and ve getables but states that she will not eat carbohydrates. I offered to have her evaluated by our Product Management Specialist team and he was very interested. We discussed code status as he is her financial and medical POA and will bring in copies of her living will. She is a DNR/DNI. The plan was discussed with Dr. Lovell at the time of this communication note.
[2024-01-08] MEDS ORDERED: NON-FORMULARY MEDICATION (Brimonidine-Timolol [Combigan] 0.2-0.5 % drops) OPB SCH (21:00)
[2024-01-08] MEDS: AMITRIPTYLINE HCL 10 MG TAB PO SCH (21:34)
[2024-01-08 21:35] LABS: Folate (Folic Acid),Ser orPlas 8.51 ng/ml (>5.38)
[2024-01-08] MEDS: BRIMONIDINE TARTRATE 0.2% 5ML OP SCH (21:35)
[2024-01-08] MEDS: carvediloL 12.5 MG TAB PO SCH (21:35)
[2024-01-08] MEDS: DORZOLAMIDE HCL 2% OPH SOLN 10 ML BTL OPR SCH (21:37)
[2024-01-08] MEDS: TIMOLOL MALEATE 0.5% OP SOLN 5 ML BTL OP SCH (21:37)
[2024-01-09] MEDS: LEVOTHYROXINE SODIUM 75 MCG TABLET PO SCH (05:47)
[2024-01-09 06:09] LABS: Hematocrit (blood only) 40.5 % (37.0-47.0); Hemoglobin 13.6 g/dl (12.0-16.0); Mean Corpuscular Hgb Conc 33.6 g/dL (32.0-36.0); Mean Corpuscular Volume 89.2 fL (80.0-100.0); Mean Platelet Volume 12.5 fL (9.4-12.4); Platelet Count 176 K/uL (130-400); RDW Coefficient of Variation 13.6 % (11.5-14.5); RDW Standard Deviation 44.3 fL (36.4-46.3); Red Blood Count 4.54 M/uL (4.20-5.40); White Blood Count 6.43 K/ul (4.8-10.8)
[2024-01-09 06:32] LABS: BUN Creatinine Ratio 27.3 (10-20); Calcium 8.7 mg/dl (8.6-10.3); Chol HDL Ratio 2.7 (0-5); Creatinine Clr Calc Pharmacy 40.8 ml/min; Est GFR (African American) 59.4 ml/min; Est GFR (Non-African American) 51.2 ml/min; Potassium 3.5 mmol/L (3.5-5.1)
[2024-01-09 07:38] LABS: Estimated Average Glucose 105 mg/dl; Hemoglobin A1C 5.3 % (4.5-5.6)
[2024-01-09] MEDS: ASPIRIN 81 MG ECTAB PO SCH (08:11)
--- NOTE | 2024-01-09 09:28 | XCELERA ---
[id number]
--- NOTE | 2024-01-09 10:00 | Neurology Consultation ---
Date of Consultation January 09, 2024 Assessment & Plan (1) Left leg weakness: (2) Ambulatory dysfunction: (3) Hypertension: (4) Cognitive impairment: Plan Patient had the acute onset of some left lower extremity weakness and numbness which has since resolved. Currently there is no weakness, numbness, or focal findings. She has a gait dysfunction which is probably multifactorial. She has signs that a peripheral neuropathy is likely present involving predominantly sensory fibers. Previous MRI in 2021 showed mild to moderate old small vessel ischemic disease and atrophy. Cognitively I believe she is somewhat impaired and has a mild cognitive impairment consistent with age and vascular condition. She was markedly hypertensive on admission which could add to some confusion and even lead to focal neurologic findings. She has atrial fibrillation with a Watchman. She is not on anticoagulation. CT angiography of the head and neck were largely unremarkable. Recommendations: 1. MRI of the brain without contrast to evaluate for small stroke and compare her small vessel ischemic disease to the previous MRI. If worse, we could switch aspirin to Plavix but we will hold on this for now. 2. Physical and Occupational Therapy for gait and other strengthening. She likely will need a walker for support (fall risk ambulating on her own). 3. Low-dose statin is reasonable if desired but there is no indication for high-dose statin in this patient. 4. Treat blood pressure as you are doing, aiming for mean arterial pressure of approximately 100. We should tolerate some permissive hypertension as she likely is used to higher blood pressure would not want to drop it too low too quickly. 5. Additional recommendation will be made after the MRI. Overall, I spent a total of 90 minutes with this case including review of records, review of MRI films, direct evaluation of the patient at bedside, report generation, and discussion of the case with the patient and RN at bedside, and Dr. Hernandez, including differential diagnosis and treatment options. History of Present Illness Reason for Consultation: Patient is an 88-year-old old, who was asked to see at the request of Taiwo You PA-C, for neurologic consultation regarding acute focal neurologic findings. Requesting Physician: Taiwo You PA-C Attending Physician: Lobo Hernandez History of Present Illness This patient has a history of permanent atrial fibrillation, post Watchman device as well as hypertension and cardiomyopathy. In June 2022 she was admitted for syncope with seizure activity of a secondary nature. Her neurologic examination was unremarkable at that time. EEG was normal and MRI showed no acute changes. There was mild to moderate old small vessel ischemic disease and generalized atrophy consistent with age and condition. She has been on 81 mg aspirin tablet as well as amlodipine. The patient's history is somewhat confusing and she gave a different history to me that she did to the emergency room and admitting clinician. Apparently, she got up in the middle the night at 0300 on January 08 and was leaning to the left and had some left leg weakness and numbness. This did not improve and she ended up going to the emergency room at 1330 on January 08. She told me that her weakness started "Tuesday night at 0300" and has been the same for the last 2 days and that is why she came to the emergency room. She also states that she came to the emergency room because she felt "ill" all over. She just could not be more specific as to what was wrong. She arrived to the emergency room at 1330 on 01/08 with a temperature of 36.4, pulse 70 and irregular, respiratory rate 16, blood pressure 174/112 and O2 saturation 96%. Blood pressure remained elevated. There were no focal deficits on examination and her NIH stroke scale was 0. CBC and CHEM profile were largely normal, except for mildly elevated BUN and glucose. TSH and magnesium were normal. Urinalysis was unremarkable. CT scan of the head showed no acute changes although there was a right sphenoid sinus air-fluid level. Chest x-ray showed cardiomegaly but no acute changes. CT angiography of the head was unremarkable. CT angiography of the neck was unremarkable. Today she feels well with no pain or headache, dizziness, vision issues or swallowing problems, but she does have some balance issues and perhaps a little bit of confusion she admits to. CBC and CHEM profile today were unremarkable total cholesterol was 194 and triglycerides 62. When I was inquiring about family history, she told me that her mother, and then also her father, recently (within the last 2 to 3 years). She does have some confusion about some past events. Allergies Allergy/AdvReac Type Severity Reaction Status Date / Time No Known Allergies Allergy Unverified 11/18/22 15:18 Home Medications Medication Instructions Recorded Confirmed Type carvedilol 12.5 mg tablet 12.5 mg PO BID 10/01/21 01/08/24 History levothyroxine 75 mcg tablet 75 mcg PO DAILYBB 10/01/21 01/08/24 History sacubitril 97 mg-valsartan 103 mg 1 tab PO BID 10/01/21 01/08/24 History tablet (Entresto) amitriptyline 10 mg tablet 10 mg PO HS 07/18/22 01/08/24 History brimonidine 0.2 %-timolol 0.5 % 1 drp OPB BID 07/18/22 01/08/24 History eye drops (Combigan) aspirin 81 mg tablet,delayed 81 mg PO DAILY 11/18/22 01/08/24 History release albuterol sulfate 90 mcg/actuation 1 inh inhalation Q6H PRN shortness 07/16/23 01/08/24 Rx aerosol inhaler of breath or wheezing #8.5 grams amlodipine 2.5 mg tablet 2.5 mg PO DAILY 01/08/24 01/08/24 History dorzolamide 2 % eye drops 1 drp OPR BID 01/08/24 01/08/24 History furosemide 20 mg tablet 20 mg PO DAILY 01/08/24 01/08/24 History netarsudil 0.02 % eye drops 1 drp OPR HS 01/08/24 01/08/24 History (Rhopressa) Patient History Medical History Squamous cell skin cancer Glaucoma Allergic rhinitis with postnasal drip Hypoalbuminemia Hypothyroidism Community acquired pneumonia (09/2021) Surgical History History of cataract surgery H/O: hysterectomy Presence of Watchman left atrial appendage closure device (2016) Family History Other Family history non-contributory Social History (Updated 01/09/24 @ 09:58 by Silvestre Albrecht MD) Smoking Status: Former smoker Tobacco Type: Cigarettes Age Started Using Tobacco: 18; Age Quit Using Tobacco: 18; Second Hand Exposure: No; Do You Dip or Chew Tobacco: No; Hx Alcohol Use: Yes Alcohol type: wine Alcohol Intake Frequency: 4 or More x per/Week Alcohol Intake Frequency Comment: 1 glass of white wine with dinner most days Hx Substance Use: No Preferred Language: Welsh Communication Ability: Effective Cafe Manager Required: No Beliefs That Will Affect Care: None marital status: / Current Living Situation: Alone Current Living Situation Comment: living with son and his family, plans to move out soon current occupational status: retired current occupation: Former dental hygienist How many Children do You have: 1 Feels Safe at Home: Yes Assistive Devices: Walker Review of Systems Constitutional: no fever, no fatigue and no weakness Eyes: no diplopia, no eye pain and no worsening vision Ear, Nose, Mouth, Throat: no ear pain, no tinnitus, no hearing loss, no dizziness, no snoring, no hoarseness and no dysphagia Respiratory: no cough and no dyspnea Cardiovascular: no chest pain, no palpitations and no lightheadedness Gastrointestinal: no abdominal pain, no nausea and no vomiting Genitourinary: no dysuria, no urinary frequency and no urinary incontinence Musculoskeletal: no back pain, no neck pain, no radicular pain, no joint pain and no myalgia Integumentary: no rash and no lesions Neurologic: + gait abnormality and + confusion; no l ocalized weakness, no generalized weakness, no tingling, no numbness, no tremor(s), no abnormal movements, no headache(s), no abnormal speech and no memory loss Psychiatric: no depression, no irritability, no anxiety, no difficulty concentrating, no confusion and no hallucinations Endocrine: no fatigue and no flushing Hematologic / Lymphatic: no easy bleeding and no easy bruising Allergy / Immunological: no urticaria and no problem reported Exam (Neuro) Physical Exam: The patient is left-handed. The patient is awake, alert, and attentive. Speech is normal without any aphasia or dysarthria. Mood and affect are normal and appropriate. Appearance and grooming are normal. Thought processes were fairly intact although sometimes she would revert back and perseverate on the topic briefly. She was oriented to her name the fact that she was in a hospital and the year. She knew the month and the president. She did not know the date ("early in the month"). Pupils are 4 mm bilaterally and reactive to light. Extraocular eye muscles are intact without nystagmus. Visual acuity and visual arias seem normal grossly to confrontation. There are no deficits to sensation in the face in all 3 distributions of the fifth cranial nerve bilaterally. Corneal reflexes are positive bilaterally. Facial strength and symmetry was normal bilaterally. Hearing is mildly decreased bilaterally. Palate moves well without asymmetry. There is normal sternocleidomastoid and trapezius strength bilaterally. Tongue is midline with good strength bilaterally. Neck has a full range of motion without discomfort. There are no cervical bruits bilaterally. There are no cranial or ocular bruits. Heart is without murmur. There is a regular rhythm and rate. Cervical, thoracic, and lumbar spine are nontender to palpation. Gait is narrow based and somewhat unstable requiring the assistance of at least 1. She did scissor once or twice and had very slow and cautious turns. There was some retropulsion with stance also. With outstretched arms there is no drift. There are no resting, postural, or action tremors. There is no ataxia with finger to nose testing. There is good facility in the hands. No other abnormal involuntary movements are noted. Motor strength is 5/5 diffusely in the arms bilaterally including deltoids, biceps, triceps, brachioradialis, wrist flexors and extensors, car knocker, and intrinsic hand muscles. Motor strength is 5/5 diffusely in the legs bilaterally including hip flexors, quadriceps, hamstrings, gastrocnemius, tibialis anterior, tibialis posterior, and Peroneii muscles bilaterally. Toe extensors are normal and there is good bulk in the extensor digitorum brevis muscles bilaterally. The limbs have good tone without rigidity or spasticity. There is no atrophy noted in the muscles. Muscle bulk is normal, there is no tenderness to palpation, no myotonia to percussion, and no fasciculations seen. Sensory examination is intact to touch and pin throughout all 4 limbs diffusely. Reflexes are 2/4 in the biceps, triceps, brachioradialis, and quadriceps tendons bilaterally. Reflexes were absent in the Achilles tendons bilaterally. Toes are downgoing with plantar stimulation bilaterally. Peripheral pulses are present and of normal quality distally in all 4 limbs. There is no peripheral edema noted in the limbs. Results & Data Vital Signs (Past 12 Hours) Vital Signs Pulse Pulse Resp BP BP Pulse Ox O2 Del Method 01/09/24 09:05 Room Air 01/09/24 08:00 73 24 155/99 H 99 Room Air 01/09/24 07:36 75 01/09/24 06:40 68 20 94 01/09/24 06:30 71 17 99 01/09/24 06:20 72 21 97 02/12/24 06:10 80 22 94 01/09/24 06:01 90 20 95 01/09/24 06:01 76 17 154/117 H 99 01/09/24 06:00 76 17 99 01/09/24 05:50 72 13 98 01/09/24 05:40 79 20 100 01/09/24 05:30 94 H 21 88 L 01/09/24 05:20 79 19 94 01/09/24 05:10 79 17 82 L 01/09/24 05:00 61 20 151/90 H 97 01/09/24 04:50 60 17 97 01/09/24 04:40 63 15 96 01/09/24 04:30 79 14 97 01/09/24 04:20 64 18 96 01/09/24 04:14 69 01/09/24 04:10 69 17 97 01/09/24 04:00 63 16 96 01/09/24 03:50 66 16 95 01/09/24 03:40 61 15 96 01/09/24 03:30 67 12 98 01/09/24 03:20 70 18 73 L 01/09/24 03:10 65 10 L 98 01/09/24 03:00 61 15 159/97 H 98 01/09/24 03:00 61 15 98 01/09/24 02:50 69 13 98 01/09/24 02:40 66 19 97 01/09/24 02:30 69 13 98 01/09/24 02:20 64 14 97 01/09/24 02:10 68 13 98 01/09/24 02:00 64 14 144/99 H 98 01/09/24 02:00 64 14 98 01/09/24 01:50 65 15 97 01/09/24 01:40 66 14 96 01/09/24 01:30 62 13 97 01/09/24 01:20 23 01/09/24 01:10 23 98 01/09/24 01:00 25 H 141/99 H 97 01/09/24 01:00 25 H 97 01/09/24 00:50 23 96 01/09/24 00:40 16 96 01/09/24 00:30 20 95 01/09/24 00:20 15 96 01/09/24 00:10 17 161/90 H 97 01/09/24 00:00 33 H 97 01/09/24 00:00 65 15 161/90 H 95 01/08/24 23:50 65 15 95 01/08/24 23:40 62 15 93 01/08/24 23:30 15 96 01/08/24 23:20 16 95 01/08/24 23:10 15 95 01/08/24 23:06 153/99 H 01/08/24 23:06 13 95 01/08/24 23:00 24 153/99 H 95 01/08/24 22:50 14 96 01/08/24 22:40 31 H 97 01/08/24 22:30 61 17 96 01/08/24 22:20 66 15 96 01/08/24 22:10 64 13 97 01/08/24 22:00 72 24 94 01/08/24 21:50 63 17 97 PG Care Time/CCT Total # of Minutes Spent Total Time Spent with Patient: Total time spent is greater than 50% in coordination of care (as documented) at patient's floor/unit and/or counseling patient: Coding Level of Care Code 83061 INT INP/OBS CARE 3/75MIN Diagnoses Left leg weakness R29.898 Ambulatory dysfunction R26.2 Hypertension I10 Hypertension type: unspecified Cognitive impairment R41.89 Time Spent (min) 90 (3) Hypertension Hypertension type: unspecified Qualified Code(s): I10 - Essential (primary) hypertension
--- NOTE | 2024-01-09 11:14 | Hospitalist Progress Note ---
Date of Service January 09, 2024 Assessment & Plan (1) Left leg weakness: Plan: -Presented to the ED with ongoing LLE weakness and ambulatory dysfunction, unclear when this actually started as hx changes with each practitioner - Denies pain or recent falls, states she feels like she is leaning to the left while walking -CT head/brain: negative for acute findings, does show Right sphenoid sinus air- fluid level -Stroke workup: - CTA head/neck: no carotid stenosis, mild bilateral vertebral artery stenosis - MRI brain wo con: acute to subacute lacunar infarct within the posterior limb of the right internal capsule. Sphenoid sinus disease. -TTE: EF 50-55%, mild concentric LVH, mild and MR, moderate pericardial effusion - stable from previous study 06/2022 - A1c: 5.3, Lipids WNL, B12 279, TSH 2.388 -PT/OT consults (2) Right-sided lacunar infarction: Plan: Brain MRI: There is a focus of restricted diffusion identified within the posterior limb of the right internal capsule, measuring up to 13 mm - Neuro consulted - MRI brain as above, switch ASA to plavix - Low dose statin if desired - continue with some permissive hypertension, MAP goal 100 -Q4h neuro checks (3) Ambulatory dysfunction: Plan: -See left leg weakness -PT/OT (4) Permanent atrial fibrillation: Plan: -S/P Watchman procedure -Upon further review of her ECG today and review on telemetry she is in rate controlled afib at this time -Will continue her BID Carvedilol for now to prevent RVR -will await neuro recs for chronic anticoagulation, will start with heparin while inpatient (5) HFrEF (heart failure with reduced ejection fraction): Plan: -Euvolemic on exam -Will hold antihypertensives and diuretics to allow for permissive HTN (6) Hypothyroidism: Plan: -Continue levothyroxine TSH 2.388 (7) Poor nutrition: Plan: Reported by family - concerns about eating habits, lost 15# in 3 months, son reports she will not eat carbohydrates - BMI 19.3 - Chemical Research Technician consult Plan Dispo: continued inpatient stay DVT proh: heparin q12 for now Son updated by phone Admission and Anticipated Discharge Date Admission Date: January 08, 2024 Subjective Patient seen in ED bed, anxious to get up but does feel that her legs are still weak. The story she tells me continues to be different from what she has told others regarding when the weakness has started. Denies abdominal pain, shortness of breath or chest pain. Agreeable to brain MRI - when discussing her refusing the scan last night, she does not remember this. Review of Systems Review of Systems: All systems reviewed & are unremarkable except as noted in Subjective Physical Exam Physical Exam: General: NAD, VS as above Resp: normal respiratory effort, lungs clear to auscultation CV: RRR, no murmur, Abd: normal bowel sounds, non tender, no hepatosplenomegaly Extremities: Moves all extremities, no edema Neuro: no focal deficits, no facial droop Results & Data Results & Data Vital Signs (Past 12 Hours) Vital Signs Pulse Pulse Resp BP BP Pulse Ox O2 Del Method 01/09/24 09:05 Room Air 01/09/24 09:00 92 H 14 131/94 96 01/09/24 08:00 73 24 155/99 H 99 Room Air 01/09/24 07:36 75 01/09/24 06:40 68 20 94 01/09/24 06:30 71 17 99 01/09/24 06:20 72 21 97 01/09/24 06:10 80 22 94 01/09/24 06:01 90 20 95 01/09/24 06:01 76 17 154/117 H 99 01/09/24 06:00 76 17 99 01/09/24 05:50 72 13 98 01/09/24 05:40 79 20 100 01/09/24 05:30 94 H 21 88 L 01/09/24 05:20 79 19 94 01/09/24 05:10 79 17 82 L 01/09/24 05:00 61 20 151/90 H 97 01/09/24 04:50 60 17 97 01/09/24 04:40 63 15 96 01/09/24 04:30 79 14 97 01/09/24 04:20 64 18 96 01/09/24 04:14 69 01/09/24 04:10 69 17 97 01/09/24 04:00 63 16 96 01/09/24 03:50 66 16 95 01/09/24 03:40 61 15 96 Laboratory Results CBC, chemistry, TSH, B12, A1c reviewed Diagnostic Findings head and neck CTA reviewed PG Care Time/CCT Total # of Minutes Spent Total Time Spent with Patient: Total time spent is greater than 50% in coordination of care (as documented) at patient's floor/unit and/or counseling patient: Coding Level of Care Code 76732 SUB INP/OBS CARE 3/50MIN Diagnoses Left leg weakness R29.898 Right-sided lacunar infarction I63.81 Ambulatory dysfunction R26.2 Permanent atrial fibrillation I48.21 HFrEF (heart failure with reduced ejection fraction) I50.20 Hypothyroidism E03.9 Poor nutrition E63.9
[2024-01-09] MEDS ORDERED: ACETAMINOPHEN 325 MG TAB PO PRN (11:50)
--- NOTE | 2024-01-09 13:44 | Magnetic Resonance Report ---
MRI OF THE BRAIN WITHOUT IV CONTRAST CLINICAL HISTORY: Strokelike symptoms. Difficulty with ambulation. Dementia. COMPARISON STUDY: CT of the brain dated 01/08/2024. TECHNIQUE: MRI of the brain was performed utilizing various T1 and T2-weighted sequences in the axial , sagittal, and coronal planes. IV contrast was not administered for this examination. FINDINGS: Brain parenchyma: There is a focus of restricted diffusion identified within the posterior limb of th e right internal capsule. This is best seen on diffusion-weighted image #11 and measures up to 13 mm. This is consistent with an acute to subacute infarct. No additional foci of restricted diffusion are identified. There is no hemorrhage or mass effect. There is age related involutional change noting m ild to moderate subcortical and periventricular microangiopathic disease. No extra-axial fluid collec tion is seen. The cerebellar tonsils are normal in configuration. Ventricles, sulci, and cisterns: Prominent secondary to involutional change. Pituitary and sella: Unremarkable. Intracranial vasculature: Normal flow voids are maintained at the skull base. Orbits: The bony orbits are grossly intact. Orbital contents are normal in appearance noting bilatera l ocular lens implant. Sinuses and mastoids: There is moderate mucosal thickening within the sphenoid sinuses. The remaining paranasal sinuses and the mastoid air cells are clear. Calvarium: Unremarkable. Cervical cord: Partially visualized cervical spinal cord is normal in morphology and signal intensity . IMPRESSION: 1. Acute to subacute lacunar infarct within the posterior limb of the right internal capsule. 2. No additional foci of acute ischemia are identified. 3. There is no hemorrhage or mass effect. 4. Sphenoid sinus disease as above. ACT 112: Negative or not required by law. Electronically signed by: Kole Barber M.D. 01/09/2024 1:42 PM
--- NOTE | 2024-01-09 19:10 | Electrocardiogram Report ---
Test Reason : Blood Pressure : / mmHG Vent. Rate : 071 BPM Atrial Rate : 000 BPM P-R Int : 000 ms QRS Dur : 084 ms QT Int : 434 ms P-R-T Axes : 000 -58 030 degrees QTc Int : 471 ms Atrial fibrillation with premature ventricular or aberrantly conducted complexes Left axis deviation Inferior infarct (cited on or before 19-DEC-2022) Possible Anterior infarct (cited on or before 19-DEC-2022) Abnormal ECG When compared with ECG of 21-JUL-2023 12:45, Questionable change in initial forces of Lateral leads T wave inversion no longer evident in Lateral leads Premature ventricular complexes are now Present Confirmed by Zhou Dominguez ([id number]) on 01/09/2024 7:10:07 PM Referred By: REFERRED SELF Confirmed By:Zhou Dominguez
[2024-01-09] MEDS: HEPARIN SOD 5,000 UNIT/0.5 ML VIAL SQ SCH (21:10)
[2024-01-10 06:58] LABS: Hematocrit (blood only) 38.3 % (37.0-47.0); Hemoglobin 12.5 g/dl (12.0-16.0); Mean Corpuscular Hemoglobin 29.4 pg (25.0-34.0); Mean Corpuscular Hgb Conc 32.6 g/dL (32.0-36.0); Mean Corpuscular Volume 90.1 fL (80.0-100.0); Mean Platelet Volume 11.7 fL (9.4-12.4); Platelet Count 180 K/uL (130-400); RDW Coefficient of Variation 13.9 % (11.5-14.5); RDW Standard Deviation 45.3 fL (36.4-46.3); Red Blood Count 4.25 M/uL (4.20-5.40); White Blood Count 5.75 K/ul (4.8-10.8)
[2024-01-10 07:30] LABS: BUN Creatinine Ratio 34.9 (10-20); Calcium 8.9 mg/dl (8.6-10.3); Creatinine Clr Calc Pharmacy 49.8 ml/min; Est GFR (African American) 73.5 ml/min; Est GFR (Non-African American) 63.4 ml/min; Potassium 3.5 mmol/L (3.5-5.1)
[2024-01-10] MEDS: amLODIPine BESYLATE 5 MG TAB PO SCH (08:48)
[2024-01-10] MEDS: CLOPIDOGREL BISULFATE 75 MG TAB PO SCH (08:49)
--- NOTE | 2024-01-10 14:22 | Pharmacy Report ---
- Date of Service January 10, 2024 - Pharmacy CVA/TIA Medication Review Medications to Prevent Stroke handout has been added to the patients discharge packet. Antiplatelet(s) * Plavix 75 mg daily Cholesterol * High intensity statin deferred due to age >75 - Neurology recommending considering low dose statin - atorvastatin 10 mg daily ordered DVT Prophylaxis * Heparin SQ Therapeutic Anticoagulation * Afib - rate controlled / hospitalist to discuss with neurology regarding assistant terminal manager plan for anticoagulation Type 2 Diabetes * Patient does not have T2DM
--- NOTE | 2024-01-10 14:27 | Hospitalist Progress Note ---
Date of Service January 10, 2024 Assessment & Plan (1) Left leg weakness: Plan: -Presented to the ED with ongoing LLE weakness and ambulatory dysfunction, unclear when this actually started as hx changes with each practitioner - Denies pain or recent falls, states she feels like she is leaning to the left while walking -CT head/brain: negative for acute findings, does show Right sphenoid sinus air- fluid level -Stroke workup: - CTA head/neck: no carotid stenosis, mild bilateral vertebral artery stenosis - MRI brain wo con: acute to subacute lacunar infarct within the posterior limb of the right internal capsule. Sphenoid sinus disease. -TTE: EF 50-55%, mild concentric LVH, mild and MR, moderate pericardial effusion - stable from previous study 06/2022 - A1c: 5.3, Lipids WNL, B12 279, TSH 2.388 -PT/OT consults - recommending rehab, family desires placement at the [facility] - Vit B1 level pending (2) Right-sided lacunar infarction: Plan: Brain MRI: There is a focus of restricted diffusion identified within the posterior limb of the right internal capsule, measuring up to 13 mm - Neuro consulted - MRI brain as above, switch ASA to plavix (done) - Low dose statin if desired (atorvastatin ordered) - continue with some permissive hypertension, MAP goal 100 (3) Ambulatory dysfunction: Plan: -See left leg weakness -PT/OT (4) Permanent atrial fibrillation: Plan: -S/P Watchman procedure -Upon further review of her ECG today and review on telemetry she is in rate controlled afib at this time -Will continue her BID Carvedilol for now to prevent RVR (5) HFrEF (heart failure with reduced ejection fraction): Plan: -Euvolemic on exam -Amlodpine restarted 01/10 -Resume lasix am 01/11 (6) Hypothyroidism: Plan: -Continue levothyroxine TSH 2.388 (7) Poor nutrition: Plan: Reported by family - concerns about eating habits, lost 15# in 3 months, son reports she will not eat carbohydrates - BMI 19.3 - Placement Director consult Plan Dispo: continued inpatient stay, pending placement DVT proh: heparin q12 for now Attempted to update son by phone, mailbox full Admission and Anticipated Discharge Date Admission Date: January 08, 2024 Subjective Patient resting in bed, seems to be able to answer yes/no questions appropr iately but when asked more detailed questions it is clear she has some underlying cognitive impairment. begins talking to me about the people in the hotel last night. However she does state that her work leg tingling has improved and feels like she is getting stronger and stronger. Tele - Afib 70s Review of Systems Review of Systems: All systems reviewed & are unremarkable except as noted in HPI & below Physical Exam Physical Exam: General: NAD, VS as above Resp: normal respiratory effort, lungs clear to auscultation CV: irregularly irregular, no murmur, Abd: normal bowel sounds, non tender, no hepatosplenomegaly Extremities: Moves all extremities, no edema Neuro: no focal deficits, no facial droop Results & Data Results & Data Vital Signs (Past 12 Hours) Vital Signs Temp Pulse Pulse Resp BP BP Pulse Ox 01/10/24 10:49 36.4 C 78 15 135/76 95 01/10/24 07:56 36.5 C 84 16 189/114 H 97 01/10/24 06:00 89 01/10/24 02:30 36.8 C 75 18 175/90 H 98 O2 Del Method 01/10/24 10:49 Room Air 01/10/24 07:56 Room Air 01/10/24 06:00 01/10/24 02:30 Room Air Laboratory Results CBC and chemistry reviewed PG Care Time/CCT Total # of Minutes Spent Total Time Spent with Patient: Total time spent is greater than 50% in coordination of care (as documented) at patient's floor/unit and/or counseling patient: Coding Level of Care Code 10266 SUB INP/OBS CARE 2/35MIN Diagnoses Left leg weakness R29.898 Right-sided lacunar infarction I63.81 Ambulatory dysfunction R26.2 Permanent atrial fibrillation I48.21 HFrEF (heart failure with reduced ejection fraction) I50.20 Hypothyroidism E03.9 Poor nutrition E63.9
[2024-01-10 23:40] VITALS: RESP 18
[2024-01-11] MEDS: FUROSEMIDE 20 MG TAB PO SCH (08:49)
--- NOTE | 2024-01-11 09:20 | Neurology Progress Note ---
Date of Service January 11, 2024 Assessment & Plan (1) Left leg weakness: (2) Ambulatory dysfunction: (3) Hypertension: (4) Cognitive impairment: Plan Patient had the acute onset, January 08, of left lower extremity weakness and numbness which has since resolved. Currently, there is no weakness, numbness, or focal findings. She has a gait dysfunction which is probably multifactorial. She has signs that a peripheral neuropathy is likely present involving predominantly sensory fibers. MRI shows moderate old small vessel ischemic disease which could affect gait as well. Cognitively, I believe she has a mild cognitive impairment, consistent with age and vascular condition. She was markedly hypertensive on admission which could have added to some confusion and even lead to focal neurologic findings, but her blood pressure is improved and she does not have any acute encephalopathy currently. She has atrial fibrillation with a Watchman. She is not on anticoagulation. CT angiography of the head and neck were largely unremarkable. Recommendations: 1. Continue clopidogrel 75 mg daily 2. Physical and Occupational Therapy for gait and other strengthening. She likely will need a walker for support (fall risk ambulating on her own). 3. Continue 10 mg atorvastatin daily. She has not a high-dose statin candidate. 4. Treat blood pressure as you are doing, aiming for mean arterial pressure of approximately 100. We should tolerate some permissive hypertension as she likely is used to higher blood pressure would not want to drop it too low too quickly. 5. I have no further neurologic testing or treatment recommendations to make at this time. She should follow-up with her PCP although we could see her in neurology in 3 to 4 weeks after discharge, if desired. Overall, I spent a total of 35 minutes with this case including review of record s, review of MRI films, direct evaluation of the patient at bedside, report generation, and discussion of the case with the patient and RN at bedside, and Dr. Hernandez, including differential diagnosis and treatment options. Admission and Anticipated Discharge Date Admission Date: January 08, 2024 Subjective Patient has no complaint of pain, headache, weakness, or numbness. She says she is walking better. Echocardiogram showed a pericardial effusion of a chronic nature and no shunt or other abnormalities. The echo was about the same as June 2022. MRI of the brain showed a tiny right internal capsule acute stroke and she had moderate old small vessel ischemic disease with some mild generalized atrophy consistent with age. I reviewed these films. CBC has been stable as has a CHEM profile although today's is pending. Blood pressure is 159/98 and she is afebrile. Results & Data Vital Signs (Past 12 Hours) Vital Signs Temp Pulse Pulse Resp BP Pulse Ox O2 Del Method 01/11/24 07:23 36.5 C 78 18 159/98 H 97 Room Air 01/11/24 04:24 36.4 C L 88 18 160/99 H 95 Room Air 01/10/24 23:41 74 01/10/24 23:40 36.6 C 75 18 147/71 H 95 Room Air Exam (Neuro) Physical Exam: She is awake and alert. Speech is without aphasia or dysarthria. Mood is normal and affect is appropriate. Thought processes are intact to conversation Extraocular eye muscles are intact without nystagmus. There is no facial droop and tongue is midline. Coordination is normal in the arms without tremor or ataxia. Motor strength is 5/5 diffusely in all major muscle groups of the leg both proximally and distally. Patient's gait is narrow based and fairly stable in a straight line but she is cautious and slow with turns. PG Care Time/CCT Total # of Minutes Spent Total Time Spent with Patient: Total time spent is greater than 50% in coordination of care (as documented) at patient's floor/unit and/or counseling patient: Coding Level of Care Code 84725 SUB INP/OBS CARE 2/35MIN Diagnoses Left leg weakness R29.898 Ambulatory dysfunction R26.2 Hypertension I10 Hypertension type: unspecified Cognitive impairment R41.89 Time Spent (min) 35 (3) Hypertension Hypertension type: unspecified Qualified Code(s): I10 - Essential (primary) hypertension
[2024-01-11 09:32] LABS: Calcium 8.5 mg/dl (8.6-10.3); Potassium 3.8 mmol/L (3.5-5.1)
[2024-01-11 09:37] LABS: BUN Creatinine Ratio 36.3 (10-20); Creatinine Clr Calc Pharmacy 53.6 ml/min; Est GFR (African American) 76.8 ml/min; Est GFR (Non-African American) 66.3 ml/min
[2024-01-11] MEDS: ATORVASTATIN 10 MG TAB PO SCH (11:02)
[2024-01-11 11:03] VITALS: BP 161/107; PULSE 82; TEMP 97.5; O2SAT 94
[2024-01-11] MEDS ORDERED: STROKE PATIENT DISCHARGE STA (11:46)
--- NOTE | 2024-01-11 11:50 | Discharge Summary ---
Discharge Summary Date of Service January 11, 2024 Notes For Next Care Provider Suffered right lacunar infarct - main symptom left LE weakness improving at discharge Vitamin B1 level pending Medication Changes From Visit - stop ASA - started on plavix - started on atorvastatin 10 mg No other medication changes Admission HPI Per Admitting Provider Garima is an 88 year old female with a PMH significant for atrial fibrillation s/p watchman device, HFrEF (LVEF of 35-40%), hypothyroidism, pericardial effusion, glaucoma, upper airway cough syndrome and allergic rhinitis, [place] disease who presented to the [facility] ED on 01/08/24 with a chief complaint of feeling like she is leaning to the left when she walks. She was noted to be hypertensive at 174/103 but otherwise stable. Labs were significant for a lymphocyte count of 1.11 and calcium of 8.5. Chest xray and CT of the head/brain were negative for acute findings. Prior to admission the patient was given 10 mg IV labetalol and 1L NSS. We were asked to admit the patient for her ongoing symptoms. At the time of the exam the patient was sitting in bed in no acute distress. She states that she had been in her normal state of health when she woke around 0300 this am to walk to the bathroom. She noticed that her LLE was significantly weak causing ambulatory dysfunction, but she denies recent falls. When she woke this am her symptoms were improved but not completely resolved. Later this afternoon she started having more difficulty with LLE weakness and ambulation so she was brought to the ED for further evaluation. She denies any other neurologic symptoms since her LLE weakness began. She has been taking her medications as prescribed. She tells me that she has a long history of resistant HTN but works hard to eat well and take her medications as prescribed. She is a full code and would want her Son, Jani, to make medical decisions for him if he cannot make them himself. Please refer to Dr. Lovell's attestation for any changes to the treatment plan Principal Dx & Hospital Course #1 = Principal Diagnosis (1) Left leg weakness: -Presented to the ED with ongoing LLE weakness and ambulatory dysfunction, unclear when this actually started as hx changes with each practitioner - Denies pain or recent falls, states she feels like she is leaning to the left while walking -CT head/brain: negative for acute findings, does show Right sphenoid sinus air- fluid level -Stroke workup: - CTA head/neck: no carotid stenosis, mild bilateral vertebral artery stenosis - MRI brain wo con: acute to subacute lacunar infarct within the posterior limb of the right internal capsule. Sphenoid sinus disease. -TTE: EF 50-55%, mild concentric LVH, mild and MR, moderate pericardial effusion - stable from previous study 06/2022 - A1c: 5.3, Lipids WNL, B12 279, TSH 2.388 -PT/OT consults - recommending rehab, discharged to the [facility] - Vit B1 level pending (2) Right-sided lacunar infarction: Brain MRI: There is a focus of restricted diffusion identified within the posterior limb of the right internal capsule, measuring up to 13 mm - Neuro consulted - MRI brain as above, switch ASA to plavix (done) - Low dose statin if desired (atorvastatin ordered) - continue with some permissive hypertension, MAP goal 100 - follow up with neurology in 3-4 weeks (3) Ambulatory dysfunction: -See left leg weakness -PT/OT (4) Permanent atrial fibrillation: -S/P Watchman procedure -Upon further review of her ECG today and review on telemetry she is in rate controlled afib at this time -Will continue her BID Carvedilol for now to prevent RVR (5) HFrEF (heart failure with reduced ejection fraction): -Euvolemic on exam -Amlodpine restarted 01/10 -Resume lasix am 01/11 Can resume entresto at discharge (6) Hypothyroidism: -Continue levothyroxine TSH 2.388 Plan Dispo: discharge to [facility] Son updated by phone Discharge Exam General: NAD, VS as above Resp: normal respiratory effort, lungs clear to auscultation CV: irregularly irregular, no murmur, Abd: normal bowel sounds, non tender, no hepatosplenomegaly Extremities: Moves all extremities, no edema Neuro: no focal deficits, no facial droop Updated Medication List Medication Instructions Recorded Confirmed Type carvedilol 12.5 mg tablet 12.5 mg PO BID 10/01/21 01/08/24 History levothyroxine 75 mcg tablet 75 mcg PO DAILYBB 10/01/21 01/08/24 History sacubitril 97 mg-valsartan 103 mg 1 tab PO BID 10/01/21 01/08/24 History tablet (Entresto) amitriptyline 10 mg tablet 10 mg PO HS 07/18/22 01/08/24 History brimonidine 0.2 %-timolol 0.5 % 1 drp OPB BID 07/18/22 01/08/24 History eye drops (Combigan) aspirin 81 mg tablet,delayed 81 mg PO DAILY 11/18/22 01/08/24 History release albuterol sulfate 90 mcg/actuation 1 inh inhalation Q6H PRN shortness 07/16/23 01/08/24 Rx aerosol inhaler of breath or wheezing #8.5 grams amlodipine 2.5 mg tablet 2.5 mg PO DAILY 01/08/24 01/08/24 History dorzolamide 2 % eye drops 1 drp OPR BID 01/08/24 01/08/24 History furosemide 20 mg tablet 20 mg PO DAILY 01/08/24 01/08/24 History netarsudil 0.02 % eye drops 1 drp OPR HS 01/08/24 01/08/24 History (Rhopressa) atorvastatin 10 mg tablet 10 mg PO QAM 30 days #30 tabs 01/11/24 Rx clopidogrel 75 mg tablet 75 mg PO QAM 30 days #30 tabs 01/11/24 Rx Hospital Stay Data Consultations 01/08/24 17:13 ED Decision to Admit Stat 01/08/24 20:33 Consult Neurology Routine Diagnostic Imagining Performed Head CT 01/08/24 14:24 CT OF THE HEAD WITHOUT CONTRAST CLINICAL HISTORY: weak COMPARISON STUDY: Head CT July 18, 2022. MRI of the brain July 18, 2022. CT DOSE: 625.8 mGy.cm TECHNIQUE: Helical axial images of the head were obtained without IV contrast. Automated exposure control was utilized for the study. A dose lowering technique was utilized adhering to the principles of ALARA. FINDINGS: No acute intracranial hemorrhage, midline shift or mass effect is present. The ventricular system is stable. A left frontal lobe calcification is unchanged. The basal cisterns are patent. No extra-axial collections are present. There are no findings to suggest acute dural sinus thrombosis or acute territorial infarct. Air-fluid level within the right sphenoid sinus is present. There are no significant calvarial abnormalities. IMPRESSION: 1. No acute intracranial findings. No change in appearance of the brain. 2. Right sphenoid sinus air-fluid level. ACT 112: Negative or not required by law. Electronically signed by: Roger Epperson M.D. 01/08/2024 3:22 PM Chest X-Ray 01/08/24 15:27 XR chest 1V portable CLINICAL HISTORY: weakness COMPARISON STUDY: Chest radiograph July 21, 2023. Chest CT October 12, 2021 FINDINGS: There is no pneumothorax. Blunting of the left costophrenic angle is unchanged. Cardiomegaly is unchanged. There is a device within the left atrial appendage. There is no pneumothorax or evidence for pulmonary edema. There is no consolidation to suggest pneumonia. Right apical density favors scarring. IMPRESSION: No acute cardiopulmonary findings. No change in appearance of the chest. Cardiomegaly. ACT 112: Negative or not required by law. Electronically signed by: Roger Epperson M.D. 01/08/2024 4:01 PM Head CTA 01/08/24 17:44 CTA ANGIOGRAPHY OF THE HEAD CLINICAL HISTORY: stroke workup COMPARISON STUDY: MRI of the brain July 19, 2021. Head CT July 18, 2022. TECHNIQUE: Helical axial images of the head were obtained following uneventful intravenous administration of 118 cc of Optiray. Sagittal and coronal reconstructions were viewed as well as maximal intensity projections on an independent 3-D workstation. Automated exposure control was utilized for the study. A dose lowering technique was utilized adhering to the principles of ALARA. CT DOSE: 544.05 mGy.cm FINDINGS: Moderate-sized air-fluid level within the right sphenoid sinus is noted. There is polypoid mucosal thickening of the left-sided sinus. No calvarial fractures are present. 8 mm left frontal lobe calcification is unchanged. Ventricular system is stable. Basal cisterns are patent. There are no extra axial collections. The bilateral M1, M2, A1 and A2 segments are patent. There is mild plaque within the cavernous carotids and the left middle cerebral artery. No severe stenoses are identified. There is no large vessel occlusion. persistence of the right posterior cerebral artery. Posterior circulation is intact. There is no intracranial aneurysm. Outpouching arising from fibula. IMPRESSION: 1. No large vessel occlusion. No intracranial aneurysm. 2. Air-fluid level within the right sphenoid sinus. Polypoid mucosal thickening of the left sphenoid sinus. ACT 112: Negative or not required by law. Electronically signed by: Roger Epperson M.D. 01/08/2024 7:15 PM Neck CTA 01/08/24 17:44 CT ANGIOGRAPHY OF THE NECK WITH CONTRAST CLINICAL HISTORY: stroke workup COMPARISON STUDY: No previous studies for comparison. Technique: CT angiography of the carotid and vertebral arteries was obtained using Optiray and 3D reconstruction on an independent workstation. NASCET criteria was utilized. Automated exposure control was utilized for the study. A dose lowering technique was utilized adhering to the principles of ALARA. Findings: Visualized portions of the lung apices are unremarkable. There is no cervical lymphadenopathy. The bilateral common carotid, cervical internal carotid and vertebral arteries are patent. There is mild atherosclerotic plaque. No stenoses are identified. There is no aneurysm or dissection within the major vessels of the neck. There are mild stenoses at the origins of the bilateral vertebral arteries. Moderate atherosclerotic plaque within the aortic arch. IMPRESSION: 1. No stenoses within the bilateral common carotid or cervical internal carotid artery. 2. Mild stenoses at the origins of the bilateral vertebral arteries. ACT 112: Negative or not required by law. Electronically signed by: Roger Epperson M.D. 01/08/2024 7:09 PM Brain MRI 01/09/24 12:21 MRI OF THE BRAIN WITHOUT IV CONTRAST CLINICAL HISTORY: Strokelike symptoms. Difficulty with ambulation. Dementia. COMPARISON STUDY: CT of the brain dated 01/08/2024. TECHNIQUE: MRI of the brain was performed utilizing various T1 and T2-weighted sequences in the axial, sagittal, and coronal planes. IV contrast was not administered for this examination. FINDINGS: Brain parenchyma: There is a focus of restricted diffusion identified within the posterior limb of the right internal capsule. This is best seen on diffusion- weighted image #11 and measures up to 13 mm. This is consistent with an acute to subacute infarct. No additional foci of restricted diffusion are identified. There is no hemorrhage or mass effect. There is age related involutional change noting mild to moderate subcortical and periventricular microangiopathic disease. No extra-axial fluid collection is seen. The cerebellar tonsils are normal in configuration. Ventricles, sulci, and cisterns: Prominent secondary to involutional change. Pituitary and sella: Unremarkable. Intracranial vasculature: Normal flow voids are maintained at the skull base. Orbits: The bony orbits are grossly intact. Orbital contents are normal in appearance noting bilateral ocular lens implant. Sinuses and mastoids: There is moderate mucosal thickening within the sphenoid sinuses. The remaining paranasal sinuses and the mastoid air cells are clear. Calvarium: Unremarkable. Cervical cord: Partially visualized cervical spinal cord is normal in morphology and signal intensity. IMPRESSION: 1. Acute to subacute lacunar infarct within the posterior limb of the right internal capsule. 2. No additional foci of acute ischemia are identified. 3. There is no hemorrhage or mass effect. 4. Sphenoid sinus disease as above. ACT 112: Negative or not required by law. Electronically signed by: Kole Barber M.D. 01/09/2024 1:42 PM Pending Results Patient Have Any Pending Studies at Discharge: No Discharge Instructions Given to Patient (Per Discharging Provider) - Suffered right sided lacunar infarction. Initially presented with left sided weakness but improving on discharge - Clear cognitive impairment during her stay Medication changes * Stop ASA * Started Plavix * Started atorvastatin Vitamin B1 level pending Will need neurology appointment in 3-4 weeks. Total Time Total Time Spent Total Time Spent (In Minutes): Time spend day of discharge 40 minutes including direct patient care, medication reconciliation, documentation, review of labs and images, and coordination of care. Coding Level of Care Code 69846 INP/OBS DISCH >30 MIN Diagnoses Left leg weakness R29.898 Right-sided lacunar infarction I63.81 Ambulatory dysfunction R26.2 Permanent atrial fibrillation I48.21 HFrEF (heart failure with reduced ejection fraction) I50.20 Hypothyroidism E03.9
== END 2024-01-11 15:37 | DRG 65 ==
LOC: ED 13:25 → SUATTDRO 17:21 → EDINP 17:21 → 2N 01-09 17:59
DX: Z87.891 Personal history of nicotine dependence; Z79.82 Long term (current) use of aspirin; I63.81 Other cerebral infarction due to occlusion or stenosis of small artery; G62.9 Polyneuropathy, unspecified; Z95.828 Presence of other vascular implants and grafts; I42.9 Cardiomyopathy, unspecified; I48.21 Permanent atrial fibrillation; I50.22 Chronic systolic (congestive) heart failure; R29.898 Other symptoms and signs involving the musculoskeletal system; Z79.890 Hormone replacement therapy; I31.39 Other pericardial effusion (noninflammatory); H40.9 Unspecified glaucoma; E03.9 Hypothyroidism, unspecified; I11.0 Hypertensive heart disease with heart failure